=== PATIENT | male | born 1955 | race Caucasian/White ===

== ENCOUNTER 2020-10-08 11:48 | Outpatient (CLI) | payer MEDICARE, OTHER, SELFPAY ==
--- NOTE | 2020-10-08 11:54 | CT_ITS ---
WS: [id number] CT CHEST, ABDOMEN AND PELVIS WITH CONTRAST HISTORY: COLON CANCER TECHNIQUE: Contiguous 5 mm axial imaging performed through the chest, abdomen and pelvis with IV cont rast, oral contrast has not been provided. Coronal and sagittal reformats chest. Coronal and sagittal reformats through the abdomen and pelvis. All CT scans at [facility] use at least one of these dose optimization techniques: automated exposure control; mA and/or kV adjustment per patient size (includes targeted exams where dose is matched to clinical indication); or iterative reconstruct ion. CONTRAST: Omnipaque 300; 95 mL IV. DLP: 1309.25 mGy.cm COMPARISON: None available. Chest CT: No pulmonary mass or nodule. Very mild groundglass attenuation in the LEFT lower lobe and a t the RIGHT lung base. Mild atherosclerosis aorta. Normal size pulmonary artery. Heart size is normal . No adenopathy in the mediastinum or hilar regions. Small hiatal hernia. Chest wall is normal. Abdomen CT: Normal size liver. No bile duct dilatation or mass. Spleen and pancreas are negative. Con tracted gallbladder. No adrenal mass. Normal RIGHT kidney. LEFT kidney measures 3.5 cm. Mild atherosc lerosis aorta. No ascites. Soft tissue encasement of the distal transverse colon/splenic flexure extending over a length of 7.2 cm. Wall thickening measures up to 2.2 cm with moderate narrowing of the lumen. No adjacent satellite lesions or nodules. No retroperitoneal lymph nodes. There is marked gaseous distention of the colon. Appendix is normal. Pelvic CT: There is a small amount of free fluid in the pelvis. No adenopathy. CT/CT chest abd pel w con* IMPRESSION: 1. Circumferential distal transverse colon mass extends over length of 7.2 cm with wall thickening up to 2.2 cm. Moderate narrowing of the lumen. No obstruct ion. Consistent with colonic neoplasm. 2. No adenopathy. 3. Very small amount of ascites in the pelvis. 4. No metastatic disease to the liver, lungs or adrenal glands noted. 5. Chronic emphysema with pneumonitis at the LEFT lung base.
[2020-10-08 12:44] LABS: Basophils % 0.2 %; Eosinophils % 0.2 %; Hematocrit 42.2 % (42.0-52.0); Hemoglobin 13.2 g/dL (11.7-16.6); Lymphocytes # 0.9 10^3/uL (0.8-4.8); Mean Corpuscular HGB Conc 31.3 g/dL (30.0-36.0); Mean Corpuscular Volume 83.2 fL (80-94); Mean Platelet Volume 9.4 fL (7.4-10.4); Monocytes # 0.7 10^3/uL (0.2-0.9); Monocytes % 5.3 %; Neutrophils # 11.21 10^3/uL (1.8-7.7); Neutrophils % 86.8 %; Nucleated Red Blood Cells % 0 %; Platelet Count 364 10^3/cmm (130-400); Red Blood Count 5.07 10^6/uL (4.1-5.3); Red Cell Distribution Width 13.4 % (12.1-15.1); White Blood Count 12.9 10^3/uL (4.0-10.0)
[2020-10-08 13:05] LABS: Carcinoembryonic Antigen 88.7 ng/mL (0.0-4.7)
[2020-10-08 13:16] LABS: Alanine Aminotransferase 9 U/L (0-41); Alkaline Phosphatase 91 IU/L (40-130); Anion Gap 21.5 (5-19); Aspartate Amino Transferase 18 U/L (0-40); Blood Urea Nitrogen 7 mg/dL (8-23); Calcium 8.8 mg/dL (8.5-10.5); Carbon Dioxide 20 mmol/L (22-29); Chloride 95 mmol/L (98-107); Globulin 3.6 g/dL (1.3-4.6); Glomerular Filtration Rate 112.5 mL/min (90-130); Glucose 152 mg/dL (65-115); Osmolality Calculated 277 mOsm/kg (285-295); Potassium 3.5 mmol/L (3.5-5.1); Sodium 133 mmol/L (136-145); Total Bilirubin 0.5 mg/dL (0.15-1.2); Total Protein 7.6 g/dL (6.6-8.7)
[2020-10-08] MEDS: iohexol 300 mg/mL 100 mL Btl IV (14:28)
== END 2020-10-08 11:49 | disposition home or self-care (01) ==
LOC: RAD 11:50
PROVIDERS: Visit Provider Family Medicine
DX: J43.9 Emphysema, unspecified (principal); J18.9 Pneumonia, unspecified organism; R18.8 Other ascites; C18.4 Malignant neoplasm of transverse colon
CPT/HCPCS: 36415; 71260; 74177; 80053; 82378; 85025

== ENCOUNTER 2020-11-26 09:58 | Outpatient (CLI) | payer MEDICARE, OTHER, SELFPAY ==
--- NOTE | 2020-11-26 18:37 | ONC CON_ITS ---
Dr. Topete New Patient Note Patient: Ry Potter Unit #: [id number]: 1955 Dicatated By: Luis Topete M.D.Date of Visit: Nov 26, 2020 Onc MED New Patient/Consult Referring Physician: Dr. Leroy Bennett M.D. Chief Complaint: Colon cancer. 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 He had presented with abdominal pain and weight loss. His colonoscopy on 10/08/2020 showed a partially obstructing malignant appearing mass in the distal ascending colon, estimated at 7 x 5 cm. Also noted was a 3 mm polyp in the mid sigmoid colon and a 10 mm polyp in the rectum. Biopsies of the rectal mass showed moderately differentiated adenocarcinoma. The sigmoid colon polyp was hyperplastic. The rectal biopsy showed tubular adenoma with focal high-grade dysplasia. His staging CT scans of the chest, abdomen, and pelvis showed soft tissue encasement of the distal transverse colon/splenic flexure extending over a length of 7.2 cm. There was associated wall thickening measuring up to 2.2 cm with moderate narrowing of the lumen. There were no adjacent satellite lesions or nodules and there was no associated retroperitoneal or mesenteric adenopathy. There also was no evidence of other metastatic disease. His laboratory studies included CBC showing hemoglobin 13.2 g, white blood cell count 12,900, and platelet count 364,000. Comprehensive metabolic profile showed normal renal function with BUN 7 and creatinine 0.7 mg/dL. Bilirubin and liver enzymes were normal. His baseline CEA level was significantly elevated at 88.7 ng/mL. He was referred to Dr. Bennett. His repeat colonoscopy on 10/28/2020 showed near obstructing transverse colon carcinoma. There was no grossly apparent residual adenomatous tissue at the polypectomy site in the rectum. On 11/09/2020 he underwent extended right hemicolectomy with en bloc excision of abdominal wall, stomach, and omentum. Operative findings included a large tumor in the distal transverse colon which was invading the abdominal wall, body of stomach, and omentum. There was associated perforation of cancer into the omentum, abdominal wall and stomach and there were associated inflammatory changes of the adjacent organs and with marked thickening and erythema of the bowel. There was no evidence of abdominal carcinomatosis or metastatic involvement in the liver. Pathology showed well differentiated invasive adenocarcinoma which was involving the omentum, abdominal wall, and serosa of the stomach. The tumor measured 7.0 x 6.0 cm. The radial (abdominal wall) margin was involved with tumor present 0 to 1 mm from the margin. The proximal and distal margins were uninvolved. The gastric and mesenteric margins were uninvolved. There was involvement in 1 of 34 lymph nodes. Pathologic staging was pT4b, pN1a. His tumor was found to have intact expression of mismatch repair proteins. The procedure also included appendectomy with pathology showing evidence of acute appendicitis. He is seen now for further management of the colon cancer. He has had somewhat of a difficult postoperative recovery, as he has been having postprandial vomiting. His weight has dropped 17 pounds since surgery, and he has had a total weight loss in the range of 45 pounds. He is still feeling pretty weak generally. His ECOG score is 2. He has not had fever. He has had some sweating at night. He reports having sinus drainage all the time. He has some chest congestion cough. He has some shortness of breath, but his breathing actually is better now than it had been. He does not complain of chest pain. He is not really having nausea, but he does report having acid reflux all the time. He says his bowel function is picking up. Bladder function has been okay. He has some joint pain, mainly in the elbows. He does not complain of headache. He has a little bit of dizziness/dysequilibrium. Since the surgery has been having some numbness and weakness in his right arm and hand. Past Medical History: His medical history includes alcohol abuse, benign prostatic hyperplasia, degenerative arthritis, gastroesophageal reflux disease, hypercholesterolemia, and hypertension. Past Surgical History: He underwent colonoscopy on 10/08/2020 and on 10/28/2020. He underwent extended right hemicolectomy with en bloc excision of abdominal wall, stomach, and omentum on 11/09/2020. His only other surgery was a vasectomy. Medications: amLODIPine Besylate 1 (10 mg) Tablet Oral daily, Atorvastatin Calcium 1 (40 mg) Tablet Oral daily, Omeprazole 1 (20 mg) Tablet, enteric coated Oral daily, Tamsulosin HCl 1 (0.4 mg) Capsule Oral daily Allergies: No Known Allergies. Social History: Mr. Potter is . He has a history of smoking up to 2 packs of cigarettes daily. He quit smoking in 1997. He has a history of drinking 8-10 beers per day, but over the past several months he has cut down, currently to 4 beers daily. Family History: Father of lung cancer at age 58. Mother with C. difficile colitis at age 81. A brother also had lung cancer and of stroke at age 63. Another brother is in good health. Review Of Symptoms: Constitutional - He is still feeling weak following the surgery, and his activity is limited. Appetite has not been good and he has been having postprandial vomiting. Weight has dropped 17 pounds since the surgery and he has had a total weight loss of 45 pounds. He has not had fever. He has been having some sweating at night. ECOG score is 2, Eyes - No change in vision, ENMT - He has hearing loss. No tinnitus. He has sinus drainage all the time. No mouth sores. No sore throat or difficulty swallowing, Hematologic/Lymphatic - No abnormal bruising or bleeding, Respiratory - He has some shortness of breath, but overall his breathing is better. He has had some chest congestion and cough. No pleuritic pain or hemoptysis, Cardiovascular - No angina pain. No palpitations, Gastrointestinal - He has been having postprandial vomiting, but he does not really complain of nausea. He is having acid reflux all the time. Bowel function is improving. No blood in the stool or black stools, Genitourinary (M) - No dysuria or hematuria. No urinary frequency. No urgency or incontinence, Musculoskeletal - He has some joint pain, mainly in the elbows, Integumentary - No skin rash or other skin changes, Neurologic - No headache. He sometimes has dizziness. Since his surgery he has had numbness and weakness in his right arm and hand. No other focal neurologic symptoms, Psychiatric - No anxiety or depression. He does have difficulty sleeping. Vital Signs: Performed on Nov 26, 2020 11:11: 8, 0, 21.10, 1.91 sq.m, 72 in, 99 %, 76 /min, 18 /min, 144/78 mm(hg) (HIGH), 98.6 F, and 155.6 lbs (HIGH). Physical Examination: Constitutional - He appears somewhat weak generally, Eyes - Sclerae nonicteric. Conjunctivae clear, ENMT - No lesions noted in the oral cavity, Neck - No mass or thyromegaly, Hematologic/Lymphatic - No cervical, clavicular, or axillary adenopathy, Respiratory - Lungs are clear with good air movement bilaterally, Cardiovascular - Heart rhythm is regular. There is no murmur, gallop, or rub noted, Abdomen - Abdomen is a little firm. The incision appears well-healed. Liver and spleen are not enlarged. There is no abdominal mass or ascites noted and there is no inguinal adenopathy, Back/Spine - No spine or CVA tenderness noted, Extremities - No edema. Pedal pulses are palpable bilaterally, Integumentary - No rashes. No suspicious skin lesions noted, Neurologic - There is loss of the biceps and brachioradialis reflexes in the right arm. Problem List: 1. Well differentiated adenocarcinoma of the transverse colon, stage IIIC (pT4b, pN1a, M0). His tumor was found to have intact expression of mismatch repair proteins. 2. Hypertension. 3. Hyperlipidemia. 4. GERD. 5. Degenerative arthritis. 6. Alcohol abuse. Problems Addressed with this Encounter and Plan: 1. 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 His tumor was found to have intact expression of mismatch repair proteins. On 11/09/2020 he underwent extended right hemicolectomy with en bloc resection of involved portion of abdominal wall, stomach, and omentum. There was associated tumor perforation. There was involvement in 1/3 4 lymph nodes, and pathology also showed involvement at the radial (abdominal wall) margin, estimated at 0.5 mm. His postoperative course has been complicated by postprandial vomiting, but he does now appear to be getting that under control with smaller volume and more frequent feedings. The pathology results were reviewed with the patient and we discussed the clinic complications. He has high risk disease due to his primary tumor being locally advanced and to the involved lymph node and the involved surgical margin. He is recommended to undergo adjuvant chemotherapy with modified FOLFOX, which reduces the recurrence risk by about 30%. I reviewed anticipated side effects with the chemotherapy which may include nausea/vomiting, diarrhea, mouth sores, alopecia, fatigue, low blood counts, and neuropathy, among others. At this point he is undecided about the chemotherapy. He is aware that he will require placement of Port-A-Cath venous access device if he does opt to have treatment. He does need additional time for recovery from the surgery before I would consider starting treatment. As such, I will tentatively plan a follow-up visit in 2 weeks. He will have repeat lab studies with that visit, including a CEA level. 2. He is having significant GERD symptoms. As such, I will change his PPI to pantoprazole 40 mg daily. 3. 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 Signed By: Luis Topete M.D. <<Signature on File>>
== END 2020-11-26 09:59 | disposition home or self-care (01) ==
LOC: ONCMED 10:05
PROVIDERS: PCP Internal Medicine; Visit Provider Internal Medicine Medical Oncology
DX: C18.4 Malignant neoplasm of transverse colon (principal); I10 Essential (primary) hypertension; E78.5 Hyperlipidemia, unspecified; K21.9 Gastro-esophageal reflux disease without esophagitis; M19.90 Unspecified osteoarthritis, unspecified site; F10.10 Alcohol abuse, uncomplicated; Z79.899 Other long term (current) drug therapy
CPT/HCPCS: 99205

== ENCOUNTER 2020-11-30 06:28 | Emergency (ER) | payer MEDICARE, OTHER, SELFPAY ==
[2020-11-30 06:34] VITALS: BP 104/72; PULSE 106; RESP 17; TEMP 36.8; O2SAT 99; BMI 20.9
--- NOTE | 2020-11-30 07:03 | ECG_ITS ---
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 Measurements Intervals Rawlings Rate: 80 P: 73 LA: 166 QRS: 61 QRSD: 94 T: 74 QT: 397 QTc: 459 Interpretive Statements SINUS RHYTHM INCOMPLETE RIGHT BUNDLE BRANCH BLOCK [90+ ms QRS DURATION, TERMINAL R IN V1/V2, 40+ ms S IN I/aVL/V4/V5/V6] Compared to ECG 08/10/2017 13:11:23 Incomplete right bundle-branch block now present T-wave abnormality no longer present Electronically Signed On 11-30-2020 18:58:50 CDT by Owen Cates M.D. [id number]
--- NOTE | 2020-11-30 07:03 | CT_ITS ---
WS: [id number] CT ABDOMEN AND PELVIS WITH CONTRAST HISTORY: Abdominal pain, post colonic surgery. TECHNIQUE: Imaging performed of the abdomen and pelvis with IV contrast. Single phase imaging of the abdomen. Coronal and sagittal reformats are submitted. All CT scans at [facility] use at least one of these dose optimization techniques: automated exposure control; mA and/or kV adjustment per patient size (includes targeted exams where dose is matched to clinical indication); or iterativ e reconstruction. IV CONTRAST: Omnipaque 300; 95 mL IV. Oral contrast: No DLP: 995.67 mGy.cm COMPARISON: 10/08/2020 Lower thorax: Emphysema at the lung bases. No nodule. Normal size heart. Small amount of pleural thic kening or fluid anteriorly. Small hiatal hernia. Liver/biliary system: Normal size with no intrahepatic dilatation. Gallbladder: Normal. No gallstones or wall thickening. No pericholecystic fluid. Pancreas: Moderate diffuse atrophy of the pancreas. Spleen: Normal size spleen. No mass or infarct. Adrenal glands: Normal. Right kidney: Normal. Left kidney: Simple cyst 3.7 cm upper pole. No obstruction. Too small to characterize hypodensity in the inferior pole measures 4 mm. Aorta: Mild atherosclerosis with no aneurysm. Lymphadenopathy: None. Free fluid: None. GI tract: Marked distention of the stomach with fluid and air. There is a row of surgical sutures maverick t appears contiguous along the antrum of the stomach. There are numerous surgical sutures in the mese ntery of the upper abdomen. No free air is identified. RIGHT hemicolectomy. Previously described mass in the transverse colon is no longer identified. No obstruction. Recent postsurgical changes are not ed along the anterior abdominal wall. Abdominal wall: Recent postsurgical changes along the anterior abdominal wall. Pelvis: No free fluid or adenopathy within the pelvis. Bones: Unremarkable. CT/CT abdomen pelvis w con* [id number] IMPRESSION: 1. Since the prior examination patient's undergone a RIGHT hemicolectomy. Exte nsive surgical sutures and postsurgical changes are noted within the abdomen. P ostsurgical changes involve the colon and stomach. 2. Marked dilatation of the stomach with food and air and postsurgical sutures are noted along the anterior aspect of the stomach. 3. No abscess or free fluid. No adenopathy. Notified Marcio Matias DO at 11/30/2020 9:27 AM.
--- NOTE | 2020-11-30 07:08 | PC.NURSE ---
Assumed care from casino shift manager at this time.
[2020-11-30 07:12] VITALS: BP 116/84; PULSE 90; RESP 14; O2SAT 97
--- NOTE | 2020-11-30 07:16 | ED_ITS ---
Documented by User: TONNY Brian 11/30/20 07:41 HPI - Dizziness General: Chief Complaint: Dizziness Stated Complaint: PASSING OUT POST SURGERY Time Seen by Provider: 11/30/20 07:03 Source: patient and family Mode of arrival: wheelchair Limitations: no limitations History of Present Illness: HPI Narrative: Patient is a nice 65-year-old male who presents to ED today with a complaint of nausea and vomiting and inability to eat. Patient was recently diagnosed with colon cancer and underwent colon and gastric resection at [facility] in [place]. States he was discharged home on approximately 11/19. He has since followed up with Dr. Topete. He is complaining of progressive weakness and dizziness. Family member in the room states he is not able to eat anything and vomits frequently. Associated symptoms: Reports nausea and vomiting; Denies chest pain, chills, headache(s) or malaise Associated neuro symptoms: Deny confusion Review of Systems Const: Denies: fever(s), chills, body aches, fatigue or malaise Card: Denies: chest pain Resp: Denies: dyspnea GI: Reports: nausea, vomiting and heartburn; Denies: hematemesis or diarrhea Skin/Breast: Denies: rash Neuro: Reports: dizziness and other (generalized weakness); Denies: headache(s) or confusion Physical Exam Const: COMMON NORMALS: patient oriented x3, no limitations and alert GENERAL APPEARANCE: cooperative and ill appearing NUTRITIONAL APPEARANCE: thin ORIENTATION/CONSCIOUSNESS: Yes awake, Yes oriented to person, Yes oriented to place and Yes oriented to time HENMT: COMMON NORMALS: normocephalic and atraumatic HEAD & SCALP: normocephalic and atraumatic Resp: COMMON NORMALS: normal respiratory effort Cardio: COMMON NORMALS: regular rate and regular rhythm RATE: regular rate RHYTHM: regular rhythm GI: COMMON NORMALS: Soft to palpation INSPECTION: Yes other (surgical incision is well healing) AUSCULTATION: Yes normoactive bowel sounds PALPATION: Yes Soft to palpation Extremity: COMMON NORMALS: normal to inspection Neuro: COMMON NORMALS: patient oriented x3 SENSORIUM/ORIENTATION: Yes alert, Yes oriented to person, Yes oriented to place and Yes oriented to time Skin: COMMON NORMALS: no rashes or lesions noted GENERAL SKIN EXAM: no rashes or lesions noted Course ED course: Care briefly started for Dr. Matias. He will assume care. Vital Signs: Vital signs: Vital Signs Temperature 98.3 F 11/30/20 06:34 Pulse Rate 81 11/30/20 10:00 Respiratory Rate 14 11/30/20 10:00 Blood Pressure 107/81 11/30/20 10:00 Pulse Oximetry 98 11/30/20 10:00 MDM - Dizziness Lab Data: Labs: Lab Results 11/30/20 11/30/20 11/30/20 Range/Units 07:20 07:20 08:05 WBC 9.5 (4.0-10.0) 10^3/ uL RBC 5.10 (4.1-5.3) 10^6/u L Hgb 12.9 (11.7-16.6) g/dL Hct 39.4 L (42.0-52.0) % MCV 77.3 L (80-94) fL MCH 25.3 L (28.0-34.0) pg MCHC 32.7 (30.0-36.0) g/dL RDW 14.2 (12.1-15.1) % Plt Count 365 (130-400) 10^3/c mm MPV 10.0 (7.4-10.4) fL Neut % (Auto) 76.6 % Lymph % (Auto) 14.0 % Bryan % (Auto) 8.1 % Eos % (Auto) 0.6 % Baso % (Auto) 0.5 % Neut # (Auto) 7.28 (1.8-7.7) 10^3/u L Lymph # (Auto) 1.3 (0.8-4.8) 10^3/u L Bryan # (Auto) 0.8 (0.2-0.9) 10^3/u L Eos # (Auto) 0.1 (0.0-0.8) 10^3/u L Baso # (Auto) 0.1 (0.0-0.1) 10^3/u L Nucleated RBC % (a uto) 0 % Nucleated RBCs # 0.0 /100WBC Sodium 140 (136-145) mmol/L Potassium 2.6 L* (3.5-5.1) mmol/L Chloride 89 L (98-107) mmol/L Carbon Dioxide 34 H (22-29) mmol/L Anion Gap 19.6 H (5-19) BUN 8 (8-23) mg/dL Creatinine 0.9 (0.7-1.2) mg/dL GFR Calculation 84.2 L (90-130) mL/min Glucose 127 H (65-115) mg/dL Calculated Osmolal ity 290 (285-295) mOsm/k g Lactic Acid 1.6 (0.5-2.2) mmol/L Calcium 9.3 (8.5-10.5) mg/dL Total Bilirubin 0.8 (0.15-1.2) mg/dL AST 18 (0-40) U/L ALT 12 (0-41) U/L Alkaline Phosphata se 91 (40-130) IU/L Total Protein 7.4 (6.6-8.7) g/dL Albumin 4.0 (3.5-5.2) g/dL Globulin 3.4 (1.3-4.6) g/dL Urine Color (Yellow) Urine Appearance (CLEAR) Urine pH (5-7) Ur Specific Gravit y (1.005-1.030) Urine Protein (Negative) Urine Glucose (UA) (Normal) Urine Ketones (Negative) Urine Blood (Negative) Urine Nitrate (Negative) Urine Bilirubin (Negative) Prot Sulfosalicyli c Acd (Negative) Urine Urobilinogen (Negative) mg/dL Ur Leukocyte Nikole ase (Negative) 11/30/20 Range/Units 08:57 WBC (4.0-10.0) 10^3/ uL RBC (4.1-5.3) 10^6/u L Hgb (11.7-16.6) g/dL Hct (42.0-52.0) % MCV (80-94) fL MCH (28.0-34.0) pg MCHC (30.0-36.0) g/dL RDW (12.1-15.1) % Plt Count (130-400) 10^3/c mm MPV (7.4-10.4) fL Neut % (Auto) % Lymph % (Auto) % Bryan % (Auto) % Eos % (Auto) % Baso % (Auto) % Neut # (Auto) (1.8-7.7) 10^3/u L Lymph # (Auto) (0.8-4.8) 10^3/u L Bryan # (Auto) (0.2-0.9) 10^3/u L Eos # (Auto) (0.0-0.8) 10^3/u L Baso # (Auto) (0.0-0.1) 10^3/u L Nucleated RBC % (a uto) % Nucleated RBCs # /100WBC Sodium (136-145) mmol/L Potassium (3.5-5.1) mmol/L Chloride (98-107) mmol/L Carbon Dioxide (22-29) mmol/L Anion Gap (5-19) BUN (8-23) mg/dL Creatinine (0.7-1.2) mg/dL GFR Calculation (90-130) mL/min Glucose (65-115) mg/dL Calculated Osmolal ity (285-295) mOsm/k g Lactic Acid (0.5-2.2) mmol/L Calcium (8.5-10.5) mg/dL Total Bilirubin (0.15-1.2) mg/dL AST (0-40) U/L ALT (0-41) U/L Alkaline Phosphata se (40-130) IU/L Total Protein (6.6-8.7) g/dL Albumin (3.5-5.2) g/dL Globulin (1.3-4.6) g/dL Urine Color Yellow (Yellow) Urine Appearance Clear (CLEAR) Urine pH 8.5 H (5-7) Ur Specific Gravit y 1.010 (1.005-1.030) Urine Protein Neg (Negative) Urine Glucose (UA) Norm (Normal) Urine Ketones 1+ H (Negative) Urine Blood Neg (Negative) Urine Nitrate Negative (Negative) Urine Bilirubin Neg (Negative) Prot Sulfosalicyli c Acd Negative (Negative) Urine Urobilinogen Norm (Negative) mg/dL Ur Leukocyte Nikole ase Negative (Negative) Discharge Plan Discharge Patient Disposition: Home Clinical Impression: Colon cancer, Status post left hemicolectomy, Hypokalemia, Gastroparesis Condition: Stable Prescriptions: New Reglan 10 mg tablet 10 mg PO Q6H PRN (Reason: nausea and vomiting) Qty: 14 RF: 0 Discharge Orders: Discharge ED (Routine); Ordered 11/30/20 Ordered By: Marcio Matias Referrals: Luis Morales DO [Primary Care Provider] - Discharge Diet: Clear Liquid Discharge Activity: Increase activity as tolerated Patient Instructions: Opioid Safety Activity Restrictions/Additional Instructions: Follow-up with your doctor within the week. Take oral potassium supplementation your previously prescribed. Coding Level of Care Code ED Outpatient Phlebotomist for Chg Fwd Exam Detailed Documented by User: Marcio Matias DO 11/30/20 11:34 HPI - Dizziness General: Chief Complaint: Dizziness Stated Complaint: PASSING OUT POST SURGERY Time Seen by Provider: 11/30/20 07:03 History of Present Illness: HPI Narrative: 65-year-old male with a history of colon cancer. He presents today with complaints of nausea and vomiting. Is worse when he lays down. He was recently diagnosed with colon cancer relatives with metastasis to the stomach. He was at [place] underwent a colon resection with some kind of excision of what ever had metastasized to the stomach as well we do not have records on the surgery itself. He usually sees Dr. Topete. He denies any hematemesis or coffee-ground emesis. He has not really returned to a normal diet since his surgery he is not been able to eat much. His last bowel movement was yesterday and was relatively normal for what he is experienced since the surgery. He denies dysuria urgency or frequency. He has lost approximately 20 pounds since the surgery. He is not having a significant amount of abdominal pain just mild discomfort at this point. MD elicited complaint: dizziness, lightheadedness and other (Nausea vomiting) Onset (ago): day(s) Timing: gradual onset Severity: moderate Description: lightheadedness, difficulty walking and near-syncope Context: change in body position and other (Recent colon resection) Exacerbating factors: movement/ambulation and standing Relieving factors: nothing Physical Exam 2 Const: COMMON NORMALS: no acute distress GENERAL APPEARANCE: cooperative and comfortable ORIENTATION/CONSCIOUSNESS: Yes awake, Yes oriented to person, Yes oriented to place and Yes oriented to time HENMT: COMMON NORMALS: normocephalic, atraumatic and hearing grossly normal bilaterally HEAD & SCALP: normocephalic and atraumatic Neck/C-Spine: COMMON NORMALS: no JVD Resp: COMMON NORMALS: normal respiratory effort, No retractions, No use of accessory muscles and clear to auscultation bilaterally AUSCULTATION: clear to auscultation bilaterally Cardio: COMMON NORMALS: no JVD, regular rate, regular rhythm and No murmurs present (Cardio) RATE: regular rate RHYTHM: regular rhythm GI: COMMON NORMALS: Soft to palpation and No hepatosplenomegaly present AUSCULTATION: Yes normoactive bowel sounds PALPATION: Yes Soft to palpation, Yes Tenderness to palpation present (GI) (Mild diffuse tenderness), No Guarding due to palpation present (GI) and Yes No hepatosplenomegaly present OTHER: Midline abdominal incision well-healed no signs of dehiscence infection or abscess. Extremity: COMMON NORMALS: normal to inspection, capillary refill normal, no clubbing, cyanosis or edema, no calf tenderness and no pedal edema Neuro: SENSORIUM/ORIENTATION: Yes oriented to person, Yes oriented to place and Yes oriented to time Skin: COMMON NORMALS: no rashes or lesions noted GENERAL SKIN EXAM: no rashes or lesions noted Course Vital Signs: Vital signs: Vital Signs Temperature 98.3 F 11/30/20 06:34 Pulse Rate 81 11/30/20 10:00 Respiratory Rate 14 11/30/20 10:00 Blood Pressure 107/81 11/30/20 10:00 Pulse Oximetry 98 11/30/20 10:00 MDM - Dizziness MDM Narrative: Medical decision making narrative: Patient hypokalemic which was treated in the ER. He is feeling better after fluids organ to go ahead and discharge him home. His CT showed a lot of fluid in his stomach significant for gastroparesis likely secondary to his surgery to switch him to Reglan to use as needed continue potassium supplement clear liquid diet for 24 to 40 hours return if has further problems other labs reviewed as well. Lab Data: Attestation: I reviewed the patient's lab results. Labs: Lab Results 11/30/20 11/30/20 11/30/20 Range/Units 07:20 07:20 08:05 WBC 9.5 (4.0-10.0) 10^3/ uL RBC 5.10 (4.1-5.3) 10^6/u L Hgb 12.9 (11.7-16.6) g/dL Hct 39.4 L (42.0-52.0) % MCV 77.3 L (80-94) fL MCH 25.3 L (28.0-34.0) pg MCHC 32.7 (30.0-36.0) g/dL RDW 14.2 (12.1-15.1) % Plt Count 365 (130-400) 10^3/c mm MPV 10.0 (7.4-10.4) fL Neut % (Auto) 76.6 % Lymph % (Auto) 14.0 % Bryan % (Auto) 8.1 % Eos % (Auto) 0.6 % Baso % (Auto) 0.5 % Neut # (Auto) 7.28 (1.8-7.7) 10^3/u L Lymph # (Auto) 1.3 (0.8-4.8) 10^3/u L Bryan # (Auto) 0.8 (0.2-0.9) 10^3/u L Eos # (Auto) 0.1 (0.0-0.8) 10^3/u L Baso # (Auto) 0.1 (0.0-0.1) 10^3/u L Nucleated RBC % (a uto) 0 % Nucleated RBCs # 0.0 /100WBC Sodium 140 (136-145) mmol/L Potassium 2.6 L* (3.5-5.1) mmol/L Chloride 89 L (98-107) mmol/L Carbon Dioxide 34 H (22-29) mmol/L Anion Gap 19.6 H (5-19) BUN 8 (8-23) mg/dL Creatinine 0.9 (0.7-1.2) mg/dL GFR Calculation 84.2 L (90-130) mL/min Glucose 127 H (65-115) mg/dL Calculated Osmolal ity 290 (285-295) mOsm/k g Lactic Acid 1.6 (0.5-2.2) mmol/L Calcium 9.3 (8.5-10.5) mg/dL Total Bilirubin 0.8 (0.15-1.2) mg/dL AST 18 (0-40) U/L ALT 12 (0-41) U/L Alkaline Phosphata se 91 (40-130) IU/L Total Protein 7.4 (6.6-8.7) g/dL Albumin 4.0 (3.5-5.2) g/dL Globulin 3.4 (1.3-4.6) g/dL Urine Color (Yellow) Urine Appearance (CLEAR) Urine pH (5-7) Ur Specific Gravit y (1.005-1.030) Urine Protein (Negative) Urine Glucose (UA) (Normal) Urine Ketones (Negative) Urine Blood (Negative) Urine Nitrate (Negative) Urine Bilirubin (Negative) Prot Sulfosalicyli c Acd (Negative) Urine Urobilinogen (Negative) mg/dL Ur Leukocyte Nikole ase (Negative) 11/30/20 Range/Units 08:57 WBC (4.0-10.0) 10^3/ uL RBC (4.1-5.3) 10^6/u L Hgb (11.7-16.6) g/dL Hct (42.0-52.0) % MCV (80-94) fL MCH (28.0-34.0) pg MCHC (30.0-36.0) g/dL RDW (12.1-15.1) % Plt Count (130-400) 10^3/c mm MPV (7.4-10.4) fL Neut % (Auto) % Lymph % (Auto) % Bryan % (Auto) % Eos % (Auto) % Baso % (Auto) % Neut # (Auto) (1.8-7.7) 10^3/u L Lymph # (Auto) (0.8-4.8) 10^3/u L Bryan # (Auto) (0.2-0.9) 10^3/u L Eos # (Auto) (0.0-0.8) 10^3/u L Baso # (Auto) (0.0-0.1) 10^3/u L Nucleated RBC % (a uto) % Nucleated RBCs # /100WBC Sodium (136-145) mmol/L Potassium (3.5-5.1) mmol/L Chloride (98-107) mmol/L Carbon Dioxide (22-29) mmol/L Anion Gap (5-19) BUN (8-23) mg/dL Creatinine (0.7-1.2) mg/dL GFR Calculation (90-130) mL/min Glucose (65-115) mg/dL Calculated Osmolal ity (285-295) mOsm/k g Lactic Acid (0.5-2.2) mmol/L Calcium (8.5-10.5) mg/dL Total Bilirubin (0.15-1.2) mg/dL AST (0-40) U/L ALT (0-41) U/L Alkaline Phosphata se (40-130) IU/L Total Protein (6.6-8.7) g/dL Albumin (3.5-5.2) g/dL Globulin (1.3-4.6) g/dL Urine Color Yellow (Yellow) Urine Appearance Clear (CLEAR) Urine pH 8.5 H (5-7) Ur Specific Gravit y 1.010 (1.005-1.030) Urine Protein Neg (Negative) Urine Glucose (UA) Norm (Normal) Urine Ketones 1+ H (Negative) Urine Blood Neg (Negative) Urine Nitrate Negative (Negative) Urine Bilirubin Neg (Negative) Prot Sulfosalicyli c Acd Negative (Negative) Urine Urobilinogen Norm (Negative) mg/dL Ur Leukocyte Nikole ase Negative (Negative) Discharge Plan Discharge Patient Disposition: Home Clinical Impression: Colon cancer, Status post left hemicolectomy, Hypokalemia, Gastroparesis Condition: Stable Prescriptions: New Reglan 10 mg tablet 10 mg PO Q6H PRN (Reason: nausea and vomiting) Qty: 14 RF: 0 Discharge Orders: Discharge ED (Routine); Ordered 11/30/20 Ordered By: Marcio Matias Referrals: Luis Morales DO [Primary Care Provider] - Discharge Diet: Clear Liquid Discharge Activity: Increase activity as tolerated Patient Instructions: Opioid Safety Activity Restrictions/Additional Instructions: Follow-up with your doctor within the week. Take oral potassium supplementation your previously prescribed. Coding Level of Care Code ED Outpatient Phlebotomist for [place] Fwd Exam Detailed
[2020-11-30] MEDS: sodium chloride 0.9% 1,000 ML 999 ML IV ×2 (07:26→10:37)
[2020-11-30] MEDS: ondansetron 2 mg/ML SDV 2 mL 4 MG IVP (07:26)
[2020-11-30 07:48] LABS: Basophils # 0.1 10^3/uL (0.0-0.1); Basophils % 0.5 %; Eosinophils # 0.1 10^3/uL (0.0-0.8); Eosinophils % 0.6 %; Hematocrit 39.4 % (42.0-52.0); Hemoglobin 12.9 g/dL (11.7-16.6); Lymphocytes # 1.3 10^3/uL (0.8-4.8); Mean Corpuscular HGB Conc 32.7 g/dL (30.0-36.0); Mean Corpuscular Hemoglobin 25.3 pg (28.0-34.0); Mean Corpuscular Volume 77.3 fL (80-94); Monocytes # 0.8 10^3/uL (0.2-0.9); Monocytes % 8.1 %; Neutrophils # 7.28 10^3/uL (1.8-7.7); Neutrophils % 76.6 %; Nucleated Red Blood Cells % 0 %; Platelet Count 365 10^3/cmm (130-400); Red Cell Distribution Width 14.2 % (12.1-15.1); White Blood Count 9.5 10^3/uL (4.0-10.0)
[2020-11-30 08:00] VITALS: BP 126/87; RESP 14
[2020-11-30 08:14] LABS: Alanine Aminotransferase 12 U/L (0-41); Alkaline Phosphatase 91 IU/L (40-130); Anion Gap 19.6 (5-19); Aspartate Amino Transferase 18 U/L (0-40); Blood Urea Nitrogen 8 mg/dL (8-23); Calcium 9.3 mg/dL (8.5-10.5); Carbon Dioxide 34 mmol/L (22-29); Chloride 89 mmol/L (98-107); Globulin 3.4 g/dL (1.3-4.6); Glomerular Filtration Rate 84.2 mL/min (90-130); Glucose 127 mg/dL (65-115); Osmolality Calculated 290 mOsm/kg (285-295); Sodium 140 mmol/L (136-145); Total Bilirubin 0.8 mg/dL (0.15-1.2); Total Protein 7.4 g/dL (6.6-8.7)
[2020-11-30 08:17] LABS: Potassium 2.6 mmol/L (3.5-5.1)
--- NOTE | 2020-11-30 08:23 | PC.NURSE ---
critical potassium level of 2.6; Dr. Matias notified; new orders rcvd.
[2020-11-30 08:39] LABS: Lactic Sepsis W/Reflex 1.6 mmol/L (0.5-2.2)
[2020-11-30] MEDS: lidocaine 1% INJ 20 mL 5 ML IV (08:45)
[2020-11-30] MEDS: potassium chloride premix 100 ML 25 MEQ IV (08:45)
[2020-11-30 08:58] VITALS: PULSE 83; RESP 14; O2SAT 95
[2020-11-30 09:02] LABS: Add Urine Microscopic? NO; Charge for UA Resulting for Rev
[2020-11-30] MEDS: iohexol 300 mg/mL 100 mL Btl IV (09:14)
[2020-11-30 09:30] LABS: Bilirubin Urine Neg (Negative); Blood Urine Neg (Negative); Glucose Urine UA Norm (Normal); Ketones Urine 1+ (Negative); Leukocyte Esterase Urine Negative (Negative); Nitrate Urine Negative (Negative); Protein Urine Neg (Negative); Sulfosalicylic Acid Urine Negative (Negative); Urine Appearance Clear (CLEAR); Urine Color Yellow (Yellow); Urobilinogen Urine Norm (Negative); pH Urine 8.5 (5-7)
[2020-11-30] MEDS: metoclopramide 5 mg/mL SDV 2 mL 10 MG IVP (09:59)
[2020-11-30 10:00] VITALS: BP 107/81; PULSE 81; RESP 14; O2SAT 98
[2020-11-30] MEDS: potassium chloride oral liq 20 mEq/15 mL UDC 60 MEQ PO (10:19)
[2020-11-30 12:28] VITALS: BP 122/88; PULSE 88; RESP 17; TEMP 37.2; O2SAT 97
== END 2020-11-30 12:28 | disposition home or self-care (01) ==
PROVIDERS: Physician Assistant; Emergency Provider Family Medicine; PCP Internal Medicine
DX: K31.84 Gastroparesis (principal); E87.6 Hypokalemia; C18.9 Malignant neoplasm of colon, unspecified; Z90.49 Acquired absence of other specified parts of digestive tract
CPT/HCPCS: 74177; 80053; 81003; 83605; 85025; 93005; 96365; 96366; 96375; 99284; J2405; J2765; J3480; J7030; Q9967

== ENCOUNTER 2020-12-14 07:49 | Outpatient (CLI) | payer MEDICARE, OTHER, SELFPAY ==
[2020-12-14 08:48] LABS: Basophils % 0.6 %; Eosinophils # 0.2 10^3/uL (0.0-0.8); Eosinophils % 2.3 %; Hemoglobin 11.3 g/dL (11.7-16.6); Lymphocytes # 2.2 10^3/uL (0.8-4.8); Lymphocytes % 34.8 %; Mean Corpuscular HGB Conc 31.4 g/dL (30.0-36.0); Mean Corpuscular Hemoglobin 25.5 pg (28.0-34.0); Mean Corpuscular Volume 81.3 fL (80-94); Monocytes # 0.6 10^3/uL (0.2-0.9); Monocytes % 9.3 %; Neutrophils # 3.39 10^3/uL (1.8-7.7); Neutrophils % 52.8 %; Nucleated Red Blood Cells % 0 %; Platelet Count 274 10^3/cmm (130-400); Red Blood Count 4.43 10^6/uL (4.1-5.3); Red Cell Distribution Width 15.4 % (12.1-15.1); White Blood Count 6.4 10^3/uL (4.0-10.0)
[2020-12-14 09:26] LABS: Carcinoembryonic Antigen 3.8 ng/mL (0.0-4.7)
[2020-12-14 09:37] LABS: Alanine Aminotransferase 16 U/L (0-41); Albumin Level 3.6 g/dL (3.5-5.2); Alkaline Phosphatase 82 IU/L (40-130); Anion Gap 12.4 (5-19); Aspartate Amino Transferase 19 U/L (0-40); Blood Urea Nitrogen 5 mg/dL (8-23); Calcium 8.7 mg/dL (8.5-10.5); Carbon Dioxide 27 mmol/L (22-29); Chloride 101 mmol/L (98-107); Glomerular Filtration Rate 96.4 mL/min (90-130); Glucose 107 mg/dL (65-115); Osmolality Calculated 282 mOsm/kg (285-295); Potassium 3.4 mmol/L (3.5-5.1); Sodium 137 mmol/L (136-145); Total Bilirubin 0.2 mg/dL (0.15-1.2); Total Protein 6.6 g/dL (6.6-8.7)
[2020-12-14 10:08] LABS: Iron 30 ug/dL (59-158); Percent Saturation 13.2 % (20-50); Total Iron Binding Capacity 226 mcg/dl; Unsaturated Iron Binding 196 ug/dL (112-347)
--- NOTE | 2020-12-18 11:26 | ONC FU_ITS ---
Dr. Topete Patient Follow-Up Note Patient: Ry Potter Unit #: [id number]: [id number] Dicatated By: Luis Topete M.D.Date of Visit:Dec 14, 2020 Onc Med Follow-up/Prog Note Chief Complaint: Colon cancer. 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 He had presented with abdominal pain and weight loss. His colonoscopy on 10/08/2020 showed a partially obstructing malignant appearing mass in the distal ascending colon, estimated at 7 x 5 cm. Also noted was a 3 mm polyp in the mid sigmoid colon and a 10 mm polyp in the rectum. Biopsies of the rectal mass showed moderately differentiated adenocarcinoma. The sigmoid colon polyp was hyperplastic. The rectal biopsy showed tubular adenoma with focal high-grade dysplasia. His staging CT scans of the chest, abdomen, and pelvis showed soft tissue encasement of the distal transverse colon/splenic flexure extending over a length of 7.2 cm. There was associated wall thickening measuring up to 2.2 cm with moderate narrowing of the lumen. There were no adjacent satellite lesions or nodules and there was no associated retroperitoneal or mesenteric adenopathy. There also was no evidence of other metastatic disease. His laboratory studies included CBC showing hemoglobin 13.2 g, white blood cell count 12,900, and platelet count 364,000. Comprehensive metabolic profile showed normal renal function with BUN 7 and creatinine 0.7 mg/dL. Bilirubin and liver enzymes were normal. His baseline CEA level was significantly elevated at 88.7 ng/mL. He was referred to Dr. Bennett. His repeat colonoscopy on 10/28/2020 showed near obstructing transverse colon carcinoma. There was no grossly apparent residual adenomatous tissue at the polypectomy site in the rectum. On 11/09/2020 he underwent extended right hemicolectomy with en bloc excision of abdominal wall, stomach, and omentum. Operative findings included a large tumor in the distal transverse colon which was invading the abdominal wall, body of stomach, and omentum. There was associated perforation of cancer into the omentum, abdominal wall and stomach and there were associated inflammatory changes of the adjacent organs and with marked thickening and erythema of the bowel. There was no evidence of abdominal carcinomatosis or metastatic involvement in the liver. Pathology showed well differentiated invasive adenocarcinoma which was involving the omentum, abdominal wall, and serosa of the stomach. The tumor measured 7.0 x 6.0 cm. The radial (abdominal wall) margin was involved with tumor present 0 to 1 mm from the margin. The proximal and distal margins were uninvolved. The gastric and mesenteric margins were uninvolved. There was involvement in 1 of 34 lymph nodes. Pathologic staging was pT4b, pN1a. His tumor was found to have intact expression of mismatch repair proteins. The procedure also included appendectomy with pathology showing evidence of acute appendicitis. I had seen him initially on 11/26/2020. He was still having difficulty recovering from the surgery. In particular, he was having significant issues with postprandial vomiting. He was recommended undergo adjuvant chemotherapy, but at that point he needed additional time for recovery. On 12/01/2019 when he was seen in the emergency room with complaints of dizziness and passing out. He was found to be hypokalemic, potassium 2.6 mmol/L. His CT abdomen/pelvis showed marked dilatation of the stomach with fluid and air. There was no evidence of bowel obstruction. He is seen for a follow-up visit. He has been feeling somewhat better since his ER visit, though he still is having to eat frequent small meals and even with that he still occasionally has postprandial vomiting. His energy is a little better, but still not great. His ECOG score is 2. He does not have fever or night sweats. He has occasional shortness of breath. He does not complain of cough and is not been having chest pain. He otherwise does not have nausea. He does have some heartburn. His bowel function is pretty good. He has no complaints. He does have some joint pain, mainly in his knees. He still has a little bit of dizziness. He also reports having some numbness/tingling. Medications: amLODIPine Besylate 1 (10 mg) Tablet Oral daily, Atorvastatin Calcium 1 (40 mg) Tablet Oral daily, Metoclopramide HCl (10 mg) Tablet Oral at bedtime, Pantoprazole Sodium 1 (40 mg) Tablet, enteric coated Oral daily, Tamsulosin HCl 1 (0.4 mg) Capsule Oral daily Allergies: No Known Allergies. Vital Signs: Performed on Dec 14, 2020 09:57 Height - 72.00 in Weight - 157 lbs (HIGH) BSA - 1.92 sq.m BMI - 21.29 Temperature - 97.8 F (LOW) Pulse - 97 /min Respiration - 18 /min BP - 125/82 mm(hg) O2 Sat - 98 % Pain - 0 Fatigue - 5 Physical Examination: Constitutional - He looks a little better generally, Eyes - Sclerae nonicteric. Conjunctivae clear, ENMT - No lesions noted in the oral cavity, Hematologic/Lymphatic - No cervical, clavicular, or axillary adenopathy, Respiratory - Lungs are clear with good air movement bilaterally, Cardiovascular - Heart rhythm is regular. There is no murmur, gallop, or rub noted, Abdomen - Abdomen is soft. Liver and spleen are not enlarged. There is no abdominal mass or ascites noted and there is no inguinal adenopathy, Extremities - No edema, Neurologic - No focal neurologic deficits noted. Lab/Imaging: Test performed on Dec 14, 2020 08:08 Iron 30 mcg/dL Sodium 137 mmol/L Iron Binding Capacity (TIBC) 226 mcg/dl Potassium 3.4 mmol/L % Iron Saturation 13.2 % Chloride 101 mmol/L CO2 27 mmol/L UIBC 196 mcg/dL Anion Gap 12.4 BUN 5 mg/dL Creatinine 0.8 mg/dL Cr Clearance (Est) 90.26 mL/min eGFR 96.4 mL/min Glucose 107 mg/dL Osmolality - Calculated 282 mOsm/kg Calcium 8.7 mg/dL Protein, Total 6.6 g/dL Albumin 3.6 g/dL Globulin 3.0 g/dL Bilirubin, Total 0.2 mg/dL ALT (SGPT) 16 U/L AST (SGOT) 19 U/L Alkaline Phosphatase 82 IU/L WBC 6.4 10 3/uL RBC 4.43 10 6/uL HGB 11.3 g/dL HCT 36.0 % MCV 81.3 fL MCH 25.5 pg MCHC 31.4 g/dL RDW 15.4 % Platelet Count 274 10 3/cmm MPV 10.0 fL Neutrophils 3.39 10 3/uL Lymphocytes 2.2 10 3/uL Monocytes 0.6 10 3/uL Eosinophils 0.2 10 3/uL Basophils 0.0 10 3/uL Neutrophil % 52.8 % Lymphocyte % 34.8 % Monocyte % 9.3 % Eosinophil % 2.3 % Basophils % 0.6 % NRBC % 0 % CEA 3.8 ng/mL Problem List: 1. Well differentiated adenocarcinoma of the transverse colon, stage IIIC (pT4b, pN1a, M0). His tumor was found to have intact expression of mismatch repair proteins. 2. Hypertension. 3. Hyperlipidemia. 4. GERD. 5. Degenerative arthritis. 6. Alcohol abuse. Problems Addressed with this Encounter and Plan: 1. 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 His tumor was found to have intact expression of mismatch repair proteins. On 11/09/2020 he underwent extended right hemicolectomy with en bloc resection of involved portion of abdominal wall, stomach, and omentum. There was associated tumor perforation. There was involvement in 1/3 4 lymph nodes, and pathology also showed involvement at the radial (abdominal wall) margin, estimated at 0.5 mm. With those findings, he was advised that he was at increased risk for recurrence, and he was recommended to have adjuvant chemotherapy with modified FOLFOX. However, his postoperative course has been complicated by postprandial vomiting. At his ER visit on 11/30/[address] abdomen/pelvis showed gastric distention with air and fluid, and he was found to be significantly hypokalemic. He has since then been feeling a little better, though he is still having to eat small meals on a more frequent schedule. He is considering the adjuvant chemotherapy, but he still needs additional time to recover from surgery. As such, he will be scheduled for a follow-up visit in 2 weeks. In the meantime, he will be given a prescription for Reglan to take 10 mg up to 4 times daily AC. 2. He has GERD. He has had some improvement with his PPI changed to pantoprazole 40 mg daily. Signed By: Luis Topete M.D. <<Signature on File>>
== END 2020-12-14 07:50 | disposition home or self-care (01) ==
LOC: ONCMED 07:51
PROVIDERS: PCP Internal Medicine; Visit Provider Internal Medicine Medical Oncology
DX: C18.4 Malignant neoplasm of transverse colon (principal); I10 Essential (primary) hypertension; E78.5 Hyperlipidemia, unspecified; K21.9 Gastro-esophageal reflux disease without esophagitis; M19.90 Unspecified osteoarthritis, unspecified site; F10.10 Alcohol abuse, uncomplicated; Z79.899 Other long term (current) drug therapy
CPT/HCPCS: 36415; 80053; 82378; 83540; 83550; 85025; 99214

== ENCOUNTER 2020-12-23 09:10 | Outpatient (CLI) | payer MEDICARE, OTHER, SELFPAY ==
[2020-12-23] MEDS: ferric carboxy (IVPB) 750 MG in sodium chloride 0.9% (100 ml) 100 ML 460 MG IV (15:20)
== END 2020-12-23 09:11 | disposition home or self-care (01) ==
LOC: ONCMED 09:12
PROVIDERS: PCP Internal Medicine; Visit Provider Internal Medicine Medical Oncology
DX: D50.9 Iron deficiency anemia, unspecified (principal); Z79.899 Other long term (current) drug therapy
CPT/HCPCS: 96365; J1439

== ENCOUNTER 2020-12-30 06:24 | Outpatient (CLI) | payer MEDICARE, OTHER, SELFPAY ==
[2020-12-30] MEDS: ferric carboxy (IVPB) 750 MG in sodium chloride 0.9% (100 ml) 100 ML 460 MG IV (15:10)
== END 2020-12-30 06:25 | disposition home or self-care (01) ==
LOC: ONCMED 06:26
PROVIDERS: PCP Internal Medicine; Visit Provider Internal Medicine Medical Oncology
DX: D50.9 Iron deficiency anemia, unspecified (principal); Z79.899 Other long term (current) drug therapy
CPT/HCPCS: 96365; J1439

== ENCOUNTER 2021-02-16 11:50 | Outpatient (CLI) | payer MEDICARE, OTHER, SELFPAY ==
[2021-02-16 12:26] LABS: Basophils # 0.1 10^3/uL (0.0-0.1); Basophils % 1.1 %; Eosinophils # 0.1 10^3/uL (0.0-0.8); Eosinophils % 2.2 %; Hematocrit 51.8 % (42.0-52.0); Hemoglobin 16.5 g/dL (11.7-16.6); Lymphocytes # 2.3 10^3/uL (0.8-4.8); Mean Corpuscular HGB Conc 31.9 g/dL (30.0-36.0); Mean Corpuscular Hemoglobin 28.7 pg (28.0-34.0); Mean Corpuscular Volume 90.2 fl (80-94); Mean Platelet Volume 8.8 fL (7.4-10.4); Monocytes # 0.6 10^3/uL (0.2-0.9); Neutrophils # 3.14 10^3/uL (1.8-7.7); Neutrophils % 49.5 %; Nucleated Red Blood Cells % 0 %; Platelet Count 276 10^3/cmm (130-400); Red Blood Count 5.74 10^6/uL (4.1-5.3); Red Cell Distribution Width 17.8 % (12.1-15.1); White Blood Count 6.3 10^3/uL (4.0-10.0)
[2021-02-16 12:58] LABS: Ferritin 144 ng/mL (30-400); Iron 115 ug/dL (59-158); Percent Saturation 44.2 % (20-50); Total Iron Binding Capacity 260 mcg/dl; Unsaturated Iron Binding 145 ug/dL (112-347)
--- NOTE | 2021-02-17 05:59 | ONC FU_ITS ---
Dr. Topete Patient Follow-Up Note Patient: Ry Potter Unit #: [id number]: 1955 Dicatated By: Luis Topete M.D.Date of Visit:Feb 16, 2021 Onc Med Follow-up/Prog Note Chief Complaint: Colon cancer. 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 He had presented with abdominal pain and weight loss. His colonoscopy on 10/08/2020 showed a partially obstructing malignant appearing mass in the distal ascending colon, estimated at 7 x 5 cm. Also noted was a 3 mm polyp in the mid sigmoid colon and a 10 mm polyp in the rectum. Biopsies of the rectal mass showed moderately differentiated adenocarcinoma. The sigmoid colon polyp was hyperplastic. The rectal biopsy showed tubular adenoma with focal high-grade dysplasia. His staging CT scans of the chest, abdomen, and pelvis showed soft tissue encasement of the distal transverse colon/splenic flexure extending over a length of 7.2 cm. There was associated wall thickening measuring up to 2.2 cm with moderate narrowing of the lumen. There were no adjacent satellite lesions or nodules and there was no associated retroperitoneal or mesenteric adenopathy. There also was no evidence of other metastatic disease. His laboratory studies included CBC showing hemoglobin 13.2 g, white blood cell count 12,900, and platelet count 364,000. Comprehensive metabolic profile showed normal renal function with BUN 7 and creatinine 0.7 mg/dL. Bilirubin and liver enzymes were normal. His baseline CEA level was significantly elevated at 88.7 ng/mL. He was referred to Dr. Bennett. His repeat colonoscopy on 10/28/2020 showed near obstructing transverse colon carcinoma. There was no grossly apparent residual adenomatous tissue at the polypectomy site in the rectum. On 11/09/2020 he underwent extended right hemicolectomy with en bloc excision of abdominal wall, stomach, and omentum. Operative findings included a large tumor in the distal transverse colon which was invading the abdominal wall, body of stomach, and omentum. There was associated perforation of cancer into the omentum, abdominal wall and stomach and there were associated inflammatory changes of the adjacent organs and with marked thickening and erythema of the bowel. There was no evidence of abdominal carcinomatosis or metastatic involvement in the liver. Pathology showed well differentiated invasive adenocarcinoma which was involving the omentum, abdominal wall, and serosa of the stomach. The tumor measured 7.0 x 6.0 cm. The radial (abdominal wall) margin was involved with tumor present 0 to 1 mm from the margin. The proximal and distal margins were uninvolved. The gastric and mesenteric margins were uninvolved. There was involvement in 1 of 34 lymph nodes. Pathologic staging was pT4b, pN1a. His tumor was found to have intact expression of mismatch repair proteins. The procedure also included appendectomy with pathology showing evidence of acute appendicitis. I had seen him initially on 11/26/2020. He was still having difficulty recovering from the surgery. In particular, he was having significant issues with postprandial vomiting. He was recommended to undergo adjuvant chemotherapy, but at that point he needed additional time for recovery. On 11/30/2020 he was seen in the emergency room with complaints of dizziness and passing out. He was found to be hypokalemic, potassium 2.6 mmol/L. His CT abdomen/pelvis showed marked dilatation of the stomach with fluid and air. There was no evidence of bowel obstruction. At his follow-up visit on 12/14/2020 he was still had significant GI complaints, for which she was given symptomatic management. He was scheduled to return for follow-up in 2 weeks, but he did not keep that appointment. He is seen now for a follow-up visit. He is feeling much better now. His male get off all of his medications. He has had improvement in his energy and activity tolerance. His ECOG score is 0. He has good appetite now. He does not have fever or night sweats. He says he always has sinus drainage. He has not had sore mouth or throat. He does not complain of cough, and he has not been having shortness of breath or chest pain. He has no GI/ complaints other than he still sometimes has force his bowels to move. He has no significant joint or bone pain. He does not complain of headache and he has no longer having dizziness. He still has some numbness in the median nerve distribution of the right hand. Medications: He is currently not on any prescription medication. Allergies: No Known Allergies. Vital Signs: Weight is 167 pounds. Blood pressure 153/84, pulse 71, respirations 16, temp 98.4 degrees, and oxygen saturation 98%. Physical Examination: Constitutional - He looks much better generally, Eyes - Sclerae nonicteric. Conjunctivae clear, ENMT - No lesions noted in the oral cavity, Hematologic/Lymphatic - No cervical, clavicular, or axillary adenopathy, Respiratory - Lungs are clear with good air movement bilaterally, Cardiovascular - Heart rhythm is regular. There is no murmur, gallop, or rub noted, Abdomen - Soft. Liver and spleen are not enlarged. There is no abdominal mass or ascites noted and there is no inguinal adenopathy, Extremities - No edema, Neurologic - No focal neurologic deficits noted. Lab/Imaging: Test performed on Feb 16, 2021 12:08 Ferritin 144 ng/mL Iron 115 mcg/dL Iron Binding Capacity (TIBC) 260 mcg/dl % Iron Saturation 44.2 % UIBC 145 mcg/dL WBC 6.3 10 3/uL RBC 5.74 10 6/uL HGB 16.5 g/dL HCT 51.8 % MCV 90.2 fl MCH 28.7 pg MCHC 31.9 g/dL RDW 17.8 % Platelet Count 276 10 3/cmm MPV 8.8 fL Neutrophils 3.14 10 3/uL Lymphocytes 2.3 10 3/uL Monocytes 0.6 10 3/uL Eosinophils 0.1 10 3/uL Basophils 0.1 10 3/uL Neutrophil % 49.5 % Lymphocyte % 37.0 % Monocyte % 10.0 % Eosinophil % 2.2 % Basophils % 1.1 % NRBC % 0 % Problem List: 1. Well differentiated adenocarcinoma of the transverse colon, stage IIIC (pT4b, pN1a, M0). His tumor was found to have intact expression of mismatch repair proteins. 2. Hypertension. 3. Hyperlipidemia. 4. GERD. 5. Degenerative arthritis. 6. Alcohol abuse. Problems Addressed with this Encounter and Plan: 1. 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 His tumor was found to have intact expression of mismatch repair proteins. On 11/09/2020 he underwent extended right hemicolectomy with en bloc resection of involved portion of abdominal wall, stomach, and omentum. There was associated tumor perforation. There was involvement in 1/3 4 lymph nodes, and pathology also showed involvement at the radial (abdominal wall) margin, estimated at 0.5 mm. With those findings, he was advised that he was at increased risk for recurrence, and he was recommended to have adjuvant chemotherapy with modified FOLFOX. However, his postoperative course was complicated by postprandial vomiting. At his ER visit on 11/30/[address] abdomen/pelvis showed gastric distention with air and fluid, and he was found to be significantly hypokalemic. He continued symptomatic management, and he did show gradual recovery. However, those complications did result in a significant delay in his adjuvant therapy. At this point he indicates that he is interested in pursuing adjuvant chemotherapy. Given the interval from his surgery, is uncertain to what extent he will benefit with treatment. However, he obviously meets criteria for adjuvant therapy and he will be given the option now to proceed with 12 cycles of modified FOLFOX. I reviewed anticipated side effects which may include nausea/vomiting, alopecia, fatigue, low blood counts, and neuropathy, among others. He will need to undergo placement of Port-A-Cath venous access device, and that will be arranged now. He will return for his first cycle of treatment soon as the Port-A-Cath is in place. 2. He had iron deficiency anemia. It has corrected on oral iron supplementation. Signed By: Luis Topete M.D. <<Signature on File>>
== END 2021-02-16 11:51 | disposition home or self-care (01) ==
LOC: ONCMED 11:52
PROVIDERS: PCP Internal Medicine; Visit Provider Internal Medicine Medical Oncology
DX: C18.4 Malignant neoplasm of transverse colon (principal); Z90.49 Acquired absence of other specified parts of digestive tract; I10 Essential (primary) hypertension; E78.5 Hyperlipidemia, unspecified; K21.9 Gastro-esophageal reflux disease without esophagitis; M19.90 Unspecified osteoarthritis, unspecified site; F10.10 Alcohol abuse, uncomplicated; Z79.899 Other long term (current) drug therapy
CPT/HCPCS: 36415; 82728; 83540; 83550; 85025; 87635; 99214

== ENCOUNTER 2021-02-18 05:39 | Day surgery (SDC) | payer MEDICARE, OTHER, SELFPAY ==
--- NOTE | 2021-02-18 | SC_ITS ---
WS: [id number] C-arm [place] for CVA 99987 REASON FOR EXAM: PORTACATH FINDINGS: Chemotherapy infusion port overlies the left upper anterolateral chest. Trans left subclavian vein catheter from the port extends into the superior vena cava. Tip not visual ized on the provided images. No left pneumothorax. SC/C-arm FL for CVA 71421 IMPRESSION: Chemotherapy port and catheter placement as above.
--- NOTE | 2021-02-18 | SCC_ITS ---
Procedure Done: Placement of PowerPort in the left subclavian vein Fluoroscopic guidance and interpretation for placement of catheter 20.1 seconds of fluoroscopic guidance, for a cumulative dose of 2.36 mGy, was provided to Dr. Madden by the radiology department. C-arm images of the chest were saved for the patient's permanent record. [facility]
[2021-02-18 06:11] VITALS: BP 159/98; PULSE 83; RESP 18; TEMP 36.4; O2SAT 97
[2021-02-18 06:18] VITALS: BMI 22.6
[2021-02-18] MEDS: sodium chloride 0.9% 1,000 ML 30 ML IV (06:44)
--- NOTE | 2021-02-18 06:51 | W.PM.OPSUD ---
Surgery/Procedure H&P Update DATE OF PROCEDURE: February 18, 2021 DATE H&P PERFORMED: 02/16/21 H&P UPDATE INFORMATION: I have reviewed H&P completed within last 30 days, I have examined patient prior to procedure and No changes to prior documentation PREOP DIAGNOSIS: Colon cancer PLANNED PROCEDURE: Operation Date: 02/18/21 07:20 Proposed Procedures p Portacath Placement 82651 c18.4(Not Applicable) - Lionel Madden MD
[2021-02-18] MEDS: lidocaine 1% INJ 20 mL INJECTION (07:30)
[2021-02-18] MEDS: heparin, porcine 1,000 unit/mL INJ 10 mL 6000 UNIT INJECTION (07:32)
[2021-02-18 07:48] VITALS: BP 133/83; PULSE 84; RESP 16; TEMP 36.6; O2SAT 96
[2021-02-18 07:50] VITALS: BP 125/78; PULSE 75; RESP 17; O2SAT 96
--- NOTE | 2021-02-18 07:52 | ANES.PREANE2 ---
Pre-Anesthetic Assessment Pre-Anesthetic Assessment: Height/Weight: Height 1.83 m Weight 75.75 kg Temp Pulse Resp BP Pulse Ox 97.5 F L 83 18 159/98 97 02/18/21 06:11 02/18/21 06:11 02/18/21 06:11 02/18/21 06:11 02/18/21 06:11 Preop Diagnosis: Colon cancer Proposed Procedure: Operation Date: 02/18/21 07:20 Proposed Procedures p Portacath Placement 17023 c18.4(Not Applicable) - Lionel Madden MD Was Beta Vicky taken within 24 hours: N/A Was Clonidine taken within 24 hours: N/A Last intake: Intake Last Liquid Date 02/17/21 Last Liquid Time 20:30 Last Solid Date 02/17/21 Last Solid Time 18:00 Social: Social History: No alcohol and No tobacco Exam: Pre-Anes Outpt Exam: alert, oriented x 3, clear to auscultation bilaterally and regular rate & rhythm Airway: Submandibular: WNL Cervical ROM: WNL MP: 2 Dentition: False CV/HEM: CV/HEM: HTN GI: GI: GERD Comments: Colon Ca Anesthetic Plan: ASA status: 3 Anesthesia: MAC Risk of > 500 ml blood loss (7ml/kg in children): No Meds/Allergies Current Medications: Current Medications Generic Name Dose Route Start Last Admin Trade Name Freq PRN Reason Stop Dose Admin Sodium Chloride 1,000 mls @ 30 ml s/hr 02/18/21 06:15 02/18/21 06:44 Sodium Chloride 0.9% IV 02/19/21 06:14 30 mls/hr .Q24H HUEY Administration PFSH Anesthesia PFSH: Medical History (Updated 02/18/21 @ 07:01 by Lionel Madden MD) BPH (benign prostatic hyperplasia) Cancer of transverse colon pT4b, pN1a. Dyslipidemia GERD (gastroesophageal reflux disease) HTN (hypertension), benign Surgical History (Updated 02/18/21 @ 07:01 by Lionel Madden MD) H/O: vasectomy Port-A-Cath in place (02/18/21) S/P right hemicolectomy extended, with en bloc excision of abdominal wall, stomach, and omentum Status post colonoscopy Social History Smoking and tobacco status: never smoked Data Anesthesia Cardiac Studies: No Data to Display
[2021-02-18 07:55] VITALS: BP 121/86; PULSE 80; RESP 18; O2SAT 95
[2021-02-18 08:00] VITALS: BP 133/86; PULSE 71; RESP 15; TEMP 36.6; O2SAT 98
[2021-02-18 08:02] VITALS: BP 140/86; PULSE 71; RESP 18; O2SAT 97
--- NOTE | 2021-02-18 09:51 | PM.OP ---
Operative Report Date of procedure: February 18, 2021 Pre-op Diagnosis: Colon cancer Post-op diagnosis: same Procedure Done: Placement of PowerPort in the left subclavian vein Fluoroscopic guidance and interpretation for placement of catheter Pathology: none sent Surgeon: Lionel Madden Anesthesia: MAC Condition: stable Disposition: PACU Procedure: The patient was taken to the Operating Room and the chest and neck bilaterally were prepped and draped in a sterile manner after the antibiotic had been administered and shoulder rolls had been placed. A total of 10 mL of 1% lidocaine with 0.5% Marcaine was infiltrated under the clavicle on the left side at the site of the planned entry into the subclavian vein. An introducer needle was then used to access the subclavian vein under the clavicle and after withdrawing blood syringe was removed and a guidewire passed under fluoroscopy into the superior vena cava. The site of the planned port was then marked on the chest and a 15 blade was used to make a 3 cm skin incision this was extended into the subcutaneous tissue using electrocautery and a subcutaneous pocket over the pectoralis fascia was created 2-0 Vicryl suture was used to suture the port to the pectoral fascia in the pocket on 3 sides. The catheter, after having been flushed with hep saline, was attached to the tunneler and a tunnel created between the port site and the subclavian vein entry site. Under fluoroscopy the dilator sheath was passed over the guidewire into the proximal superior vena cava. The inner dilator was removed and the sheath left behind and~ the catheter was introduced through the peel-away sheath with the tip in the superior vena cava. The peel-away sheath was removed. The proximal end of the catheter was cut to the right size and was attached to the port. Using a Hernandez needle the port was accessed, it withdrew blood easily and flushed easily. A final 5cc of heparin was used to flush the PowerPort. The subcutaneous tissue was approximated using interrupted 3-0 Vicryl sutures and the skin at the introducer site and the port site was closed using subcuticular running 4-0 Monocryl sutures. Surgical glue was applied and the patient was stable throughout the procedure. Fluoroscopic guidance and interpretation was performed for introduction of the guidewire in the left subclavian vein, passage of dilator and placement of catheter tip in the distal superior vena cava.
--- NOTE | 2021-02-18 13:20 | ANE.PACU2 ---
Inpatient post-anesthesia follow up: Airway intact: Yes Vital signs: Temperature 98 F Pulse Rate 71 Respiratory Rate 18 Blood Pressure 140/86 Pulse Oximetry 97 Oxygen Delivery Me thod Room Air Oxygen Flow Rate Fraction of Inspir ed Oxygen Hydration adequate: Yes Nausea and vomiting: No Pain level: 1 Mental status: Baseline
== END 2021-02-18 08:30 | disposition home or self-care (01) ==
PROVIDERS: PCP Internal Medicine; Visit Provider Surgery
PROC: (CPT 36561; principal; 2021-02-18 07:00)
DX: C18.4 Malignant neoplasm of transverse colon (principal); I10 Essential (primary) hypertension; N40.0 Benign prostatic hyperplasia without lower urinary tract symptoms; E78.5 Hyperlipidemia, unspecified; K21.9 Gastro-esophageal reflux disease without esophagitis
CPT/HCPCS: 36561; 76000; 77001; C1788; J0690; J1644; J3010; J3490; J7030

== ENCOUNTER 2021-03-10 06:14 | Outpatient (RCR) | payer MEDICARE, OTHER, SELFPAY ==
[2021-02-22 09:15] LABS: Basophils % 0.6 %; Eosinophils # 0.1 10^3/uL (0.0-0.8); Eosinophils % 1.7 %; Hematocrit 49.8 % (42.0-52.0); Hemoglobin 16.5 g/dL (11.7-16.6); Lymphocytes # 1.9 10^3/uL (0.8-4.8); Lymphocytes % 29.7 %; Mean Corpuscular HGB Conc 33.1 g/dL (30.0-36.0); Mean Corpuscular Hemoglobin 29.6 pg (28.0-34.0); Mean Corpuscular Volume 89.4 fl (80-94); Mean Platelet Volume 8.8 fL (7.4-10.4); Monocytes # 0.7 10^3/uL (0.2-0.9); Monocytes % 10.8 %; Neutrophils # 3.63 10^3/uL (1.8-7.7); Neutrophils % 56.7 %; Nucleated Red Blood Cells % 0 %; Platelet Count 215 10^3/cmm (130-400); Red Blood Count 5.57 10^6/uL (4.1-5.3); White Blood Count 6.4 10^3/uL (4.0-10.0)
[2021-02-22 09:46] LABS: Alanine Aminotransferase 10 U/L (0-41); Albumin Level 3.9 g/dL (3.5-5.2); Alkaline Phosphatase 80 IU/L (40-130); Anion Gap 12.6 (5-19); Aspartate Amino Transferase 15 U/L (0-40); Blood Urea Nitrogen 5 mg/dL (8-23); Carbon Dioxide 26 mmol/L (22-29); Chloride 103 mmol/L (98-107); Globulin 3.1 g/dL (1.3-4.6); Glomerular Filtration Rate 112.5 mL/min (90-130); Glucose 115 mg/dL (65-115); Osmolality Calculated 284 mOsm/kg (285-295); Potassium 3.6 mmol/L (3.5-5.1); Sodium 138 mmol/L (136-145); Total Bilirubin 0.4 mg/dL (0.15-1.2)
[2021-02-22 10:16] LABS: Carcinoembryonic Antigen 5.2 ng/mL (0.0-4.7)
[2021-02-22] MEDS: palonosetron 0.25 mg/5 mL SDV IV (12:15)
[2021-02-22] MEDS: dextrose 5% 250 ML 75 ML IV (12:15)
[2021-02-22] MEDS: famotidine 20 mg/2 mL INJ IVP (12:16)
--- NOTE | 2021-02-28 15:36 | ONC FU_ITS ---
[facility] Patient Note Patient: Ry Potter Unit #: [id number]: [id number] Dictated By: Brendan De AndaDate of Visit: Feb 22, 2021 Onc MED Follow-Up/Prog Note Chief Complaint: Colon cancer. 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 He had presented with abdominal pain and weight loss. His colonoscopy on 10/08/2020 showed a partially obstructing malignant appearing mass in the distal ascending colon, estimated at 7 x 5 cm. Also noted was a 3 mm polyp in the mid sigmoid colon and a 10 mm polyp in the rectum. Biopsies of the rectal mass showed moderately differentiated adenocarcinoma. The sigmoid colon polyp was hyperplastic. The rectal biopsy showed tubular adenoma with focal high-grade dysplasia. His staging CT scans of the chest, abdomen, and pelvis showed soft tissue encasement of the distal transverse colon/splenic flexure extending over a length of 7.2 cm. There was associated wall thickening measuring up to 2.2 cm with moderate narrowing of the lumen. There were no adjacent satellite lesions or nodules and there was no associated retroperitoneal or mesenteric adenopathy. There also was no evidence of other metastatic disease. His laboratory studies included CBC showing hemoglobin 13.2 g, white blood cell count 12,900, and platelet count 364,000. Comprehensive metabolic profile showed normal renal function with BUN 7 and creatinine 0.7 mg/dL. Bilirubin and liver enzymes were normal. His baseline CEA level was significantly elevated at 88.7 ng/mL. He was referred to Dr. Bennett. His repeat colonoscopy on 10/28/2020 showed near obstructing transverse colon carcinoma. There was no grossly apparent residual adenomatous tissue at the polypectomy site in the rectum. On 11/09/2020 he underwent extended right hemicolectomy with en bloc excision of abdominal wall, stomach, and omentum. Operative findings included a large tumor in the distal transverse colon which was invading the abdominal wall, body of stomach, and omentum. There was associated perforation of cancer into the omentum, abdominal wall and stomach and there were associated inflammatory changes of the adjacent organs and with marked thickening and erythema of the bowel. There was no evidence of abdominal carcinomatosis or metastatic involvement in the liver. Pathology showed well differentiated invasive adenocarcinoma which was involving the omentum, abdominal wall, and serosa of the stomach. The tumor measured 7.0 x 6.0 cm. The radial (abdominal wall) margin was involved with tumor present 0 to 1 mm from the margin. The proximal and distal margins were uninvolved. The gastric and mesenteric margins were uninvolved. There was involvement in 1 of 34 lymph nodes. Pathologic staging was pT4b, pN1a. His tumor was found to have intact expression of mismatch repair proteins. The procedure also included appendectomy with pathology showing evidence of acute appendicitis. Dr Topete had seen him initially on 11/26/2020. He was still having difficulty recovering from the surgery. In particular, he was having significant issues with postprandial vomiting. He was recommended to undergo adjuvant chemotherapy, but at that point he needed additional time for recovery. On 11/30/2020 he was seen in the emergency room with complaints of dizziness and passing out. He was found to be hypokalemic, potassium 2.6 mmol/L. His CT abdomen/pelvis showed marked dilatation of the stomach with fluid and air. There was no evidence of bowel obstruction. At his follow-up visit on 12/14/2020 he was still had significant GI complaints, for which he was given symptomatic management. He was scheduled to return for follow-up in 2 weeks, but he did not keep that appointment. Mr Potter returned for followup with Dr Topete on February 16, 2021. He was interested in pursuing adjuvant chemotherapy. There had been a long interval between surgery and his return followup. However, he meets criteria for adjuvant chemotherapy and has elected to pursue 12 cycles of modified FOLFOX. He did have port placement in the Left subclavian vein on 02/18/[address] Madden. Mr. Potter is here today for follow-up and initiation of his first cycle of modified FOLFOX. He has no new concerns today. He denies any fever or chills or any signs of infection within the last 24 hours. He denies any changes in his performance status. He states that his appetite is still about the same he is actually gained a little weight since his last visit states overall he feels he is doing good. He denies any pain. Has had no shortness of breath orthopnea. Denies chest pain, palpitations or any signs of CHF. He states he remains active.. His ECOG is currently 0. Past Medical History: Alcohol abuse Benign prostatic hyperplasia Degenerative arthritis Gastroesophageal reflux disease Hypercholesterolemia Hypertension Past Surgical History: Colonoscopy on 10/08/2020 and on 10/28/2020 Vasectomy Extended right hemicolectomy with en bloc excision of abdominal wall, stomach, and omentum in 2020 Allergies: No Known Allergies. Medications: Family History: Father of lung cancer at age 58. Mother with C. difficile colitis at age 81. A brother also had lung cancer and of stroke at age 63. Another brother is in good health. Social History: Mr. Potter is . Mr. Potter quit smoking 23 years ago but had smoked for 25 years. He drinks daily. He consumes 4 drinks/day 7 days/week. He has a history of smoking up to 2 packs of cigarettes daily. He quit smoking in 1997. He has a history of drinking 8-10 beers per day, but over the past several months he has cut down, currently to 4 beers daily. Review Of Symptoms: <See Above> Vital Signs: Performed on Feb 22, 2021 11:36 Height - 72.00 in Weight - 165.8 lbs (HIGH) BSA - 1.97 sq.m BMI - 22.49 Temperature - 97.9 F (LOW) Pulse - 73 /min Respiration - 18 /min BP - 165/103 mm(hg) (HIGH) O2 Sat - 99 % Pain - 0 Fatigue - 0,0 - Fully active, able to carry on all predisease activities without restrictions. (ECOG) Physical Examination: Constitutional Alert, oriented, no acute distress. Skin pink, warm and dry. Head Normocephalic; atraumatic. Eyes Conjunctivae and sclerae are clear and without icterus. Pupils are reactive and equal. ENMT No oral exudates, ulcers, masses, thrush or mucositis. Oropharynx clear. Tongue normal. Neck Supple without masses or thyromegaly. No jugular venous distension. Hematologic/Lymphatic No petechiae or purpura. No tender or palpable lymph nodes in the cervical or supraclavicular areas. Respiratory Lungs are clear to auscultation without rhonchi or wheezing. Cardiovascular Regular rate and rhythm of heart without murmurs,clicks, gallops or rubs. Chest Chest is symmetric without chest wall deformities. Left chest wall venous access device insertion site has healed well. Abdomen Non-tender, non-distended, no masses or ascites. Good bowel sounds noted in all quads. No guarding or rebound tenderness. No pulsatile masses. Back/Spine Non-tender to palpation. Extremities No visible deformities, no cyanosis, clubbing or edema. Musculoskeletal No tenderness or swelling, normal range of motion without obvious weakness. Integumentary No rashes or lesions. Neurologic No sensory or motor deficits, normal cerebellar function, normal gait. Psychiatric Alert and oriented times three. Coherent speech. Verbalizes understanding of our discussions today. Laboratory:Test performed on Feb 22, 2021 08:45 Sodium 138 mmol/L Potassium 3.6 mmol/L Chloride 103 mmol/L CO2 26 mmol/L Anion Gap 12.6 BUN 5 mg/dL Creatinine 0.7 mg/dL Cr Clearance (Est) 108.93 mL/min eGFR 112.5 mL/min Glucose 115 mg/dL Osmolality - Calculated 284 mOsm/kg Calcium 9.0 mg/dL Protein, Total 7.0 g/dL Albumin 3.9 g/dL Globulin 3.1 g/dL Bilirubin, Total 0.4 mg/dL ALT (SGPT) 10 U/L AST (SGOT) 15 U/L Alkaline Phosphatase 80 IU/L WBC 6.4 10 3/uL RBC 5.57 10 6/uL HGB 16.5 g/dL HCT 49.8 % MCV 89.4 fl MCH 29.6 pg MCHC 33.1 g/dL RDW 17.0 % Platelet Count 215 10 3/cmm MPV 8.8 fL Neutrophils 3.63 10 3/uL Lymphocytes 1.9 10 3/uL Monocytes 0.7 10 3/uL Eosinophils 0.1 10 3/uL Basophils 0.0 10 3/uL Neutrophil % 56.7 % Lymphocyte % 29.7 % Monocyte % 10.8 % Eosinophil % 1.7 % Basophils % 0.6 % NRBC % 0 % CEA 5.2 ng/mL Test performed on Feb 16, 2021 12:08 Ferritin 144 ng/mL Iron 115 mcg/dL Iron Binding Capacity (TIBC) 260 mcg/dl % Iron Saturation 44.2 % UIBC 145 mcg/dL Impression: 1. Well differentiated adenocarcinoma of the transverse colon, stage IIIC (pT4b, pN1a, M0). His tumor was found to have intact expression of mismatch repair proteins. 2. Hypertension. 3. Hyperlipidemia. 4. GERD. 5. Degenerative arthritis. 6. Alcohol abuse. Plan/Problems Addressed at this Visit: 1. Well differentiated adenocarcinoma of the transverse colon, stage IIIC (pT4b, pN1a, M0). His tumor was found to have intact expression of mismatch repair proteins. On 11/09/2020 he underwent extended right hemicolectomy with en bloc resection of involved portion of abdominal wall, stomach, and omentum. There was associated tumor perforation. There was involvement in 1/3 4 lymph nodes, and pathology also showed involvement at the radial (abdominal wall) margin, estimated at 0.5 mm. With those findings, he was advised that he was at increased risk for recurrence, and he was recommended to have adjuvant chemotherapy with modified FOLFOX. However, his postoperative course was complicated by postprandial vomiting. At his ER visit on 11/30/[address] abdomen/pelvis showed gastric distention with air and fluid, and he was found to be significantly hypokalemic. He continued symptomatic management, and he did show gradual recovery. However, those complications did result in a significant delay in his adjuvant therapy. At his follow-up with Dr. Topete February 16, 2021, he indicated that he was interested in pursuing adjuvant chemotherapy. Given the interval from his surgery, is uncertain to what extent he will benefit with treatment. However, he obviously meets criteria for adjuvant therapy and he was given the option to proceed with 12 cycles of modified FOLFOX. He required placement of a Port-A-Cath which was accomplished on February 18, [address] Madden. A. Proceed with cycle 1 day 1 modified FOLFOX. B. Proceed with aggressive antiemetics due to high risk regimen, history of alcohol abuse and GERD. C. He will have Compazine and lorazepam as needed for antiemetics at home. D. Today's labs were reviewed in detail and discussed with Mr. Potter and a copy was given to him. WBC 6.4, hemoglobin 16.5, platelets 215,000 ANC is 3630. Potassium 3.6 random glucose 115 creatinine 0.7 and his LFTs are normal. His CEA today is 5.2. E. We will plan for him to return in 1 week for day 8 follow-up along with a CBC CMP for chemotherapy monitoring. F. The patient was informed of chemotherapy plan and specific drugs were discussed. We also discussed how chemotherapy works and identified common side effects including alopecia; myelosuppression-including neutropenia, anemia, thrombocytopenia; peripheral neuropathy; fatigue; nausea; diarrhea; constipation; bleeding or bruising; skin changes; mouth sores; drug hypersensitivity/allergic reactions or anaphylaxis and extravasation. They have also been informed how to contact the clinic with side effects or symptoms, including but not limited to fever greater than 100.4???, chills, sore throat, bleeding or bruising that is not explained or mouth sores, cough, nasal discharge, diarrhea, constipation, nausea and/or vomiting not relieved with medications on hand at home, as well as any other concern or question they may have. Our hours are 8:00 a.m. to 4:30 p.m. on Monday through and 8-12:00 on Monday. However, someone is corrections officer 24 hours per day and they have been advised to contact the [facility] at if it is after hours. We have also discussed potential long-term side effects of chemotherapy including secondary cancers, infertility, pulmonary complications, cardiac complications, and again peripheral neuropathy. We have discussed that they certainly need to let us know before taking any antioxidants or herbal or further dietary supplements, as we are unsure of how these agents react with chemotherapy and we request that they avoid these products for now. They were informed that it is okay to take multivitamins at normal doses. They verbally state that they understand to take all medications as directed by their healthcare provider unless otherwise indicated. They also verbalized understanding to leave the pressure dressing on the intravenous administration site for at least two hours after treatment. Instructions for oral care with baking soda and salt water rinses as well as a guide for use of [id number] medication were provided with the treatment plan. They have been given a written patient treatment plan, of which a copy is in the chart, as well as specific drug information. They have no questions and verbalized understanding and are willing to proceed with chemotherapy at this time. The majority of this visit was spent in face to face communication with this patient in regards to the plan of care, side effect identification and management (45 minutes). G. Mr. Potter was instructed to contact us in interim should questions or problems arise. 2. He had iron deficiency anemia. It has corrected on oral iron supplementation. Signed By: Brendan De Anda-, AOCNP Luis Topete MD <<Signature on File>>
[2021-03-01 15:46] LABS: Basophils % 0.7 %; Eosinophils # 0.2 10^3/uL (0.0-0.8); Eosinophils % 3.3 %; Hematocrit 46.9 % (42.0-52.0); Hemoglobin 15.4 g/dL (11.7-16.6); Lymphocytes # 1.9 10^3/uL (0.8-4.8); Lymphocytes % 31.1 %; Mean Corpuscular HGB Conc 32.8 g/dL (30.0-36.0); Mean Corpuscular Hemoglobin 28.7 pg (28.0-34.0); Mean Corpuscular Volume 87.5 fl (80-94); Mean Platelet Volume 8.8 fL (7.4-10.4); Monocytes # 0.6 10^3/uL (0.2-0.9); Monocytes % 9.2 %; Neutrophils # 3.32 10^3/uL (1.8-7.7); Neutrophils % 55.4 %; Nucleated Red Blood Cells % 0 %; Platelet Count 151 10^3/cmm (130-400); Red Blood Count 5.36 10^6/uL (4.1-5.3); Red Cell Distribution Width 14.9 % (12.1-15.1)
[2021-03-01 16:44] LABS: Alanine Aminotransferase 10 U/L (0-41); Albumin Level 3.8 g/dL (3.5-5.2); Alkaline Phosphatase 77 IU/L (40-130); Anion Gap 11.6 (5-19); Aspartate Amino Transferase 19 U/L (0-40); Blood Urea Nitrogen 5 mg/dL (8-23); Calcium 9.2 mg/dL (8.5-10.5); Carbon Dioxide 27 mmol/L (22-29); Chloride 100 mmol/L (98-107); Globulin 2.9 g/dL (1.3-4.6); Glomerular Filtration Rate 112.5 mL/min (90-130); Glucose 95 mg/dL (65-115); Osmolality Calculated 277 mOsm/kg (285-295); Potassium 3.6 mmol/L (3.5-5.1); Sodium 135 mmol/L (136-145); Total Bilirubin 0.2 mg/dL (0.15-1.2); Total Protein 6.7 g/dL (6.6-8.7)
--- NOTE | 2021-03-08 00:53 | ONC FU_ITS ---
[facility] Patient Note Patient: Ry Potter Unit #: [id number]: 1955 Dictated By: Brendan De AndaDate of Visit: Mar 03, 2021 Onc MED Follow-Up/Prog Note Chief Complaint: Colon cancer. 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 He had presented with abdominal pain and weight loss. His colonoscopy on 10/08/2020 showed a partially obstructing malignant appearing mass in the distal ascending colon, estimated at 7 x 5 cm. Also noted was a 3 mm polyp in the mid sigmoid colon and a 10 mm polyp in the rectum. Biopsies of the rectal mass showed moderately differentiated adenocarcinoma. The sigmoid colon polyp was hyperplastic. The rectal biopsy showed tubular adenoma with focal high-grade dysplasia. His staging CT scans of the chest, abdomen, and pelvis showed soft tissue encasement of the distal transverse colon/splenic flexure extending over a length of 7.2 cm. There was associated wall thickening measuring up to 2.2 cm with moderate narrowing of the lumen. There were no adjacent satellite lesions or nodules and there was no associated retroperitoneal or mesenteric adenopathy. There also was no evidence of other metastatic disease. His laboratory studies included CBC showing hemoglobin 13.2 g, white blood cell count 12,900, and platelet count 364,000. Comprehensive metabolic profile showed normal renal function with BUN 7 and creatinine 0.7 mg/dL. Bilirubin and liver enzymes were normal. His baseline CEA level was significantly elevated at 88.7 ng/mL. He was referred to Dr. Bennett. His repeat colonoscopy on 10/28/2020 showed near obstructing transverse colon carcinoma. There was no grossly apparent residual adenomatous tissue at the polypectomy site in the rectum. On 11/09/2020 he underwent extended right hemicolectomy with en bloc excision of abdominal wall, stomach, and omentum. Operative findings included a large tumor in the distal transverse colon which was invading the abdominal wall, body of stomach, and omentum. There was associated perforation of cancer into the omentum, abdominal wall and stomach and there were associated inflammatory changes of the adjacent organs and with marked thickening and erythema of the bowel. There was no evidence of abdominal carcinomatosis or metastatic involvement in the liver. Pathology showed well differentiated invasive adenocarcinoma which was involving the omentum, abdominal wall, and serosa of the stomach. The tumor measured 7.0 x 6.0 cm. The radial (abdominal wall) margin was involved with tumor present 0 to 1 mm from the margin. The proximal and distal margins were uninvolved. The gastric and mesenteric margins were uninvolved. There was involvement in 1 of 34 lymph nodes. Pathologic staging was pT4b, pN1a. His tumor was found to have intact expression of mismatch repair proteins. The procedure also included appendectomy with pathology showing evidence of acute appendicitis. Dr Topete had seen him initially on 11/26/2020. He was still having difficulty recovering from the surgery. In particular, he was having significant issues with postprandial vomiting. He was recommended to undergo adjuvant chemotherapy, but at that point he needed additional time for recovery. On 11/30/2020 he was seen in the emergency room with complaints of dizziness and passing out. He was found to be hypokalemic, potassium 2.6 mmol/L. His CT abdomen/pelvis showed marked dilatation of the stomach with fluid and air. There was no evidence of bowel obstruction. At his follow-up visit on 12/14/2020 he was still had significant GI complaints, for which he was given symptomatic management. He was scheduled to return for follow-up in 2 weeks, but he did not keep that appointment. Mr Potter returned for followup with Dr Topete on February 16, 2021. He was interested in pursuing adjuvant chemotherapy. There had been a long interval between surgery and his return followup. However, he meets criteria for adjuvant chemotherapy and has elected to pursue 12 cycles of modified FOLFOX. He did have port placement in the Left subclavian vein on 02/18/[address] Madden. Mr. Potter began his first cycle of modified FOLFOX on 02/22/2021. He is here today for cycle 1 day 8 followup. He has no new concerns today. He denies any fever or chills or any signs of infection within the last 24 hours. He denies any changes in his performance status. He states that his appetite is still about the same he is actually gained a little weight since his last visit states overall he feels he is doing good. He denies any pain. Has had no shortness of breath orthopnea. Denies chest pain, palpitations or any signs of CHF. He states he remains pretty active. He states he had slight cold-induced neuropathy but that has resolved. He states it was not anything severe. He denies any nausea or vomiting. He denies any diarrhea. He states overall he has done well. His ECOG is currently 0. Past Medical History: Alcohol abuse Benign prostatic hyperplasia Degenerative arthritis Gastroesophageal reflux disease Hypercholesterolemia Hypertension Past Surgical History: Colonoscopy on 10/08/2020 and on 10/28/2020 Vasectomy Flu vac in 2020 PowerPort left subclavian???Dr. Madden in 2020 Extended right hemicolectomy with en bloc excision of abdominal wall, stomach, and omentum in 2020 Allergies: No Known Allergies. Medications: Family History: Father of lung cancer at age 58. Mother with C. difficile colitis at age 81. A brother also had lung cancer and of stroke at age 63. Another brother is in good health. Social History: Mr. Potter is . Mr. Potter quit smoking 23 years ago but had smoked for 25 years. He drinks daily. He consumes 4 drinks/day 7 days/week. He has a history of smoking up to 2 packs of cigarettes daily. He quit smoking in 1997. He has a history of drinking 8-10 beers per day, but over the past several months he has cut down, currently to 4 beers daily. Review Of Symptoms: <See Above> Vital Signs: Performed on Mar 03, 2021 12:48 Height - 72.00 in Weight - 167.2 lbs (HIGH) BSA - 1.97 sq.m BMI - 22.68 Temperature - 98.7 F Pulse - 63 /min Respiration - 18 /min BP - 164/96 mm(hg) (HIGH) O2 Sat - 98 % Pain - 0 Fatigue - 0,0 - Fully active, able to carry on all predisease activities without restrictions. (ECOG) Physical Examination: Constitutional Alert, oriented, no acute distress. Skin pink, warm and dry. Head Normocephalic; atraumatic. Eyes Conjunctivae and sclerae are clear and without icterus. Pupils are reactive and equal. ENMT No oral exudates, ulcers, masses, thrush or mucositis. Oropharynx clear. Tongue normal. Neck Supple without masses or thyromegaly. No jugular venous distension. Hematologic/Lymphatic No petechiae or purpura. No tender or palpable lymph nodes in the cervical or supraclavicular areas. Respiratory Lungs are clear to auscultation without rhonchi or wheezing. Cardiovascular Regular rate and rhythm of heart without murmurs,clicks, gallops or rubs. Chest Chest is symmetric without chest wall deformities. Left chest wall venous access device insertion site has healed well. Abdomen Non-tender, non-distended, no masses or ascites. Good bowel sounds noted in all quads. No guarding or rebound tenderness. No pulsatile masses. Back/Spine Non-tender to palpation. Extremities No visible deformities, no cyanosis, clubbing or edema. Musculoskeletal No tenderness or swelling, normal range of motion without obvious weakness. Integumentary No rashes or lesions. Neurologic No sensory or motor deficits, normal cerebellar function, normal gait. Psychiatric Alert and oriented times three. Coherent speech. Verbalizes understanding of our discussions today. Laboratory:Test performed on Feb 22, 2021 08:45 Sodium 138 mmol/L Potassium 3.6 mmol/L Chloride 103 mmol/L CO2 26 mmol/L Anion Gap 12.6 BUN 5 mg/dL Creatinine 0.7 mg/dL Cr Clearance (Est) 108.93 mL/min eGFR 112.5 mL/min Glucose 115 mg/dL Osmolality - Calculated 284 mOsm/kg Calcium 9.0 mg/dL Protein, Total 7.0 g/dL Albumin 3.9 g/dL Globulin 3.1 g/dL Bilirubin, Total 0.4 mg/dL ALT (SGPT) 10 U/L AST (SGOT) 15 U/L Alkaline Phosphatase 80 IU/L WBC 6.4 10 3/uL RBC 5.57 10 6/uL HGB 16.5 g/dL HCT 49.8 % MCV 89.4 fl MCH 29.6 pg MCHC 33.1 g/dL RDW 17.0 % Platelet Count 215 10 3/cmm MPV 8.8 fL Neutrophils 3.63 10 3/uL Lymphocytes 1.9 10 3/uL Monocytes 0.7 10 3/uL Eosinophils 0.1 10 3/uL Basophils 0.0 10 3/uL Neutrophil % 56.7 % Lymphocyte % 29.7 % Monocyte % 10.8 % Eosinophil % 1.7 % Basophils % 0.6 % NRBC % 0 % CEA 5.2 ng/mL Test performed on Feb 16, 2021 12:08 Ferritin 144 ng/mL Iron 115 mcg/dL Iron Binding Capacity (TIBC) 260 mcg/dl % Iron Saturation 44.2 % UIBC 145 mcg/dL Impression: 1. Well differentiated adenocarcinoma of the transverse colon, stage IIIC (pT4b, pN1a, M0). His tumor was found to have intact expression of mismatch repair proteins. 2. Hypertension. 3. Hyperlipidemia. 4. GERD. 5. Degenerative arthritis. 6. Alcohol abuse. Plan/Problems Addressed at this Visit: 1. Well differentiated adenocarcinoma of the transverse colon, stage IIIC (pT4b, pN1a, M0). His tumor was found to have intact expression of mismatch repair proteins. On 11/09/2020 he underwent extended right hemicolectomy with en bloc resection of involved portion of abdominal wall, stomach, and omentum. There was associated tumor perforation. There was involvement in 1/3 4 lymph nodes, and pathology also showed involvement at the radial (abdominal wall) margin, estimated at 0.5 mm. With those findings, he was advised that he was at increased risk for recurrence, and he was recommended to have adjuvant chemotherapy with modified FOLFOX. However, his postoperative course was complicated by postprandial vomiting. At his ER visit on 11/30/[address] abdomen/pelvis showed gastric distention with air and fluid, and he was found to be significantly hypokalemic. He continued symptomatic management, and he did show gradual recovery. However, those complications did result in a significant delay in his adjuvant therapy. At his follow-up with Dr. Topete February 16, 2021, he indicated that he was interested in pursuing adjuvant chemotherapy. Given the interval from his surgery, is uncertain to what extent he will benefit with treatment. However, he obviously meets criteria for adjuvant therapy and he was given the option to proceed with 12 cycles of modified FOLFOX. He required placement of a Port-A-Cath which was accomplished on February 18, [address] Madden. Mr Potter began his first cycle of modified FOLFOX on 02/22/2021 A. Proceed with cycle 1 modified FOLFOX. This is day 8 B. Proceed with aggressive antiemetics due to high risk regimen, history of alcohol abuse and GERD. C. He will have Compazine and lorazepam as needed for antiemetics at home. D. March 01, 2021 labs were reviewed in detail and discussed with Mr. Potter and a copy was given to him. WBC 6.0, hemoglobin 15.4, platelets 151,000 (down from 215 last week) ANC is 3320 which is stable. Potassium 3.6 random glucose 95 creatinine 0.7 and LFTs remain normal. His CEA was 5.2 on 02/22/2021. E. We will plan for him to return in 1 week for day 1 follow-up and treatment along with a CBC CMP for chemotherapy monitoring. F. He was advised he could proceed with his Covid booster as his ANC is greater than 1000. G. He states he did receive his flu vac on 02/19/2021. 2. He had iron deficiency anemia. It has corrected on oral iron supplementation. Signed By: Brendan De Anda-, CNP Luis Topete MD <<Signature on File>>
[2021-03-08 08:29] LABS: Basophils % 0.8 %; Eosinophils # 0.1 10^3/uL (0.0-0.8); Eosinophils % 1.8 %; Hematocrit 47.7 % (42.0-52.0); Hemoglobin 15.8 g/dL (11.7-16.6); Lymphocytes # 1.9 10^3/uL (0.8-4.8); Mean Corpuscular HGB Conc 33.1 g/dL (30.0-36.0); Mean Corpuscular Hemoglobin 29.3 pg (28.0-34.0); Mean Corpuscular Volume 88.3 fl (80-94); Mean Platelet Volume 9.4 fL (7.4-10.4); Monocytes # 0.7 10^3/uL (0.2-0.9); Monocytes % 14.3 %; Neutrophils # 2.17 10^3/uL (1.8-7.7); Neutrophils % 43.9 %; Nucleated Red Blood Cells % 0 %; Platelet Count 160 10^3/cmm (130-400); Red Cell Distribution Width 15.4 % (12.1-15.1)
[2021-03-08 08:46] LABS: Alanine Aminotransferase 26 U/L (0-41); Albumin Level 3.7 g/dL (3.5-5.2); Alkaline Phosphatase 77 IU/L (40-130); Anion Gap 12.7 (5-19); Aspartate Amino Transferase 31 U/L (0-40); Blood Urea Nitrogen 3 mg/dL (8-23); Calcium 9.2 mg/dL (8.5-10.5); Carbon Dioxide 27 mmol/L (22-29); Chloride 104 mmol/L (98-107); Globulin 3.1 g/dL (1.3-4.6); Glomerular Filtration Rate 134.4 mL/min (90-130); Glucose 89 mg/dL (65-115); Osmolality Calculated 286 mOsm/kg (285-295); Potassium 3.7 mmol/L (3.5-5.1); Sodium 140 mmol/L (136-145); Total Bilirubin 0.2 mg/dL (0.15-1.2); Total Protein 6.8 g/dL (6.6-8.7)
[2021-03-08] MEDS: dextrose 5% 250 ML 75 ML IV ×2 (09:35)
[2021-03-08] MEDS: palonosetron 0.25 mg/5 mL SDV IV (09:35)
[2021-03-08] MEDS: famotidine 20 mg/2 mL INJ IVP (09:36)
--- NOTE | 2021-03-09 07:17 | ONC FU_ITS ---
Dr. Topete Patient Follow-Up Note Patient: Ry Potter Unit #: [id number]: [id number] Dicatated By: Luis Topete M.D.Date of Visit:Mar 08, 2021 Onc Med Follow-up/Prog Note Chief Complaint: Colon cancer. 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 He had presented with abdominal pain and weight loss. His colonoscopy on 10/08/2020 showed a partially obstructing malignant appearing mass in the distal ascending colon, estimated at 7 x 5 cm. Also noted was a 3 mm polyp in the mid sigmoid colon and a 10 mm polyp in the rectum. Biopsies of the rectal mass showed moderately differentiated adenocarcinoma. The sigmoid colon polyp was hyperplastic. The rectal biopsy showed tubular adenoma with focal high-grade dysplasia. His staging CT scans of the chest, abdomen, and pelvis showed soft tissue encasement of the distal transverse colon/splenic flexure extending over a length of 7.2 cm. There was associated wall thickening measuring up to 2.2 cm with moderate narrowing of the lumen. There were no adjacent satellite lesions or nodules and there was no associated retroperitoneal or mesenteric adenopathy. There also was no evidence of other metastatic disease. His laboratory studies included CBC showing hemoglobin 13.2 g, white blood cell count 12,900, and platelet count 364,000. Comprehensive metabolic profile showed normal renal function with BUN 7 and creatinine 0.7 mg/dL. Bilirubin and liver enzymes were normal. His baseline CEA level was significantly elevated at 88.7 ng/mL. He was referred to Dr. Bennett. His repeat colonoscopy on 10/28/2020 showed near obstructing transverse colon carcinoma. There was no grossly apparent residual adenomatous tissue at the polypectomy site in the rectum. On 11/09/2020 he underwent extended right hemicolectomy with en bloc excision of abdominal wall, stomach, and omentum. Operative findings included a large tumor in the distal transverse colon which was invading the abdominal wall, body of stomach, and omentum. There was associated perforation of cancer into the omentum, abdominal wall and stomach and there were associated inflammatory changes of the adjacent organs and with marked thickening and erythema of the bowel. There was no evidence of abdominal carcinomatosis or metastatic involvement in the liver. Pathology showed well differentiated invasive adenocarcinoma which was involving the omentum, abdominal wall, and serosa of the stomach. The tumor measured 7.0 x 6.0 cm. The radial (abdominal wall) margin was involved with tumor present 0 to 1 mm from the margin. The proximal and distal margins were uninvolved. The gastric and mesenteric margins were uninvolved. There was involvement in 1 of 34 lymph nodes. Pathologic staging was pT4b, pN1a. His tumor was found to have intact expression of mismatch repair proteins. The procedure also included appendectomy with pathology showing evidence of acute appendicitis. I had seen him initially on 11/26/2020. He was still having difficulty recovering from the surgery. In particular, he was having significant issues with postprandial vomiting. He was recommended to undergo adjuvant chemotherapy, but at that point he needed additional time for recovery. On 11/30/2020 he was seen in the emergency room with complaints of dizziness and passing out. He was found to be hypokalemic, potassium 2.6 mmol/L. His CT abdomen/pelvis showed marked dilatation of the stomach with fluid and air. There was no evidence of bowel obstruction. At his follow-up visit on 12/14/2020 he was still had significant GI complaints, for which he was given symptomatic management. He was scheduled to return for follow-up in 2 weeks, but he did not keep that appointment. He was seen again for a follow-up visit on 02/16/2021. At that point he was feeling much better, and he indicated that he did want to take adjuvant chemotherapy. His other medical illnesses include hypertension, hyperlipidemia, GERD, degenerative arthritis, and benign prostatic hypertrophy. He has a history of alcohol abuse, but he has reduced his alcohol use significantly. He also has a history of smoking 2 packs of cigarettes daily, but he quit smoking in 1997. INTERIM HISTORY: He began cycle 1 of adjuvant chemotherapy with modified FOLFOX. He tolerated it without any acute toxicity. He is seen now for a follow-up visit. He has been feeling good generally. He has good energy and activity tolerance. His ECOG score is 0. Appetite also is good. He has no fever or night sweats. He does have some sinus drainage, which is chronic. He has not had sore mouth or throat. He does not complain of cough, and he has not been having shortness of breath or chest pain. He complains that his bowels are still a little bit tight. He has no other GI or complaints. He has no significant joint or bone pain. He has had a little bit of headache, attributable to sinus. He had cold sensitivity in his hands, which lasted for 3 to 4 days after his treatment. He has had no other neuropathy symptoms. Medications: He has Compazine or lorazepam available to use as needed for nausea. He is otherwise not on any prescription medication. Allergies: No Known Allergies. Vital Signs: Performed on Mar 08, 2021 11:53 Height - 72.00 in Weight - 167.6 lbs (HIGH) BSA - 1.98 sq.m BMI - 22.73 Temperature - 98.0 F (LOW) Pulse - 70 /min Respiration - 18 /min BP - 158/96 mm(hg) (HIGH) O2 Sat - 99 % Pain - 0 Fatigue - 0 Physical Examination: Constitutional - He looks good generally, Eyes - Sclerae nonicteric. Conjunctivae clear, ENMT - No lesions noted in the oral cavity, Hematologic/Lymphatic - No cervical, clavicular, or axillary adenopathy, Respiratory - Lungs are clear with good air movement bilaterally, Cardiovascular - Heart rhythm is regular. There is no murmur, gallop, or rub noted, Abdomen - Soft. Liver and spleen are not enlarged. There is no abdominal mass or ascites noted and there is no inguinal adenopathy, Extremities - No edema, Neurologic - No focal neurologic deficits noted. Lab/Imaging: Test performed on Mar 08, 2021 08:10 Sodium 140 mmol/L Potassium 3.7 mmol/L Chloride 104 mmol/L CO2 27 mmol/L Anion Gap 12.7 BUN 3 mg/dL Creatinine 0.6 mg/dL Cr Clearance (Est) 127.0900 mL/min eGFR 134.4 mL/min Glucose 89 mg/dL Osmolality - Calculated 286 mOsm/kg Calcium 9.2 mg/dL Protein, Total 6.8 g/dL Albumin 3.7 g/dL Globulin 3.1 g/dL Bilirubin, Total 0.2 mg/dL ALT (SGPT) 26 U/L AST (SGOT) 31 U/L Alkaline Phosphatase 77 IU/L WBC 5.0 10 3/uL RBC 5.40 10 6/uL HGB 15.8 g/dL HCT 47.7 % MCV 88.3 fl MCH 29.3 pg MCHC 33.1 g/dL RDW 15.4 % Platelet Count 160 10 3/cmm MPV 9.4 fL Neutrophils 2.17 10 3/uL Lymphocytes 1.9 10 3/uL Monocytes 0.7 10 3/uL Eosinophils 0.1 10 3/uL Basophils 0.0 10 3/uL Neutrophil % 43.9 % Lymphocyte % 39.0 % Monocyte % 14.3 % Eosinophil % 1.8 % Basophils % 0.8 % NRBC % 0 % Problem List: 1. Well differentiated adenocarcinoma of the transverse colon, stage IIIC (pT4b, pN1a, M0). His tumor was found to have intact expression of mismatch repair proteins. 2. Hypertension. 3. Hyperlipidemia. 4. GERD. 5. Degenerative arthritis. 6. Alcohol abuse. 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 His tumor was found to have intact expression of mismatch repair proteins. On 11/09/2020 he underwent extended right hemicolectomy with en bloc resection of involved portion of abdominal wall, stomach, and omentum. There was associated tumor perforation. There was involvement in 1/3 4 lymph nodes, and pathology also showed involvement at the radial (abdominal wall) margin, estimated at 0.5 mm. With those findings, he was advised that he was at increased risk for recurrence, and he was recommended to have adjuvant chemotherapy with modified FOLFOX. However, his postoperative course was complicated by postprandial vomiting. At his ER visit on 11/30/[address] abdomen/pelvis showed gastric distention with air and fluid, and he was found to be significantly hypokalemic. He continued symptomatic management, and he did show gradual recovery, but those complications did result in a significant delay in his adjuvant therapy. As of his follow-up visit on 02/16/2021 he was feeling much better, at that point he indicated that he did want to proceed with adjuvant chemotherapy. On 02/22/2021 he began cycle 1 of modified FOLFOX. He tolerated it extremely well. Side effects have been limited to mild cold sensitivity, lasting only 3 to 4 days. He has had no other significant side effects. He will proceed now with cycle 2 of adjuvant FOLFOX chemotherapy. The dosages will remain the same. He returns in 2 weeks. Signed By: Luis Topete M.D. <<Signature on File>>
== END 2021-03-14 23:59 | disposition home or self-care (01) ==
LOC: ONCMED 06:14
PROVIDERS: Nurse Practitioner; PCP Internal Medicine; Visit Provider Internal Medicine Medical Oncology
DX: Z51.11 Encounter for antineoplastic chemotherapy (principal); C18.4 Malignant neoplasm of transverse colon; I10 Essential (primary) hypertension; E78.5 Hyperlipidemia, unspecified; K21.9 Gastro-esophageal reflux disease without esophagitis; M19.90 Unspecified osteoarthritis, unspecified site; F10.10 Alcohol abuse, uncomplicated; Z79.899 Other long term (current) drug therapy
CPT/HCPCS: 36415; 80053; 82378; 85025; 96367; 96368; 96375; 96413; 96415; 96416; 96523; 99214; 99215; J0640; J1100; J2469; J3490; J9190; J9263

== ENCOUNTER 2021-04-12 06:32 | Outpatient (RCR) | payer MEDICARE, OTHER, SELFPAY ==
[2021-03-22 14:56] LABS: Basophils % 0.6 %; Eosinophils # 0.1 10^3/uL (0.0-0.8); Eosinophils % 1.1 %; Hematocrit 48.1 % (42.0-52.0); Hemoglobin 16.3 g/dL (11.7-16.6); Lymphocytes # 1.7 10^3/uL (0.8-4.8); Lymphocytes % 36.5 %; Mean Corpuscular HGB Conc 33.9 g/dL (30.0-36.0); Mean Corpuscular Hemoglobin 29.4 pg (28.0-34.0); Mean Corpuscular Volume 86.7 fl (80-94); Mean Platelet Volume 9.6 fL (7.4-10.4); Monocytes # 0.8 10^3/uL (0.2-0.9); Monocytes % 17.5 %; Neutrophils # 2.06 10^3/uL (1.8-7.7); Neutrophils % 44.1 %; Nucleated Red Blood Cells % 0 %; Platelet Count 96 10^3/cmm (130-400); Red Blood Count 5.55 10^6/uL (4.1-5.3); Red Cell Distribution Width 15.5 % (12.1-15.1); White Blood Count 4.7 10^3/uL (4.0-10.0)
[2021-03-22 15:10] LABS: Alanine Aminotransferase 27 U/L (0-41); Albumin Level 3.9 g/dL (3.5-5.2); Alkaline Phosphatase 76 IU/L (40-130); Aspartate Amino Transferase 34 U/L (0-40); Blood Urea Nitrogen 4 mg/dL (8-23); Calcium 9.6 mg/dL (8.5-10.5); Carbon Dioxide 26 mmol/L (22-29); Chloride 101 mmol/L (98-107); Globulin 3.6 g/dL (1.3-4.6); Glomerular Filtration Rate 134.4 mL/min (90-130); Glucose 93 mg/dL (65-115); Osmolality Calculated 279 mOsm/kg (285-295); Sodium 136 mmol/L (136-145); Total Bilirubin 0.3 mg/dL (0.15-1.2); Total Protein 7.5 g/dL (6.6-8.7)
[2021-03-22 15:18] LABS: Anion Gap 12.7 (5-19); Potassium 3.7 mmol/L (3.5-5.1)
[2021-03-23] MEDS: palonosetron 0.25 mg/5 mL SDV IV (10:15)
[2021-03-23] MEDS: famotidine 20 mg/2 mL INJ IVP (10:16)
[2021-03-23] MEDS: dextrose 5% 250 ML 75 ML IV (11:15)
--- NOTE | 2021-03-27 10:52 | ONC FU_ITS ---
[facility] Patient Note Patient: Ry Potter Unit #: [id number]: 1955 Dictated By: Brendan De AndaDate of Visit: Mar 23, 2021 Onc MED Follow-Up/Prog Note Chief Complaint: Colon cancer. 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 He had presented with abdominal pain and weight loss. His colonoscopy on 10/08/2020 showed a partially obstructing malignant appearing mass in the distal ascending colon, estimated at 7 x 5 cm. Also noted was a 3 mm polyp in the mid sigmoid colon and a 10 mm polyp in the rectum. Biopsies of the rectal mass showed moderately differentiated adenocarcinoma. The sigmoid colon polyp was hyperplastic. The rectal biopsy showed tubular adenoma with focal high-grade dysplasia. His staging CT scans of the chest, abdomen, and pelvis showed soft tissue encasement of the distal transverse colon/splenic flexure extending over a length of 7.2 cm. There was associated wall thickening measuring up to 2.2 cm with moderate narrowing of the lumen. There were no adjacent satellite lesions or nodules and there was no associated retroperitoneal or mesenteric adenopathy. There also was no evidence of other metastatic disease. His laboratory studies included CBC showing hemoglobin 13.2 g, white blood cell count 12,900, and platelet count 364,000. Comprehensive metabolic profile showed normal renal function with BUN 7 and creatinine 0.7 mg/dL. Bilirubin and liver enzymes were normal. His baseline CEA level was significantly elevated at 88.7 ng/mL. He was referred to Dr. Bennett. His repeat colonoscopy on 10/28/2020 showed near obstructing transverse colon carcinoma. There was no grossly apparent residual adenomatous tissue at the polypectomy site in the rectum. On 11/09/2020 he underwent extended right hemicolectomy with en bloc excision of abdominal wall, stomach, and omentum. Operative findings included a large tumor in the distal transverse colon which was invading the abdominal wall, body of stomach, and omentum. There was associated perforation of cancer into the omentum, abdominal wall and stomach and there were associated inflammatory changes of the adjacent organs and with marked thickening and erythema of the bowel. There was no evidence of abdominal carcinomatosis or metastatic involvement in the liver. Pathology showed well differentiated invasive adenocarcinoma which was involving the omentum, abdominal wall, and serosa of the stomach. The tumor measured 7.0 x 6.0 cm. The radial (abdominal wall) margin was involved with tumor present 0 to 1 mm from the margin. The proximal and distal margins were uninvolved. The gastric and mesenteric margins were uninvolved. There was involvement in 1 of 34 lymph nodes. Pathologic staging was pT4b, pN1a. His tumor was found to have intact expression of mismatch repair proteins. The procedure also included appendectomy with pathology showing evidence of acute appendicitis. Dr Topete had seen him initially on 11/26/2020. He was still having difficulty recovering from the surgery. In particular, he was having significant issues with postprandial vomiting. He was recommended to undergo adjuvant chemotherapy, but at that point he needed additional time for recovery. On 11/30/2020 he was seen in the emergency room with complaints of dizziness and passing out. He was found to be hypokalemic, potassium 2.6 mmol/L. His CT abdomen/pelvis showed marked dilatation of the stomach with fluid and air. There was no evidence of bowel obstruction. At his follow-up visit on 12/14/2020 he was still had significant GI complaints, for which he was given symptomatic management. He was scheduled to return for follow-up in 2 weeks, but he did not keep that appointment. He was seen again for a follow-up visit on 02/16/2021. At that point he was feeling much better, and he indicated that he did want to take adjuvant chemotherapy. His other medical illnesses include hypertension, hyperlipidemia, GERD, degenerative arthritis, and benign prostatic hypertrophy. He has a history of alcohol abuse, but he has reduced his alcohol use significantly. He also has a history of smoking 2 packs of cigarettes daily, but he quit smoking in 1997. INTERIM HISTORY: He began cycle 1 of adjuvant chemotherapy with modified FOLFOX. He tolerated it without any acute toxicity. He completed cycle 2 on 2021-03-08 and again tolerated it well. He is here today for follow-up and consideration of cycle 3 modified FOLFOX. Mr. Potter states that he is doing well. His energy is good. He states that he played golf on Monday and again last week. He has been working with his friend at the [employer] his boat when arrived for the winter. He states his appetite is good. He has had slight taste changes but nothing that has modified his diet as of yet. He denies any nausea or vomiting. He has had no skin rashes or lesions. He denies any mouth sores, sore throat or difficulty swallowing. He denies any headaches or vision changes. He states his breathing is good. He denies any shortness of breath orthopnea. He denies any cough or hemoptysis. He states his bowels and bladder are good. He denies any diarrhea. He states his had slight constipation but he has been able to manage that on his own. 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 He states he has no numbness or tingling to speak of at all. He denies any lower extremity edema. He denies any chest pain or palpitations. His ECOG is 0. Past Medical History: Alcohol abuse Benign prostatic hyperplasia Degenerative arthritis Gastroesophageal reflux disease Hypercholesterolemia Hypertension Past Surgical History: Colonoscopy on 10/08/2020 and on 10/28/2020 Vasectomy Flu vac in 2020 Port-a-cath placement in 2020 - Dr. Chano Ontiveros left subclavian???Dr. Madden in 2020 Extended right hemicolectomy with en bloc excision of abdominal wall, stomach, and omentum in 2020 Allergies: No Known Allergies. Medications: Family History: Father of lung cancer at age 58. Mother with C. difficile colitis at age 81. A brother also had lung cancer and of stroke at age 63. Another brother is in good health. Social History: Mr. Potter is . Mr. Potter quit smoking 23 years ago but had smoked for 25 years. He drinks daily. He consumes 4 drinks/day 7 days/week. He has a history of smoking up to 2 packs of cigarettes daily. He quit smoking in 1997. He has a history of drinking 8-10 beers per day, but over the past several months he has cut down, currently to 4 beers daily. Review Of Symptoms: <See Above> Vital Signs: Performed on Mar 23, 2021 09:09 Height - 72.00 in Weight - 169.8 lbs (HIGH) BSA - 1.99 sq.m BMI - 23.03 Temperature - 97.6 F (LOW) Pulse - 69 /min Respiration - 18 /min BP - 136/82 mm(hg) O2 Sat - 96 % Pain - 0 Fatigue - 0,0 - Fully active, able to carry on all predisease activities without restrictions. (ECOG) Physical Examination: Constitutional Alert, oriented, no acute distress. Skin pink, warm and dry. Head Normocephalic; atraumatic. Eyes Conjunctivae and sclerae are clear and without icterus. Pupils are reactive and equal. ENMT No oral exudates, ulcers, masses, thrush or mucositis. Oropharynx clear. Tongue normal. Neck Supple without masses or thyromegaly. No jugular venous distension. Hematologic/Lymphatic No petechiae or purpura. No tender or palpable lymph nodes in the cervical or supraclavicular areas. Respiratory Lungs are clear to auscultation without rhonchi or wheezing. Cardiovascular Regular rate and rhythm of heart without murmurs,clicks, gallops or rubs. Chest Chest is symmetric without chest wall deformities. Left chest wall venous access device insertion site has healed well. Abdomen Non-tender, non-distended, no masses or ascites. Good bowel sounds noted in all quads. No guarding or rebound tenderness. No pulsatile masses. Back/Spine Non-tender to palpation. Extremities No visible deformities, no cyanosis, clubbing or edema. Musculoskeletal No tenderness or swelling, normal range of motion without obvious weakness. Integumentary No rashes or lesions. Neurologic No sensory or motor deficits, normal cerebellar function, normal gait. Psychiatric Alert and oriented times three. Coherent speech. Verbalizes understanding of our discussions today. Laboratory:Test performed on Mar 22, 2021 14:30 Sodium 136 mmol/L Potassium 3.7 mmol/L Chloride 101 mmol/L CO2 26 mmol/L Anion Gap 12.7 BUN 4 mg/dL Creatinine 0.6 mg/dL Cr Clearance (Est) 127.0900 mL/min eGFR 134.4 mL/min Glucose 93 mg/dL Osmolality - Calculated 279 mOsm/kg Calcium 9.6 mg/dL Protein, Total 7.5 g/dL Albumin 3.9 g/dL Globulin 3.6 g/dL Bilirubin, Total 0.3 mg/dL ALT (SGPT) 27 U/L AST (SGOT) 34 U/L Alkaline Phosphatase 76 IU/L WBC 4.7 10 3/uL RBC 5.55 10 6/uL HGB 16.3 g/dL HCT 48.1 % MCV 86.7 fl MCH 29.4 pg MCHC 33.9 g/dL RDW 15.5 % Platelet Count 96 10 3/cmm MPV 9.6 fL Neutrophils 2.06 10 3/uL Lymphocytes 1.7 10 3/uL Monocytes 0.8 10 3/uL Eosinophils 0.1 10 3/uL Basophils 0.0 10 3/uL Neutrophil % 44.1 % Lymphocyte % 36.5 % Monocyte % 17.5 % Eosinophil % 1.1 % Basophils % 0.6 % NRBC % 0 % Test performed on Feb 22, 2021 08:45 CEA 5.2 ng/mL Test performed on Feb 16, 2021 12:08 Ferritin 144 ng/mL Iron 115 mcg/dL Iron Binding Capacity (TIBC) 260 mcg/dl % Iron Saturation 44.2 % UIBC 145 mcg/dL Impression: 1. Well differentiated adenocarcinoma of the transverse colon, stage IIIC (pT4b, pN1a, M0). His tumor was found to have intact expression of mismatch repair proteins. 2. Hypertension. 3. Hyperlipidemia. 4. GERD. 5. Degenerative arthritis. 6. Alcohol abuse. Plan/Problems Addressed at this Visit: 1. Well differentiated adenocarcinoma of the transverse colon, stage IIIC (pT4b, pN1a, M0). His tumor was found to have intact expression of mismatch repair proteins. On 11/09/2020 he underwent extended right hemicolectomy with en bloc resection of involved portion of abdominal wall, stomach, and omentum. There was associated tumor perforation. There was involvement in 1/3 4 lymph nodes, and pathology also showed involvement at the radial (abdominal wall) margin, estimated at 0.5 mm. With those findings, he was advised that he was at increased risk for recurrence, and he was recommended to have adjuvant chemotherapy with modified FOLFOX. However, his postoperative course was complicated by postprandial vomiting. At his ER visit on 11/30/[address] abdomen/pelvis showed gastric distention with air and fluid, and he was found to be significantly hypokalemic. He continued symptomatic management, and he did show gradual recovery. However, those complications did result in a significant delay in his adjuvant therapy. At his follow-up with Dr. Topete February 16, 2021, he indicated that he was interested in pursuing adjuvant chemotherapy. Given the interval from his surgery, is uncertain to what extent he will benefit with treatment. However, he obviously meets criteria for adjuvant therapy and he was given the option to proceed with 12 cycles of modified FOLFOX. He required placement of a Port-A-Cath which was accomplished on February 18, [address] Madden. Mr Potter began his first cycle of modified FOLFOX on 02/22/2021 A. Proceed with cycle 3 modified FOLFOX. This is day 1. We will continue him at full dose for now and consider dose reduction at his next visit. He does have slight thrombocytopenia with a platelet count of 96,000 this will need to be monitored in the interim. B. Proceed with aggressive antiemetics due to high risk regimen, history of alcohol abuse and GERD. C. He will have Compazine and lorazepam as needed for antiemetics at home. D. March 22, 2021 labs were reviewed in detail and discussed with Mr. Potter and a copy was given to him. WBC 4.7, hemoglobin 16.3, platelets 96,000, ANC is 2060. Potassium 3.7 random glucose is 93 creatinine 0.5 and LFTs are normal. His CEA was 5.2 on 02/22/2021. E. We will plan for him to return in 1 week for CBC for chemotherapy monitoring/thrombocytopenia. F. We will plan for him to return for follow-up in 2 weeks with CBC CMP and CEA. G. He states he did receive his flu vac on 02/19/2021. H. Mr. Potter was instructed to contact us in interim should questions or problems arise. I. He reports his blood pressure this morning at home was 118/74. 2. He had iron deficiency anemia. It has corrected on oral iron supplementation. Signed By: Perico De AndaP.-ROSIE, AOCNP Luis Topete MD <<Signature on File>>
[2021-03-30 14:32] LABS: Basophils % 0.7 %; Eosinophils # 0.1 10^3/uL (0.0-0.8); Eosinophils % 1.1 %; Hematocrit 45.1 % (42.0-52.0); Hemoglobin 15.2 g/dL (11.7-16.6); Lymphocytes # 1.8 10^3/uL (0.8-4.8); Lymphocytes % 39.6 %; Mean Corpuscular HGB Conc 33.7 g/dL (30.0-36.0); Mean Corpuscular Volume 86.1 fl (80-94); Mean Platelet Volume 10.5 fL (7.4-10.4); Monocytes # 0.4 10^3/uL (0.2-0.9); Monocytes % 8.3 %; Neutrophils # 2.23 10^3/uL (1.8-7.7); Neutrophils % 50.1 %; Nucleated Red Blood Cells % 0 %; Platelet Count 85 10^3/cmm (130-400); Red Blood Count 5.24 10^6/uL (4.1-5.3); Red Cell Distribution Width 14.7 % (12.1-15.1); White Blood Count 4.5 10^3/uL (4.0-10.0)
[2021-04-05 08:49] LABS: Basophils % 0.5 %; Eosinophils % 1.1 %; Hematocrit 44.2 % (42.0-52.0); Hemoglobin 15.4 g/dL (11.7-16.6); Lymphocytes # 1.4 10^3/uL (0.8-4.8); Lymphocytes % 38.1 %; Mean Corpuscular HGB Conc 34.8 g/dL (30.0-36.0); Mean Corpuscular Hemoglobin 29.2 pg (28.0-34.0); Mean Corpuscular Volume 83.9 fl (80-94); Mean Platelet Volume 9.2 fL (7.4-10.4); Monocytes # 0.8 10^3/uL (0.2-0.9); Monocytes % 21.4 %; Neutrophils # 1.42 10^3/uL (1.8-7.7); Neutrophils % 38.9 %; Nucleated Red Blood Cells % 0 %; Platelet Count 47 10^3/cmm (130-400); Red Blood Count 5.27 10^6/uL (4.1-5.3); Red Cell Distribution Width 15.2 % (12.1-15.1); White Blood Count 3.7 10^3/uL (4.0-10.0)
[2021-04-05 09:14] LABS: Slide Review Slide Review Perform
[2021-04-05 09:15] LABS: Alanine Aminotransferase 34 U/L (0-41); Albumin Level 3.6 g/dL (3.5-5.2); Alkaline Phosphatase 95 IU/L (40-130); Aspartate Amino Transferase 41 U/L (0-40); Blood Urea Nitrogen 4 mg/dL (8-23); Calcium 8.5 mg/dL (8.5-10.5); Carbon Dioxide 24 mmol/L (22-29); Chloride 105 mmol/L (98-107); Globulin 3.3 g/dL (1.3-4.6); Glomerular Filtration Rate 134.4 mL/min (90-130); Glucose 95 mg/dL (65-115); Osmolality Calculated 283 mOsm/kg (285-295); Sodium 138 mmol/L (136-145); Total Bilirubin 0.4 mg/dL (0.15-1.2); Total Protein 6.9 g/dL (6.6-8.7)
[2021-04-05 09:19] LABS: Anion Gap 12.3 (5-19); Potassium 3.3 mmol/L (3.5-5.1)
--- NOTE | 2021-04-06 07:03 | ONC FU_ITS ---
Dr. Topete Patient Follow-Up Note Patient: Ry Potter Unit #: [id number]: [id number] Dicatated By: Luis Topete M.D.Date of Visit:Apr 05, 2021 Onc Med Follow-up/Prog Note Chief Complaint: Colon cancer. 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 He had presented with abdominal pain and weight loss. His colonoscopy on 10/08/2020 showed a partially obstructing malignant appearing mass in the distal ascending colon, estimated at 7 x 5 cm. Also noted was a 3 mm polyp in the mid sigmoid colon and a 10 mm polyp in the rectum. Biopsies of the rectal mass showed moderately differentiated adenocarcinoma. The sigmoid colon polyp was hyperplastic. The rectal biopsy showed tubular adenoma with focal high-grade dysplasia. His staging CT scans of the chest, abdomen, and pelvis showed soft tissue encasement of the distal transverse colon/splenic flexure extending over a length of 7.2 cm. There was associated wall thickening measuring up to 2.2 cm with moderate narrowing of the lumen. There were no adjacent satellite lesions or nodules and there was no associated retroperitoneal or mesenteric adenopathy. There also was no evidence of other metastatic disease. His laboratory studies included CBC showing hemoglobin 13.2 g, white blood cell count 12,900, and platelet count 364,000. Comprehensive metabolic profile showed normal renal function with BUN 7 and creatinine 0.7 mg/dL. Bilirubin and liver enzymes were normal. His baseline CEA level was significantly elevated at 88.7 ng/mL. He was referred to Dr. Bennett. His repeat colonoscopy on 10/28/2020 showed near obstructing transverse colon carcinoma. There was no grossly apparent residual adenomatous tissue at the polypectomy site in the rectum. On 11/09/2020 he underwent extended right hemicolectomy with en bloc excision of abdominal wall, stomach, and omentum. Operative findings included a large tumor in the distal transverse colon which was invading the abdominal wall, body of stomach, and omentum. There was associated perforation of cancer into the omentum, abdominal wall and stomach and there were associated inflammatory changes of the adjacent organs and with marked thickening and erythema of the bowel. There was no evidence of abdominal carcinomatosis or metastatic involvement in the liver. Pathology showed well differentiated invasive adenocarcinoma which was involving the omentum, abdominal wall, and serosa of the stomach. The tumor measured 7.0 x 6.0 cm. The radial (abdominal wall) margin was involved with tumor present 0 to 1 mm from the margin. The proximal and distal margins were uninvolved. The gastric and mesenteric margins were uninvolved. There was involvement in 1 of 34 lymph nodes. Pathologic staging was pT4b, pN1a. His tumor was found to have intact expression of mismatch repair proteins. The procedure also included appendectomy with pathology showing evidence of acute appendicitis. I had seen him initially on 11/26/2020. He was still having difficulty recovering from the surgery. In particular, he was having significant issues with postprandial vomiting. He was recommended to undergo adjuvant chemotherapy, but at that point he needed additional time for recovery. On 11/30/2020 he was seen in the emergency room with complaints of dizziness and passing out. He was found to be hypokalemic, potassium 2.6 mmol/L. His CT abdomen/pelvis showed marked dilatation of the stomach with fluid and air. There was no evidence of bowel obstruction. At his follow-up visit on 12/14/2020 he was still had significant GI complaints, for which he was given symptomatic management. He was scheduled to return for follow-up in 2 weeks, but he did not keep that appointment. He was seen again for a follow-up visit on 02/16/2021. At that point he was feeling much better, and he indicated that he did want to take adjuvant chemotherapy. His other medical illnesses include hypertension, hyperlipidemia, GERD, degenerative arthritis, and benign prostatic hypertrophy. He has a history of alcohol abuse, but he has reduced his alcohol use significantly. He also has a history of smoking 2 packs of cigarettes daily, but he quit smoking in 1997. INTERIM HISTORY: He began cycle 1 of adjuvant chemotherapy with modified FOLFOX on 02/22/2021. He tolerated it well. He continued with cycle 2 on 03/08/2021 and with cycle 3 on 03/23/2021. He is seen for a follow-up visit. He has been feeling okay. He reports having good energy and activity tolerance. ECOG score is 0. Appetite also is good. He has no fever or night sweats. He has had no mouth sores. He does not complain of cough, and he has not been having shortness of breath or chest pain. He has had a little bit of acid reflux, but no nausea/vomiting. Bowel function remains adequate with MiraLAX. He has no complaints. He currently is not having any significant joint or bone pain. He has noted improvement in the pain in his knee/leg since he stopped taking his regular medications, which included atorvastatin and amlodipine. He has had headache recently, attributable to sinus. He has mild cold sensitivity, but no other neuropathy symptoms. Medications: He is currently not taking any prescription medication. Allergies: No Known Allergies. Vital Signs: Performed on Apr 05, 2021 11:25 Height - 72.00 in Weight - 167 lbs (LOW) BSA - 1.97 sq.m BMI - 22.65 Temperature - 96.8 F (LOW) Pulse - 75 /min Respiration - 18 /min BP - 160/91 mm(hg) (HIGH) O2 Sat - 97 % Pain - 0 Fatigue - 0 Physical Examination: Constitutional - He looks good generally, Eyes - Sclerae nonicteric. Conjunctivae clear, ENMT - No lesions noted in the oral cavity, Hematologic/Lymphatic - No cervical, clavicular, or axillary adenopathy, Respiratory - Lungs are clear with good air movement bilaterally, Cardiovascular - Heart rhythm is regular. There is no murmur, gallop, or rub noted, Abdomen - Soft. Liver and spleen are not enlarged. There is no abdominal mass or ascites noted and there is no inguinal adenopathy, Extremities - No edema, Neurologic - No focal neurologic deficits noted. Lab/Imaging: Test performed on Apr 05, 2021 08:19 Sodium 138 mmol/L Potassium 3.3 mmol/L Chloride 105 mmol/L CO2 24 mmol/L Anion Gap 12.3 BUN 4 mg/dL Creatinine 0.6 mg/dL Cr Clearance (Est) 127.0900 mL/min eGFR 134.4 mL/min Glucose 95 mg/dL Osmolality - Calculated 283 mOsm/kg Calcium 8.5 mg/dL Protein, Total 6.9 g/dL Albumin 3.6 g/dL Globulin 3.3 g/dL Bilirubin, Total 0.4 mg/dL ALT (SGPT) 34 U/L AST (SGOT) 41 U/L Alkaline Phosphatase 95 IU/L WBC 3.7 10 3/uL RBC 5.27 10 6/uL HGB 15.4 g/dL HCT 44.2 % MCV 83.9 fl MCH 29.2 pg MCHC 34.8 g/dL RDW 15.2 % Platelet Count 47 10 3/cmm MPV 9.2 fL Neutrophils 1.42 10 3/uL Lymphocytes 1.4 10 3/uL Monocytes 0.8 10 3/uL Eosinophils 0.0 10 3/uL Basophils 0.0 10 3/uL Neutrophil % 38.9 % Lymphocyte % 38.1 % Monocyte % 21.4 % Eosinophil % 1.1 % Basophils % 0.5 % NRBC % 0 % CBC Slide Review Slide Review Perform REVIEW AGREES WITH AUTOMATED RESULTS Problem List: 1. Well differentiated adenocarcinoma of the transverse colon, stage IIIC (pT4b, pN1a, M0). His tumor was found to have intact expression of mismatch repair proteins. 2. Hypertension. 3. Hyperlipidemia. 4. GERD. 5. Degenerative arthritis. 6. Alcohol abuse. 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 His tumor was found to have intact expression of mismatch repair proteins. On 11/09/2020 he underwent extended right hemicolectomy with en bloc resection of involved portion of abdominal wall, stomach, and omentum. There was associated tumor perforation. There was involvement in 1/3 4 lymph nodes, and pathology also showed involvement at the radial (abdominal wall) margin, estimated at 0.5 mm. With those findings, he was advised that he was at increased risk for recurrence, and he was recommended to have adjuvant chemotherapy with modified FOLFOX. However, his postoperative course was complicated by postprandial vomiting. At his ER visit on 11/30/[address] abdomen/pelvis showed gastric distention with air and fluid, and he was found to be significantly hypokalemic. He continued symptomatic management, and he did show gradual recovery, but those complications did result in a significant delay in his adjuvant therapy. As of his follow-up visit on 02/16/2021 he was feeling much better, at that point he indicated that he did want to proceed with adjuvant chemotherapy. On 02/22/2021 he began cycle 1 of modified FOLFOX. He tolerated it extremely well. He then continued with cycle 2 on 03/08/2021 and with cycle 3 on 03/23/2021. Side effects thus far have been limited to mild cold sensitivity. However, he now has moderately severe neutropenia and thrombocytopenia. As such, his treatment will be delayed until he has adequate recovery, and with cycle 4 he will be given a one level dose reduction in the oxaliplatin and a 20% reduction in the 5-FU dosage. Signed By: Luis Topete M.D. <<Signature on File>>
[2021-04-12 09:14] LABS: Basophils % 0.6 %; Eosinophils # 0.1 10^3/uL (0.0-0.8); Eosinophils % 1.9 %; Hematocrit 46.5 % (42.0-52.0); Hemoglobin 15.9 g/dL (11.7-16.6); Lymphocytes # 1.3 10^3/uL (0.8-4.8); Lymphocytes % 41.6 %; Mean Corpuscular HGB Conc 34.2 g/dL (30.0-36.0); Mean Corpuscular Hemoglobin 29.4 pg (28.0-34.0); Mean Corpuscular Volume 86.1 fl (80-94); Monocytes # 0.9 10^3/uL (0.2-0.9); Monocytes % 27.2 %; Neutrophils % 28.7 %; Nucleated Red Blood Cells % 0 %; Platelet Count 130 10^3/cmm (130-400); Red Cell Distribution Width 15.8 % (12.1-15.1); White Blood Count 3.2 10^3/uL (4.0-10.0)
[2021-04-12 09:16] LABS: Neutrophils # 0.92 10^3/uL (1.8-7.7)
[2021-04-12 09:38] LABS: Carcinoembryonic Antigen 5.5 ng/mL (0.0-4.7)
== END 2021-04-13 23:59 | disposition home or self-care (01) ==
LOC: ONCMED 06:32
PROVIDERS: Nurse Practitioner; PCP Internal Medicine; Visit Provider Internal Medicine Medical Oncology
DX: Z51.11 Encounter for antineoplastic chemotherapy (principal); C18.4 Malignant neoplasm of transverse colon; I10 Essential (primary) hypertension; E78.5 Hyperlipidemia, unspecified; K21.9 Gastro-esophageal reflux disease without esophagitis; M19.90 Unspecified osteoarthritis, unspecified site; F10.10 Alcohol abuse, uncomplicated; Z79.899 Other long term (current) drug therapy
CPT/HCPCS: 36415; 36591; 80053; 82378; 85025; 96367; 96368; 96375; 96413; 96415; 96416; 96523; 99214; 99215; J0640; J1100; J2469; J3490; J9190; J9263

== ENCOUNTER 2021-05-05 06:34 | Outpatient (RCR) | payer MEDICARE, OTHER, SELFPAY ==
[2021-04-19 09:55] LABS: Basophils # 0.1 10^3/uL (0.0-0.1); Basophils % 1.1 %; Eosinophils # 0.1 10^3/uL (0.0-0.8); Eosinophils % 1.3 %; Hematocrit 47.8 % (42.0-52.0); Lymphocytes # 1.6 10^3/uL (0.8-4.8); Lymphocytes % 35.8 %; Mean Corpuscular HGB Conc 33.5 g/dL (30.0-36.0); Mean Corpuscular Hemoglobin 29.3 pg (28.0-34.0); Mean Corpuscular Volume 87.5 fl (80-94); Mean Platelet Volume 9.6 fL (7.4-10.4); Monocytes # 0.6 10^3/uL (0.2-0.9); Neutrophils # 2.18 10^3/uL (1.8-7.7); Neutrophils % 47.6 %; Nucleated Red Blood Cells % 0 %; Platelet Count 130 10^3/cmm (130-400); Red Blood Count 5.46 10^6/uL (4.1-5.3); White Blood Count 4.6 10^3/uL (4.0-10.0)
[2021-04-19] MEDS: famotidine 20 mg/2 mL INJ IVP (10:45)
[2021-04-19] MEDS: dextrose 5% 250 ML 75 ML IV ×2 (10:46)
[2021-04-19] MEDS: palonosetron 0.25 mg/5 mL SDV IV (10:46)
[2021-05-03 08:28] LABS: Basophils % 0.7 %; Eosinophils # 0.1 10^3/uL (0.0-0.8); Hematocrit 44.4 % (42.0-52.0); Hemoglobin 14.9 g/dL (11.7-16.6); Lymphocytes # 1.3 10^3/uL (0.8-4.8); Lymphocytes % 28.9 %; Mean Corpuscular HGB Conc 33.6 g/dL (30.0-36.0); Mean Corpuscular Hemoglobin 29.2 pg (28.0-34.0); Mean Corpuscular Volume 86.9 fl (80-94); Monocytes # 0.7 10^3/uL (0.2-0.9); Monocytes % 16.4 %; Neutrophils # 2.29 10^3/uL (1.8-7.7); Nucleated Red Blood Cells % 0 %; Platelet Count 111 10^3/cmm (130-400); Red Blood Count 5.11 10^6/uL (4.1-5.3); Red Cell Distribution Width 14.5 % (12.1-15.1); White Blood Count 4.4 10^3/uL (4.0-10.0)
[2021-05-03 08:50] LABS: Alanine Aminotransferase 24 U/L (0-41); Albumin Level 3.6 g/dL (3.5-5.2); Alkaline Phosphatase 106 IU/L (40-130); Aspartate Amino Transferase 35 U/L (0-40); Blood Urea Nitrogen 7 mg/dL (8-23); Calcium 8.8 mg/dL (8.5-10.5); Carbon Dioxide 21 mmol/L (22-29); Chloride 105 mmol/L (98-107); Globulin 3.2 g/dL (1.3-4.6); Glomerular Filtration Rate 134.4 mL/min (90-130); Glucose 140 mg/dL (65-115); Osmolality Calculated 286 mOsm/kg (285-295); Sodium 138 mmol/L (136-145); Total Bilirubin 0.5 mg/dL (0.15-1.2); Total Protein 6.8 g/dL (6.6-8.7)
[2021-05-03 08:55] LABS: Anion Gap 15.6 (5-19); Potassium 3.6 mmol/L (3.5-5.1)
[2021-05-03] MEDS: palonosetron 0.25 mg/5 mL SDV IV (10:30)
[2021-05-03] MEDS: dextrose 5% 250 ML 75 ML IV (10:32)
--- NOTE | 2021-05-03 19:31 | ONC FU_ITS ---
Dr. Topete Patient Follow-Up Note Patient: Ry Potter Unit #: [id number]: 1955 Dicatated By: Luis Topete M.D.Date of Visit:May 03, 2021 Onc Med Follow-up/Prog Note Chief Complaint: Colon cancer. 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 He had presented with abdominal pain and weight loss. His colonoscopy on 10/08/2020 showed a partially obstructing malignant appearing mass in the distal ascending colon, estimated at 7 x 5 cm. Also noted was a 3 mm polyp in the mid sigmoid colon and a 10 mm polyp in the rectum. Biopsies of the rectal mass showed moderately differentiated adenocarcinoma. The sigmoid colon polyp was hyperplastic. The rectal biopsy showed tubular adenoma with focal high-grade dysplasia. His staging CT scans of the chest, abdomen, and pelvis showed soft tissue encasement of the distal transverse colon/splenic flexure extending over a length of 7.2 cm. There was associated wall thickening measuring up to 2.2 cm with moderate narrowing of the lumen. There were no adjacent satellite lesions or nodules and there was no associated retroperitoneal or mesenteric adenopathy. There also was no evidence of other metastatic disease. His laboratory studies included CBC showing hemoglobin 13.2 g, white blood cell count 12,900, and platelet count 364,000. Comprehensive metabolic profile showed normal renal function with BUN 7 and creatinine 0.7 mg/dL. Bilirubin and liver enzymes were normal. His baseline CEA level was significantly elevated at 88.7 ng/mL. He was referred to Dr. Bennett. His repeat colonoscopy on 10/28/2020 showed near obstructing transverse colon carcinoma. There was no grossly apparent residual adenomatous tissue at the polypectomy site in the rectum. On 11/09/2020 he underwent extended right hemicolectomy with en bloc excision of abdominal wall, stomach, and omentum. Operative findings included a large tumor in the distal transverse colon which was invading the abdominal wall, body of stomach, and omentum. There was associated perforation of cancer into the omentum, abdominal wall and stomach and there were associated inflammatory changes of the adjacent organs and with marked thickening and erythema of the bowel. There was no evidence of abdominal carcinomatosis or metastatic involvement in the liver. Pathology showed well differentiated invasive adenocarcinoma which was involving the omentum, abdominal wall, and serosa of the stomach. The tumor measured 7.0 x 6.0 cm. The radial (abdominal wall) margin was involved with tumor present 0 to 1 mm from the margin. The proximal and distal margins were uninvolved. The gastric and mesenteric margins were uninvolved. There was involvement in 1 of 34 lymph nodes. Pathologic staging was pT4b, pN1a. His tumor was found to have intact expression of mismatch repair proteins. The procedure also included appendectomy with pathology showing evidence of acute appendicitis. I had seen him initially on 11/26/2020. He was still having difficulty recovering from the surgery. In particular, he was having significant issues with postprandial vomiting. He was recommended to undergo adjuvant chemotherapy, but at that point he needed additional time for recovery. On 11/30/2020 he was seen in the emergency room with complaints of dizziness and passing out. He was found to be hypokalemic, potassium 2.6 mmol/L. His CT abdomen/pelvis showed marked dilatation of the stomach with fluid and air. There was no evidence of bowel obstruction. At his follow-up visit on 12/14/2020 he was still had significant GI complaints, for which he was given symptomatic management. He was scheduled to return for follow-up in 2 weeks, but he did not keep that appointment. He was seen again for a follow-up visit on 02/16/2021. At that point he was feeling much better, and he indicated that he did want to take adjuvant chemotherapy. His other medical illnesses include hypertension, hyperlipidemia, GERD, degenerative arthritis, and benign prostatic hypertrophy. He has a history of alcohol abuse, but he has reduced his alcohol use significantly. He also has a history of smoking 2 packs of cigarettes daily, but he quit smoking in 1997. INTERIM HISTORY: He began cycle 1 of adjuvant chemotherapy with modified FOLFOX on 02/22/2021. He tolerated it well. He continued with cycle 2 on 03/08/2021 and with cycle 3 on 03/23/2021. His 4th cycle had to be delayed due to neutropenia and thrombocytopenia. It was administered with reductions in the dosages of both the 5-FU and oxaliplatin. He is seen for a follow-up visit. He has been feeling good generally. He has good energy and activity tolerance. ECOG score is 0. Appetite also is good. He has no fever or night sweats. He has not had sore mouth or throat. He does not complain of cough, and he has not been having shortness of breath or chest pain. He has not had any nausea. He has had a little bit of heartburn, managed adequately with Rolaids. Bowel function has been pretty good with MiraLAX. He has no complaints. He has no significant joint or bone pain. He does nuñez having some sinus headache. He continues to have just mild neuropathy, limited to cold sensitivity for just a few days. Medications: He is not on any other prescription medication. Allergies: No Known Allergies. Vital Signs: Performed on May 03, 2021 10:02 Height - 72.00 in Weight - 177.0 lbs (HIGH) BSA - 2.02 sq.m BMI - 24.01 Temperature - 98.0 F (LOW) Pulse - 77 /min Respiration - 18 /min BP - 158/82 mm(hg) (HIGH) O2 Sat - 99 % Pain - 0 Fatigue - 0 Physical Examination: Constitutional - He looks good generally, Eyes - Sclerae nonicteric. Conjunctivae clear, ENMT - No lesions noted in the oral cavity, Hematologic/Lymphatic - No cervical, clavicular, or axillary adenopathy, Respiratory - Lungs are clear with good air movement bilaterally, Cardiovascular - Heart rhythm is regular. There is no murmur, gallop, or rub noted, Abdomen - Soft. Liver and spleen are not enlarged. There is no abdominal mass or ascites noted and there is no inguinal adenopathy, Extremities - No edema, Neurologic - No focal neurologic deficits noted. Lab/Imaging: Test performed on May 03, 2021 08:13 Sodium 138 mmol/L Potassium 3.6 mmol/L Chloride 105 mmol/L CO2 21 mmol/L Anion Gap 15.6 BUN 7 mg/dL Creatinine 0.6 mg/dL Cr Clearance (Est) 135.67 mL/min eGFR 134.4 mL/min Glucose 140 mg/dL Osmolality - Calculated 286 mOsm/kg Calcium 8.8 mg/dL Protein, Total 6.8 g/dL Albumin 3.6 g/dL Globulin 3.2 g/dL Bilirubin, Total 0.5 mg/dL ALT (SGPT) 24 U/L AST (SGOT) 35 U/L Alkaline Phosphatase 106 IU/L WBC 4.4 10 3/uL RBC 5.11 10 6/uL HGB 14.9 g/dL HCT 44.4 % MCV 86.9 fl MCH 29.2 pg MCHC 33.6 g/dL RDW 14.5 % Platelet Count 111 10 3/cmm MPV 10.0 fL Neutrophils 2.29 10 3/uL Lymphocytes 1.3 10 3/uL Monocytes 0.7 10 3/uL Eosinophils 0.1 10 3/uL Basophils 0.0 10 3/uL Neutrophil % 52.0 % Lymphocyte % 28.9 % Monocyte % 16.4 % Eosinophil % 2.0 % Basophils % 0.7 % NRBC % 0 % Problem List: 1. Well differentiated adenocarcinoma of the transverse colon, stage IIIC (pT4b, pN1a, M0). His tumor was found to have intact expression of mismatch repair proteins. 2. Hypertension. 3. Hyperlipidemia. 4. GERD. 5. Degenerative arthritis. 6. Alcohol abuse. 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 His tumor was found to have intact expression of mismatch repair proteins. On 11/09/2020 he underwent extended right hemicolectomy with en bloc resection of involved portion of abdominal wall, stomach, and omentum. There was associated tumor perforation. There was involvement in 1/3 4 lymph nodes, and pathology also showed involvement at the radial (abdominal wall) margin, estimated at 0.5 mm. With those findings, he was advised that he was at increased risk for recurrence, and he was recommended to have adjuvant chemotherapy with modified FOLFOX. However, his postoperative course was complicated by postprandial vomiting. At his ER visit on 11/30/[address] abdomen/pelvis showed gastric distention with air and fluid, and he was found to be significantly hypokalemic. He continued symptomatic management, and he did show gradual recovery, but those complications did result in a significant delay in his adjuvant therapy. As of his follow-up visit on 02/16/2021 he was feeling much better, at that point he indicated that he did want to proceed with adjuvant chemotherapy. On 02/22/2021 he began cycle 1 of modified FOLFOX. He tolerated it extremely well. He then continued with cycle 2 on 03/08/2021 and with cycle 3 on 03/23/2021. His 4th cycle had to be delayed due to neutropenia and thrombocytopenia, and was administered with reductions in the dosages of the 5-FU and oxaliplatin. With dose reductions, his blood counts remain adequate. He currently is not having any other significant treatment related side effects. He will continue with cycle 5 of modified FOLFOX. The dosages remain the same. He returns in 2 weeks. Signed By: Luis Topete M.D. <<Signature on File>>
== END 2021-05-14 23:59 | disposition home or self-care (01) ==
LOC: ONCMED 06:34
PROVIDERS: PCP Internal Medicine; Visit Provider Internal Medicine Medical Oncology
DX: Z51.11 Encounter for antineoplastic chemotherapy (principal); C18.4 Malignant neoplasm of transverse colon; I10 Essential (primary) hypertension; E78.5 Hyperlipidemia, unspecified; K21.9 Gastro-esophageal reflux disease without esophagitis; M19.90 Unspecified osteoarthritis, unspecified site; F10.10 Alcohol abuse, uncomplicated; D70.1 Agranulocytosis secondary to cancer chemotherapy; T45.1X5A Adverse effect of antineoplastic and immunosuppressive drugs, initial encounter; D69.59 Other secondary thrombocytopenia; Z79.899 Other long term (current) drug therapy
CPT/HCPCS: 80053; 85025; 96367; 96368; 96375; 96413; 96415; 96416; 96523; 99215; J0640; J1100; J2469; J3490; J9190; J9263

== ENCOUNTER 2021-05-31 06:21 | Outpatient (RCR) | payer MEDICARE, OTHER, SELFPAY ==
[2021-05-17 08:32] LABS: Basophils % 0.7 %; Eosinophils # 0.1 10^3/uL (0.0-0.8); Eosinophils % 0.9 %; Hematocrit 45.3 % (42.0-52.0); Hemoglobin 15.5 g/dL (11.7-16.6); Lymphocytes # 1.7 10^3/uL (0.8-4.8); Lymphocytes % 29.8 %; Mean Corpuscular HGB Conc 34.2 g/dL (30.0-36.0); Mean Corpuscular Hemoglobin 29.8 pg (28.0-34.0); Mean Corpuscular Volume 87.1 fl (80-94); Mean Platelet Volume 9.7 fL (7.4-10.4); Monocytes # 0.9 10^3/uL (0.2-0.9); Monocytes % 16.4 %; Neutrophils # 2.88 10^3/uL (1.8-7.7); Nucleated Red Blood Cells % 0 %; Platelet Count 105 10^3/cmm (130-400); Red Cell Distribution Width 14.6 % (12.1-15.1); White Blood Count 5.5 10^3/uL (4.0-10.0)
[2021-05-17 09:03] LABS: Carcinoembryonic Antigen 6.3 ng/mL (0.0-4.7)
[2021-05-17 09:14] LABS: Alanine Aminotransferase 32 U/L (0-41); Albumin Level 3.8 g/dL (3.5-5.2); Alkaline Phosphatase 121 IU/L (40-130); Blood Urea Nitrogen 6 mg/dL (8-23); Calcium 8.8 mg/dL (8.5-10.5); Carbon Dioxide 23 mmol/L (22-29); Chloride 104 mmol/L (98-107); Globulin 3.4 g/dL (1.3-4.6); Glomerular Filtration Rate 134.4 mL/min (90-130); Glucose 136 mg/dL (65-115); Osmolality Calculated 286 mOsm/kg (285-295); Sodium 138 mmol/L (136-145); Total Bilirubin 0.7 mg/dL (0.15-1.2); Total Protein 7.2 g/dL (6.6-8.7)
[2021-05-17 09:19] LABS: Anion Gap 14.8 (5-19); Aspartate Amino Transferase 41 U/L (0-40); Potassium 3.8 mmol/L (3.5-5.1)
[2021-05-17] MEDS: palonosetron 0.25 mg/5 mL SDV IV (10:55)
[2021-05-17] MEDS: dextrose 5% 250 ML 75 ML IV (10:55)
[2021-05-31 09:13] LABS: Basophils % 0.6 %; Eosinophils # 0.1 10^3/uL (0.0-0.8); Eosinophils % 1.5 %; Hematocrit 43.9 % (42.0-52.0); Hemoglobin 14.7 g/dL (11.7-16.6); Lymphocytes # 1.5 10^3/uL (0.8-4.8); Lymphocytes % 31.4 %; Mean Corpuscular HGB Conc 33.5 g/dL (30.0-36.0); Mean Corpuscular Hemoglobin 29.6 pg (28.0-34.0); Mean Corpuscular Volume 88.5 fl (80-94); Mean Platelet Volume 10.2 fL (7.4-10.4); Monocytes # 0.8 10^3/uL (0.2-0.9); Monocytes % 17.4 %; Neutrophils # 2.31 10^3/uL (1.8-7.7); Neutrophils % 49.1 %; Nucleated Red Blood Cells % 0 %; Platelet Count 91 10^3/cmm (130-400); Red Blood Count 4.96 10^6/uL (4.1-5.3); Red Cell Distribution Width 14.6 % (12.1-15.1); White Blood Count 4.7 10^3/uL (4.0-10.0)
[2021-05-31 09:33] LABS: Alanine Aminotransferase 42 U/L (0-41); Albumin Level 3.8 g/dL (3.5-5.2); Alkaline Phosphatase 129 IU/L (40-130); Blood Urea Nitrogen 7 mg/dL (8-23); Calcium 8.8 mg/dL (8.5-10.5); Carbon Dioxide 23 mmol/L (22-29); Chloride 102 mmol/L (98-107); Globulin 3.1 g/dL (1.3-4.6); Glomerular Filtration Rate 134.4 mL/min (90-130); Glucose 119 mg/dL (65-115); Osmolality Calculated 283 mOsm/kg (285-295); Sodium 137 mmol/L (136-145); Total Bilirubin 0.8 mg/dL (0.15-1.2); Total Protein 6.9 g/dL (6.6-8.7)
[2021-05-31 09:40] LABS: Carcinoembryonic Antigen 6.6 ng/mL (0.0-4.7)
[2021-05-31 09:56] LABS: Anion Gap 15.7 (5-19); Aspartate Amino Transferase 47 U/L (0-40); Potassium 3.7 mmol/L (3.5-5.1)
== END 2021-06-03 23:59 | disposition home or self-care (01) ==
LOC: ONCMED 06:21
PROVIDERS: Internal Medicine Medical Oncology; PCP Internal Medicine; Visit Provider Nurse Practitioner Family
DX: Z51.11 Encounter for antineoplastic chemotherapy (principal); C18.4 Malignant neoplasm of transverse colon; I10 Essential (primary) hypertension; E78.5 Hyperlipidemia, unspecified; K21.9 Gastro-esophageal reflux disease without esophagitis; M19.90 Unspecified osteoarthritis, unspecified site; F10.10 Alcohol abuse, uncomplicated; Z79.899 Other long term (current) drug therapy
CPT/HCPCS: 36591; 80053; 82378; 85025; 96367; 96368; 96375; 96413; 96415; 96416; 96523; 99215; J0640; J1100; J2469; J9190; J9263

== ENCOUNTER 2021-06-04 08:51 | Outpatient (CLI) | payer MEDICARE, OTHER, SELFPAY ==
--- NOTE | 2021-06-04 | CT_ITS ---
WS: [id number] CT CHEST, ABDOMEN, AND PELVIS TECHNIQUE: Contrast-enhanced CT of the chest, abdomen, and pelvis with coronal and sagittal reformatt ed images. CLINICAL INFORMATION: COLON CANCER COMPARISON: CT 11/30/2020 and 10/08/2020 DLP: 2254.[address] scans at [facility] use at least one of these dose optimization techniques: automated e xposure control; mA and/or kV adjustment per patient size (includes targeted exams where dose is matc hed to clinical indication); or iterative reconstruction. CT CHEST: Both lungs are well aerated. No acute pulmonary infiltrates. No focal pneumonia or pleural fluid. No mediastinal or hilar lymphadenopathy. Mild aortic calcification. Normal caliber thoracic aorta. Proxi mal main pulmonary arteries are normal. No mediastinal or hilar lymphadenopathy. No subcarinal lympha denopathy. No axillary lymphadenopathy. Tiny 2 mm noncalcified nodule left upper lobe along the fiss ure. CT ABDOMEN AND PELVIS: Diffuse nodular wall thickening with luminal narrowing involving the sigmoid colon. Focal nodular mass measuring 1.7 x 1.2 x 2.3 cm. Findings are suspicious for primary neoplasm or metastatic disease.This is new from prior examinations. Nodular me tastatic implant or lymph node in the mesentery measuring 9 mm suspicious for metastatic disease. Thi s appears new since November 30, 2020. This is at the L4-5 level iliac bifurcation. Prior postoperative changes right hemicolectomy. Postoperative changes along the distal stomach. Smal l esophageal hiatal hernia. Air-fluid levels in the stomach . Normal liver. Normal portal vein and sp lenic vein. Cholelithiasis. Normal spleen. Normal pancreatic parenchymal enhancement. Adrenal glands are normal. No hydronephrosis in either kidney. Left upper pole renal cyst measuring 3.6 cm. Normal c aliber abdominal aorta. Aortic calcification. Prior postoperative changes right hemicolectomy. Small fat-containing umbilical hernia. No abdominal or pelvic lymphadenopathy. Prostate measures 4.5 CM. Mi ld disc space narrowing lower lumbar spine.Benign bone island right femoral neck. CT/CT chest abd pel w con* IMPRESSION: 1. Prior postoperative changes right hemicolectomy. No evidence of high-grade bowel obstruction. 2. Diffuse nodular wall thickening with luminal narrowing involving the sigmoi d colon. Focal nodular mass measuring 1.7 x 1.2 x 2.3 cm. Findings are suspici ous for primary neoplasm or metastatic disease. Recommend further evaluation wi th sigmoidoscopy. 3. Nodular metastatic implant or lymph node in the mesentery measuring 9 mm dominguez spicious for metastatic disease. This appears new since November 30, 2020. This is at the L4-5 level anterior to the iliac bifurcation. 4. Postoperative changes involving the anterior stomach. Small esophageal hiat al hernia. 5. Prominent prostate measuring 4.5 CM. Recommend correlation PSA. 6. Tiny 2 mm noncalcified nodule left upper lobe along the fissure appears new from November 30, 2020. Recommend [address] follow-up.
[2021-06-04] MEDS: iohexol 300 mg/mL 100 mL Btl IV (10:46)
[2021-06-04] MEDS: iohexol 300 mg/mL 50 mL Btl PO (10:47)
== END 2021-06-04 08:52 | disposition home or self-care (01) ==
PROVIDERS: PCP Internal Medicine; Visit Provider Nurse Practitioner Family
DX: C18.4 Malignant neoplasm of transverse colon (principal); D50.8 Other iron deficiency anemias; Z90.49 Acquired absence of other specified parts of digestive tract; N40.0 Benign prostatic hyperplasia without lower urinary tract symptoms; R91.1 Solitary pulmonary nodule
CPT/HCPCS: 71260; 74177; Q9967

== ENCOUNTER 2021-06-08 06:37 | Outpatient (RCR) | payer MEDICARE, OTHER, SELFPAY ==
[2021-06-08 08:26] LABS: Basophils % 1.1 %; Eosinophils # 0.1 10^3/uL (0.0-0.8); Hematocrit 43.2 % (42.0-52.0); Hemoglobin 14.6 g/dL (11.7-16.6); Lymphocytes # 1.3 10^3/uL (0.8-4.8); Lymphocytes % 35.2 %; Mean Corpuscular HGB Conc 33.8 g/dL (30.0-36.0); Mean Corpuscular Volume 88.9 fl (80-94); Monocytes # 0.7 10^3/uL (0.2-0.9); Monocytes % 19.3 %; Neutrophils # 1.51 10^3/uL (1.8-7.7); Neutrophils % 42.1 %; Nucleated Red Blood Cells % 0 %; Platelet Count 123 10^3/cmm (130-400); Red Blood Count 4.86 10^6/uL (4.1-5.3); Red Cell Distribution Width 14.4 % (12.1-15.1); White Blood Count 3.6 10^3/uL (4.0-10.0)
[2021-06-08 08:58] LABS: Alanine Aminotransferase 39 U/L (0-41); Albumin Level 3.7 g/dL (3.5-5.2); Alkaline Phosphatase 128 IU/L (40-130); Blood Urea Nitrogen 5 mg/dL (8-23); Calcium 9.8 mg/dL (8.5-10.5); Carbon Dioxide 21 mmol/L (22-29); Chloride 105 mmol/L (98-107); Globulin 3.6 g/dL (1.3-4.6); Glomerular Filtration Rate 165.9 mL/min (90-130); Glucose 88 mg/dL (65-115); Osmolality Calculated 285 mOsm/kg (285-295); Sodium 139 mmol/L (136-145); Total Bilirubin 0.8 mg/dL (0.15-1.2); Total Protein 7.3 g/dL (6.6-8.7)
[2021-06-08 09:03] LABS: Aspartate Amino Transferase 46 U/L (0-40)
--- NOTE | 2021-06-08 10:01 | ONC FU_ITS ---
Dr. Topete Patient Follow-Up Note Patient: Ry Potter Unit #: [id number]: [id number] Dicatated By: Lius Topete M.D.Date of Visit:Jun 08, 2021 Onc Med Follow-up/Prog Note Chief Complaint: Colon cancer. 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 He had presented with abdominal pain and weight loss. His colonoscopy on 10/08/2020 showed a partially obstructing malignant appearing mass in the distal ascending colon, estimated at 7 x 5 cm. Also noted was a 3 mm polyp in the mid sigmoid colon and a 10 mm polyp in the rectum. Biopsies of the rectal mass showed moderately differentiated adenocarcinoma. The sigmoid colon polyp was hyperplastic. The rectal biopsy showed tubular adenoma with focal high-grade dysplasia. His staging CT scans of the chest, abdomen, and pelvis showed soft tissue encasement of the distal transverse colon/splenic flexure extending over a length of 7.2 cm. There was associated wall thickening measuring up to 2.2 cm with moderate narrowing of the lumen. There were no adjacent satellite lesions or nodules and there was no associated retroperitoneal or mesenteric adenopathy. There also was no evidence of other metastatic disease. His laboratory studies included CBC showing hemoglobin 13.2 g, white blood cell count 12,900, and platelet count 364,000. Comprehensive metabolic profile showed normal renal function with BUN 7 and creatinine 0.7 mg/dL. Bilirubin and liver enzymes were normal. His baseline CEA level was significantly elevated at 88.7 ng/mL. He was referred to Dr. Bennett. His repeat colonoscopy on 10/28/2020 showed near obstructing transverse colon carcinoma. There was no grossly apparent residual adenomatous tissue at the polypectomy site in the rectum. On 11/09/2020 he underwent extended right hemicolectomy with en bloc excision of abdominal wall, stomach, and omentum. Operative findings included a large tumor in the distal transverse colon which was invading the abdominal wall, body of stomach, and omentum. There was associated perforation of cancer into the omentum, abdominal wall and stomach and there were associated inflammatory changes of the adjacent organs and with marked thickening and erythema of the bowel. There was no evidence of abdominal carcinomatosis or metastatic involvement in the liver. Pathology showed well differentiated invasive adenocarcinoma which was involving the omentum, abdominal wall, and serosa of the stomach. The tumor measured 7.0 x 6.0 cm. The radial (abdominal wall) margin was involved with tumor present 0 to 1 mm from the margin. The proximal and distal margins were uninvolved. The gastric and mesenteric margins were uninvolved. There was involvement in 1 of 34 lymph nodes. Pathologic staging was pT4b, pN1a. His tumor was found to have intact expression of mismatch repair proteins. The procedure also included appendectomy with pathology showing evidence of acute appendicitis. I had seen him initially on 11/26/2020. He was still having difficulty recovering from the surgery. In particular, he was having significant issues with postprandial vomiting. He was recommended to undergo adjuvant chemotherapy, but at that point he needed additional time for recovery. On 11/30/2020 he was seen in the emergency room with complaints of dizziness and passing out. He was found to be hypokalemic, potassium 2.6 mmol/L. His CT abdomen/pelvis showed marked dilatation of the stomach with fluid and air. There was no evidence of bowel obstruction. At his follow-up visit on 12/14/2020 he was still had significant GI complaints, for which he was given symptomatic management. He was scheduled to return for follow-up in 2 weeks, but he did not keep that appointment. He was seen again for a follow-up visit on 02/16/2021. At that point he was feeling much better, and he indicated that he did want to take adjuvant chemotherapy. His other medical illnesses include hypertension, hyperlipidemia, GERD, degenerative arthritis, and benign prostatic hypertrophy. He has a history of alcohol abuse, but he has reduced his alcohol use significantly. He also has a history of smoking 2 packs of cigarettes daily, but he quit smoking in 1997. INTERIM HISTORY: He began cycle 1 of adjuvant chemotherapy with modified FOLFOX on 02/22/2021. He tolerated it well. He continued with cycle 2 on 03/08/2021 and with cycle 3 on 03/23/2021. His 4th cycle had to be delayed due to neutropenia and thrombocytopenia. It was administered with reductions in the dosages of both the 5-FU and oxaliplatin. He tolerated it well and he continued with cycle 5 on 05/03/2021 and with cycle 6 on 05/17/2021. At that point there was a slight further increase in the CEA level to 6.3 ng/mL compared to 3.8 ng/mL in December 2020 and to a pretreatment level of 5.2 ng/mL on 02/22/2021. With that change, his treatment was put on hold. Restaging CT scans of the chest, abdomen, and pelvis on 06/04/2021 showed diffuse nodular wall thickening with luminal narrowing involving the sigmoid colon. There was associated focal nodular mass measuring 1.7 x 1.2 x 2.3 cm. Findings were new and they were felt to be suspicious for primary neoplasm or metastatic disease. A nodular metastatic implant or lymph node was noted in the mesentery measuring 9 mm located at the L4-5 level iliac bifurcation. It was also new from the November 2020 study and suspicious for metastatic disease. A 2 mm noncalcified pulmonary nodule was noted in the left upper lobe along the fissure, and that also was a new finding. He is seen for a follow-up visit. He has been feeling pretty good generally. He has pretty good energy and he has normal activity. ECOG score 0. Appetite has been good. He has no fever or night sweats. Recently he has felt staggery when he first gets up out of bed in the morning. He has had some headache in the frontal area and some slight epistaxis. He has not had sore mouth or throat. He does not complain of cough, and he has not been having shortness of breath or chest pain. He does not complain of nausea. He occasionally has a little bit of heartburn. Bowel function has been pretty good. He has not had diarrhea or blood in the stool, but he has had some mild discomfort in the lower abdominal area. He has no complaints. He has had some joint pain, mainly in the knees. He has just a little bit of numbness in his fingertips. Medications: He is not on any prescription medication. Allergies: No Known Allergies. Vital Signs: Weight is 179 pounds. Blood pressure 153/89, pulse 76, respirations 18, temp 98.8 degrees, oxygen saturation 97%. Physical Examination: Constitutional - He looks good generally, Eyes - Sclerae nonicteric. Conjunctivae clear, ENMT - No lesions noted in the oral cavity, Hematologic/Lymphatic - No cervical, clavicular, or axillary adenopathy, Respiratory - Lungs are clear with good air movement bilaterally, Cardiovascular - Heart rhythm is regular. There is no murmur, gallop, or rub noted, Abdomen - Soft. Liver and spleen are not enlarged. There is no abdominal mass or ascites noted and there is no inguinal adenopathy, Extremities - No edema, Neurologic - No focal neurologic deficits noted. Lab/Imaging: Test performed on Jun 08, 2021 08:12 Sodium 139 mmol/L Potassium 4.0 mmol/L Chloride 105 mmol/L CO2 21 mmol/L Anion Gap 17.0 BUN 5 mg/dL Creatinine 0.5 mg/dL Cr Clearance (Est) 162.8000 mL/min eGFR 165.9 mL/min Glucose 88 mg/dL Osmolality - Calculated 285 mOsm/kg Calcium 9.8 mg/dL Protein, Total 7.3 g/dL Albumin 3.7 g/dL Globulin 3.6 g/dL Bilirubin, Total 0.8 mg/dL ALT (SGPT) 39 U/L AST (SGOT) 46 U/L Alkaline Phosphatase 128 IU/L WBC 3.6 10 3/uL RBC 4.86 10 6/uL HGB 14.6 g/dL HCT 43.2 % MCV 88.9 fl MCH 30.0 pg MCHC 33.8 g/dL RDW 14.4 % Platelet Count 123 10 3/cmm MPV 10.0 fL Neutrophils 1.51 10 3/uL Lymphocytes 1.3 10 3/uL Monocytes 0.7 10 3/uL Eosinophils 0.1 10 3/uL Basophils 0.0 10 3/uL Neutrophil % 42.1 % Lymphocyte % 35.2 % Monocyte % 19.3 % Eosinophil % 2.0 % Basophils % 1.1 % NRBC % 0 % Test performed on May 31, 2021 10:34 CEA 6.6 ng/mL Problem List: 1. Well differentiated adenocarcinoma of the transverse colon, stage IIIC (pT4b, pN1a, M0). His tumor was found to have intact expression of mismatch repair proteins. 2. Hypertension. 3. Hyperlipidemia. 4. GERD. 5. Degenerative arthritis. 6. Alcohol abuse. 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 His tumor was found to have intact expression of mismatch repair proteins. On 11/09/2020 he underwent extended right hemicolectomy with en bloc resection of involved portion of abdominal wall, stomach, and omentum. There was associated tumor perforation. There was involvement in 1/3 4 lymph nodes, and pathology also showed involvement at the radial (abdominal wall) margin, estimated at 0.5 mm. With those findings, he was advised that he was at increased risk for recurrence, and he was recommended to have adjuvant chemotherapy with modified FOLFOX. However, his postoperative course was complicated by postprandial vomiting. At his ER visit on 11/30/[address] abdomen/pelvis showed gastric distention with air and fluid, and he was found to be significantly hypokalemic. He continued symptomatic management, and he did show gradual recovery, but those complications did result in a significant delay in his adjuvant therapy. As of his follow-up visit on 02/16/2021 he was feeling much better, at that point he indicated that he did want to proceed with adjuvant chemotherapy. On 02/22/2021 he began cycle 1 of modified FOLFOX. He tolerated it extremely well. He then continued with cycle 2 on 03/08/2021 and with cycle 3 on 03/23/2021. His 4th cycle had to be delayed due to neutropenia and thrombocytopenia, and was administered with reductions in the dosages of the 5-FU and oxaliplatin. With dose reductions, his blood counts remained adequate. He continued with cycle 5 on 05/03/2021 and with cycle 6 on 05/17/2021. At that point there was a slight further increase in the CEA level. With that finding, his treatment was put on hold. Restaging CT scans of the chest, abdomen, and pelvis on 06/04/2021 showed diffuse nodular wall thickening and luminal narrowing of the sigmoid colon, a nodular metastatic implant or lymph node within the mesentery measuring 9 mm, and a 2 mm left upper lobe pulmonary nodule, all new from the prior CT in November 2020. At this point it is uncertain whether those changes are inflammatory or due to metastatic disease. For now his treatment will remain on hold. He is being scheduled to see Dr. Madden for repeat colonoscopy. He will have further evaluation as indicated. Signed By: Luis Topete M.D. <<Signature on File>>
== END 2021-06-14 23:59 | disposition home or self-care (01) ==
LOC: ONCMED 06:37
PROVIDERS: PCP Internal Medicine; Visit Provider Internal Medicine Medical Oncology
DX: C18.4 Malignant neoplasm of transverse colon (principal); I10 Essential (primary) hypertension; E78.5 Hyperlipidemia, unspecified; K21.9 Gastro-esophageal reflux disease without esophagitis; M19.90 Unspecified osteoarthritis, unspecified site; F10.10 Alcohol abuse, uncomplicated; Z79.899 Other long term (current) drug therapy
CPT/HCPCS: 36591; 80053; 85025; 99215

== ENCOUNTER → 2021-06-25 10:38 | Outpatient (BNVA) | payer MEDICARE, OTHER, SELFPAY | PROVIDERS: PCP Internal Medicine; Visit Provider Surgery | DX: Z11.52 Encounter for screening for COVID-19 (principal) | CPT/HCPCS: 87635 ==

== ENCOUNTER 2021-06-30 06:24 | Day surgery (SDC) | payer MEDICARE, OTHER, SELFPAY ==
[2021-06-24 08:27] VITALS: BMI 24.4
[2021-06-30 06:37] VITALS: BP 164/96; PULSE 91; RESP 16; TEMP 37; O2SAT 97
[2021-06-30] MEDS: sodium chloride 0.9% 1,000 ML 30 ML IV (06:51)
--- NOTE | 2021-06-30 06:51 | P.ANESASSM_ITS ---
Pre-Anesthetic Assessment Height/Weight: Height 1.83 m Weight 81.647 kg Temp Pulse Resp BP Pulse Ox 98.6 F 91 16 164/96 97 06/30/21 06:37 06/30/21 06:37 06/30/21 06:37 06/30/21 06:37 06/30/21 06:37 Preop Diagnosis: diagnostic Operation Date: 06/30/21 07:30 Proposed Procedures p Colonoscopy 47260/z85.083(Not Applicable) - Lionel Madden MD Last intake: Intake Last Liquid Date 06/29/21 Last Liquid Time 22:00 Last Solid Date 06/28/21 Last Solid Time 17:00 Social Alcohol (5-6 per day of beer.) and No tobacco Exam alert, No oriented x 3, No clear to auscultation bilaterally and No regular rate & rhythm Airway Submandibular: within normal limits Mallampati: Class II Dentition: false Pulmonary None reported CV/HEM Hypertension (patient stopped taking all medications under his own direction (HTN, statin, prostate medication)) None reported Hepatic None reported GI Gastroesophageal Reflux Disease current colon cancer last chemo session about 6 weeks prior. Metabolic Hyperlipidemia [facility] [place]/[facility] None reported Neuropsych None reported Anesthetic Plan ASA status: 3 Anesthesia: MAC Medications/Allergies Home Medications Medication Instructions Recorded Confirmed Last Taken Type No Known Home Medications 06/15/21 06/30/21 Unknown History Allergies Allergy/AdvReac Type Severity Reaction Status Date / Time No Known Allergies Allergy Verified 06/30/21 06:36 [facility] Anesthesia Medical History (Updated 06/16/21 @ 08:29 by Lionel Madden MD) BPH (benign prostatic hyperplasia) Cancer of transverse colon pT4b, pN1a. Dyslipidemia GERD (gastroesophageal reflux disease) HTN (hypertension), benign Surgical History H/O: vasectomy Port-A-Cath in place (02/18/21) S/P right hemicolectomy extended, with en bloc excision of abdominal wall, stomach, and omentum Status post colonoscopy Social History Smoking and tobacco status: former smoker Data Anesthesia Cardiac Studies: No Data to Display
--- NOTE | 2021-06-30 07:01 | W.PM.OPSFHP ---
Same Day Surgery H&P Indication for Procedure/HPI DATE OF PROCEDURE: June 30, 2021 CHIEF COMPLAINT/INDICATIONFOR SURGICAL PROCEDURE: screening PREOP DIAGNOSIS: diagnostic PLANNED PROCEDURE: Operation Date: 06/30/21 07:30 Proposed Procedures p Colonoscopy 63606/[id number](Not Applicable) - Lionel Madden MD Medications/Allergies* Home Medications Medication Instructions Recorded Confirmed Type No Known Home Medications 06/15/21 06/30/21 History Allergies/Adverse Reactions Allergy/AdvReac Type Severity Reaction Status Date / Time No Known Allergies Allergy Verified 06/30/21 06:36 Current Medications: Generic Name Dose Route Start Last Admin Trade Name Freq PRN Reason Stop Dose Admin Sodium Chloride 1,000 mls @ 30 mls/hr 06/30/21 06:30 06/30/21 06:51 Sodium Chloride 0.9% IV 07/01/21 06:29 30 mls/hr .Q24H HUEY Administration Pertinent History/Comorbid Conditions* Medical History (Updated 06/16/21 @ 08:29 by Lionel Madden MD) BPH (benign prostatic hyperplasia) Cancer of transverse colon pT4b, pN1a. Dyslipidemia GERD (gastroesophageal reflux disease) HTN (hypertension), benign Surgical History (Updated 02/18/21 @ 07:01 by Lionel Madden MD) H/O: vasectomy Port-A-Cath in place (02/18/21) S/P right hemicolectomy extended, with en bloc excision of abdominal wall, stomach, and omentum Status post colonoscopy Social History Smoking and tobacco status: former smoker Pertinent Exam Findings alert, oriented x 3 and regular rate & rhythm Recommendations Surgery/Procedure today Coding Level of Care Code Acute [employer] for Richg Iona
[2021-06-30 07:53] VITALS: BP 99/55; PULSE 87; RESP 16; TEMP 36.2; O2SAT 96
[2021-06-30 08:01] VITALS: BP 147/85; PULSE 87; RESP 18; O2SAT 96
--- NOTE | 2021-06-30 15:11 | ANE.PACU2 ---
Inpatient post-anesthesia follow up: Airway intact: Yes Vital signs: Temperature 97.1 F Pulse Rate 87 Respiratory Rate 18 Blood Pressure 147/85 Pulse Oximetry 96 Oxygen Delivery Me thod Room Air Oxygen Flow Rate Fraction of Inspir ed Oxygen Hydration adequate: Yes Nausea and vomiting: No Pain level: 1 Mental status: Baseline
== END 2021-06-30 08:25 | disposition home or self-care (01) ==
PROVIDERS: PCP Internal Medicine; Visit Provider Surgery
PROC: 0DJD8ZZ Inspection of Lower Intestinal Tract, Via Natural or Artificial Opening Endoscopic (ICD-10-PCS; CPT 45378; principal; 2021-06-30 07:30)
DX: Z85.038 Personal history of other malignant neoplasm of large intestine (principal); N40.0 Benign prostatic hyperplasia without lower urinary tract symptoms; E78.5 Hyperlipidemia, unspecified; K21.9 Gastro-esophageal reflux disease without esophagitis; I10 Essential (primary) hypertension; Z87.891 Personal history of nicotine dependence; Z90.49 Acquired absence of other specified parts of digestive tract; Z92.21 Personal history of antineoplastic chemotherapy
CPT/HCPCS: 45378; J2704; J7030

== ENCOUNTER 2021-08-10 06:44 | Outpatient (RCR) | payer MEDICARE, OTHER, SELFPAY ==
[2021-07-13 10:05] LABS: Basophils % 0.8 %; Eosinophils # 0.1 10^3/uL (0.0-0.8); Hematocrit 44.5 % (42.0-52.0); Hemoglobin 14.7 g/dL (11.7-16.6); Lymphocytes # 1.3 10^3/uL (0.8-4.8); Lymphocytes % 25.3 %; Mean Corpuscular Hemoglobin 29.9 pg (28.0-34.0); Mean Corpuscular Volume 90.4 fl (80-94); Mean Platelet Volume 9.3 fL (7.4-10.4); Monocytes # 0.6 10^3/uL (0.2-0.9); Monocytes % 12.8 %; Neutrophils # 2.95 10^3/uL (1.8-7.7); Neutrophils % 58.9 %; Nucleated Red Blood Cells % 0 %; Platelet Count 148 10^3/cmm (130-400); Red Blood Count 4.92 10^6/uL (4.1-5.3); Red Cell Distribution Width 13.4 % (12.1-15.1)
[2021-07-13 10:28] LABS: Alanine Aminotransferase 29 U/L (0-41); Albumin Level 4.4 g/dL (3.5-5.2); Alkaline Phosphatase 110 IU/L (40-130); Aspartate Amino Transferase 37 U/L (0-40); Blood Urea Nitrogen 9 mg/dL (8-23); Calcium 9.8 mg/dL (8.5-10.5); Carbon Dioxide 24 mmol/L (22-29); Chloride 103 mmol/L (98-107); Globulin 3.5 g/dL (1.3-4.6); Glomerular Filtration Rate 112.5 mL/min (90-130); Glucose 98 mg/dL (65-115); Osmolality Calculated 281 mOsm/kg (285-295); Sodium 136 mmol/L (136-145); Total Bilirubin 0.5 mg/dL (0.15-1.2); Total Protein 7.9 g/dL (6.6-8.7)
--- NOTE | 2021-07-13 12:07 | ONC FU_ITS ---
Dr. Topete Patient Follow-Up Note Patient: Ry Potter Unit #: [id number]: 1955 Dicatated By: Luis Topete M.D.Date of Visit:Jul 13, 2021 Onc Med Follow-up/Prog Note Chief Complaint: Colon cancer. 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 He had presented with abdominal pain and weight loss. His colonoscopy on 10/08/2020 showed a partially obstructing malignant appearing mass in the distal ascending colon, estimated at 7 x 5 cm. Also noted was a 3 mm polyp in the mid sigmoid colon and a 10 mm polyp in the rectum. Biopsies of the rectal mass showed moderately differentiated adenocarcinoma. The sigmoid colon polyp was hyperplastic. The rectal biopsy showed tubular adenoma with focal high-grade dysplasia. His staging CT scans of the chest, abdomen, and pelvis showed soft tissue encasement of the distal transverse colon/splenic flexure extending over a length of 7.2 cm. There was associated wall thickening measuring up to 2.2 cm with moderate narrowing of the lumen. There were no adjacent satellite lesions or nodules and there was no associated retroperitoneal or mesenteric adenopathy. There also was no evidence of other metastatic disease. His laboratory studies included CBC showing hemoglobin 13.2 g, white blood cell count 12,900, and platelet count 364,000. Comprehensive metabolic profile showed normal renal function with BUN 7 and creatinine 0.7 mg/dL. Bilirubin and liver enzymes were normal. His baseline CEA level was significantly elevated at 88.7 ng/mL. He was referred to Dr. Bennett. His repeat colonoscopy on 10/28/2020 showed near obstructing transverse colon carcinoma. There was no grossly apparent residual adenomatous tissue at the polypectomy site in the rectum. On 11/09/2020 he underwent extended right hemicolectomy with en bloc excision of abdominal wall, stomach, and omentum. Operative findings included a large tumor in the distal transverse colon which was invading the abdominal wall, body of stomach, and omentum. There was associated perforation of cancer into the omentum, abdominal wall and stomach and there were associated inflammatory changes of the adjacent organs and with marked thickening and erythema of the bowel. There was no evidence of abdominal carcinomatosis or metastatic involvement in the liver. Pathology showed well differentiated invasive adenocarcinoma which was involving the omentum, abdominal wall, and serosa of the stomach. The tumor measured 7.0 x 6.0 cm. The radial (abdominal wall) margin was involved with tumor present 0 to 1 mm from the margin. The proximal and distal margins were uninvolved. The gastric and mesenteric margins were uninvolved. There was involvement in 1 of 34 lymph nodes. Pathologic staging was pT4b, pN1a. His tumor was found to have intact expression of mismatch repair proteins. The procedure also included appendectomy with pathology showing evidence of acute appendicitis. I had seen him initially on 11/26/2020. He was still having difficulty recovering from the surgery. In particular, he was having significant issues with postprandial vomiting. He was recommended to undergo adjuvant chemotherapy, but at that point he needed additional time for recovery. On 11/30/2020 he was seen in the emergency room with complaints of dizziness and passing out. He was found to be hypokalemic, potassium 2.6 mmol/L. His CT abdomen/pelvis showed marked dilatation of the stomach with fluid and air. There was no evidence of bowel obstruction. At his follow-up visit on 12/14/2020 he was still had significant GI complaints, for which he was given symptomatic management. He was scheduled to return for follow-up in 2 weeks, but he did not keep that appointment. He was seen again for a follow-up visit on 02/16/2021. At that point he was feeling much better, and he indicated that he did want to take adjuvant chemotherapy. His other medical illnesses include hypertension, hyperlipidemia, GERD, degenerative arthritis, and benign prostatic hypertrophy. He has a history of alcohol abuse, but he has reduced his alcohol use significantly. He also has a history of smoking 2 packs of cigarettes daily, but he quit smoking in 1997. INTERIM HISTORY: He began cycle 1 of adjuvant chemotherapy with modified FOLFOX on 02/22/2021. He tolerated it well. He continued with cycle 2 on 03/08/2021 and with cycle 3 on 03/23/2021. His 4th cycle had to be delayed due to neutropenia and thrombocytopenia. It was administered with reductions in the dosages of both the 5-FU and oxaliplatin. He tolerated it well and he continued with cycle 5 on 05/03/2021 and with cycle 6 on 05/17/2021. At that point there was a slight further increase in the CEA level to 6.3 ng/mL compared to 3.8 ng/mL in December 2020 and to a pretreatment level of 5.2 ng/mL on 02/22/2021. With that change, his treatment was put on hold. Restaging CT scans of the chest, abdomen, and pelvis on 06/04/2021 showed diffuse nodular wall thickening with luminal narrowing involving the sigmoid colon. There was associated focal nodular mass measuring 1.7 x 1.2 x 2.3 cm. Findings were new and they were felt to be suspicious for primary neoplasm or metastatic disease. A nodular metastatic implant or lymph node was noted in the mesentery measuring 9 mm located at the L4-5 level iliac bifurcation. A 2 mm noncalcified pulmonary nodule was noted in the left upper lobe along the fissure. Both were new from the November 2020 study and suspicious for metastatic disease. With those findings, he had further evaluation with colonoscopy on 06/30/2021. There were no abnormal findings other than internal hemorrhoids. In the meantime, a next generation sequencing was requested on the primary tumor. He did show presence of a KRAS exon 2 mutation. Also noted was an exon 10 [id number] mutation. The tumor was negative for overexpression of HER-2/anselmo and it was MSI stable. The tumor mutational burden was low at 6 mut/MB. He is seen for a follow-up visit. He has still been feeling good generally. He was having some lower abdominal pain last week, but that seems to have resolved. His energy has been okay. ECOG score is 0. He has good appetite. He has no fever or night sweats. He has not had sore mouth or throat. He does not complain of cough, and he has not been having shortness of breath or chest pain. He currently has no GI or complaints. He does have some joint pain, mainly in the knees. He also has had some headaches. He has a little bit of dizziness. He has some residual numbness/tingling in his right hand. Medications: He is currently not taking any prescription medication. Allergies: No Known Allergies. Vital Signs: Performed on Jul 13, 2021 09:45 Height - 72.00 in Weight - 184.2 lbs (HIGH) BSA - 2.06 sq.m BMI - 24.98 Temperature - 98.7 F Pulse - 73 /min Respiration - 18 /min BP - 165/82 mm(hg) (HIGH) O2 Sat - 99 % Pain - 0 Fatigue - 0 Physical Examination: Constitutional - He looks good generally, Eyes - Sclerae nonicteric. Conjunctivae clear, ENMT - No lesions noted in the oral cavity, Hematologic/Lymphatic - No cervical, clavicular, or axillary adenopathy, Respiratory - Lungs are clear with good air movement bilaterally, Cardiovascular - Heart rhythm is regular. There is no murmur, gallop, or rub noted, Abdomen - Soft. Liver and spleen are not enlarged. There is no abdominal mass or ascites noted and there is no inguinal adenopathy, Extremities - Slight edema at the ankles, Neurologic - No focal neurologic deficits noted. Lab/Imaging: Test performed on Jul 13, 2021 09:45 Sodium 136 mmol/L Potassium 4.0 mmol/L Chloride 103 mmol/L CO2 24 mmol/L Anion Gap 13.0 BUN 9 mg/dL Creatinine 0.7 mg/dL Cr Clearance (Est) 116.2900 mL/min eGFR 112.5 mL/min Glucose 98 mg/dL Osmolality - Calculated 281 mOsm/kg Calcium 9.8 mg/dL Protein, Total 7.9 g/dL Albumin 4.4 g/dL Globulin 3.5 g/dL Bilirubin, Total 0.5 mg/dL ALT (SGPT) 29 U/L AST (SGOT) 37 U/L Alkaline Phosphatase 110 IU/L WBC 5.0 10 3/uL RBC 4.92 10 6/uL HGB 14.7 g/dL HCT 44.5 % MCV 90.4 fl MCH 29.9 pg MCHC 33.0 g/dL RDW 13.4 % Platelet Count 148 10 3/cmm MPV 9.3 fL Neutrophils 2.95 10 3/uL Lymphocytes 1.3 10 3/uL Monocytes 0.6 10 3/uL Eosinophils 0.1 10 3/uL Basophils 0.0 10 3/uL Neutrophil % 58.9 % Lymphocyte % 25.3 % Monocyte % 12.8 % Eosinophil % 2.0 % Basophils % 0.8 % NRBC % 0 % CEA 15.0 ng/mL Problem List: 1. Well differentiated adenocarcinoma of the transverse colon, stage IIIC (pT4b, pN1a, M0). His tumor was found to have intact expression of mismatch repair proteins. 2. Hypertension. 3. Hyperlipidemia. 4. GERD. 5. Degenerative arthritis. 6. Alcohol abuse. 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 His tumor was found to have intact expression of mismatch repair proteins. On 11/09/2020 he underwent extended right hemicolectomy with en bloc resection of involved portion of abdominal wall, stomach, and omentum. There was associated tumor perforation. There was involvement in 1/3 4 lymph nodes, and pathology also showed involvement at the radial (abdominal wall) margin, estimated at 0.5 mm. With those findings, he was advised that he was at increased risk for recurrence, and he was recommended to have adjuvant chemotherapy with modified FOLFOX. However, his postoperative course was complicated by postprandial vomiting. At his ER visit on 11/30/[address] abdomen/pelvis showed gastric distention with air and fluid, and he was found to be significantly hypokalemic. He continued symptomatic management, and he did show gradual recovery, but those complications did result in a significant delay in his adjuvant therapy. As of his follow-up visit on 02/16/2021 he was feeling much better, at that point he indicated that he did want to proceed with adjuvant chemotherapy. On 02/22/2021 he began cycle 1 of modified FOLFOX. He tolerated it extremely well. He then continued with cycle 2 on 03/08/2021 and with cycle 3 on 03/23/2021. His 4th cycle had to be delayed due to neutropenia and thrombocytopenia, and was administered with reductions in the dosages of the 5-FU and oxaliplatin. With dose reductions, his blood counts remained adequate. He continued with cycle 5 on 05/03/2021 and with cycle 6 on 05/17/2021. As of his cycle 6 treatment there was a slight further increase in the CEA level. With that finding, his treatment was put on hold. Restaging CT scans of the chest, abdomen, and pelvis on 06/04/2021 showed diffuse nodular wall thickening and luminal narrowing of the sigmoid colon, a nodular metastatic implant or lymph node within the mesentery measuring 9 mm, and a 2 mm left upper lobe pulmonary nodule. The findings were new from the prior CT in November 2020 and they were felt to be suspicious for metastatic disease. A repeat colonoscopy on 06/30/2021 showed no abnormalities other than internal hemorrhoids. As the CT findings are still nonspecific, he will be scheduled for further evaluation with PET/CT, subject to verification of insurance coverage. If there is more definitive evidence of metastatic disease, his treatment will be changed to a FOLFIRI chemotherapy regimen in combination with Avastin. Signed By: Luis Topete M.D. <<Signature on File>>
--- NOTE | 2021-07-24 12:28 | ONC FU_ITS ---
Dr. Topete Patient Follow-Up Note Patient: Ry Potter Unit #: [id number]: [id number] Dicatated By: Luis Topete M.D.Date of Visit:Jul 21, 2021 Onc Med Follow-up/Prog Note Chief Complaint: Colon cancer. 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 He had presented with abdominal pain and weight loss. His colonoscopy on 10/08/2020 showed a partially obstructing malignant appearing mass in the distal ascending colon, estimated at 7 x 5 cm. Also noted was a 3 mm polyp in the mid sigmoid colon and a 10 mm polyp in the rectum. Biopsies of the rectal mass showed moderately differentiated adenocarcinoma. The sigmoid colon polyp was hyperplastic. The rectal biopsy showed tubular adenoma with focal high-grade dysplasia. His staging CT scans of the chest, abdomen, and pelvis showed soft tissue encasement of the distal transverse colon/splenic flexure extending over a length of 7.2 cm. There was associated wall thickening measuring up to 2.2 cm with moderate narrowing of the lumen. There were no adjacent satellite lesions or nodules and there was no associated retroperitoneal or mesenteric adenopathy. There also was no evidence of other metastatic disease. His laboratory studies included CBC showing hemoglobin 13.2 g, white blood cell count 12,900, and platelet count 364,000. Comprehensive metabolic profile showed normal renal function with BUN 7 and creatinine 0.7 mg/dL. Bilirubin and liver enzymes were normal. His baseline CEA level was significantly elevated at 88.7 ng/mL. He was referred to Dr. Bennett. His repeat colonoscopy on 10/28/2020 showed near obstructing transverse colon carcinoma. There was no grossly apparent residual adenomatous tissue at the polypectomy site in the rectum. On 11/09/2020 he underwent extended right hemicolectomy with en bloc excision of abdominal wall, stomach, and omentum. Operative findings included a large tumor in the distal transverse colon which was invading the abdominal wall, body of stomach, and omentum. There was associated perforation of cancer into the omentum, abdominal wall and stomach and there were associated inflammatory changes of the adjacent organs and with marked thickening and erythema of the bowel. There was no evidence of abdominal carcinomatosis or metastatic involvement in the liver. Pathology showed well differentiated invasive adenocarcinoma which was involving the omentum, abdominal wall, and serosa of the stomach. The tumor measured 7.0 x 6.0 cm. The radial (abdominal wall) margin was involved with tumor present 0 to 1 mm from the margin. The proximal and distal margins were uninvolved. The gastric and mesenteric margins were uninvolved. There was involvement in 1 of 34 lymph nodes. Pathologic staging was pT4b, pN1a. His tumor was found to have intact expression of mismatch repair proteins. The procedure also included appendectomy with pathology showing evidence of acute appendicitis. I had seen him initially on 11/26/2020. He was still having difficulty recovering from the surgery. In particular, he was having significant issues with postprandial vomiting. He was recommended to undergo adjuvant chemotherapy, but at that point he needed additional time for recovery. On 11/30/2020 he was seen in the emergency room with complaints of dizziness and passing out. He was found to be hypokalemic, potassium 2.6 mmol/L. His CT abdomen/pelvis showed marked dilatation of the stomach with fluid and air. There was no evidence of bowel obstruction. At his follow-up visit on 12/14/2020 he was still had significant GI complaints, for which he was given symptomatic management. He was scheduled to return for follow-up in 2 weeks, but he did not keep that appointment. He was seen again for a follow-up visit on 02/16/2021. At that point he was feeling much better, and he indicated that he did want to take adjuvant chemotherapy. His other medical illnesses include hypertension, hyperlipidemia, GERD, degenerative arthritis, and benign prostatic hypertrophy. He has a history of alcohol abuse, but he has reduced his alcohol use significantly. He also has a history of smoking 2 packs of cigarettes daily, but he quit smoking in 1997. INTERIM HISTORY: He began cycle 1 of adjuvant chemotherapy with modified FOLFOX on 02/22/2021. He tolerated it well. He continued with cycle 2 on 03/08/2021 and with cycle 3 on 03/23/2021. His 4th cycle had to be delayed due to neutropenia and thrombocytopenia. It was administered with reductions in the dosages of both the 5-FU and oxaliplatin. He tolerated it well and he continued with cycle 5 on 05/03/2021 and with cycle 6 on 05/17/2021. At that point there was a slight further increase in the CEA level to 6.3 ng/mL compared to 3.8 ng/mL in December 2020 and to a pretreatment level of 5.2 ng/mL on 02/22/2021. With that change, his treatment was put on hold. Restaging CT scans of the chest, abdomen, and pelvis on 06/04/2021 showed diffuse nodular wall thickening with luminal narrowing involving the sigmoid colon. There was associated focal nodular mass measuring 1.7 x 1.2 x 2.3 cm. Findings were new and they were felt to be suspicious for primary neoplasm or metastatic disease. A nodular metastatic implant or lymph node was noted in the mesentery measuring 9 mm located at the L4-5 level iliac bifurcation. A 2 mm noncalcified pulmonary nodule was noted in the left upper lobe along the fissure. Both were new from the November 2020 study and suspicious for metastatic disease. With those findings, he had further evaluation with colonoscopy on 06/30/2021. There were no abnormal findings other than internal hemorrhoids. In the meantime, a next generation sequencing was requested on the primary tumor. It did show presence of a KRAS exon 2 mutation. Also noted was an exon 10 PIK3CA mutation. The tumor was negative for overexpression of HER-2/anselmo and it was MSI stable. The tumor mutational burden was low at 6 mut/MB. Restaging PET/CT on 07/17/2021 showed a sigmoid mass measuring 2.7 x 3.3 cm with SUV 17.4, indicating high probability of malignancy. A solid lesion at the mesenteric root at the aortic bifurcation measuring 1.2 cm had an SUV of 10.3, also consistent with malignancy. Other scattered mesenteric nodes were too small to characterize. A 6 mm nodule in the left lung at the major fissure was felt to be strongly suspicious for metastatic disease, though the SUV was low at 1.4. He is seen today to review the PET/CT and to discuss further management. He is still feeling good generally. He has no significant complaints. Medications: His currently not in any prescription medication. Allergies: No Known Allergies. Vital Signs: Performed on Jul 21, 2021 14:46 Height - 72.00 in Weight - 186.2 lbs (HIGH) BSA - 2.07 sq.m BMI - 25.25 Temperature - 99.2 F (HIGH) Pulse - 74 /min Respiration - 16 /min BP - 157/91 mm(hg) (HIGH) O2 Sat - 98 % Pain - 0 Fatigue - 0 Lab/Imaging: Test performed on Jul 13, 2021 09:45 Sodium 136 mmol/L Potassium 4.0 mmol/L Chloride 103 mmol/L CO2 24 mmol/L Anion Gap 13.0 BUN 9 mg/dL Creatinine 0.7 mg/dL Cr Clearance (Est) 116.2900 mL/min eGFR 112.5 mL/min Glucose 98 mg/dL Osmolality - Calculated 281 mOsm/kg Calcium 9.8 mg/dL Protein, Total 7.9 g/dL Albumin 4.4 g/dL Globulin 3.5 g/dL Bilirubin, Total 0.5 mg/dL ALT (SGPT) 29 U/L AST (SGOT) 37 U/L Alkaline Phosphatase 110 IU/L WBC 5.0 10 3/uL RBC 4.92 10 6/uL HGB 14.7 g/dL HCT 44.5 % MCV 90.4 fl MCH 29.9 pg MCHC 33.0 g/dL RDW 13.4 % Platelet Count 148 10 3/cmm MPV 9.3 fL Neutrophils 2.95 10 3/uL Lymphocytes 1.3 10 3/uL Monocytes 0.6 10 3/uL Eosinophils 0.1 10 3/uL Basophils 0.0 10 3/uL Neutrophil % 58.9 % Lymphocyte % 25.3 % Monocyte % 12.8 % Eosinophil % 2.0 % Basophils % 0.8 % NRBC % 0 % CEA 15.0 ng/mL Problem List: 1. Well differentiated adenocarcinoma of the transverse colon, stage IIIC (pT4b, pN1a, M0). His tumor was found to have intact expression of mismatch repair proteins. 2. Hypertension. 3. Hyperlipidemia. 4. GERD. 5. Degenerative arthritis. 6. Alcohol abuse. 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 His tumor was found to have intact expression of mismatch repair proteins. On 11/09/2020 he underwent extended right hemicolectomy with en bloc resection of involved portion of abdominal wall, stomach, and omentum. There was associated tumor perforation. There was involvement in 1/3 4 lymph nodes, and pathology also showed involvement at the radial (abdominal wall) margin, estimated at 0.5 mm. With those findings, he was advised that he was at increased risk for recurrence, and he was recommended to have adjuvant chemotherapy with modified FOLFOX. However, his postoperative course was complicated by postprandial vomiting. At his ER visit on 11/30/[address] abdomen/pelvis showed gastric distention with air and fluid, and he was found to be significantly hypokalemic. He continued symptomatic management, and he did show gradual recovery, but those complications did result in a significant delay in his adjuvant therapy. As of his follow-up visit on 02/16/2021 he was feeling much better, at that point he indicated that he did want to proceed with adjuvant chemotherapy. On 02/22/2021 he began cycle 1 of modified FOLFOX. He tolerated it extremely well. He then continued with cycle 2 on 03/08/2021 and with cycle 3 on 03/23/2021. His 4th cycle had to be delayed due to neutropenia and thrombocytopenia, and was administered with reductions in the dosages of the 5-FU and oxaliplatin. With dose reductions, his blood counts remained adequate. He continued with cycle 5 on 05/03/2021 and with cycle 6 on 05/17/2021. As of his cycle 6 treatment there was a slight further increase in the CEA level. With that finding, his treatment was put on hold. Restaging CT scans of the chest, abdomen, and pelvis on 06/04/2021 showed diffuse nodular wall thickening and luminal narrowing of the sigmoid colon, a nodular metastatic implant or lymph node within the mesentery measuring 9 mm, and a 2 mm left upper lobe pulmonary nodule. The findings were new from the prior CT in November 2020 and they were felt to be suspicious for metastatic disease. A repeat colonoscopy on 06/30/2021 showed no abnormalities other than internal hemorrhoids. Restaging PET/CT on 07/17/2021 showed a sigmoid mass measuring 2.7 x 3.3 cm with SUV 17.4, indicating high probability of malignancy. A solid lesion at the mesenteric root at the aortic bifurcation measuring 1.2 cm had an SUV of 10.3, also consistent with malignancy. A 6 mm nodule in the left lung at the major fissure was felt to be strongly suspicious for metastatic disease, though the SUV was low at 1.4. In the meantime, a next generation sequencing was requested on the primary tumor. It did show presence of a KRAS exon 2 mutation. Also noted was an exon 10 PIK3CA mutation. The tumor was negative for overexpression of HER-2/anselmo and it was MSI stable. The tumor mutational burden was low at 6 mut/MB. The PET/CT findings were reviewed with the patient and we discussed the clinical implications. Overall, the findings are consistent with recurrence/progression of the colon cancer, particularly in view of the further increase in the CEA level. I do want to review the PET/CT images with Dr. Werner and with Dr. Madden to explore any possibility that his disease may be amenable to resection or regional therapy. However, I think that is going to be very unlikely, and in all probability the recommendation now will be to proceed with 2nd line treatment with a FOLFIRI chemotherapy regimen in combination with Avastin. Signed By: Luis Topete M.D. <<Signature on File>>
[2021-08-02 14:41] LABS: Basophils % 0.6 %; Eosinophils # 0.1 10^3/uL (0.0-0.8); Eosinophils % 1.5 %; Hematocrit 44.7 % (42.0-52.0); Hemoglobin 15.3 g/dL (11.7-16.6); Lymphocytes # 1.8 10^3/uL (0.8-4.8); Lymphocytes % 27.9 %; Mean Corpuscular HGB Conc 34.2 g/dL (30.0-36.0); Mean Corpuscular Hemoglobin 30.7 pg (28.0-34.0); Mean Corpuscular Volume 89.8 fl (80-94); Monocytes # 0.7 10^3/uL (0.2-0.9); Monocytes % 10.2 %; Neutrophils % 59.5 %; Nucleated Red Blood Cells % 0 %; Platelet Count 175 10^3/cmm (130-400); Red Blood Count 4.98 10^6/uL (4.1-5.3); White Blood Count 6.6 10^3/uL (4.0-10.0)
[2021-08-02 15:08] LABS: Alanine Aminotransferase 26 U/L (0-41); Albumin Level 4.5 g/dL (3.5-5.2); Alkaline Phosphatase 94 IU/L (40-130); Anion Gap 16.6 (5-19); Aspartate Amino Transferase 36 U/L (0-40); Blood Urea Nitrogen 5 mg/dL (8-23); Calcium 9.3 mg/dL (8.5-10.5); Carbon Dioxide 23 mmol/L (22-29); Chloride 101 mmol/L (98-107); Globulin 3.3 g/dL (1.3-4.6); Glomerular Filtration Rate 134.4 mL/min (90-130); Glucose 87 mg/dL (65-115); Osmolality Calculated 281 mOsm/kg (285-295); Potassium 3.6 mmol/L (3.5-5.1); Sodium 137 mmol/L (136-145); Total Bilirubin 0.7 mg/dL (0.15-1.2); Total Protein 7.8 g/dL (6.6-8.7)
--- NOTE | 2021-08-03 09:04 | ONC FU_ITS ---
Ashia Alvarez Progress Note Patient: Ry Potter Unit #: [id number]: [id number] Dicatated By: Ashia Alvarez N.P.Date of Visit:Aug 03, 2021 Onc MED Follow-up/Prog Note Chief Complaint: Colon cancer. 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 He had presented with abdominal pain and weight loss. His colonoscopy on 10/08/2020 showed a partially obstructing malignant appearing mass in the distal ascending colon, estimated at 7 x 5 cm. Also noted was a 3 mm polyp in the mid sigmoid colon and a 10 mm polyp in the rectum. Biopsies of the rectal mass showed moderately differentiated adenocarcinoma. The sigmoid colon polyp was hyperplastic. The rectal biopsy showed tubular adenoma with focal high-grade dysplasia. His staging CT scans of the chest, abdomen, and pelvis showed soft tissue encasement of the distal transverse colon/splenic flexure extending over a length of 7.2 cm. There was associated wall thickening measuring up to 2.2 cm with moderate narrowing of the lumen. There were no adjacent satellite lesions or nodules and there was no associated retroperitoneal or mesenteric adenopathy. There also was no evidence of other metastatic disease. His laboratory studies included CBC showing hemoglobin 13.2 g, white blood cell count 12,900, and platelet count 364,000. Comprehensive metabolic profile showed normal renal function with BUN 7 and creatinine 0.7 mg/dL. Bilirubin and liver enzymes were normal. His baseline CEA level was significantly elevated at 88.7 ng/mL. He was referred to Dr. Bennett. His repeat colonoscopy on 10/28/2020 showed near obstructing transverse colon carcinoma. There was no grossly apparent residual adenomatous tissue at the polypectomy site in the rectum. On 11/09/2020 he underwent extended right hemicolectomy with en bloc excision of abdominal wall, stomach, and omentum. Operative findings included a large tumor in the distal transverse colon which was invading the abdominal wall, body of stomach, and omentum. There was associated perforation of cancer into the omentum, abdominal wall and stomach and there were associated inflammatory changes of the adjacent organs and with marked thickening and erythema of the bowel. There was no evidence of abdominal carcinomatosis or metastatic involvement in the liver. Pathology showed well differentiated invasive adenocarcinoma which was involving the omentum, abdominal wall, and serosa of the stomach. The tumor measured 7.0 x 6.0 cm. The radial (abdominal wall) margin was involved with tumor present 0 to 1 mm from the margin. The proximal and distal margins were uninvolved. The gastric and mesenteric margins were uninvolved. There was involvement in 1 of 34 lymph nodes. Pathologic staging was pT4b, pN1a. His tumor was found to have intact expression of mismatch repair proteins. The procedure also included appendectomy with pathology showing evidence of acute appendicitis. Dr. Topete had seen him initially on 11/26/2020. He was still having difficulty recovering from the surgery. In particular, he was having significant issues with postprandial vomiting. He was recommended to undergo adjuvant chemotherapy, but at that point he needed additional time for recovery. On 11/30/2020 he was seen in the emergency room with complaints of dizziness and passing out. He was found to be hypokalemic, potassium 2.6 mmol/L. His CT abdomen/pelvis showed marked dilatation of the stomach with fluid and air. There was no evidence of bowel obstruction. At his follow-up visit on 12/14/2020 he was still had significant GI complaints, for which he was given symptomatic management. He was scheduled to return for follow-up in 2 weeks, but he did not keep that appointment. He was seen again for a follow-up visit on 02/16/2021. At that point he was feeling much better, and he indicated that he did want to take adjuvant chemotherapy. His other medical illnesses include hypertension, hyperlipidemia, GERD, degenerative arthritis, and benign prostatic hypertrophy. He has a history of alcohol abuse, but he has reduced his alcohol use significantly. He also has a history of smoking 2 packs of cigarettes daily, but he quit smoking in 1997. INTERIM HISTORY: He began cycle 1 of adjuvant chemotherapy with modified FOLFOX on 02/22/2021. He tolerated it well. He continued with cycle 2 on 03/08/2021 and with cycle 3 on 03/23/2021. His 4th cycle had to be delayed due to neutropenia and thrombocytopenia. It was administered with reductions in the dosages of both the 5-FU and oxaliplatin. He tolerated it well and he continued with cycle 5 on 05/03/2021 and with cycle 6 on 05/17/2021. At that point there was a slight further increase in the CEA level to 6.3 ng/mL compared to 3.8 ng/mL in December 2020 and to a pretreatment level of 5.2 ng/mL on 02/22/2021. With that change, his treatment was put on hold. Restaging CT scans of the chest, abdomen, and pelvis on 06/04/2021 showed diffuse nodular wall thickening with luminal narrowing involving the sigmoid colon. There was associated focal nodular mass measuring 1.7 x 1.2 x 2.3 cm. Findings were new and they were felt to be suspicious for primary neoplasm or metastatic disease. A nodular metastatic implant or lymph node was noted in the mesentery measuring 9 mm located at the L4-5 level iliac bifurcation. A 2 mm noncalcified pulmonary nodule was noted in the left upper lobe along the fissure. Both were new from the November 2020 study and suspicious for metastatic disease. With those findings, he had further evaluation with colonoscopy on 06/30/2021. There were no abnormal findings other than internal hemorrhoids. In the meantime, a next generation sequencing was requested on the primary tumor. It did show presence of a KRAS exon 2 mutation. Also noted was an exon 10 PIK3CA mutation. The tumor was negative for overexpression of HER-2/anselmo and it was MSI stable. The tumor mutational burden was low at 6 mut/MB. Restaging PET/CT on 07/17/2021 showed a sigmoid mass measuring 2.7 x 3.3 cm with SUV 17.4, indicating high probability of malignancy. A solid lesion at the mesenteric root at the aortic bifurcation measuring 1.2 cm had an SUV of 10.3, also consistent with malignancy. Other scattered mesenteric nodes were too small to characterize. A 6 mm nodule in the left lung at the major fissure was felt to be strongly suspicious for metastatic disease, though the SUV was low at 1.4. Patient presents today for FOLFIRI education with Avastin. He states he is feeling well. He denies weakness or fatigue. No appetite changes. No fever, chills, night sweats. No sinus drainage or mouth sores. No shortness of breath, cough, chest pain no nausea vomiting he is experiencing some heartburn and refill on his Protonix. He denies diarrhea or constipation. He has occasional urinary retention. No joint pain or bone pain. No headaches or dizziness. Review Of Symptoms: see above. Past Medical History: Alcohol abuse Benign prostatic hyperplasia Degenerative arthritis Gastroesophageal reflux disease Hypercholesterolemia Hypertension Past Surgical History: Colonoscopy on 10/08/2020 and on 10/28/2020 Vasectomy Flu vac in 2020 Port-a-cath placement in 2020 - Dr. Chano nOtiveros left subclavian???Dr. Madden in 2020 Extended right hemicolectomy with en bloc excision of abdominal wall, stomach, and omentum in 2020 Allergies: No Known Allergies. Medications: There is no information available for Current Medications - Patient. Family History: Father of lung cancer at age 58. Mother with C. difficile colitis at age 81. A brother also had lung cancer and of stroke at age 63. Another brother is in good health. Social History: Mr. Potter is . Mr. Potter quit smoking 24 years ago but had smoked for 25 years. He drinks daily. He consumes 5 drinks/day 7 days/week. He has a history of smoking up to 2 packs of cigarettes daily. He quit smoking in 1997. He has a history of drinking 8-10 beers per day, but over the past several months he has cut down, currently to 5 to 6 beers daily. Physical Examination: Performed on Aug 03, 2021 08:05: Height - 72.00 in, Weight - 188.2 lbs (HIGH), BSA - 2.08 sq.m, BMI - 25.52, Temperature - 99.0 F (HIGH), Pulse - 79 /min, Respiration - 18 /min, BP - 168/84 mm(hg) (HIGH), O2 Sat - 97 %, Pain - 0, and Fatigue - 0. Performance Status: 0 - Fully active, able to carry on all predisease activities without restrictions. (ECOG) Constitutional Alert, cooperative, oriented. Mood and affect appropriate. Appears close to chronological age. Well nourished. Well developed. Head Normocephalic; no scars. Eyes Conjunctivae and sclerae are clear and without icterus. Pupils are reactive and equal. Respiratory Lungs are clear to auscultation without rhonchi or wheezing. Cardiovascular Regular rate and rhythm of heart without murmurs, gallops or rubs. Abdomen Non-tender, non-distended, no masses, ascites or hepatosplenomegaly. Good bowel sounds. No guarding or rebound tenderness. Extremities No edema Musculoskeletal No tenderness or swelling, normal range of motion without obvious weakness. Psychiatric Alert and oriented times three. Coherent speech. Verbalizes understanding of our discussions today. Laboratory: Test performed on Jul 13, 2021 09:45 Sodium 136 mmol/L Potassium 4.0 mmol/L Chloride 103 mmol/L CO2 24 mmol/L Anion Gap 13.0 BUN 9 mg/dL Creatinine 0.7 mg/dL Cr Clearance (Est) 116.2900 mL/min eGFR 112.5 mL/min Glucose 98 mg/dL Osmolality - Calculated 281 mOsm/kg Calcium 9.8 mg/dL Protein, Total 7.9 g/dL Albumin 4.4 g/dL Globulin 3.5 g/dL Bilirubin, Total 0.5 mg/dL ALT (SGPT) 29 U/L AST (SGOT) 37 U/L Alkaline Phosphatase 110 IU/L WBC 5.0 10 3/uL RBC 4.92 10 6/uL HGB 14.7 g/dL HCT 44.5 % MCV 90.4 fl MCH 29.9 pg MCHC 33.0 g/dL RDW 13.4 % Platelet Count 148 10 3/cmm MPV 9.3 fL Neutrophils 2.95 10 3/uL Lymphocytes 1.3 10 3/uL Monocytes 0.6 10 3/uL Eosinophils 0.1 10 3/uL Basophils 0.0 10 3/uL Neutrophil % 58.9 % Lymphocyte % 25.3 % Monocyte % 12.8 % Eosinophil % 2.0 % Basophils % 0.8 % NRBC % 0 % CEA 15.0 ng/mL Test performed on Apr 05, 2021 08:19 CBC Slide Review Slide Review Perform REVIEW AGREES WITH AUTOMATED RESULTS Test performed on Feb 16, 2021 12:08 Ferritin 144 ng/mL Iron 115 mcg/dL Iron Binding Capacity (TIBC) 260 mcg/dl % Iron Saturation 44.2 % UIBC 145 mcg/dL Impression: 1. Well differentiated adenocarcinoma of the transverse colon, stage IIIC (pT4b, pN1a, M0). His tumor was found to have intact expression of mismatch repair proteins. 2. Hypertension. 3. Hyperlipidemia. 4. GERD. 5. Degenerative arthritis. 6. Alcohol abuse. 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 His tumor was found to have intact expression of mismatch repair proteins. On 11/09/2020 he underwent extended right hemicolectomy with en bloc resection of involved portion of abdominal wall, stomach, and omentum. There was associated tumor perforation. There was involvement in 1/3 4 lymph nodes, and pathology also showed involvement at the radial (abdominal wall) margin, estimated at 0.5 mm. With those findings, he was advised that he was at increased risk for recurrence, and he was recommended to have adjuvant chemotherapy with modified FOLFOX. However, his postoperative course was complicated by postprandial vomiting. At his ER visit on 11/30/[address] abdomen/pelvis showed gastric distention with air and fluid, and he was found to be significantly hypokalemic. He continued symptomatic management, and he did show gradual recovery, but those complications did result in a significant delay in his adjuvant therapy. As of his follow-up visit on 02/16/2021 he was feeling much better, at that point he indicated that he did want to proceed with adjuvant chemotherapy. On 02/22/2021 he began cycle 1 of modified FOLFOX. He tolerated it extremely well. He then continued with cycle 2 on 03/08/2021 and with cycle 3 on 03/23/2021. His 4th cycle had to be delayed due to neutropenia and thrombocytopenia, and was administered with reductions in the dosages of the 5-FU and oxaliplatin. With dose reductions, his blood counts remained adequate. He continued with cycle 5 on 05/03/2021 and with cycle 6 on 05/17/2021. As of his cycle 6 treatment there was a slight further increase in the CEA level. With that finding, his treatment was put on hold. Restaging CT scans of the chest, abdomen, and pelvis on 06/04/2021 showed diffuse nodular wall thickening and luminal narrowing of the sigmoid colon, a nodular metastatic implant or lymph node within the mesentery measuring 9 mm, and a 2 mm left upper lobe pulmonary nodule. The findings were new from the prior CT in November 2020 and they were felt to be suspicious for metastatic disease. A repeat colonoscopy on 06/30/2021 showed no abnormalities other than internal hemorrhoids. Restaging PET/CT on 07/17/2021 showed a sigmoid mass measuring 2.7 x 3.3 cm with SUV 17.4, indicating high probability of malignancy. A solid lesion at the mesenteric root at the aortic bifurcation measuring 1.2 cm had an SUV of 10.3, also consistent with malignancy. A 6 mm nodule in the left lung at the major fissure was felt to be strongly suspicious for metastatic disease, though the SUV was low at 1.4. In the meantime, a next generation sequencing was requested on the primary tumor. It did show presence of a KRAS exon 2 mutation. Also noted was an exon 10 PIK3CA mutation. The tumor was negative for overexpression of HER-2/anselmo and it was MSI stable. The tumor mutational burden was low at 6 mut/MB. The PET/CT findings were reviewed with the patient and we discussed the clinical implications. Overall, the findings are consistent with recurrence/progression of the colon cancer, particularly in view of the further increase in the CEA level. Dr. Topete wants to review the PET/CT images with Dr. Werner and with Dr. Madden to explore any possibility that his disease may be amenable to resection or regional therapy. However, that is going to be very unlikely, and in all probability the recommendation now will be to proceed with 2nd line treatment with a FOLFIRI chemotherapy regimen in combination with Avastin. He presents today for education on FOLFIRI plus Avastin treatment regimen. Education sheets were printed and provided to the patient. We discussed indications for use, side effects especially diarrhea with the irinotecan. He verbalized understanding. We will start with cycle 1 day 1 today. He will return to the clinic in 1 week C and CMP. His blood pressure is elevated today. He has been on pain 2 mg in the past but has not been taking it recently. We will restart the amlodipine at 5 mg daily and monitor blood pressures. We will adjust as indicated. Patient has been having heartburn and not taking his Protonix. He is needing a refill refill of Protonix 40 mg sent to the pharmacy. Signed By: Ashia Alvarez N.P. <<Signature on File>>
[2021-08-03] MEDS: palonosetron 0.25 mg/5 mL SDV IV (09:08)
[2021-08-03] MEDS: dextrose 5% 250 ML 75 ML IV (09:08)
[2021-08-03] MEDS: sodium chloride 0.9% (100 ml) 100 ML 75 ML (12:50)
[2021-08-10 09:17] LABS: Basophils % 0.9 %; Eosinophils # 0.1 10^3/uL (0.0-0.8); Eosinophils % 2.6 %; Hemoglobin 13.8 g/dL (11.7-16.6); Lymphocytes # 1.5 10^3/uL (0.8-4.8); Lymphocytes % 44.9 %; Mean Corpuscular HGB Conc 33.7 g/dL (30.0-36.0); Mean Corpuscular Hemoglobin 29.8 pg (28.0-34.0); Mean Corpuscular Volume 88.6 fl (80-94); Mean Platelet Volume 9.6 fL (7.4-10.4); Monocytes # 0.2 10^3/uL (0.2-0.9); Monocytes % 6.5 %; Neutrophils # 1.53 10^3/uL (1.8-7.7); Neutrophils % 44.8 %; Nucleated Red Blood Cells % 0 %; Platelet Count 133 10^3/cmm (130-400); Red Blood Count 4.63 10^6/uL (4.1-5.3); Red Cell Distribution Width 11.9 % (12.1-15.1); White Blood Count 3.4 10^3/uL (4.0-10.0)
[2021-08-10 09:33] LABS: Alanine Aminotransferase 22 U/L (0-41); Albumin Level 4.1 g/dL (3.5-5.2); Alkaline Phosphatase 83 IU/L (40-130); Anion Gap 11.3 (5-19); Aspartate Amino Transferase 25 U/L (0-40); Blood Urea Nitrogen 9 mg/dL (8-23); Calcium 9.2 mg/dL (8.5-10.5); Carbon Dioxide 25 mmol/L (22-29); Chloride 102 mmol/L (98-107); Globulin 2.7 g/dL (1.3-4.6); Glomerular Filtration Rate 112.5 mL/min (90-130); Glucose 125 mg/dL (65-115); Osmolality Calculated 280 mOsm/kg (285-295); Potassium 3.3 mmol/L (3.5-5.1); Sodium 135 mmol/L (136-145); Total Bilirubin 0.6 mg/dL (0.15-1.2); Total Protein 6.8 g/dL (6.6-8.7)
--- NOTE | 2021-08-10 19:21 | ONC FU_ITS ---
Dr. Topete Patient Follow-Up Note Patient: Ry Potter Unit #: [id number]: [id number] Dicatated By: Luis Topete M.D.Date of Visit:Aug 10, 2021 Onc Med Follow-up/Prog Note Chief Complaint: Colon cancer. 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 He had presented with abdominal pain and weight loss. His colonoscopy on 10/08/2020 showed a partially obstructing malignant appearing mass in the distal ascending colon, estimated at 7 x 5 cm. Also noted was a 3 mm polyp in the mid sigmoid colon and a 10 mm polyp in the rectum. Biopsies of the rectal mass showed moderately differentiated adenocarcinoma. The sigmoid colon polyp was hyperplastic. The rectal biopsy showed tubular adenoma with focal high-grade dysplasia. His staging CT scans of the chest, abdomen, and pelvis showed soft tissue encasement of the distal transverse colon/splenic flexure extending over a length of 7.2 cm. There was associated wall thickening measuring up to 2.2 cm with moderate narrowing of the lumen. There were no adjacent satellite lesions or nodules and there was no associated retroperitoneal or mesenteric adenopathy. There also was no evidence of other metastatic disease. His laboratory studies included CBC showing hemoglobin 13.2 g, white blood cell count 12,900, and platelet count 364,000. Comprehensive metabolic profile showed normal renal function with BUN 7 and creatinine 0.7 mg/dL. Bilirubin and liver enzymes were normal. His baseline CEA level was significantly elevated at 88.7 ng/mL. He was referred to Dr. Bennett. His repeat colonoscopy on 10/28/2020 showed near obstructing transverse colon carcinoma. There was no grossly apparent residual adenomatous tissue at the polypectomy site in the rectum. On 11/09/2020 he underwent extended right hemicolectomy with en bloc excision of abdominal wall, stomach, and omentum. Operative findings included a large tumor in the distal transverse colon which was invading the abdominal wall, body of stomach, and omentum. There was associated perforation of cancer into the omentum, abdominal wall and stomach and there were associated inflammatory changes of the adjacent organs and with marked thickening and erythema of the bowel. There was no evidence of abdominal carcinomatosis or metastatic involvement in the liver. Pathology showed well differentiated invasive adenocarcinoma which was involving the omentum, abdominal wall, and serosa of the stomach. The tumor measured 7.0 x 6.0 cm. The radial (abdominal wall) margin was involved with tumor present 0 to 1 mm from the margin. The proximal and distal margins were uninvolved. The gastric and mesenteric margins were uninvolved. There was involvement in 1 of 34 lymph nodes. Pathologic staging was pT4b, pN1a. His tumor was found to have intact expression of mismatch repair proteins. The procedure also included appendectomy with pathology showing evidence of acute appendicitis. I had seen him initially on 11/26/2020. He was still having difficulty recovering from the surgery. In particular, he was having significant issues with postprandial vomiting. He was recommended to undergo adjuvant chemotherapy, but at that point he needed additional time for recovery. On 11/30/2020 he was seen in the emergency room with complaints of dizziness and passing out. He was found to be hypokalemic, potassium 2.6 mmol/L. His CT abdomen/pelvis showed marked dilatation of the stomach with fluid and air. There was no evidence of bowel obstruction. At his follow-up visit on 12/14/2020 he was still had significant GI complaints, for which he was given symptomatic management. He was scheduled to return for follow-up in 2 weeks, but he did not keep that appointment. He was seen again for a follow-up visit on 02/16/2021. At that point he was feeling much better, and he indicated that he did want to take adjuvant chemotherapy. He began cycle 1 of adjuvant chemotherapy with modified FOLFOX on 02/22/2021. He tolerated it well. He continued with cycle 2 on 03/08/2021 and with cycle 3 on 03/23/2021. His 4th cycle had to be delayed due to neutropenia and thrombocytopenia. It was administered with reductions in the dosages of both the 5-FU and oxaliplatin. He tolerated it well and he continued with cycle 5 on 05/03/2021 and with cycle 6 on 05/17/2021. At that point there was a slight further increase in the CEA level to 6.3 ng/mL compared to 3.8 ng/mL in December 2020 and to a pretreatment level of 5.2 ng/mL on 02/22/2021. With that change, his treatment was put on hold. Restaging CT scans of the chest, abdomen, and pelvis on 06/04/2021 showed diffuse nodular wall thickening with luminal narrowing involving the sigmoid colon. There was associated focal nodular mass measuring 1.7 x 1.2 x 2.3 cm. Findings were new and they were felt to be suspicious for primary neoplasm or metastatic disease. A nodular metastatic implant or lymph node was noted in the mesentery measuring 9 mm located at the L4-5 level iliac bifurcation. A 2 mm noncalcified pulmonary nodule was noted in the left upper lobe along the fissure. Both were new from the November 2020 study and suspicious for metastatic disease. With those findings, he had further evaluation with colonoscopy on 06/30/2021. There were no abnormal findings other than internal hemorrhoids. In the meantime, a next generation sequencing was requested on the primary tumor. It did show presence of a KRAS exon 2 mutation. Also noted was an exon 10 PIK3CA mutation. The tumor was negative for overexpression of HER-2/anselmo and it was MSI stable. The tumor mutational burden was low at 6 mut/MB. Restaging PET/CT on 07/17/2021 showed a sigmoid mass measuring 2.7 x 3.3 cm with SUV 17.4, indicating high probability of malignancy. A solid lesion at the mesenteric root at the aortic bifurcation measuring 1.2 cm had an SUV of 10.3, also consistent with malignancy. Other scattered mesenteric nodes were too small to characterize. A 6 mm nodule in the left lung at the major fissure was felt to be strongly suspicious for metastatic disease, though the SUV was low at 1.4. Overall, the findings were consistent with recurrent/metastatic disease. As the pattern of involvement did not appear to be amenable to either radiation or surgical resection, he was recommended to begin treatment with a FOLFIRI regimen in combination with bevacizumab. His other medical illnesses include hypertension, hyperlipidemia, GERD, degenerative arthritis, and benign prostatic hypertrophy. He has a history of alcohol abuse, but he has reduced his alcohol use significantly. He also has a history of smoking 2 packs of cigarettes daily, but he quit smoking in 1997. INTERIM HISTORY: He began cycle 1 of FOLFIRI/bevacizumab on 08/03/2021. He is seen for 1 week toxicity check. He had no acute toxicity following his treatment last week, and he comes in today with no significant complaints. He has good energy and activity tolerance. ECOG score is 0. Appetite also is good. He has no fever or night sweats. He has not had sore mouth or throat. He does not complain of cough, and he has not been having shortness of breath or chest pain. He has had no nausea/vomiting. Bowel and bladder function have been okay. In particular, he has not experienced any diarrhea. He does have some aching in his knees, which is chronic. He has occasional headache. He has mild residual numbness in his fingers, but that does appear to be resolving. Medications: He is not any other prescription medication. Allergies: No Known Allergies. Vital Signs: Performed on Aug 10, 2021 11:49 Height - 72.00 in Weight - 183.8 lbs (LOW) BSA - 2.06 sq.m BMI - 24.93 Temperature - 98.0 F (LOW) Pulse - 83 /min Respiration - 17 /min BP - 161/90 mm(hg) (HIGH) O2 Sat - 97 % Pain - 0 Fatigue - 0 Physical Examination: Constitutional - He looks good generally, Eyes - Sclerae nonicteric. Conjunctivae clear, ENMT - No lesions noted in the oral cavity, Hematologic/Lymphatic - No cervical, clavicular, or axillary adenopathy, Respiratory - Lungs are clear with good air movement bilaterally, Cardiovascular - Heart rhythm is regular. There is no murmur, gallop, or rub noted, Abdomen - Soft. Liver and spleen are not enlarged. There is no abdominal mass or ascites noted and there is no inguinal adenopathy, Extremities - Slight edema at the ankles, Neurologic - No focal neurologic deficits noted. Lab/Imaging: Test performed on Aug 10, 2021 09:05 Sodium 135 mmol/L Potassium 3.3 mmol/L Chloride 102 mmol/L CO2 25 mmol/L Anion Gap 11.3 BUN 9 mg/dL Creatinine 0.7 mg/dL Cr Clearance (Est) 123.6500 mL/min eGFR 112.5 mL/min Glucose 125 mg/dL Osmolality - Calculated 280 mOsm/kg Calcium 9.2 mg/dL Protein, Total 6.8 g/dL Albumin 4.1 g/dL Globulin 2.7 g/dL Bilirubin, Total 0.6 mg/dL ALT (SGPT) 22 U/L AST (SGOT) 25 U/L Alkaline Phosphatase 83 IU/L WBC 3.4 10 3/uL RBC 4.63 10 6/uL HGB 13.8 g/dL HCT 41.0 % MCV 88.6 fl MCH 29.8 pg MCHC 33.7 g/dL RDW 11.9 % Platelet Count 133 10 3/cmm MPV 9.6 fL Neutrophils 1.53 10 3/uL Lymphocytes 1.5 10 3/uL Monocytes 0.2 10 3/uL Eosinophils 0.1 10 3/uL Basophils 0.0 10 3/uL Neutrophil % 44.8 % Lymphocyte % 44.9 % Monocyte % 6.5 % Eosinophil % 2.6 % Basophils % 0.9 % NRBC % 0 % Problem List: 1. Well differentiated adenocarcinoma of the transverse colon, stage IIIC (pT4b, pN1a, M0). His tumor was found to harbor a KRAS mutation at exon 2. It was found to have intact expression of mismatch repair proteins. 2. Hypertension. 3. Hyperlipidemia. 4. GERD. 5. Degenerative arthritis. 6. Alcohol abuse. 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 His tumor was found to have intact expression of mismatch repair proteins. On 11/09/2020 he underwent extended right hemicolectomy with en bloc resection of involved portion of abdominal wall, stomach, and omentum. There was associated tumor perforation. There was involvement in 1/3 4 lymph nodes, and pathology also showed involvement at the radial (abdominal wall) margin, estimated at 0.5 mm. With those findings, he was advised that he was at increased risk for recurrence, and he was recommended to have adjuvant chemotherapy with modified FOLFOX. However, his postoperative course was complicated by postprandial vomiting. At his ER visit on 11/30/[address] abdomen/pelvis showed gastric distention with air and fluid, and he was found to be significantly hypokalemic. He continued symptomatic management, and he did show gradual recovery, but those complications did result in a significant delay in his adjuvant therapy. As of his follow-up visit on 02/16/2021 he was feeling much better, at that point he indicated that he did want to proceed with adjuvant chemotherapy. On 02/22/2021 he began cycle 1 of modified FOLFOX. He tolerated it extremely well. He then continued with cycle 2 on 03/08/2021 and with cycle 3 on 03/23/2021. His 4th cycle had to be delayed due to neutropenia and thrombocytopenia, and was administered with reductions in the dosages of the 5-FU and oxaliplatin. With dose reductions, his blood counts remained adequate. He continued with cycle 5 on 05/03/2021 and with cycle 6 on 05/17/2021. As of his cycle 6 treatment there was a slight further increase in the CEA level. With that finding, his treatment was put on hold. Restaging CT scans of the chest, abdomen, and pelvis on 06/04/2021 showed diffuse nodular wall thickening and luminal narrowing of the sigmoid colon, a nodular metastatic implant or lymph node within the mesentery measuring 9 mm, and a 2 mm left upper lobe pulmonary nodule. The findings were new from the prior CT in November 2020 and they were felt to be suspicious for metastatic disease. A repeat colonoscopy on 06/30/2021 showed no abnormalities other than internal hemorrhoids. Restaging PET/CT on 07/17/2021 showed a sigmoid mass measuring 2.7 x 3.3 cm with SUV 17.4, indicating high probability of malignancy. A solid lesion at the mesenteric root at the aortic bifurcation measuring 1.2 cm had an SUV of 10.3, also consistent with malignancy. A 6 mm nodule in the left lung at the major fissure was felt to be strongly suspicious for metastatic disease, though the SUV was low at 1.4. In the meantime, a next generation sequencing was requested on the primary tumor. It did show presence of a KRAS exon 2 mutation. Also noted was an exon 10 PIK3CA mutation. The tumor was negative for overexpression of HER-2/anselmo and it was MSI stable. The tumor mutational burden was low at 6 mut/MB. Overall, the findings were consistent with recurrent/metastatic disease. As the pattern of involvement did not appear to be amenable to either radiation or surgical resection, he was recommended to begin further treatment with a FOLFIRI chemotherapy regimen in combination with bevacizumab. He began cycle 1 on 08/03/2021. Thus far he has tolerated it without acute toxicity. He returns in 1 week for his 2nd cycle of treatment. The dosages will remain the same. He will be scheduled for a 2-week interval follow-up visit. Signed By: Luis Topete M.D. <<Signature on File>>
== END 2021-08-12 23:59 | disposition home or self-care (01) ==
LOC: ONCMED 06:44
PROVIDERS: Nurse Practitioner Family; PCP Internal Medicine; Visit Provider Internal Medicine Medical Oncology
DX: Z51.11 Encounter for antineoplastic chemotherapy (principal); C18.4 Malignant neoplasm of transverse colon; C78.5 Secondary malignant neoplasm of large intestine and rectum; C77.8 Secondary and unspecified malignant neoplasm of lymph nodes of multiple regions; I10 Essential (primary) hypertension; E78.5 Hyperlipidemia, unspecified; K21.9 Gastro-esophageal reflux disease without esophagitis; M19.90 Unspecified osteoarthritis, unspecified site; F10.10 Alcohol abuse, uncomplicated; Z79.899 Other long term (current) drug therapy
CPT/HCPCS: 36591; 80053; 82378; 85025; 96367; 96368; 96375; 96413; 96415; 96416; 96417; 96523; 99214; 99215; J0461; J1100; J2469; J7050; J9190; J9206; Q5107

== ENCOUNTER 2021-09-09 06:41 | Outpatient (RCR) | payer MEDICARE, OTHER, SELFPAY ==
[2021-08-17 08:24] LABS: Basophils % 0.9 %; Eosinophils # 0.1 10^3/uL (0.0-0.8); Eosinophils % 2.5 %; Hemoglobin 14.1 g/dL (11.7-16.6); Lymphocytes # 1.4 10^3/uL (0.8-4.8); Lymphocytes % 42.3 %; Mean Corpuscular HGB Conc 33.6 g/dL (30.0-36.0); Mean Corpuscular Hemoglobin 29.8 pg (28.0-34.0); Mean Corpuscular Volume 88.8 fl (80-94); Mean Platelet Volume 8.9 fL (7.4-10.4); Monocytes # 0.4 10^3/uL (0.2-0.9); Monocytes % 12.7 %; Neutrophils # 1.35 10^3/uL (1.8-7.7); Neutrophils % 41.6 %; Nucleated Red Blood Cells % 0 %; Platelet Count 166 10^3/cmm (130-400); Red Blood Count 4.73 10^6/uL (4.1-5.3); Red Cell Distribution Width 12.3 % (12.1-15.1); White Blood Count 3.2 10^3/uL (4.0-10.0)
[2021-08-24 08:31] LABS: Basophils # 0.1 10^3/uL (0.0-0.1); Basophils % 1.3 %; Eosinophils # 0.1 10^3/uL (0.0-0.8); Eosinophils % 2.3 %; Hematocrit 42.8 % (42.0-52.0); Hemoglobin 14.6 g/dL (11.7-16.6); Lymphocytes # 1.4 10^3/uL (0.8-4.8); Lymphocytes % 36.3 %; Mean Corpuscular HGB Conc 34.1 g/dL (30.0-36.0); Mean Corpuscular Hemoglobin 30.7 pg (28.0-34.0); Mean Corpuscular Volume 89.9 fl (80-94); Mean Platelet Volume 9.4 fL (7.4-10.4); Monocytes # 0.5 10^3/uL (0.2-0.9); Monocytes % 13.7 %; Neutrophils # 1.81 10^3/uL (1.8-7.7); Neutrophils % 45.9 %; Nucleated Red Blood Cells % 0 %; Platelet Count 167 10^3/cmm (130-400); Red Blood Count 4.76 10^6/uL (4.1-5.3); Red Cell Distribution Width 12.3 % (12.1-15.1); White Blood Count 3.9 10^3/uL (4.0-10.0)
[2021-08-24 08:47] LABS: Alanine Aminotransferase 26 U/L (0-41); Albumin Level 4.2 g/dL (3.5-5.2); Alkaline Phosphatase 128 IU/L (40-130); Blood Urea Nitrogen 8 mg/dL (8-23); Calcium 9.5 mg/dL (8.5-10.5); Carbon Dioxide 25 mmol/L (22-29); Chloride 101 mmol/L (98-107); Globulin 3.1 g/dL (1.3-4.6); Glomerular Filtration Rate 96.4 mL/min (90-130); Glucose 123 mg/dL (65-115); Osmolality Calculated 278 mOsm/kg (285-295); Sodium 134 mmol/L (136-145); Total Bilirubin 0.3 mg/dL (0.15-1.2); Total Protein 7.3 g/dL (6.6-8.7)
[2021-08-24 08:55] LABS: Anion Gap 12.2 (5-19); Aspartate Amino Transferase 32 U/L (0-40); Potassium 4.2 mmol/L (3.5-5.1)
--- NOTE | 2021-08-24 09:35 | ONC FU_ITS ---
Ashia Alvarez Progress Note Patient: Ry Potter Unit #: [id number]: [id number] Dicatated By: Ashia Alvarez N.P.Date of Visit:Aug 24, 2021 Onc MED Follow-up/Prog Note Chief Complaint: Colon cancer. 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 He had presented with abdominal pain and weight loss. His colonoscopy on 10/08/2020 showed a partially obstructing malignant appearing mass in the distal ascending colon, estimated at 7 x 5 cm. Also noted was a 3 mm polyp in the mid sigmoid colon and a 10 mm polyp in the rectum. Biopsies of the rectal mass showed moderately differentiated adenocarcinoma. The sigmoid colon polyp was hyperplastic. The rectal biopsy showed tubular adenoma with focal high-grade dysplasia. His staging CT scans of the chest, abdomen, and pelvis showed soft tissue encasement of the distal transverse colon/splenic flexure extending over a length of 7.2 cm. There was associated wall thickening measuring up to 2.2 cm with moderate narrowing of the lumen. There were no adjacent satellite lesions or nodules and there was no associated retroperitoneal or mesenteric adenopathy. There also was no evidence of other metastatic disease. His laboratory studies included CBC showing hemoglobin 13.2 g, white blood cell count 12,900, and platelet count 364,000. Comprehensive metabolic profile showed normal renal function with BUN 7 and creatinine 0.7 mg/dL. Bilirubin and liver enzymes were normal. His baseline CEA level was significantly elevated at 88.7 ng/mL. He was referred to Dr. Bennett. His repeat colonoscopy on 10/28/2020 showed near obstructing transverse colon carcinoma. There was no grossly apparent residual adenomatous tissue at the polypectomy site in the rectum. On 11/09/2020 he underwent extended right hemicolectomy with en bloc excision of abdominal wall, stomach, and omentum. Operative findings included a large tumor in the distal transverse colon which was invading the abdominal wall, body of stomach, and omentum. There was associated perforation of cancer into the omentum, abdominal wall and stomach and there were associated inflammatory changes of the adjacent organs and with marked thickening and erythema of the bowel. There was no evidence of abdominal carcinomatosis or metastatic involvement in the liver. Pathology showed well differentiated invasive adenocarcinoma which was involving the omentum, abdominal wall, and serosa of the stomach. The tumor measured 7.0 x 6.0 cm. The radial (abdominal wall) margin was involved with tumor present 0 to 1 mm from the margin. The proximal and distal margins were uninvolved. The gastric and mesenteric margins were uninvolved. There was involvement in 1 of 34 lymph nodes. Pathologic staging was pT4b, pN1a. His tumor was found to have intact expression of mismatch repair proteins. The procedure also included appendectomy with pathology showing evidence of acute appendicitis. I had seen him initially on 11/26/2020. He was still having difficulty recovering from the surgery. In particular, he was having significant issues with postprandial vomiting. He was recommended to undergo adjuvant chemotherapy, but at that point he needed additional time for recovery. On 11/30/2020 he was seen in the emergency room with complaints of dizziness and passing out. He was found to be hypokalemic, potassium 2.6 mmol/L. His CT abdomen/pelvis showed marked dilatation of the stomach with fluid and air. There was no evidence of bowel obstruction. At his follow-up visit on 12/14/2020 he was still had significant GI complaints, for which he was given symptomatic management. He was scheduled to return for follow-up in 2 weeks, but he did not keep that appointment. He was seen again for a follow-up visit on 02/16/2021. At that point he was feeling much better, and he indicated that he did want to take adjuvant chemotherapy. He began cycle 1 of adjuvant chemotherapy with modified FOLFOX on 02/22/2021. He tolerated it well. He continued with cycle 2 on 03/08/2021 and with cycle 3 on 03/23/2021. His 4th cycle had to be delayed due to neutropenia and thrombocytopenia. It was administered with reductions in the dosages of both the 5-FU and oxaliplatin. He tolerated it well and he continued with cycle 5 on 05/03/2021 and with cycle 6 on 05/17/2021. At that point there was a slight further increase in the CEA level to 6.3 ng/mL compared to 3.8 ng/mL in December 2020 and to a pretreatment level of 5.2 ng/mL on 02/22/2021. With that change, his treatment was put on hold. Restaging CT scans of the chest, abdomen, and pelvis on 06/04/2021 showed diffuse nodular wall thickening with luminal narrowing involving the sigmoid colon. There was associated focal nodular mass measuring 1.7 x 1.2 x 2.3 cm. Findings were new and they were felt to be suspicious for primary neoplasm or metastatic disease. A nodular metastatic implant or lymph node was noted in the mesentery measuring 9 mm located at the L4-5 level iliac bifurcation. A 2 mm noncalcified pulmonary nodule was noted in the left upper lobe along the fissure. Both were new from the November 2020 study and suspicious for metastatic disease. With those findings, he had further evaluation with colonoscopy on 06/30/2021. There were no abnormal findings other than internal hemorrhoids. In the meantime, a next generation sequencing was requested on the primary tumor. It did show presence of a KRAS exon 2 mutation. Also noted was an exon 10 PIK3CA mutation. The tumor was negative for overexpression of HER-2/anselmo and it was MSI stable. The tumor mutational burden was low at 6 mut/MB. Restaging PET/CT on 07/17/2021 showed a sigmoid mass measuring 2.7 x 3.3 cm with SUV 17.4, indicating high probability of malignancy. A solid lesion at the mesenteric root at the aortic bifurcation measuring 1.2 cm had an SUV of 10.3, also consistent with malignancy. Other scattered mesenteric nodes were too small to characterize. A 6 mm nodule in the left lung at the major fissure was felt to be strongly suspicious for metastatic disease, though the SUV was low at 1.4. Overall, the findings were consistent with recurrent/metastatic disease. As the pattern of involvement did not appear to be amenable to either radiation or surgical resection, he was recommended to begin treatment with a FOLFIRI regimen in combination with bevacizumab. His other medical illnesses include hypertension, hyperlipidemia, GERD, degenerative arthritis, and benign prostatic hypertrophy. He has a history of alcohol abuse, but he has reduced his alcohol use significantly. He also has a history of smoking 2 packs of cigarettes daily, but he quit smoking in 1997. INTERIM HISTORY: He began cycle 1 of FOLFIRI/bevacizumab on 08/03/2021. Cycle 2 was held due to ANC 1.3. Patient presents today for follow-up. He states he is feeling well. He has been very active playing golf and performing yard work. His appetite has been good. He denies fever, chills, night sweats. No sinus drainage or sore throat. No shortness of breath, cough, chest pain. No nausea or vomiting. No diarrhea or constipation. No urinary symptoms. Other than chronic knee pain he has no joint or muscle pain. No headaches or dizziness. Review Of Symptoms: See above. Past Medical History: Alcohol abuse Benign prostatic hyperplasia Degenerative arthritis Gastroesophageal reflux disease Hypercholesterolemia Hypertension Past Surgical History: Colonoscopy on 10/08/2020 and on 10/28/2020 Vasectomy Covid booster - iPrint in 2021 Flu vac in 2020 Port-a-cath placement in 2020 - Dr. Chano Ontiveros left subclavian???Dr. Madden in 2020 Extended right hemicolectomy with en bloc excision of abdominal wall, stomach, and omentum in 2020 Allergies: No Known Allergies. Medications: amLODIPine Besylate 1 (5 mg) Tablet Oral daily LORazepam (1 mg) Tablet Oral Take as Directed Metoclopramide HCl (10 mg) Tablet Oral at bedtime Pantoprazole Sodium 1 (40 mg) Tablet, enteric coated Oral daily Family History: Father of lung cancer at age 58. Mother with C. difficile colitis at age 81. A brother also had lung cancer and of stroke at age 63. Another brother is in good health. Social History: Mr. Potter is . Mr. Potter quit smoking 24 years ago but had smoked for 25 years. He drinks daily. He consumes 5 drinks/day 7 days/week. He has a history of smoking up to 2 packs of cigarettes daily. He quit smoking in 1997. He has a history of drinking 8-10 beers per day, but over the past several months he has cut down, currently to 5 to 6 beers daily. Physical Examination: Performed on Aug 24, 2021 09:24: Height - 72.00 in, Weight - 187.6 lbs (HIGH), BSA - 2.07 sq.m, BMI - 25.44, Temperature - 97.8 F (LOW), Pulse - 77 /min, Respiration - 16 /min, BP - 138/83 mm(hg), O2 Sat - 99 %, Pain - 0, and Fatigue - 0. Performance Status: 0 - Fully active, able to carry on all predisease activities without restrictions. (ECOG) Constitutional Alert, cooperative, oriented. Mood and affect appropriate. Appears close to chronological age. Well nourished. Well developed. Head Normocephalic; no scars. Respiratory Lungs are clear to auscultation without rhonchi or wheezing. Cardiovascular Regular rate and rhythm of heart without murmurs, gallops or rubs. Abdomen Non-tender, non-distended, no masses, ascites or hepatosplenomegaly. Good bowel sounds. No guarding or rebound tenderness. Extremities No edema Musculoskeletal No tenderness or swelling, normal range of motion without obvious weakness. Psychiatric Alert and oriented times three. Coherent speech. Verbalizes understanding of our discussions today. Laboratory: Test performed on Aug 24, 2021 08:05 Sodium 134 mmol/L Potassium 4.2 mmol/L Chloride 101 mmol/L CO2 25 mmol/L Anion Gap 12.2 BUN 8 mg/dL Creatinine 0.8 mg/dL Cr Clearance (Est) 108.1900 mL/min eGFR 96.4 mL/min Glucose 123 mg/dL Osmolality - Calculated 278 mOsm/kg Calcium 9.5 mg/dL Protein, Total 7.3 g/dL Albumin 4.2 g/dL Globulin 3.1 g/dL Bilirubin, Total 0.3 mg/dL ALT (SGPT) 26 U/L AST (SGOT) 32 U/L Alkaline Phosphatase 128 IU/L WBC 3.9 10 3/uL RBC 4.76 10 6/uL HGB 14.6 g/dL HCT 42.8 % MCV 89.9 fl MCH 30.7 pg MCHC 34.1 g/dL RDW 12.3 % Platelet Count 167 10 3/cmm MPV 9.4 fL Neutrophils 1.81 10 3/uL Lymphocytes 1.4 10 3/uL Monocytes 0.5 10 3/uL Eosinophils 0.1 10 3/uL Basophils 0.1 10 3/uL Neutrophil % 45.9 % Lymphocyte % 36.3 % Monocyte % 13.7 % Eosinophil % 2.3 % Basophils % 1.3 % NRBC % 0 % Test performed on Jul 13, 2021 09:45 CEA 15.0 ng/mL Test performed on Apr 05, 2021 08:19 CBC Slide Review Slide Review Perform REVIEW AGREES WITH AUTOMATED RESULTS Impression: 1. Well differentiated adenocarcinoma of the transverse colon, stage IIIC (pT4b, pN1a, M0). His tumor was found to harbor a KRAS mutation at exon 2. It was found to have intact expression of mismatch repair proteins. 2. Hypertension. 3. Hyperlipidemia. 4. GERD. 5. Degenerative arthritis. 6. Alcohol abuse. 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 His tumor was found to have intact expression of mismatch repair proteins. On 11/09/2020 he underwent extended right hemicolectomy with en bloc resection of involved portion of abdominal wall, stomach, and omentum. There was associated tumor perforation. There was involvement in 1/3 4 lymph nodes, and pathology also showed involvement at the radial (abdominal wall) margin, estimated at 0.5 mm. With those findings, he was advised that he was at increased risk for recurrence, and he was recommended to have adjuvant chemotherapy with modified FOLFOX. However, his postoperative course was complicated by postprandial vomiting. At his ER visit on 11/30/[address] abdomen/pelvis showed gastric distention with air and fluid, and he was found to be significantly hypokalemic. He continued symptomatic management, and he did show gradual recovery, but those complications did result in a significant delay in his adjuvant therapy. As of his follow-up visit on 02/16/2021 he was feeling much better, at that point he indicated that he did want to proceed with adjuvant chemotherapy. On 02/22/2021 he began cycle 1 of modified FOLFOX. He tolerated it extremely well. He then continued with cycle 2 on 03/08/2021 and with cycle 3 on 03/23/2021. His 4th cycle had to be delayed due to neutropenia and thrombocytopenia, and was administered with reductions in the dosages of the 5-FU and oxaliplatin. With dose reductions, his blood counts remained adequate. He continued with cycle 5 on 05/03/2021 and with cycle 6 on 05/17/2021. As of his cycle 6 treatment there was a slight further increase in the CEA level. With that finding, his treatment was put on hold. Restaging CT scans of the chest, abdomen, and pelvis on 06/04/2021 showed diffuse nodular wall thickening and luminal narrowing of the sigmoid colon, a nodular metastatic implant or lymph node within the mesentery measuring 9 mm, and a 2 mm left upper lobe pulmonary nodule. The findings were new from the prior CT in November 2020 and they were felt to be suspicious for metastatic disease. A repeat colonoscopy on 06/30/2021 showed no abnormalities other than internal hemorrhoids. Restaging PET/CT on 07/17/2021 showed a sigmoid mass measuring 2.7 x 3.3 cm with SUV 17.4, indicating high probability of malignancy. A solid lesion at the mesenteric root at the aortic bifurcation measuring 1.2 cm had an SUV of 10.3, also consistent with malignancy. A 6 mm nodule in the left lung at the major fissure was felt to be strongly suspicious for metastatic disease, though the SUV was low at 1.4. In the meantime, a next generation sequencing was requested on the primary tumor. It did show presence of a KRAS exon 2 mutation. Also noted was an exon 10 PIK3CA mutation. The tumor was negative for overexpression of HER-2/anselmo and it was MSI stable. The tumor mutational burden was low at 6 mut/MB. Overall, the findings were consistent with recurrent/metastatic disease. As the pattern of involvement did not appear to be amenable to either radiation or surgical resection, he was recommended to begin further treatment with a FOLFIRI chemotherapy regimen in combination with bevacizumab. He began cycle 1 on 08/03/2021. Thus far he has tolerated it without acute toxicity. Cycle 2 that was scheduled on 08/17/2021 was held due to a low ANC of 1.3. He returns today for treatment with FOLFIRI and bevacizumab. He will also receive Neulasta support. Return to clinic in 1 week with CBC and CMP for toxicity check. As long as tolerated he will receive treatment every 2 weeks. Signed By: Ashia Alvarez N.P. <<Signature on File>>
[2021-08-24] MEDS: palonosetron 0.25 mg/5 mL SDV IV (09:50)
[2021-08-24] MEDS: sodium chloride 0.9% 250 ML 75 ML IV (09:50)
[2021-08-26] MEDS: pegfilgrastim-bmez 6 mg/0.6 mL SYR SUBCUT (10:35)
[2021-09-02 13:34] LABS: Basophils # 0.1 10^3/uL (0.0-0.1); Basophils % 1.1 %; Eosinophils # 0.1 10^3/uL (0.0-0.8); Eosinophils % 0.8 %; Hematocrit 39.8 % (42.0-52.0); Hemoglobin 13.8 g/dL (11.7-16.6); Lymphocytes # 2.1 10^3/uL (0.8-4.8); Lymphocytes % 28.2 %; Mean Corpuscular HGB Conc 34.7 g/dL (30.0-36.0); Mean Corpuscular Hemoglobin 30.5 pg (28.0-34.0); Mean Corpuscular Volume 88.1 fl (80-94); Mean Platelet Volume 9.5 fL (7.4-10.4); Monocytes # 0.7 10^3/uL (0.2-0.9); Monocytes % 9.8 %; Neutrophils # 4.26 10^3/uL (1.8-7.7); Neutrophils % 58.7 %; Nucleated Red Blood Cells % 0 %; Platelet Count 144 10^3/cmm (130-400); Red Blood Count 4.52 10^6/uL (4.1-5.3); Red Cell Distribution Width 12.4 % (12.1-15.1); White Blood Count 7.3 10^3/uL (4.0-10.0)
[2021-09-02 13:51] LABS: Alanine Aminotransferase 25 U/L (0-41); Albumin Level 4.1 g/dL (3.5-5.2); Alkaline Phosphatase 140 IU/L (40-130); Aspartate Amino Transferase 24 U/L (0-40); Blood Urea Nitrogen 9 mg/dL (8-23); Calcium 8.6 mg/dL (8.5-10.5); Carbon Dioxide 26 mmol/L (22-29); Chloride 100 mmol/L (98-107); Globulin 3.4 g/dL (1.3-4.6); Glomerular Filtration Rate 112.5 mL/min (90-130); Glucose 107 mg/dL (65-115); Osmolality Calculated 283 mOsm/kg (285-295); Sodium 137 mmol/L (136-145); Total Bilirubin 0.3 mg/dL (0.15-1.2); Total Protein 7.5 g/dL (6.6-8.7)
[2021-09-02 13:52] LABS: Slide Review Slide Review Perform
[2021-09-02 13:58] LABS: Anion Gap 14.7 (5-19); Potassium 3.7 mmol/L (3.5-5.1)
--- NOTE | 2021-09-05 16:16 | ONC FU_ITS ---
Ashia Alvarez Progress Note Patient: Ry Potter Unit #: [id number]: 1955 Dicatated By: Ashia Alvarez N.P.Date of Visit:Sep 02, 2021 Onc MED Follow-up/Prog Note Chief Complaint: Colon cancer. 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 He had presented with abdominal pain and weight loss. His colonoscopy on 10/08/2020 showed a partially obstructing malignant appearing mass in the distal ascending colon, estimated at 7 x 5 cm. Also noted was a 3 mm polyp in the mid sigmoid colon and a 10 mm polyp in the rectum. Biopsies of the rectal mass showed moderately differentiated adenocarcinoma. The sigmoid colon polyp was hyperplastic. The rectal biopsy showed tubular adenoma with focal high-grade dysplasia. His staging CT scans of the chest, abdomen, and pelvis showed soft tissue encasement of the distal transverse colon/splenic flexure extending over a length of 7.2 cm. There was associated wall thickening measuring up to 2.2 cm with moderate narrowing of the lumen. There were no adjacent satellite lesions or nodules and there was no associated retroperitoneal or mesenteric adenopathy. There also was no evidence of other metastatic disease. His laboratory studies included CBC showing hemoglobin 13.2 g, white blood cell count 12,900, and platelet count 364,000. Comprehensive metabolic profile showed normal renal function with BUN 7 and creatinine 0.7 mg/dL. Bilirubin and liver enzymes were normal. His baseline CEA level was significantly elevated at 88.7 ng/mL. He was referred to Dr. Bennett. His repeat colonoscopy on 10/28/2020 showed near obstructing transverse colon carcinoma. There was no grossly apparent residual adenomatous tissue at the polypectomy site in the rectum. On 11/09/2020 he underwent extended right hemicolectomy with en bloc excision of abdominal wall, stomach, and omentum. Operative findings included a large tumor in the distal transverse colon which was invading the abdominal wall, body of stomach, and omentum. There was associated perforation of cancer into the omentum, abdominal wall and stomach and there were associated inflammatory changes of the adjacent organs and with marked thickening and erythema of the bowel. There was no evidence of abdominal carcinomatosis or metastatic involvement in the liver. Pathology showed well differentiated invasive adenocarcinoma which was involving the omentum, abdominal wall, and serosa of the stomach. The tumor measured 7.0 x 6.0 cm. The radial (abdominal wall) margin was involved with tumor present 0 to 1 mm from the margin. The proximal and distal margins were uninvolved. The gastric and mesenteric margins were uninvolved. There was involvement in 1 of 34 lymph nodes. Pathologic staging was pT4b, pN1a. His tumor was found to have intact expression of mismatch repair proteins. The procedure also included appendectomy with pathology showing evidence of acute appendicitis. Dr. Topete had seen him initially on 11/26/2020. He was still having difficulty recovering from the surgery. In particular, he was having significant issues with postprandial vomiting. He was recommended to undergo adjuvant chemotherapy, but at that point he needed additional time for recovery. On 11/30/2020 he was seen in the emergency room with complaints of dizziness and passing out. He was found to be hypokalemic, potassium 2.6 mmol/L. His CT abdomen/pelvis showed marked dilatation of the stomach with fluid and air. There was no evidence of bowel obstruction. At his follow-up visit on 12/14/2020 he was still had significant GI complaints, for which he was given symptomatic management. He was scheduled to return for follow-up in 2 weeks, but he did not keep that appointment. He was seen again for a follow-up visit on 02/16/2021. At that point he was feeling much better, and he indicated that he did want to take adjuvant chemotherapy. He began cycle 1 of adjuvant chemotherapy with modified FOLFOX on 02/22/2021. He tolerated it well. He continued with cycle 2 on 03/08/2021 and with cycle 3 on 03/23/2021. His 4th cycle had to be delayed due to neutropenia and thrombocytopenia. It was administered with reductions in the dosages of both the 5-FU and oxaliplatin. He tolerated it well and he continued with cycle 5 on 05/03/2021 and with cycle 6 on 05/17/2021. At that point there was a slight further increase in the CEA level to 6.3 ng/mL compared to 3.8 ng/mL in December 2020 and to a pretreatment level of 5.2 ng/mL on 02/22/2021. With that change, his treatment was put on hold. Restaging CT scans of the chest, abdomen, and pelvis on 06/04/2021 showed diffuse nodular wall thickening with luminal narrowing involving the sigmoid colon. There was associated focal nodular mass measuring 1.7 x 1.2 x 2.3 cm. Findings were new and they were felt to be suspicious for primary neoplasm or metastatic disease. A nodular metastatic implant or lymph node was noted in the mesentery measuring 9 mm located at the L4-5 level iliac bifurcation. A 2 mm noncalcified pulmonary nodule was noted in the left upper lobe along the fissure. Both were new from the November 2020 study and suspicious for metastatic disease. With those findings, he had further evaluation with colonoscopy on 06/30/2021. There were no abnormal findings other than internal hemorrhoids. In the meantime, a next generation sequencing was requested on the primary tumor. It did show presence of a KRAS exon 2 mutation. Also noted was an exon 10 PIK3CA mutation. The tumor was negative for overexpression of HER-2/anselmo and it was MSI stable. The tumor mutational burden was low at 6 mut/MB. Restaging PET/CT on 07/17/2021 showed a sigmoid mass measuring 2.7 x 3.3 cm with SUV 17.4, indicating high probability of malignancy. A solid lesion at the mesenteric root at the aortic bifurcation measuring 1.2 cm had an SUV of 10.3, also consistent with malignancy. Other scattered mesenteric nodes were too small to characterize. A 6 mm nodule in the left lung at the major fissure was felt to be strongly suspicious for metastatic disease, though the SUV was low at 1.4. Overall, the findings were consistent with recurrent/metastatic disease. As the pattern of involvement did not appear to be amenable to either radiation or surgical resection, he was recommended to begin treatment with a FOLFIRI regimen in combination with bevacizumab. His other medical illnesses include hypertension, hyperlipidemia, GERD, degenerative arthritis, and benign prostatic hypertrophy. He has a history of alcohol abuse, but he has reduced his alcohol use significantly. He also has a history of smoking 2 packs of cigarettes daily, but he quit smoking in 1997. INTERIM HISTORY: He began cycle 1 of FOLFIRI/bevacizumab on 08/03/2021. Cycle 2 was held due to ANC 1.3. Patient presents today for follow-up. He states he is feeling pretty good other than having back pain on the right side and of the lumbar region. He states it feels like more of a muscle strain and it is improving. He had pretty severe fatigue for approximately 4 days after treatment but that has now resolved. He denies shortness of breath, cough, chest pain. No nausea or vomiting. No diarrhea or constipation. No urinary symptoms. No headaches or dizziness. No numbness or tingling. Review Of Symptoms: See above. Past Medical History: Alcohol abuse Benign prostatic hyperplasia Degenerative arthritis Gastroesophageal reflux disease Hypercholesterolemia Hypertension Past Surgical History: Colonoscopy on 10/08/2020 and on 10/28/2020 Vasectomy Covid booster - [facility] in 2021 Flu vac in 2020 Port-a-cath placement in 2020 - Dr. Chano Ontiveros left subclavian???Dr. Madden in 2020 Extended right hemicolectomy with en bloc excision of abdominal wall, stomach, and omentum in 2020 Allergies: No Known Allergies. Medications: amLODIPine Besylate 1 (5 mg) Tablet Oral daily LORazepam (1 mg) Tablet Oral Take as Directed Metoclopramide HCl (10 mg) Tablet Oral at bedtime Pantoprazole Sodium 1 (40 mg) Tablet, enteric coated Oral daily Family History: Father of lung cancer at age 58. Mother with C. difficile colitis at age 81. A brother also had lung cancer and of stroke at age 63. Another brother is in good health. Social History: Mr. Potter is . Mr. Potter quit smoking 24 years ago but had smoked for 25 years. He drinks daily. He consumes 5 drinks/day 7 days/week. He has a history of smoking up to 2 packs of cigarettes daily. He quit smoking in 1997. He has a history of drinking 8-10 beers per day, but over the past several months he has cut down, currently to 5 to 6 beers daily. Physical Examination: Performed on Sep 02, 2021 14:11: Height - 72.00 in, Weight - 188.6 lbs (HIGH), BSA - 2.08 sq.m, BMI - 25.58, Temperature - 98.5 F, Pulse - 79 /min, Respiration - 18 /min, BP - 145/79 mm(hg) (HIGH), O2 Sat - 97 %, Pain - 5, and Fatigue - 0. Performance Status: 0 - Fully active, able to carry on all predisease activities without restrictions. (ECOG) Constitutional Alert, cooperative, oriented. Mood and affect appropriate. Appears close to chronological age. Well nourished. Well developed. Head Normocephalic; no scars. Eyes Conjunctivae and sclerae are clear and without icterus. Pupils are reactive and equal. Respiratory Lungs are clear to auscultation without rhonchi or wheezing. Cardiovascular Regular rate and rhythm of heart without murmurs, gallops or rubs. Abdomen Non-tender, non-distended, no masses, ascites or hepatosplenomegaly. Good bowel sounds. No guarding or rebound tenderness. Back/Spine muscular tenderness lumbar Musculoskeletal No tenderness or swelling, normal range of motion without obvious weakness. Psychiatric Alert and oriented times three. Coherent speech. Verbalizes understanding of our discussions today. Laboratory: Test performed on Sep 02, 2021 13:15 Sodium 137 mmol/L Potassium 3.7 mmol/L Chloride 100 mmol/L CO2 26 mmol/L Anion Gap 14.7 BUN 9 mg/dL Creatinine 0.7 mg/dL Cr Clearance (Est) 123.6500 mL/min eGFR 112.5 mL/min Glucose 107 mg/dL Osmolality - Calculated 283 mOsm/kg Calcium 8.6 mg/dL Protein, Total 7.5 g/dL Albumin 4.1 g/dL Globulin 3.4 g/dL Bilirubin, Total 0.3 mg/dL ALT (SGPT) 25 U/L AST (SGOT) 24 U/L Alkaline Phosphatase 140 IU/L WBC 7.3 10 3/uL RBC 4.52 10 6/uL HGB 13.8 g/dL HCT 39.8 % MCV 88.1 fl MCH 30.5 pg MCHC 34.7 g/dL RDW 12.4 % Platelet Count 144 10 3/cmm MPV 9.5 fL Neutrophils 4.26 10 3/uL Lymphocytes 2.1 10 3/uL Monocytes 0.7 10 3/uL Eosinophils 0.1 10 3/uL Basophils 0.1 10 3/uL Neutrophil % 58.7 % Lymphocyte % 28.2 % Monocyte % 9.8 % Eosinophil % 0.8 % Basophils % 1.1 % NRBC % 0 % CBC Slide Review Slide Review Perform SLIDE REVIEW CONSISTENT WITH AUTOMATION. Test performed on Jul 13, 2021 09:45 CEA 15.0 ng/mL Impression: 1. Well differentiated adenocarcinoma of the transverse colon, stage IIIC (pT4b, pN1a, M0). His tumor was found to harbor a KRAS mutation at exon 2. It was found to have intact expression of mismatch repair proteins. 2. Hypertension. 3. Hyperlipidemia. 4. GERD. 5. Degenerative arthritis. 6. Alcohol abuse. 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 His tumor was found to have intact expression of mismatch repair proteins. On 11/09/2020 he underwent extended right hemicolectomy with en bloc resection of involved portion of abdominal wall, stomach, and omentum. There was associated tumor perforation. There was involvement in 1/3 4 lymph nodes, and pathology also showed involvement at the radial (abdominal wall) margin, estimated at 0.5 mm. With those findings, he was advised that he was at increased risk for recurrence, and he was recommended to have adjuvant chemotherapy with modified FOLFOX. However, his postoperative course was complicated by postprandial vomiting. At his ER visit on 11/30/[address] abdomen/pelvis showed gastric distention with air and fluid, and he was found to be significantly hypokalemic. He continued symptomatic management, and he did show gradual recovery, but those complications did result in a significant delay in his adjuvant therapy. As of his follow-up visit on 02/16/2021 he was feeling much better, at that point he indicated that he did want to proceed with adjuvant chemotherapy. On 02/22/2021 he began cycle 1 of modified FOLFOX. He tolerated it extremely well. He then continued with cycle 2 on 03/08/2021 and with cycle 3 on 03/23/2021. His 4th cycle had to be delayed due to neutropenia and thrombocytopenia, and was administered with reductions in the dosages of the 5-FU and oxaliplatin. With dose reductions, his blood counts remained adequate. He continued with cycle 5 on 05/03/2021 and with cycle 6 on 05/17/2021. As of his cycle 6 treatment there was a slight further increase in the CEA level. With that finding, his treatment was put on hold. Restaging CT scans of the chest, abdomen, and pelvis on 06/04/2021 showed diffuse nodular wall thickening and luminal narrowing of the sigmoid colon, a nodular metastatic implant or lymph node within the mesentery measuring 9 mm, and a 2 mm left upper lobe pulmonary nodule. The findings were new from the prior CT in November 2020 and they were felt to be suspicious for metastatic disease. A repeat colonoscopy on 06/30/2021 showed no abnormalities other than internal hemorrhoids. Restaging PET/CT on 07/17/2021 showed a sigmoid mass measuring 2.7 x 3.3 cm with SUV 17.4, indicating high probability of malignancy. A solid lesion at the mesenteric root at the aortic bifurcation measuring 1.2 cm had an SUV of 10.3, also consistent with malignancy. A 6 mm nodule in the left lung at the major fissure was felt to be strongly suspicious for metastatic disease, though the SUV was low at 1.4. In the meantime, a next generation sequencing was requested on the primary tumor. It did show presence of a KRAS exon 2 mutation. Also noted was an exon 10 PIK3CA mutation. The tumor was negative for overexpression of HER-2/anselmo and it was MSI stable. The tumor mutational burden was low at 6 mut/MB. Overall, the findings were consistent with recurrent/metastatic disease. As the pattern of involvement did not appear to be amenable to either radiation or surgical resection, he was recommended to begin further treatment with a FOLFIRI chemotherapy regimen in combination with bevacizumab. He began cycle 1 on 08/03/2021. Thus far he has tolerated it without acute toxicity. Cycle 2 that was scheduled on 08/17/2021 was held due to a low ANC of 1.3. He returns today for treatment with FOLFIRI and bevacizumab. He will also receive Neulasta support. Return to clinic in 1 week with CBC and CMP for toxicity check. As long as tolerated he will receive treatment every 2 weeks. Patient presents today for toxicity check. Other than some fatigue after treatment, he tolerated his treatment well. He was provided Neulasta support and his labs are stable. He will return in 1 week for cycle 3 with FOLFIRI and bevacizumab. Signed By: Ashia Alvarez N.P. <<Signature on File>>
[2021-09-07 09:44] LABS: Basophils # 0.1 10^3/uL (0.0-0.1); Basophils % 0.6 %; Eosinophils # 0.1 10^3/uL (0.0-0.8); Eosinophils % 1.4 %; Hematocrit 41.1 % (42.0-52.0); Lymphocytes # 1.7 10^3/uL (0.8-4.8); Lymphocytes % 20.1 %; Mean Corpuscular HGB Conc 34.1 g/dL (30.0-36.0); Mean Corpuscular Hemoglobin 30.4 pg (28.0-34.0); Mean Corpuscular Volume 89.2 fl (80-94); Mean Platelet Volume 9.5 fL (7.4-10.4); Monocytes # 0.7 10^3/uL (0.2-0.9); Monocytes % 7.5 %; Neutrophils # 5.97 10^3/uL (1.8-7.7); Nucleated Red Blood Cells % 0 %; Platelet Count 157 10^3/cmm (130-400); Red Blood Count 4.61 10^6/uL (4.1-5.3); Red Cell Distribution Width 12.6 % (12.1-15.1); White Blood Count 8.7 10^3/uL (4.0-10.0)
[2021-09-07 10:24] LABS: Alanine Aminotransferase 23 U/L (0-41); Albumin Level 3.9 g/dL (3.5-5.2); Alkaline Phosphatase 134 IU/L (40-130); Aspartate Amino Transferase 31 U/L (0-40); Blood Urea Nitrogen 6 mg/dL (8-23); Calcium 8.5 mg/dL (8.5-10.5); Carbon Dioxide 25 mmol/L (22-29); Chloride 102 mmol/L (98-107); Globulin 3.6 g/dL (1.3-4.6); Glomerular Filtration Rate 96.4 mL/min (90-130); Glucose 123 mg/dL (65-115); Osmolality Calculated 287 mOsm/kg (285-295); Sodium 139 mmol/L (136-145); Total Bilirubin 0.3 mg/dL (0.15-1.2); Total Protein 7.5 g/dL (6.6-8.7)
[2021-09-07 10:29] LABS: Anion Gap 15.6 (5-19); Potassium 3.6 mmol/L (3.5-5.1)
[2021-09-07] MEDS: palonosetron 0.25 mg/5 mL SDV IV (10:40)
[2021-09-07] MEDS: sodium chloride 0.9% 250 ML 75 ML IV (10:40)
[2021-09-07 11:26] LABS: Carcinoembryonic Antigen 5.6 ng/mL (0.0-4.7)
--- NOTE | 2021-09-08 06:33 | ONC FU_ITS ---
Dr. Topete Patient Follow-Up Note Patient: Ry Potter Unit #: [id number]: [id number] Dicatated By: Luis Topete M.D.Date of Visit:Sep 07, 2021 Onc Med Follow-up/Prog Note Chief Complaint: Colon cancer. 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 He had presented with abdominal pain and weight loss. His colonoscopy on 10/08/2020 showed a partially obstructing malignant appearing mass in the distal ascending colon, estimated at 7 x 5 cm. Also noted was a 3 mm polyp in the mid sigmoid colon and a 10 mm polyp in the rectum. Biopsies of the rectal mass showed moderately differentiated adenocarcinoma. The sigmoid colon polyp was hyperplastic. The rectal biopsy showed tubular adenoma with focal high-grade dysplasia. His staging CT scans of the chest, abdomen, and pelvis showed soft tissue encasement of the distal transverse colon/splenic flexure extending over a length of 7.2 cm. There was associated wall thickening measuring up to 2.2 cm with moderate narrowing of the lumen. There were no adjacent satellite lesions or nodules and there was no associated retroperitoneal or mesenteric adenopathy. There also was no evidence of other metastatic disease. His laboratory studies included CBC showing hemoglobin 13.2 g, white blood cell count 12,900, and platelet count 364,000. Comprehensive metabolic profile showed normal renal function with BUN 7 and creatinine 0.7 mg/dL. Bilirubin and liver enzymes were normal. His baseline CEA level was significantly elevated at 88.7 ng/mL. He was referred to Dr. Bennett. His repeat colonoscopy on 10/28/2020 showed near obstructing transverse colon carcinoma. There was no grossly apparent residual adenomatous tissue at the polypectomy site in the rectum. On 11/09/2020 he underwent extended right hemicolectomy with en bloc excision of abdominal wall, stomach, and omentum. Operative findings included a large tumor in the distal transverse colon which was invading the abdominal wall, body of stomach, and omentum. There was associated perforation of cancer into the omentum, abdominal wall and stomach and there were associated inflammatory changes of the adjacent organs and with marked thickening and erythema of the bowel. There was no evidence of abdominal carcinomatosis or metastatic involvement in the liver. Pathology showed well differentiated invasive adenocarcinoma which was involving the omentum, abdominal wall, and serosa of the stomach. The tumor measured 7.0 x 6.0 cm. The radial (abdominal wall) margin was involved with tumor present 0 to 1 mm from the margin. The proximal and distal margins were uninvolved. The gastric and mesenteric margins were uninvolved. There was involvement in 1 of 34 lymph nodes. Pathologic staging was pT4b, pN1a. His tumor was found to have intact expression of mismatch repair proteins. The procedure also included appendectomy with pathology showing evidence of acute appendicitis. I had seen him initially on 11/26/2020. He was still having difficulty recovering from the surgery. In particular, he was having significant issues with postprandial vomiting. He was recommended to undergo adjuvant chemotherapy, but at that point he needed additional time for recovery. On 11/30/2020 he was seen in the emergency room with complaints of dizziness and passing out. He was found to be hypokalemic, potassium 2.6 mmol/L. His CT abdomen/pelvis showed marked dilatation of the stomach with fluid and air. There was no evidence of bowel obstruction. At his follow-up visit on 12/14/2020 he was still had significant GI complaints, for which he was given symptomatic management. He was scheduled to return for follow-up in 2 weeks, but he did not keep that appointment. He was seen again for a follow-up visit on 02/16/2021. At that point he was feeling much better, and he indicated that he did want to take adjuvant chemotherapy. He began cycle 1 of adjuvant chemotherapy with modified FOLFOX on 02/22/2021. He tolerated it well. He continued with cycle 2 on 03/08/2021 and with cycle 3 on 03/23/2021. His 4th cycle had to be delayed due to neutropenia and thrombocytopenia. It was administered with reductions in the dosages of both the 5-FU and oxaliplatin. He tolerated it well and he continued with cycle 5 on 05/03/2021 and with cycle 6 on 05/17/2021. At that point there was a slight further increase in the CEA level to 6.3 ng/mL compared to 3.8 ng/mL in December 2020 and to a pretreatment level of 5.2 ng/mL on 02/22/2021. With that change, his treatment was put on hold. Restaging CT scans of the chest, abdomen, and pelvis on 06/04/2021 showed diffuse nodular wall thickening with luminal narrowing involving the sigmoid colon. There was associated focal nodular mass measuring 1.7 x 1.2 x 2.3 cm. Findings were new and they were felt to be suspicious for primary neoplasm or metastatic disease. A nodular metastatic implant or lymph node was noted in the mesentery measuring 9 mm located at the L4-5 level iliac bifurcation. A 2 mm noncalcified pulmonary nodule was noted in the left upper lobe along the fissure. Both were new from the November 2020 study and suspicious for metastatic disease. With those findings, he had further evaluation with colonoscopy on 06/30/2021. There were no abnormal findings other than internal hemorrhoids. In the meantime, a next generation sequencing was requested on the primary tumor. It did show presence of a KRAS exon 2 mutation. Also noted was an exon 10 PIK3CA mutation. The tumor was negative for overexpression of HER-2/anselmo and it was MSI stable. The tumor mutational burden was low at 6 mut/MB. Restaging PET/CT on 07/17/2021 showed a sigmoid mass measuring 2.7 x 3.3 cm with SUV 17.4, indicating high probability of malignancy. A solid lesion at the mesenteric root at the aortic bifurcation measuring 1.2 cm had an SUV of 10.3, also consistent with malignancy. Other scattered mesenteric nodes were too small to characterize. A 6 mm nodule in the left lung at the major fissure was felt to be strongly suspicious for metastatic disease, though the SUV was low at 1.4. Overall, the findings were consistent with recurrent/metastatic disease. As the pattern of involvement did not appear to be amenable to either radiation or surgical resection, he was recommended to begin treatment with a FOLFIRI regimen in combination with bevacizumab. His other medical illnesses include hypertension, hyperlipidemia, GERD, degenerative arthritis, and benign prostatic hypertrophy. He has a history of alcohol abuse, but he has reduced his alcohol use significantly. He also has a history of smoking 2 packs of cigarettes daily, but he quit smoking in 1997. INTERIM HISTORY: He began cycle 1 of FOLFIRI/bevacizumab on 08/03/2021. He tolerated it without acute toxicity. His cycle 2 was delayed due to neutropenia, and it was administered with Neulasta prophylactically. He is seen for a scheduled visit. He says he felt really tired for 3 or 4 days after his last treatment. His energy level has since then been okay. His ECOG score is 1. He has good appetite. He has no fever or night sweats. He always has sinus drainage, and he does have some cough with it. He has not had sore mouth or throat. He does not complain of shortness of breath or chest pain. His stools have been a little thin, but not diarrhea. He has no other GI or complaints. He has some joint pain, mainly in the knees. He does not complain of headache. He does have some symptoms of positional vertigo, and he has occasional orthostatic lightheadedness. He still has some residual numbness in his fingers. Medications: amLODIPine Besylate 1 (5 mg) Tablet Oral daily, LORazepam (1 mg) Tablet Oral Take as Directed, Metoclopramide HCl (10 mg) Tablet Oral at bedtime, Pantoprazole Sodium 1 (40 mg) Tablet, enteric coated Oral daily Allergies: No Known Allergies. Vital Signs: Performed on Sep 07, 2021 10:09 Height - 72.00 in Weight - 189.4 lbs (HIGH) BSA - 2.08 sq.m BMI - 25.69 Temperature - 98.6 F Pulse - 80 /min Respiration - 18 /min BP - 138/86 mm(hg) O2 Sat - 97 % Pain - 0 Fatigue - 0 Physical Examination: Constitutional - He looks good generally, Eyes - Sclerae nonicteric. Conjunctivae clear, ENMT - No lesions noted in the oral cavity, Hematologic/Lymphatic - No cervical, clavicular, or axillary adenopathy, Respiratory - Lungs are clear with good air movement bilaterally, Cardiovascular - Heart rhythm is regular. There is no murmur, gallop, or rub noted, Abdomen - Mildly distended but soft. Liver and spleen are not enlarged. There is no abdominal mass or ascites noted and there is no inguinal adenopathy, Extremities - No edema, Neurologic - No focal neurologic deficits noted. Lab/Imaging: Test performed on Sep 07, 2021 09:30 Sodium 139 mmol/L Potassium 3.6 mmol/L Chloride 102 mmol/L CO2 25 mmol/L Anion Gap 15.6 BUN 6 mg/dL Creatinine 0.8 mg/dL Cr Clearance (Est) 108.1900 mL/min eGFR 96.4 mL/min Glucose 123 mg/dL Osmolality - Calculated 287 mOsm/kg Calcium 8.5 mg/dL Protein, Total 7.5 g/dL Albumin 3.9 g/dL Globulin 3.6 g/dL Bilirubin, Total 0.3 mg/dL ALT (SGPT) 23 U/L AST (SGOT) 31 U/L Alkaline Phosphatase 134 IU/L WBC 8.7 10 3/uL RBC 4.61 10 6/uL HGB 14.0 g/dL HCT 41.1 % MCV 89.2 fl MCH 30.4 pg MCHC 34.1 g/dL RDW 12.6 % Platelet Count 157 10 3/cmm MPV 9.5 fL Neutrophils 5.97 10 3/uL Lymphocytes 1.7 10 3/uL Monocytes 0.7 10 3/uL Eosinophils 0.1 10 3/uL Basophils 0.1 10 3/uL Neutrophil % 69.0 % Lymphocyte % 20.1 % Monocyte % 7.5 % Eosinophil % 1.4 % Basophils % 0.6 % NRBC % 0 % CEA 5.6 ng/mL Problem List: 1. Well differentiated adenocarcinoma of the transverse colon, stage IIIC (pT4b, pN1a, M0). His tumor was found to harbor a KRAS mutation at exon 2. It was found to have intact expression of mismatch repair proteins. 2. Hypertension. 3. Hyperlipidemia. 4. GERD. 5. Degenerative arthritis. 6. Alcohol abuse. 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 His tumor was found to have intact expression of mismatch repair proteins. On 11/09/2020 he underwent extended right hemicolectomy with en bloc resection of involved portion of abdominal wall, stomach, and omentum. There was associated tumor perforation. There was involvement in 1/3 4 lymph nodes, and pathology also showed involvement at the radial (abdominal wall) margin, estimated at 0.5 mm. With those findings, he was advised that he was at increased risk for recurrence, and he was recommended to have adjuvant chemotherapy with modified FOLFOX. However, his postoperative course was complicated by postprandial vomiting. At his ER visit on 11/30/[address] abdomen/pelvis showed gastric distention with air and fluid, and he was found to be significantly hypokalemic. He continued symptomatic management, and he did show gradual recovery, but those complications did result in a significant delay in his adjuvant therapy. As of his follow-up visit on 02/16/2021 he was feeling much better, at that point he indicated that he did want to proceed with adjuvant chemotherapy. On 02/22/2021 he began cycle 1 of modified FOLFOX. He tolerated it extremely well. He then continued with cycle 2 on 03/08/2021 and with cycle 3 on 03/23/2021. His 4th cycle had to be delayed due to neutropenia and thrombocytopenia, and was administered with reductions in the dosages of the 5-FU and oxaliplatin. With dose reductions, his blood counts remained adequate. He continued with cycle 5 on 05/03/2021 and with cycle 6 on 05/17/2021. As of his cycle 6 treatment there was a slight further increase in the CEA level. With that finding, his treatment was put on hold. Restaging CT scans of the chest, abdomen, and pelvis on 06/04/2021 showed diffuse nodular wall thickening and luminal narrowing of the sigmoid colon, a nodular metastatic implant or lymph node within the mesentery measuring 9 mm, and a 2 mm left upper lobe pulmonary nodule. The findings were new from the prior CT in November 2020 and they were felt to be suspicious for metastatic disease. A repeat colonoscopy on 06/30/2021 showed no abnormalities other than internal hemorrhoids. Restaging PET/CT on 07/17/2021 showed a sigmoid mass measuring 2.7 x 3.3 cm with SUV 17.4, indicating high probability of malignancy. A solid lesion at the mesenteric root at the aortic bifurcation measuring 1.2 cm had an SUV of 10.3, also consistent with malignancy. A 6 mm nodule in the left lung at the major fissure was felt to be strongly suspicious for metastatic disease, though the SUV was low at 1.4. In the meantime, a next generation sequencing was requested on the primary tumor. It did show presence of a KRAS exon 2 mutation. Also noted was an exon 10 PIK3CA mutation. The tumor was negative for overexpression of HER-2/anselmo and it was MSI stable. The tumor mutational burden was low at 6 mut/MB. Overall, the findings were consistent with recurrent/metastatic disease. He then began cycle 1 of second line treatment with FOLFIRI chemotherapy in combination with bevacizumabon 08/03/2021. His cycle 2 was delayed due to neutropenia, and it was administered with Neulasta prophylactically. He has having some fatigue with the chemotherapy, but he is otherwise tolerating it well. He does appear to be showing response by CEA level. He will proceed now with cycle 3 of FOLFIRI/bevacizumab. The dosages remain the same, and it will be administered with Neulasta prophylactically. He returns in 2 weeks. Signed By: Luis Topete M.D. <<Signature on File>>
[2021-09-09] MEDS: pegfilgrastim-bmez 6 mg/0.6 mL SYR SUBCUT (13:18)
== END 2021-09-11 23:59 | disposition home or self-care (01) ==
LOC: ONCMED 06:41
PROVIDERS: Nurse Practitioner Family; PCP Internal Medicine; Visit Provider Internal Medicine Medical Oncology
DX: Z51.11 Encounter for antineoplastic chemotherapy (principal); C18.4 Malignant neoplasm of transverse colon; C77.8 Secondary and unspecified malignant neoplasm of lymph nodes of multiple regions; C79.2 Secondary malignant neoplasm of skin; C78.5 Secondary malignant neoplasm of large intestine and rectum; C78.02 Secondary malignant neoplasm of left lung; R11.15 Cyclical vomiting syndrome unrelated to migraine; E87.6 Hypokalemia; D70.1 Agranulocytosis secondary to cancer chemotherapy; T45.1X5A Adverse effect of antineoplastic and immunosuppressive drugs, initial encounter; D69.59 Other secondary thrombocytopenia; K64.8 Other hemorrhoids; R53.83 Other fatigue; Z79.899 Other long term (current) drug therapy
CPT/HCPCS: 36591; 80053; 82378; 85025; 96367; 96368; 96372; 96374; 96375; 96413; 96415; 96416; 96417; 96523; 99214; 99215; J0461; J0640; J1100; J2469; J7050; J9190; J9206; Q5107; Q5120

== ENCOUNTER 2021-10-12 08:30 | Oncology outpatient (recurring) (ONCR) | payer MEDICARE, OTHER, SELFPAY ==
[2021-09-20 09:30] VITALS: BP 148/88; PULSE 74; RESP 16; TEMP 36.4; O2SAT 98
[2021-09-20 10:05] LABS: Basophils # 0.1 10^3/uL (0.0-0.1); Basophils % 0.7 %; Eosinophils # 0.1 10^3/uL (0.0-0.8); Eosinophils % 0.9 %; Hematocrit 39.5 % (42.0-52.0); Hemoglobin 13.6 g/dL (11.7-16.6); Lymphocytes # 1.7 10^3/uL (0.8-4.8); Lymphocytes % 18.7 %; Mean Corpuscular HGB Conc 34.4 g/dL (30.0-36.0); Mean Corpuscular Hemoglobin 30.4 pg (28.0-34.0); Mean Corpuscular Volume 88.2 fl (80-94); Mean Platelet Volume 9.2 fL (7.4-10.4); Monocytes # 0.8 10^3/uL (0.2-0.9); Monocytes % 8.6 %; Neutrophils # 6.33 10^3/uL (1.8-7.7); Neutrophils % 70.1 %; Nucleated Red Blood Cells % 0 %; Platelet Count 181 10^3/cmm (130-400); Red Blood Count 4.48 10^6/uL (4.1-5.3); Red Cell Distribution Width 13.2 % (12.1-15.1)
[2021-09-20 10:28] LABS: Alanine Aminotransferase 20 U/L (0-41); Albumin Level 4.1 g/dL (3.5-5.2); Alkaline Phosphatase 125 IU/L (40-130); Anion Gap 14.6 (5-19); Aspartate Amino Transferase 24 U/L (0-40); Blood Urea Nitrogen 5 mg/dL (8-23); Calcium 9.6 mg/dL (8.5-10.5); Carbon Dioxide 26 mmol/L (22-29); Chloride 101 mmol/L (98-107); Globulin 2.9 g/dL (1.3-4.6); Glomerular Filtration Rate 112.5 mL/min (90-130); Glucose 98 mg/dL (65-115); Osmolality Calculated 283 mOsm/kg (285-295); Potassium 3.6 mmol/L (3.5-5.1); Sodium 138 mmol/L (136-145); Total Bilirubin 0.3 mg/dL (0.15-1.2)
[2021-09-21] MEDS: dextrose 5% 250 ML 75 ML IV (09:35)
[2021-09-21] MEDS: palonosetron 0.25 mg/5 mL SDV IVP (09:39)
[2021-09-21] MEDS: atropine 1 mg/mL SDV 1 mL 0.4 MG IV (09:40)
[2021-09-21] MEDS: leucovorin 820 MG in dextrose 5% 250 ML 221.33 MG IV (10:15)
[2021-09-21] MEDS: SODIUM CHLORIDE IV (12:34)
[2021-09-21] MEDS: ELASTOMERIC PUMP PUMP IV (12:34)
[2021-09-21] MEDS: FLUOROURACIL IV (12:34)
[2021-09-21 12:35] VITALS: BP 128/76; PULSE 71; RESP 16; TEMP 36.6; O2SAT 97
[2021-09-23 10:24] VITALS: BP 142/81; PULSE 71; RESP 16; TEMP 36.7; O2SAT 98
[2021-09-23] MEDS: pegfilgrastim-bmez 6 mg/0.6 mL SYR SUBCUT (10:26)
[2021-10-04 08:12] LABS: Add Urine Microscopic? NO; Charge for UA Resulting for Rev
[2021-10-04 08:53] LABS: Basophils # 0.1 10^3/uL (0.0-0.1); Basophils % 0.5 %; Eosinophils # 0.1 10^3/uL (0.0-0.8); Eosinophils % 0.6 %; Hematocrit 38.8 % (42.0-52.0); Hemoglobin 12.9 g/dL (11.7-16.6); Lymphocytes # 1.9 10^3/uL (0.8-4.8); Lymphocytes % 18.1 %; Mean Corpuscular HGB Conc 33.2 g/dL (30.0-36.0); Mean Corpuscular Hemoglobin 29.7 pg (28.0-34.0); Mean Corpuscular Volume 89.4 fl (80-94); Mean Platelet Volume 9.3 fL (7.4-10.4); Monocytes # 0.9 10^3/uL (0.2-0.9); Monocytes % 8.4 %; Neutrophils # 7.67 10^3/uL (1.8-7.7); Neutrophils % 71.7 %; Nucleated Red Blood Cells % 0 %; Platelet Count 195 10^3/cmm (130-400); Red Blood Count 4.34 10^6/uL (4.1-5.3); Red Cell Distribution Width 14.1 % (12.1-15.1); White Blood Count 10.7 10^3/uL (4.0-10.0)
[2021-10-04 08:58] LABS: Bilirubin Urine Neg (Negative); Blood Urine Neg (Negative); Glucose Urine UA Norm (Normal); Ketones Urine Negative (Negative); Leukocyte Esterase Urine Negative (Negative); Nitrate Urine Negative (Negative); Protein Urine Neg (Negative); Specific Gravity, Urine 1.015 (1.005-1.030); Urine Appearance Clear (CLEAR); Urine Color Yellow (Yellow); Urobilinogen Urine Norm (Negative); pH Urine 6.5 (5-7)
[2021-10-04 09:17] LABS: Alanine Aminotransferase 18 U/L (0-41); Alkaline Phosphatase 130 IU/L (40-130); Anion Gap 14.2 (5-19); Aspartate Amino Transferase 22 U/L (0-40); Blood Urea Nitrogen 5 mg/dL (8-23); Calcium 8.2 mg/dL (8.5-10.5); Carbon Dioxide 26 mmol/L (22-29); Chloride 101 mmol/L (98-107); Globulin 2.7 g/dL (1.3-4.6); Glomerular Filtration Rate 112.1 mL/min (90-130); Glucose 95 mg/dL (65-115); Osmolality Calculated 283 mOsm/kg (285-295); Potassium 3.2 mmol/L (3.5-5.1); Sodium 138 mmol/L (136-145); Total Bilirubin 0.5 mg/dL (0.15-1.2); Total Protein 6.7 g/dL (6.6-8.7)
--- NOTE | 2021-10-12 08:57 | PC.NURSE ---
Pt denies having diarrhea this week. Chemo tx delayed last week due to pt reporting diarrhea to Dr. Topete and low potassium. Lakhwinder Alvarez [employer] informed for tx this week./lakeisha
[2021-10-12 09:11] LABS: Basophils # 0.1 10^3/uL (0.0-0.1); Basophils % 0.8 %; Eosinophils # 0.1 10^3/uL (0.0-0.8); Eosinophils % 1.5 %; Hematocrit 40.1 % (42.0-52.0); Hemoglobin 13.6 g/dL (11.7-16.6); Lymphocytes # 1.7 10^3/uL (0.8-4.8); Lymphocytes % 22.9 %; Mean Corpuscular HGB Conc 33.9 g/dL (30.0-36.0); Mean Corpuscular Hemoglobin 30.7 pg (28.0-34.0); Mean Corpuscular Volume 90.5 fl (80-94); Mean Platelet Volume 9.4 fL (7.4-10.4); Monocytes # 0.8 10^3/uL (0.2-0.9); Monocytes % 10.9 %; Neutrophils # 4.69 10^3/uL (1.8-7.7); Neutrophils % 63.6 %; Nucleated Red Blood Cells % 0 %; Platelet Count 202 10^3/cmm (130-400); Red Blood Count 4.43 10^6/uL (4.1-5.3); Red Cell Distribution Width 14.7 % (12.1-15.1); White Blood Count 7.4 10^3/uL (4.0-10.0)
[2021-10-12 09:38] LABS: Carcinoembryonic Antigen 3.6 ng/mL (0.0-4.7)
[2021-10-12 09:49] LABS: Alanine Aminotransferase 21 U/L (0-41); Albumin Level 4.1 g/dL (3.5-5.2); Alkaline Phosphatase 109 IU/L (40-130); Anion Gap 14.1 (5-19); Aspartate Amino Transferase 27 U/L (0-40); Blood Urea Nitrogen 7 mg/dL (8-23); Calcium 9.4 mg/dL (8.5-10.5); Carbon Dioxide 26 mmol/L (22-29); Chloride 100 mmol/L (98-107); Globulin 3.4 g/dL (1.3-4.6); Glomerular Filtration Rate 96.1 mL/min (90-130); Glucose 105 mg/dL (65-115); Osmolality Calculated 280 mOsm/kg (285-295); Potassium 4.1 mmol/L (3.5-5.1); Sodium 136 mmol/L (136-145); Total Bilirubin 0.5 mg/dL (0.15-1.2); Total Protein 7.5 g/dL (6.6-8.7)
[2021-10-12] MEDS: dextrose 5% 250 ML 75 ML IV (10:56)
[2021-10-12] MEDS: palonosetron 0.25 mg/5 mL SDV IVP (10:58)
[2021-10-12] MEDS: atropine 1 mg/mL SDV 1 mL 0.4 MG IV (10:59)
[2021-10-12] MEDS: bevacizumab-awwb 400 MG, bevacizumab-awwb 10 MG in sodium chloride 0.9% (100 ml) 100 ML 200 MG IV (11:27)
[2021-10-12] MEDS: leucovorin 820 MG in dextrose 5% 250 ML 221.33 MG IV (12:09)
[2021-10-12] MEDS: ELASTOMERIC PUMP PUMP IV (13:55)
[2021-10-12] MEDS: FLUOROURACIL IV (13:55)
[2021-10-12] MEDS: SODIUM CHLORIDE IV (13:55)
[2021-10-12 14:01] VITALS: BP 133/83; PULSE 65; RESP 16; TEMP 36; O2SAT 99
== END 2021-10-12 23:59 | disposition home or self-care (01) ==
PROVIDERS: Nurse Practitioner Family; PCP Internal Medicine; Visit Provider Internal Medicine Medical Oncology
DX: C18.4 Malignant neoplasm of transverse colon (principal)
CPT/HCPCS: 36591; 80053; 81003; 82378; 85025; 96367; 96368; 96372; 96375; 96413; 96415; 96416; 96417; 96523; 99214; 99999; J0461; J0640; J1100; J2469; J9190; J9206; Q5107; Q5120

== ENCOUNTER 2021-10-26 07:48 | Oncology outpatient (recurring) (ONCR) | payer MEDICARE, OTHER, SELFPAY ==
[2021-10-26 08:03] LABS: Add Urine Microscopic? NO; Charge for UA Resulting for Rev
[2021-10-26 08:38] LABS: Basophils # 0.1 10^3/uL (0.0-0.1); Basophils % 0.6 %; Eosinophils # 0.1 10^3/uL (0.0-0.8); Hemoglobin 13.1 g/dL (11.7-16.6); Lymphocytes # 1.6 10^3/uL (0.8-4.8); Lymphocytes % 18.4 %; Mean Corpuscular HGB Conc 33.6 g/dL (30.0-36.0); Mean Corpuscular Hemoglobin 30.3 pg (28.0-34.0); Mean Corpuscular Volume 90.1 fl (80-94); Mean Platelet Volume 9.6 fL (7.4-10.4); Monocytes # 0.6 10^3/uL (0.2-0.9); Monocytes % 6.4 %; Neutrophils # 6.33 10^3/uL (1.8-7.7); Neutrophils % 72.8 %; Nucleated Red Blood Cells % 0 %; Platelet Count 146 10^3/cmm (130-400); Red Blood Count 4.33 10^6/uL (4.1-5.3); Red Cell Distribution Width 15.2 % (12.1-15.1); White Blood Count 8.7 10^3/uL (4.0-10.0)
[2021-10-26 08:41] LABS: Bilirubin Urine Neg (Negative); Blood Urine Neg (Negative); Glucose Urine UA Norm (Normal); Ketones Urine Negative (Negative); Leukocyte Esterase Urine Negative (Negative); Nitrate Urine Negative (Negative); Protein Urine Neg (Negative); Specific Gravity, Urine 1.005 (1.005-1.030); Urine Appearance Clear (CLEAR); Urine Color Straw (Yellow); Urobilinogen Urine Norm (Negative); pH Urine 7 (5-7)
[2021-10-26 08:57] LABS: Alanine Aminotransferase 16 U/L (0-41); Albumin Level 4.1 g/dL (3.5-5.2); Alkaline Phosphatase 129 IU/L (40-130); Anion Gap 12.7 (5-19); Aspartate Amino Transferase 22 U/L (0-40); Blood Urea Nitrogen 6 mg/dL (8-23); Calcium 9.3 mg/dL (8.5-10.5); Carbon Dioxide 26 mmol/L (22-29); Chloride 102 mmol/L (98-107); Globulin 3.1 g/dL (1.3-4.6); Glomerular Filtration Rate 96.1 mL/min (90-130); Glucose 126 mg/dL (65-115); Osmolality Calculated 283 mOsm/kg (285-295); Potassium 3.7 mmol/L (3.5-5.1); Sodium 137 mmol/L (136-145); Total Bilirubin 0.5 mg/dL (0.15-1.2); Total Protein 7.2 g/dL (6.6-8.7)
== END 2021-11-11 23:59 | disposition home or self-care (01) ==
PROVIDERS: PCP Internal Medicine; Visit Provider Nurse Practitioner Family
DX: C18.4 Malignant neoplasm of transverse colon (principal)
CPT/HCPCS: 80053; 81003; 85025; 99214

== ENCOUNTER 2021-11-11 13:00 | Oncology outpatient (recurring) (ONCR) | payer MEDICARE, OTHER, SELFPAY ==
[2021-10-14] MEDS: pegfilgrastim-bmez 6 mg/0.6 mL SYR SUBCUT (11:19)
[2021-10-26] MEDS: palonosetron 0.25 mg/5 mL SDV IVP (10:41)
[2021-10-26] MEDS: dextrose 5% 250 ML 75 ML IV (10:41)
[2021-10-26] MEDS: atropine 1 mg/mL SDV 1 mL 0.4 MG IV (10:42)
[2021-10-26] MEDS: bevacizumab-awwb 400 MG, bevacizumab-awwb 10 MG in sodium chloride 0.9% (100 ml) 100 ML 300 MG IV (11:17)
[2021-10-26] MEDS: leucovorin 660 MG in dextrose 5% 250 ML 210.67 MG IV (11:44)
[2021-10-26] MEDS: IRINOTECAN IV (11:44)
[2021-10-26] MEDS: DEXTROSE 5% IV (11:44)
[2021-10-26] MEDS: FLUOROURACIL IV (13:18)
[2021-10-26] MEDS: SODIUM CHLORIDE IV (13:18)
[2021-10-26] MEDS: ELASTOMERIC PUMP PUMP IV (13:18)
[2021-10-28] MEDS: pegfilgrastim-bmez 6 mg/0.6 mL SYR SUBCUT (11:00)
[2021-11-09 08:03] LABS: Add Urine Microscopic? NO; Charge for UA Resulting for Rev
[2021-11-09 08:35] LABS: Basophils # 0.1 10^3/uL (0.0-0.1); Basophils % 0.7 %; Eosinophils # 0.1 10^3/uL (0.0-0.8); Eosinophils % 0.6 %; Hematocrit 36.7 % (42.0-52.0); Hemoglobin 12.4 g/dL (11.7-16.6); Lymphocytes # 1.5 10^3/uL (0.8-4.8); Lymphocytes % 17.2 %; Mean Corpuscular HGB Conc 33.8 g/dL (30.0-36.0); Mean Corpuscular Hemoglobin 30.1 pg (28.0-34.0); Mean Corpuscular Volume 89.1 fl (80-94); Mean Platelet Volume 9.2 fL (7.4-10.4); Monocytes # 0.7 10^3/uL (0.2-0.9); Monocytes % 8.4 %; Neutrophils # 6.28 10^3/uL (1.8-7.7); Neutrophils % 72.4 %; Nucleated Red Blood Cells % 0 %; Platelet Count 146 10^3/cmm (130-400); Red Blood Count 4.12 10^6/uL (4.1-5.3); Red Cell Distribution Width 15.1 % (12.1-15.1); White Blood Count 8.7 10^3/uL (4.0-10.0)
[2021-11-09 08:37] LABS: Bilirubin Urine Neg (Negative); Blood Urine Neg (Negative); Glucose Urine UA Norm (Normal); Ketones Urine Negative (Negative); Leukocyte Esterase Urine Negative (Negative); Nitrate Urine Negative (Negative); Protein Urine Neg (Negative); Urine Appearance Clear (CLEAR); Urine Color Yellow (Yellow); Urobilinogen Urine Norm (Negative); pH Urine 7 (5-7)
[2021-11-09 09:00] LABS: Alanine Aminotransferase 22 U/L (0-41); Albumin Level 4.1 g/dL (3.5-5.2); Alkaline Phosphatase 127 IU/L (40-130); Anion Gap 12.6 (5-19); Aspartate Amino Transferase 25 U/L (0-40); Blood Urea Nitrogen 7 mg/dL (8-23); Calcium 9.4 mg/dL (8.5-10.5); Carbon Dioxide 27 mmol/L (22-29); Chloride 102 mmol/L (98-107); Globulin 2.9 g/dL (1.3-4.6); Glomerular Filtration Rate 96.1 mL/min (90-130); Glucose 113 mg/dL (65-115); Osmolality Calculated 285 mOsm/kg (285-295); Potassium 3.6 mmol/L (3.5-5.1); Sodium 138 mmol/L (136-145); Total Bilirubin 0.5 mg/dL (0.15-1.2)
[2021-11-09 09:30] VITALS: BMI 25.7
[2021-11-09] MEDS: atropine 1 mg/mL SDV 1 mL 0.4 MG IV (09:56)
[2021-11-09] MEDS: dextrose 5% 250 ML 75 ML IV (09:59)
[2021-11-09] MEDS: palonosetron 0.25 mg/5 mL SDV IVP (10:00)
[2021-11-09] MEDS: DEXTROSE 5% IV (10:37)
[2021-11-09] MEDS: IRINOTECAN IV (10:37)
[2021-11-09] MEDS: leucovorin 660 MG in dextrose 5% 250 ML 210.67 MG IV (10:39)
[2021-11-09 11:00] LABS: Carcinoembryonic Antigen 3.7 ng/mL (0.0-4.7)
[2021-11-09] MEDS: bevacizumab-awwb 400 MG, bevacizumab-awwb 10 MG in sodium chloride 0.9% (100 ml) 100 ML 240 MG IV (12:09)
[2021-11-09] MEDS: sodium chloride 0.9% (100 ml) 100 ML 75 ML (12:10)
[2021-11-09] MEDS: SODIUM CHLORIDE IV (12:54)
[2021-11-09] MEDS: FLUOROURACIL IV (12:54)
[2021-11-09] MEDS: ELASTOMERIC PUMP PUMP IV (12:54)
[2021-11-09 13:00] VITALS: BP 145/89; PULSE 84; RESP 18; TEMP 36.6; O2SAT 98
[2021-11-11 09:34] VITALS: BP 130/77; PULSE 74; RESP 18; TEMP 36.6; O2SAT 97
[2021-11-11] MEDS: pegfilgrastim-bmez 6 mg/0.6 mL SYR SUBCUT (09:35)
== END 2021-11-11 23:59 | disposition home or self-care (01) ==
PROVIDERS: Nurse Practitioner Family; PCP Internal Medicine; Visit Provider Internal Medicine Medical Oncology
DX: Z51.11 Encounter for antineoplastic chemotherapy (principal); C18.4 Malignant neoplasm of transverse colon; Z53.9 Procedure and treatment not carried out, unspecified reason
CPT/HCPCS: 80053; 81003; 82378; 85025; 96367; 96368; 96372; 96375; 96413; 96415; 96416; 96417; 96523; 99214; J0461; J0640; J1100; J2469; J9190; J9206; Q5107; Q5120

== ENCOUNTER → 2021-11-23 07:54 | Outpatient (BNVA) | payer MEDICARE, OTHER, SELFPAY | PROVIDERS: PCP Internal Medicine; Visit Provider Nurse Practitioner Family | DX: Z51.11 Encounter for antineoplastic chemotherapy (principal); C18.4 Malignant neoplasm of transverse colon; C78.6 Secondary malignant neoplasm of retroperitoneum and peritoneum; M17.0 Bilateral primary osteoarthritis of knee; Z79.899 Other long term (current) drug therapy | CPT/HCPCS: 99214; 99215 ==

== ENCOUNTER 2021-12-09 11:00 | Oncology outpatient (recurring) (ONCR) | payer MEDICARE, OTHER, SELFPAY ==
[2021-11-23 08:42] LABS: Basophils # 0.1 10^3/uL (0.0-0.1); Basophils % 0.7 %; Eosinophils # 0.1 10^3/uL (0.0-0.8); Eosinophils % 1.3 %; Hematocrit 36.2 % (42.0-52.0); Hemoglobin 12.1 g/dL (11.7-16.6); Lymphocytes # 1.5 10^3/uL (0.8-4.8); Mean Corpuscular HGB Conc 33.4 g/dL (30.0-36.0); Mean Corpuscular Hemoglobin 30.6 pg (28.0-34.0); Mean Corpuscular Volume 91.4 fl (80-94); Mean Platelet Volume 9.7 fL (7.4-10.4); Monocytes # 0.7 10^3/uL (0.2-0.9); Monocytes % 8.5 %; Neutrophils # 5.22 10^3/uL (1.8-7.7); Neutrophils % 68.6 %; Nucleated Red Blood Cells % 0 %; Platelet Count 145 10^3/cmm (130-400); Red Blood Count 3.96 10^6/uL (4.1-5.3); Red Cell Distribution Width 14.9 % (12.1-15.1); White Blood Count 7.6 10^3/uL (4.0-10.0)
[2021-11-23 08:58] LABS: Alanine Aminotransferase 22 U/L (0-41); Alkaline Phosphatase 134 IU/L (40-130); Blood Urea Nitrogen 9 mg/dL (8-23); Calcium 9.2 mg/dL (8.5-10.5); Carbon Dioxide 25 mmol/L (22-29); Chloride 101 mmol/L (98-107); Glomerular Filtration Rate 83.9 mL/min (90-130); Glucose 109 mg/dL (65-115); Osmolality Calculated 281 mOsm/kg (285-295); Sodium 136 mmol/L (136-145); Total Bilirubin 0.3 mg/dL (0.15-1.2)
[2021-11-23 09:03] LABS: Aspartate Amino Transferase 28 U/L (0-40)
[2021-11-23] MEDS: dextrose 5% 250 ML 75 ML IV (10:22)
[2021-11-23] MEDS: palonosetron 0.25 mg/5 mL SDV IVP (10:22)
[2021-11-23] MEDS: atropine 1 mg/mL SDV 1 mL 0.4 MG IV (10:23)
[2021-11-23] MEDS: bevacizumab-awwb 400 MG, bevacizumab-awwb 10 MG in sodium chloride 0.9% (100 ml) 100 ML 90 MG IV (10:44)
[2021-11-23] MEDS: IRINOTECAN IV (11:18)
[2021-11-23] MEDS: leucovorin 660 MG in dextrose 5% 250 ML 210.67 MG IV (11:18)
[2021-11-23] MEDS: DEXTROSE 5% IV (11:18)
[2021-11-23] MEDS: ELASTOMERIC PUMP PUMP IV (12:56)
[2021-11-23] MEDS: FLUOROURACIL IV (12:56)
[2021-11-23] MEDS: SODIUM CHLORIDE IV (12:56)
[2021-11-23 13:05] VITALS: BP 152/88; PULSE 67; RESP 16; TEMP 36.1; O2SAT 98
[2021-11-25] MEDS: pegfilgrastim-bmez 6 mg/0.6 mL SYR SUBCUT (11:45)
[2021-11-25 11:55] VITALS: BP 137/74; PULSE 18; RESP 76; TEMP 36.4; O2SAT 97
[2021-12-07 08:19] LABS: Add Urine Microscopic? NO; Charge for UA Resulting for Rev
[2021-12-07 08:24] LABS: Basophils % 0.6 %; Eosinophils # 0.1 10^3/uL (0.0-0.8); Eosinophils % 0.9 %; Hematocrit 36.5 % (42.0-52.0); Hemoglobin 11.7 g/dL (11.7-16.6); Lymphocytes # 1.4 10^3/uL (0.8-4.8); Lymphocytes % 19.2 %; Mean Corpuscular HGB Conc 32.1 g/dL (30.0-36.0); Mean Corpuscular Hemoglobin 30.5 pg (28.0-34.0); Mean Corpuscular Volume 95.1 fl (80-94); Mean Platelet Volume 9.5 fL (7.4-10.4); Monocytes # 0.5 10^3/uL (0.2-0.9); Monocytes % 7.1 %; Neutrophils # 5.01 10^3/uL (1.8-7.7); Neutrophils % 71.2 %; Nucleated Red Blood Cells % 0 %; Platelet Count 129 10^3/cmm (130-400); Red Blood Count 3.84 10^6/uL (4.1-5.3); Red Cell Distribution Width 14.6 % (12.1-15.1)
[2021-12-07 08:25] LABS: Urine Appearance Clear (CLEAR); Urine Color Yellow (Yellow)
[2021-12-07 08:26] LABS: Bilirubin Urine Neg (Negative); Blood Urine Neg (Negative); Glucose Urine UA Norm (Normal); Ketones Urine Negative (Negative); Leukocyte Esterase Urine Negative (Negative); Nitrate Urine Negative (Negative); Protein Urine Neg (Negative); Urobilinogen Urine Norm (Negative); pH Urine 5 (5-7)
[2021-12-07 09:05] LABS: Carcinoembryonic Antigen 3.7 ng/mL (0.0-4.7)
[2021-12-07 09:18] LABS: Alanine Aminotransferase 22 U/L (0-41); Albumin Level 3.9 g/dL (3.5-5.2); Alkaline Phosphatase 134 IU/L (40-130); Anion Gap 12.9 (5-19); Aspartate Amino Transferase 23 U/L (0-40); Blood Urea Nitrogen 8 mg/dL (8-23); Calcium 9.1 mg/dL (8.5-10.5); Carbon Dioxide 25 mmol/L (22-29); Chloride 103 mmol/L (98-107); Globulin 2.6 g/dL (1.3-4.6); Glomerular Filtration Rate 83.9 mL/min (90-130); Glucose 135 mg/dL (65-115); Osmolality Calculated 284 mOsm/kg (285-295); Potassium 3.9 mmol/L (3.5-5.1); Sodium 137 mmol/L (136-145); Total Bilirubin 0.2 mg/dL (0.15-1.2); Total Protein 6.5 g/dL (6.6-8.7)
[2021-12-07] MEDS: dextrose 5% 250 ML 75 ML IV (09:59)
[2021-12-07] MEDS: palonosetron 0.25 mg/5 mL SDV IVP (10:00)
[2021-12-07] MEDS: atropine 1 mg/mL SDV 1 mL 0.4 MG IV (10:01)
[2021-12-07] MEDS: bevacizumab-awwb 400 MG, bevacizumab-awwb 10 MG in sodium chloride 0.9% (100 ml) 100 ML 150 MG IV (10:32)
[2021-12-07] MEDS: IRINOTECAN IV (11:07)
[2021-12-07] MEDS: leucovorin 660 MG in dextrose 5% 250 ML 210.67 MG IV (11:07)
[2021-12-07] MEDS: DEXTROSE 5% IV (11:07)
[2021-12-07 12:50] VITALS: BP 154/79; PULSE 63; RESP 16; TEMP 35.8; O2SAT 98
[2021-12-07] MEDS: SODIUM CHLORIDE IV (12:55)
[2021-12-07] MEDS: ELASTOMERIC PUMP PUMP IV (12:55)
[2021-12-07] MEDS: FLUOROURACIL IV (12:55)
[2021-12-09] MEDS: pegfilgrastim-bmez 6 mg/0.6 mL SYR SUBCUT (10:41)
== END 2021-12-12 23:59 | disposition home or self-care (01) ==
PROVIDERS: PCP Internal Medicine; Visit Provider Internal Medicine Medical Oncology
DX: Z45.2 Encounter for adjustment and management of vascular access device (principal); Z53.9 Procedure and treatment not carried out, unspecified reason
CPT/HCPCS: 80053; 81003; 82378; 85025; 96367; 96368; 96372; 96375; 96413; 96415; 96416; 96417; 96523; 99215; J0461; J0640; J1100; J2469; J9190; J9206; Q5107; Q5120

== ENCOUNTER 2022-01-06 11:00 | Oncology outpatient (recurring) (ONCR) | payer MEDICARE, OTHER, SELFPAY ==
[2021-12-21 08:40] LABS: Basophils % 0.6 %; Eosinophils # 0.1 10^3/uL (0.0-0.8); Eosinophils % 1.2 %; Hematocrit 38.2 % (42.0-52.0); Hemoglobin 12.2 g/dL (11.7-16.6); Lymphocytes # 1.2 10^3/uL (0.8-4.8); Mean Corpuscular HGB Conc 31.9 g/dL (30.0-36.0); Mean Corpuscular Hemoglobin 30.4 pg (28.0-34.0); Mean Corpuscular Volume 95.3 fl (80-94); Mean Platelet Volume 9.9 fL (7.4-10.4); Monocytes # 0.7 10^3/uL (0.2-0.9); Monocytes % 10.8 %; Neutrophils # 4.57 10^3/uL (1.8-7.7); Neutrophils % 68.8 %; Nucleated Red Blood Cells % 0 %; Platelet Count 149 10^3/cmm (130-400); Red Blood Count 4.01 10^6/uL (4.1-5.3); Red Cell Distribution Width 14.6 % (12.1-15.1); White Blood Count 6.7 10^3/uL (4.0-10.0)
[2021-12-21 08:57] LABS: Alanine Aminotransferase 23 U/L (0-41); Albumin Level 3.9 g/dL (3.5-5.2); Alkaline Phosphatase 117 IU/L (40-130); Anion Gap 12.9 (5-19); Aspartate Amino Transferase 28 U/L (0-40); Blood Urea Nitrogen 7 mg/dL (8-23); Calcium 8.9 mg/dL (8.5-10.5); Carbon Dioxide 24 mmol/L (22-29); Chloride 104 mmol/L (98-107); Globulin 2.8 g/dL (1.3-4.6); Glomerular Filtration Rate 112.1 mL/min (90-130); Glucose 113 mg/dL (65-115); Osmolality Calculated 283 mOsm/kg (285-295); Potassium 3.9 mmol/L (3.5-5.1); Sodium 137 mmol/L (136-145); Total Bilirubin 0.3 mg/dL (0.15-1.2); Total Protein 6.7 g/dL (6.6-8.7)
[2021-12-21 10:30] LABS: Add Urine Microscopic? NO
[2021-12-21 10:31] LABS: Charge for UA Resulting for Rev
[2021-12-21 10:39] LABS: Bilirubin Urine Neg (Negative); Blood Urine Neg (Negative); Glucose Urine UA Norm (Normal); Ketones Urine Negative (Negative); Leukocyte Esterase Urine Negative (Negative); Nitrate Urine Negative (Negative); Protein Urine Neg (Negative); Specific Gravity, Urine 1.005 (1.005-1.030); Urine Appearance Clear (CLEAR); Urine Color Yellow (Yellow); Urobilinogen Urine Norm (Negative); pH Urine 6 (5-7)
[2021-12-21] MEDS: dextrose 5% 250 ML 75 ML IV (10:45)
[2021-12-21] MEDS: palonosetron 0.25 mg/5 mL SDV IVP (10:47)
[2021-12-21] MEDS: atropine 1 mg/mL SDV 1 mL 0.4 MG IV (10:48)
[2021-12-21] MEDS: bevacizumab-awwb 400 MG, bevacizumab-awwb 10 MG in sodium chloride 0.9% (100 ml) 100 ML 300 MG IV (11:21)
[2021-12-21] MEDS: leucovorin 660 MG in dextrose 5% 250 ML 210.67 MG IV (11:50)
[2021-12-21] MEDS: DEXTROSE 5% IV (11:51)
[2021-12-21] MEDS: IRINOTECAN IV (11:51)
[2021-12-21 13:21] VITALS: BP 124/81; PULSE 63; RESP 16; TEMP 36; O2SAT 97
[2021-12-21] MEDS: FLUOROURACIL IV (13:21)
[2021-12-21] MEDS: ELASTOMERIC PUMP PUMP IV (13:21)
[2021-12-21] MEDS: SODIUM CHLORIDE IV (13:21)
[2021-12-23 11:12] VITALS: BP 121/74; PULSE 75; RESP 18; TEMP 36.1; O2SAT 98
[2021-12-23] MEDS: pegfilgrastim-bmez 6 mg/0.6 mL SYR SUBCUT (11:13)
[2022-01-04 08:31] LABS: Basophils % 0.4 %; Eosinophils # 0.1 10^3/uL (0.0-0.8); Eosinophils % 2.3 %; Hematocrit 35.8 % (42.0-52.0); Hemoglobin 11.6 g/dL (11.7-16.6); Lymphocytes # 1.1 10^3/uL (0.8-4.8); Lymphocytes % 23.2 %; Mean Corpuscular HGB Conc 32.4 g/dL (30.0-36.0); Mean Corpuscular Hemoglobin 30.2 pg (28.0-34.0); Mean Corpuscular Volume 93.2 fl (80-94); Mean Platelet Volume 9.4 fL (7.4-10.4); Monocytes # 0.5 10^3/uL (0.2-0.9); Monocytes % 11.1 %; Neutrophils # 3.05 10^3/uL (1.8-7.7); Neutrophils % 62.4 %; Nucleated Red Blood Cells % 0 %; Platelet Count 119 10^3/cmm (130-400); Red Blood Count 3.84 10^6/uL (4.1-5.3); Red Cell Distribution Width 14.1 % (12.1-15.1); White Blood Count 4.9 10^3/uL (4.0-10.0)
[2022-01-04 08:58] LABS: Carcinoembryonic Antigen 3.8 ng/mL (0.0-4.7)
[2022-01-04 09:10] LABS: Alanine Aminotransferase 17 U/L (0-41); Albumin Level 3.6 g/dL (3.5-5.2); Alkaline Phosphatase 111 U/L (40-130); Anion Gap 13.7 (5-19); Aspartate Amino Transferase 20 U/L (0-40); Blood Urea Nitrogen 7 mg/dL (8-23); Calcium 8.6 mg/dL (8.5-10.5); Carbon Dioxide 26 mmol/L (22-29); Chloride 104 mmol/L (98-107); Globulin 2.6 g/dL (1.3-4.6); Glomerular Filtration Rate 96.1 mL/min (90-130); Glucose 124 mg/dL (65-115); Osmolality Calculated 289 mOsm/kg (285-295); Potassium 3.7 mmol/L (3.5-5.1); Sodium 140 mmol/L (136-145); Total Bilirubin 0.2 mg/dL (0.15-1.2); Total Protein 6.2 g/dL (6.6-8.7)
[2022-01-04] MEDS: dextrose 5% 250 ML 100 ML IV (10:17)
[2022-01-04] MEDS: palonosetron 0.25 mg/5 mL SDV IVP (10:18)
[2022-01-04] MEDS: bevacizumab-awwb 400 MG, bevacizumab-awwb 10 MG in sodium chloride 0.9% (100 ml) 100 ML 230 MG IV (10:47)
[2022-01-04] MEDS: atropine 1 mg/mL SDV 1 mL 0.4 MG IV (11:24)
[2022-01-04] MEDS: IRINOTECAN IV (11:37)
[2022-01-04] MEDS: DEXTROSE 5% IV (11:37)
[2022-01-04] MEDS: leucovorin 660 MG in dextrose 5% 250 ML 210.67 MG IV (11:37)
[2022-01-04] MEDS: FLUOROURACIL IV (13:10)
[2022-01-04] MEDS: SODIUM CHLORIDE IV (13:10)
[2022-01-04] MEDS: ELASTOMERIC PUMP PUMP IV (13:10)
[2022-01-06] MEDS: pegfilgrastim-bmez 6 mg/0.6 mL SYR SUBCUT (10:49)
== END 2022-01-07 11:19 | disposition home or self-care (01) ==
PROVIDERS: Nurse Practitioner; Nurse Practitioner Family; PCP Internal Medicine; Visit Provider Internal Medicine Medical Oncology
DX: Z45.2 Encounter for adjustment and management of vascular access device (principal); Z79.899 Other long term (current) drug therapy; C18.4 Malignant neoplasm of transverse colon
CPT/HCPCS: 80053; 81003; 82378; 85025; 96367; 96368; 96372; 96375; 96413; 96416; 96417; 96523; 99214; 99215; J0461; J0640; J1100; J2469; J9190; J9206; Q5107; Q5120

== ENCOUNTER → 2022-01-18 07:50 | Outpatient (BNVA) | payer MEDICARE, OTHER, SELFPAY | PROVIDERS: PCP Internal Medicine; Visit Provider Internal Medicine Medical Oncology | DX: Z53.9 Procedure and treatment not carried out, unspecified reason (principal) | CPT/HCPCS: 99214 ==

== ENCOUNTER → 2022-02-02 08:49 | Outpatient (BNVA) | payer MEDICARE, OTHER, SELFPAY | PROVIDERS: PCP Internal Medicine; Visit Provider Internal Medicine Medical Oncology | DX: C18.4 Malignant neoplasm of transverse colon (principal); C78.6 Secondary malignant neoplasm of retroperitoneum and peritoneum; C78.01 Secondary malignant neoplasm of right lung; C78.02 Secondary malignant neoplasm of left lung; K64.8 Other hemorrhoids; Z79.899 Other long term (current) drug therapy; Z87.891 Personal history of nicotine dependence | CPT/HCPCS: 99214 ==

== ENCOUNTER 2022-02-04 11:00 | Oncology outpatient (recurring) (ONCR) | payer MEDICARE, OTHER, SELFPAY ==
[2022-01-18 08:30] LABS: Basophils # 0.1 10^3/uL (0.0-0.1); Basophils % 0.5 %; Eosinophils # 0.2 10^3/uL (0.0-0.8); Eosinophils % 1.8 %; Hematocrit 40.2 % (42.0-52.0); Hemoglobin 12.9 g/dL (11.7-16.6); Lymphocytes # 1.5 10^3/uL (0.8-4.8); Lymphocytes % 16.6 %; Mean Corpuscular HGB Conc 32.1 g/dL (30.0-36.0); Mean Corpuscular Hemoglobin 29.9 pg (28.0-34.0); Mean Corpuscular Volume 93.1 fl (80-94); Mean Platelet Volume 9.7 fL (7.4-10.4); Monocytes # 0.9 10^3/uL (0.2-0.9); Monocytes % 9.9 %; Neutrophils # 6.47 10^3/uL (1.8-7.7); Neutrophils % 70.3 %; Nucleated Red Blood Cells % 0 %; Platelet Count 139 10^3/cmm (130-400); Red Blood Count 4.32 10^6/uL (4.1-5.3); Red Cell Distribution Width 14.1 % (12.1-15.1); White Blood Count 9.2 10^3/uL (4.0-10.0)
[2022-01-18 08:42] LABS: Alanine Aminotransferase 27 U/L (0-41); Albumin Level 4.1 g/dL (3.5-5.2); Alkaline Phosphatase 140 U/L (40-130); Anion Gap 11.8 (5-19); Aspartate Amino Transferase 33 U/L (0-40); Blood Urea Nitrogen 5 mg/dL (8-23); Calcium 9.1 mg/dL (8.5-10.5); Carbon Dioxide 27 mmol/L (22-29); Chloride 101 mmol/L (98-107); Globulin 3.1 g/dL (1.3-4.6); Glomerular Filtration Rate 112.1 mL/min (90-130); Glucose 105 mg/dL (65-115); Osmolality Calculated 280 mOsm/kg (285-295); Potassium 3.8 mmol/L (3.5-5.1); Sodium 136 mmol/L (136-145); Total Bilirubin 0.3 mg/dL (0.15-1.2); Total Protein 7.2 g/dL (6.6-8.7)
[2022-01-18] MEDS: dextrose 5% 250 ML 100 ML IV (09:23)
[2022-01-18] MEDS: palonosetron 0.25 mg/5 mL SDV IVP (09:24)
[2022-01-18] MEDS: bevacizumab-awwb 400 MG, bevacizumab-awwb 10 MG in sodium chloride 0.9% (100 ml) 100 ML 300 MG IV (09:58)
[2022-01-18 10:06] LABS: Carcinoembryonic Antigen 4.3 ng/mL (0.0-4.7)
[2022-01-18] MEDS: atropine 1 mg/mL SDV 1 mL 0.4 MG IV (10:34)
[2022-01-18] MEDS: leucovorin 660 MG in dextrose 5% 250 ML 210.67 MG IV (10:39)
[2022-01-18] MEDS: IRINOTECAN IV (10:39)
[2022-01-18] MEDS: DEXTROSE 5% IV (10:39)
[2022-01-18] MEDS: SODIUM CHLORIDE IV (12:14)
[2022-01-18] MEDS: FLUOROURACIL IV (12:14)
[2022-01-18] MEDS: ELASTOMERIC PUMP PUMP IV (12:14)
[2022-01-20 09:32] VITALS: BP 135/77; PULSE 77; RESP 18; TEMP 36.6; O2SAT 98
[2022-01-20] MEDS: pegfilgrastim-bmez 6 mg/0.6 mL SYR SUBCUT (09:37)
[2022-02-01 10:13] LABS: Basophils % 0.5 %; Eosinophils # 0.2 10^3/uL (0.0-0.8); Eosinophils % 2.1 %; Hematocrit 40.4 % (42.0-52.0); Hemoglobin 12.9 g/dL (11.7-16.6); Lymphocytes # 1.4 10^3/uL (0.8-4.8); Lymphocytes % 17.7 %; Mean Corpuscular HGB Conc 31.9 g/dL (30.0-36.0); Mean Corpuscular Hemoglobin 29.3 pg (28.0-34.0); Mean Corpuscular Volume 91.8 fl (80-94); Mean Platelet Volume 9.3 fL (7.4-10.4); Monocytes # 0.8 10^3/uL (0.2-0.9); Monocytes % 10.1 %; Neutrophils # 5.36 10^3/uL (1.8-7.7); Nucleated Red Blood Cells % 0 %; Platelet Count 147 10^3/cmm (130-400); Red Cell Distribution Width 14.2 % (12.1-15.1); White Blood Count 7.8 10^3/uL (4.0-10.0)
[2022-02-01 10:39] LABS: Carcinoembryonic Antigen 4.7 ng/mL (0.0-4.7)
[2022-02-01 10:50] LABS: Alanine Aminotransferase 21 U/L (0-41); Albumin Level 3.9 g/dL (3.5-5.2); Alkaline Phosphatase 124 U/L (40-130); Anion Gap 14.7 (5-19); Aspartate Amino Transferase 27 U/L (0-40); Blood Urea Nitrogen 5 mg/dL (8-23); Calcium 8.9 mg/dL (8.5-10.5); Carbon Dioxide 26 mmol/L (22-29); Chloride 100 mmol/L (98-107); Globulin 3.1 g/dL (1.3-4.6); Glomerular Filtration Rate 83.9 mL/min (90-130); Glucose 96 mg/dL (65-115); Osmolality Calculated 281 mOsm/kg (285-295); Potassium 3.7 mmol/L (3.5-5.1); Sodium 137 mmol/L (136-145); Total Bilirubin 0.4 mg/dL (0.15-1.2)
--- NOTE | 2022-02-01 14:24 | CT_ITS ---
WS: [id number] CT CHEST, ABDOMEN AND PELVIS WITH CONTRAST HISTORY: Restaging colon cancer. TECHNIQUE: Contiguous 5 mm axial imaging performed through the chest, abdomen and pelvis with IV cont rast, oral contrast has been provided. Coronal and sagittal reformats chest. Coronal and sagittal ref ormats through the abdomen and pelvis. All CT scans at [facility] use at least one of these d ose optimization techniques: automated exposure control; mA and/or kV adjustment per patient size (in cludes targeted exams where dose is matched to clinical indication); or iterative reconstruction. CONTRAST: Omnipaque 350; 95 mL IV. DLP: 1778.77 mGy.cm COMPARISON: 06/04/2021 and 11/30/2020, PET/CT 07/17/[address]: Mild pulmonary hyperexpansion. Previously described suspicious but indeterminate nodule yaniv ng the LEFT fissure is no longer evident. No new pulmonary mass, nodule and no pneumonia. No pericard ial or pleural effusion. Very minimal groundglass attenuation the periphery of the LEFT lower lobe co rresponds to a horizontal atelectasis. Heart size is normal. Very mild esophageal wall thickening. Mi ld atherosclerosis aorta with no aneurysm. Visualized pulmonary artery centrally is normally enhancin g. No destructive bone lesions. No mediastinal or hilar adenopathy. LEFT subclavian Mediport. Abdomen CT: Normal size liver. No metastatic lesions. Normal enhancement of the portal vein. Gallblad polly is contracted with no adjacent inflammation. Spleen is mildly enlarged at 14.1 cm. Negative pancr eas and adrenal glands. Mild atherosclerosis aorta with no aneurysm. No renal mass or obstruction. Th ere is a cyst within the upper pole LEFT kidney measuring 4.3 x 4.1 cm. No renal obstruction. Extrare nal pelvis on the LEFT. Stomach is well distended with contrast. Surgical sutures and clips are noted in involving the stomac h and antrum. There is some very mild wall thickening which could be due to underdistention. No small bowel obstruction. Prior RIGHT hemicolectomy. Previously described nodular mass involving the anteri or sigmoid has decreased in size. There is now a surgical suture with mild asymmetric wall thickening measuring 10 mm. The nodular mass has decreased in size. Asymmetric wall thickening of the sigmoid e xtends to the LEFT. No ascites. Mesenteric root lymph node that was PET/CT positive is no longer present. There is a prec aval lymph node which is stable at 6.5 mm. No new nodules or mesenteric implants. Pelvic CT: Urinary bladder is well distended. No free fluid or adenopathy. Scattered sclerotic foci are stable in the bones of the pelvis. Mixed sclerotic and lytic lesion is u nchanged in the RIGHT pubic rami. CT/CT chest abd pel w con* IMPRESSION: 1. Previously described nodule along the LEFT major fissure suspicious on PET/ CT is no longer evident. 2. No new pulmonary nodules and no adenopathy in the thorax. 3. Nodular neoplasm along the anterior sigmoid has significantly decreased in size and there is now an adjacent surgical clip. Anterior wall thickening measu res 10 mm with mild sigmoid wall thickening to the LEFT. Recommend continued CT surveillance. 4. Previously described mesenteric lymph node is no longer identified. No new lymph nodes or implants within the abdomen and pelvis. 5. Prior RIGHT hemicolectomy. 6. No metastatic disease to the liver or adrenal glands. 7. Mild esophagitis.
[2022-02-01] MEDS: iohexol 350 mg/mL 100 mL Btl IV (15:55)
[2022-02-01] MEDS: barium sulfate 450 mL Oral Susp PO (15:55)
[2022-02-02] MEDS: sodium chloride 0.9% (100 ml) 100 ML 75 ML (10:00)
[2022-02-02] MEDS: palonosetron 0.25 mg/5 mL SDV IVP (10:00)
[2022-02-02] MEDS: atropine 1 mg/mL SDV 1 mL 0.4 MG IV (10:02)
[2022-02-02] MEDS: bevacizumab-awwb 400 MG in sodium chloride 0.9% (100 ml) 100 ML 300 MG IV (10:21)
[2022-02-02] MEDS: irinotecan 300 MG in dextrose 5% 250 ML 176.67 MG IV (10:55)
[2022-02-02] MEDS: leucovorin 680 MG in dextrose 5% 250 ML 212 MG IV (10:55)
[2022-02-02] MEDS: dextrose 5% 250 ML 75 ML IV (10:57)
[2022-02-02] MEDS: fluorouraciL 5,050 MG, elastomeric pump 1 PUMP in sodium chloride 0.9% (100 ml) 129 ML IV (12:42)
[2022-02-02 12:44] VITALS: BP 132/81; PULSE 65; RESP 16; TEMP 36.2; O2SAT 98
[2022-02-04] MEDS: pegfilgrastim-bmez 6 mg/0.6 mL SYR SUBCUT (11:10)
== END 2022-02-11 23:59 | disposition home or self-care (01) ==
PROVIDERS: Nurse Practitioner; PCP Internal Medicine; Visit Provider Internal Medicine Medical Oncology
DX: Z45.2 Encounter for adjustment and management of vascular access device (principal)
CPT/HCPCS: 36415; 36591; 71260; 74177; 80053; 82378; 85025; 96367; 96368; 96372; 96375; 96401; 96413; 96415; 96416; 96417; 96523; 99214; J0461; J0640; J1100; J2469; J9190; J9206; Q5107; Q5120

== ENCOUNTER 2022-03-10 10:30 | Oncology outpatient (recurring) (ONCR) | payer MEDICARE, OTHER, SELFPAY ==
[2022-02-16 08:41] LABS: Basophils # 0.1 10^3/uL (0.0-0.1); Basophils % 0.6 %; Eosinophils # 0.2 10^3/uL (0.0-0.8); Eosinophils % 2.2 %; Hematocrit 38.4 % (42.0-52.0); Hemoglobin 12.4 g/dL (11.7-16.6); Lymphocytes # 1.2 10^3/uL (0.8-4.8); Lymphocytes % 14.1 %; Mean Corpuscular HGB Conc 32.3 g/dL (30.0-36.0); Mean Corpuscular Hemoglobin 29.5 pg (28.0-34.0); Mean Corpuscular Volume 91.4 fl (80-94); Mean Platelet Volume 9.3 fL (7.4-10.4); Monocytes # 0.8 10^3/uL (0.2-0.9); Monocytes % 9.4 %; Neutrophils # 6.23 10^3/uL (1.8-7.7); Neutrophils % 72.9 %; Nucleated Red Blood Cells % 0 %; Platelet Count 154 10^3/cmm (130-400); Red Cell Distribution Width 14.6 % (12.1-15.1); White Blood Count 8.5 10^3/uL (4.0-10.0)
[2022-02-16 08:58] LABS: Alanine Aminotransferase 15 U/L (0-41); Albumin Level 3.7 g/dL (3.5-5.2); Alkaline Phosphatase 133 U/L (40-130); Anion Gap 15.8 (5-19); Aspartate Amino Transferase 26 U/L (0-40); Blood Urea Nitrogen 4 mg/dL (8-23); Calcium 9.1 mg/dL (8.5-10.5); Carbon Dioxide 26 mmol/L (22-29); Chloride 101 mmol/L (98-107); Globulin 2.8 g/dL (1.3-4.6); Glomerular Filtration Rate 96.1 mL/min (90-130); Glucose 103 mg/dL (65-115); Osmolality Calculated 285 mOsm/kg (285-295); Potassium 3.8 mmol/L (3.5-5.1); Sodium 139 mmol/L (136-145); Total Bilirubin 0.4 mg/dL (0.15-1.2); Total Protein 6.5 g/dL (6.6-8.7)
[2022-02-16] MEDS: dextrose 5% 250 ML 100 ML IV (09:41)
[2022-02-16] MEDS: palonosetron 0.25 mg/5 mL SDV IVP (09:42)
[2022-02-16] MEDS: bevacizumab-awwb 400 MG, bevacizumab-awwb 40 MG in sodium chloride 0.9% (100 ml) 100 ML 300 MG IV (10:18)
[2022-02-16] MEDS: atropine 1 mg/mL SDV 1 mL 0.4 MG IV (10:51)
[2022-02-16] MEDS: irinotecan 300 MG, irinotecan 10 MG in dextrose 5% 250 ML 177 MG IV (10:55)
[2022-02-16] MEDS: leucovorin 680 MG in dextrose 5% 250 ML 212 MG IV (10:55)
[2022-02-16] MEDS: fluorouraciL 5,100 MG, elastomeric pump 1 PUMP in sodium chloride 0.9% (100 ml) 128 ML IV (12:28)
[2022-02-18] MEDS: pegfilgrastim-bmez 6 mg/0.6 mL SYR SUBCUT (11:16)
[2022-03-01 10:20] VITALS: BP 149/84; PULSE 99; RESP 18; TEMP 37.5; O2SAT 97
[2022-03-01 10:35] LABS: Add Urine Microscopic? NO; Charge for UA Resulting for Rev
[2022-03-01 10:36] LABS: Basophils # 0.1 10^3/uL (0.0-0.1); Basophils % 0.7 %; Eosinophils # 0.2 10^3/uL (0.0-0.8); Hematocrit 37.6 % (42.0-52.0); Lymphocytes # 1.2 10^3/uL (0.8-4.8); Lymphocytes % 15.9 %; Mean Corpuscular HGB Conc 31.9 g/dL (30.0-36.0); Mean Corpuscular Volume 90.8 fl (80-94); Mean Platelet Volume 9.6 fL (7.4-10.4); Monocytes # 0.9 10^3/uL (0.2-0.9); Monocytes % 11.4 %; Neutrophils % 69.1 %; Nucleated Red Blood Cells % 0 %; Platelet Count 143 10^3/cmm (130-400); Red Blood Count 4.14 10^6/uL (4.1-5.3); Red Cell Distribution Width 14.6 % (12.1-15.1); White Blood Count 7.7 10^3/uL (4.0-10.0)
[2022-03-01 10:43] LABS: Bilirubin Urine Neg (Negative); Blood Urine Neg (Negative); Glucose Urine UA Norm (Normal); Ketones Urine Negative (Negative); Leukocyte Esterase Urine Negative (Negative); Nitrate Urine Negative (Negative); Protein Urine Neg (Negative); Urine Appearance Clear (CLEAR); Urine Color Yellow (Yellow); Urobilinogen Urine Norm (Negative); pH Urine 5 (5-7)
[2022-03-01 10:57] LABS: Alanine Aminotransferase 24 U/L (0-41); Albumin Level 3.5 g/dL (3.5-5.2); Alkaline Phosphatase 135 U/L (40-130); Anion Gap 12.3 (5-19); Aspartate Amino Transferase 28 U/L (0-40); Blood Urea Nitrogen 6 mg/dL (8-23); Calcium 9.1 mg/dL (8.5-10.5); Carbon Dioxide 26 mmol/L (22-29); Chloride 101 mmol/L (98-107); Globulin 3.4 g/dL (1.3-4.6); Glomerular Filtration Rate 112.1 mL/min (90-130); Glucose 115 mg/dL (65-115); Osmolality Calculated 281 mOsm/kg (285-295); Potassium 3.3 mmol/L (3.5-5.1); Sodium 136 mmol/L (136-145); Total Bilirubin 0.4 mg/dL (0.15-1.2); Total Protein 6.9 g/dL (6.6-8.7)
[2022-03-01 11:27] LABS: Carcinoembryonic Antigen 5.2 ng/mL (0.0-4.7)
[2022-03-08 08:10] VITALS: BP 135/80; PULSE 87; RESP 16; TEMP 36.4; O2SAT 97
[2022-03-08] MEDS: alteplase 1 mg/mL SDV 2 mL 2 MG INTRACATH (08:24)
[2022-03-08 08:57] LABS: Basophils # 0.1 10^3/uL (0.0-0.1); Basophils % 1.1 %; Eosinophils # 0.2 10^3/uL (0.0-0.8); Eosinophils % 3.5 %; Hemoglobin 12.4 g/dL (11.7-16.6); Lymphocytes # 1.2 10^3/uL (0.8-4.8); Lymphocytes % 17.9 %; Mean Corpuscular HGB Conc 31.8 g/dL (30.0-36.0); Mean Corpuscular Hemoglobin 28.8 pg (28.0-34.0); Mean Corpuscular Volume 90.7 fl (80-94); Mean Platelet Volume 9.4 fL (7.4-10.4); Monocytes # 0.8 10^3/uL (0.2-0.9); Monocytes % 12.2 %; Neutrophils # 4.27 10^3/uL (1.8-7.7); Neutrophils % 64.8 %; Nucleated Red Blood Cells % 0 %; Platelet Count 161 10^3/cmm (130-400); Red Cell Distribution Width 15.4 % (12.1-15.1); White Blood Count 6.6 10^3/uL (4.0-10.0)
[2022-03-08] MEDS: dextrose 5% 250 ML 75 ML IV (09:23)
[2022-03-08] MEDS: palonosetron 0.25 mg/5 mL SDV IVP (09:24)
[2022-03-08] MEDS: atropine 1 mg/mL SDV 1 mL 0.4 MG IV (09:25)
[2022-03-08] MEDS: bevacizumab-awwb 400 MG, bevacizumab-awwb 40 MG in sodium chloride 0.9% (100 ml) 100 ML 300 MG IV (09:58)
[2022-03-08] MEDS: irinotecan 300 MG, irinotecan 10 MG in dextrose 5% 250 ML 177 MG IV (10:30)
[2022-03-08] MEDS: leucovorin 680 MG in dextrose 5% 250 ML 166.67 MG IV (10:30)
[2022-03-08 12:07] VITALS: BP 143/88; PULSE 72; RESP 16; TEMP 36.3; O2SAT 96
[2022-03-08] MEDS: fluorouraciL 5,100 MG, elastomeric pump 1 PUMP in sodium chloride 0.9% (100 ml) 128 ML IV (12:09)
[2022-03-10] MEDS: pegfilgrastim-bmez 6 mg/0.6 mL SYR SUBCUT (10:06)
[2022-03-10 10:10] VITALS: BP 160/78; PULSE 80; RESP 16; TEMP 36.4; O2SAT 97
== END 2022-03-11 11:34 | disposition home or self-care (01) ==
PROVIDERS: PCP Internal Medicine; Visit Provider Internal Medicine Medical Oncology
DX: Z45.2 Encounter for adjustment and management of vascular access device; Z79.899 Other long term (current) drug therapy
CPT/HCPCS: 36415; 36591; 36593; 80053; 81003; 82378; 85025; 90471; 90686; 96367; 96368; 96372; 96375; 96413; 96415; 96416; 96417; 96523; 99214; J0461; J0640; J1100; J2469; J2997; J7060; J9190; J9206; Q5107; Q5120

== ENCOUNTER → 2022-04-11 07:53 | Outpatient (BNVA) | payer MEDICARE, OTHER, SELFPAY | PROVIDERS: PCP Internal Medicine; Visit Provider Internal Medicine Medical Oncology | DX: C18.4 Malignant neoplasm of transverse colon (principal); C78.6 Secondary malignant neoplasm of retroperitoneum and peritoneum | CPT/HCPCS: 99214 ==

== ENCOUNTER 2022-04-13 14:00 | Oncology outpatient (recurring) (ONCR) | payer MEDICARE, OTHER, SELFPAY ==
[2022-03-22 08:23] LABS: Basophils % 0.5 %; Eosinophils # 0.1 10^3/uL (0.0-0.8); Eosinophils % 2.1 %; Hematocrit 38.1 % (42.0-52.0); Hemoglobin 11.8 g/dL (11.7-16.6); Lymphocytes # 1.3 10^3/uL (0.8-4.8); Lymphocytes % 20.6 %; Mean Corpuscular Hemoglobin 28.2 pg (28.0-34.0); Mean Corpuscular Volume 91.1 fl (80-94); Mean Platelet Volume 9.6 fL (7.4-10.4); Monocytes # 0.6 10^3/uL (0.2-0.9); Monocytes % 9.2 %; Neutrophils # 4.23 10^3/uL (1.8-7.7); Neutrophils % 67.1 %; Nucleated Red Blood Cells % 0 %; Platelet Count 120 10^3/cmm (130-400); Red Blood Count 4.18 10^6/uL (4.1-5.3); Red Cell Distribution Width 15.3 % (12.1-15.1); White Blood Count 6.3 10^3/uL (4.0-10.0)
[2022-03-22 08:44] LABS: Alanine Aminotransferase 18 U/L (0-41); Albumin Level 3.5 g/dL (3.5-5.2); Alkaline Phosphatase 118 U/L (40-130); Aspartate Amino Transferase 26 U/L (0-40); Blood Urea Nitrogen 6 mg/dL (8-23); Carbon Dioxide 26 mmol/L (22-29); Chloride 101 mmol/L (98-107); Globulin 3.4 g/dL (1.3-4.6); Glomerular Filtration Rate 112.1 mL/min (90-130); Glucose 91 mg/dL (65-115); Osmolality Calculated 279 mOsm/kg (285-295); Sodium 136 mmol/L (136-145); Total Bilirubin 0.4 mg/dL (0.15-1.2); Total Protein 6.9 g/dL (6.6-8.7)
[2022-03-22 08:54] LABS: Anion Gap 12.7 (5-19); Potassium 3.7 mmol/L (3.5-5.1)
[2022-03-22] MEDS: bevacizumab-awwb 400 MG, bevacizumab-awwb 40 MG in sodium chloride 0.9% (100 ml) 100 ML 240 MG IV (10:29)
[2022-03-22] MEDS: palonosetron 0.25 mg/5 mL SDV IVP (10:35)
[2022-03-22] MEDS: atropine 1 mg/mL SDV 1 mL 0.4 MG IV (10:45)
[2022-03-22] MEDS: leucovorin 680 MG in dextrose 5% 250 ML 166.67 MG IV (11:00)
[2022-03-22] MEDS: irinotecan 300 MG, irinotecan 10 MG in dextrose 5% 250 ML 177 MG IV (11:00)
[2022-03-22] MEDS: fluorouraciL 5,100 MG, elastomeric pump 1 PUMP in sodium chloride 0.9% (100 ml) 128 ML IV (12:38)
[2022-03-22 13:12] VITALS: BP 155/87; PULSE 73; RESP 16; TEMP 36.3; O2SAT 97
[2022-03-24] MEDS: pegfilgrastim-bmez 6 mg/0.6 mL SYR SUBCUT (14:47)
[2022-04-11 08:26] LABS: Basophils % 0.6 %; Eosinophils # 0.1 10^3/uL (0.0-0.8); Eosinophils % 1.1 %; Hematocrit 38.6 % (42.0-52.0); Hemoglobin 12.5 g/dL (11.7-16.6); Lymphocytes # 1.3 10^3/uL (0.8-4.8); Lymphocytes % 19.3 %; Mean Corpuscular HGB Conc 32.4 g/dL (30.0-36.0); Mean Corpuscular Hemoglobin 29.1 pg (28.0-34.0); Mean Platelet Volume 9.4 fL (7.4-10.4); Monocytes # 0.9 10^3/uL (0.2-0.9); Neutrophils % 65.7 %; Nucleated Red Blood Cells % 0 %; Platelet Count 161 10^3/cmm (130-400); Red Blood Count 4.29 10^6/uL (4.1-5.3); Red Cell Distribution Width 16.1 % (12.1-15.1); White Blood Count 6.5 10^3/uL (4.0-10.0)
[2022-04-11 08:53] LABS: Carcinoembryonic Antigen 7.7 ng/mL (0.0-4.7)
[2022-04-11 09:04] LABS: Alanine Aminotransferase 21 U/L (0-41); Albumin Level 3.7 g/dL (3.5-5.2); Alkaline Phosphatase 117 U/L (40-130); Anion Gap 13.8 (5-19); Aspartate Amino Transferase 30 U/L (0-40); Blood Urea Nitrogen 8 mg/dL (8-23); Calcium 9.6 mg/dL (8.5-10.5); Carbon Dioxide 26 mmol/L (22-29); Chloride 101 mmol/L (98-107); Globulin 3.1 g/dL (1.3-4.6); Glomerular Filtration Rate 96.1 mL/min (90-130); Glucose 101 mg/dL (65-115); Osmolality Calculated 282 mOsm/kg (285-295); Potassium 3.8 mmol/L (3.5-5.1); Sodium 137 mmol/L (136-145); Total Bilirubin 0.6 mg/dL (0.15-1.2); Total Protein 6.8 g/dL (6.6-8.7)
[2022-04-11] MEDS: dextrose 5% 250 ML 75 ML IV (10:44)
[2022-04-11] MEDS: palonosetron 0.25 mg/5 mL SDV IVP (10:44)
[2022-04-11] MEDS: atropine 1 mg/mL SDV 1 mL 0.4 MG IV (10:47)
[2022-04-11] MEDS: bevacizumab-awwb 400 MG, bevacizumab-awwb 40 MG in sodium chloride 0.9% (100 ml) 100 ML 300 MG IV (11:08)
[2022-04-11] MEDS: leucovorin 680 MG in dextrose 5% 250 ML 166.67 MG IV (11:44)
[2022-04-11] MEDS: irinotecan 300 MG, irinotecan 10 MG in dextrose 5% 250 ML 177 MG IV (11:45)
[2022-04-11] MEDS: fluorouraciL 5,100 MG, elastomeric pump 1 PUMP in sodium chloride 0.9% (100 ml) 128 ML IV (13:23)
[2022-04-11 13:26] VITALS: BP 148/88; PULSE 69; RESP 16; TEMP 35.9; O2SAT 98
[2022-04-13] MEDS: pegfilgrastim-bmez 6 mg/0.6 mL SYR SUBCUT (11:40)
== END 2022-04-13 23:59 | disposition home or self-care (01) ==
PROVIDERS: PCP Internal Medicine; Visit Provider Internal Medicine Medical Oncology
DX: C18.4 Malignant neoplasm of transverse colon (principal)
CPT/HCPCS: 80053; 82378; 85025; 96367; 96368; 96372; 96375; 96413; 96415; 96416; 96417; 96523; 99214; J0461; J0640; J1100; J2469; J7060; J9190; J9206; Q5107; Q5120

== ENCOUNTER 2022-05-04 14:30 | Oncology outpatient (recurring) (ONCR) | payer MEDICARE, OTHER, SELFPAY ==
[2022-04-25 08:19] LABS: Basophils % 0.5 %; Eosinophils # 0.1 10^3/uL (0.0-0.8); Eosinophils % 1.4 %; Hematocrit 39.1 % (42.0-52.0); Hemoglobin 12.6 g/dL (11.7-16.6); Lymphocytes # 1.4 10^3/uL (0.8-4.8); Lymphocytes % 21.5 %; Mean Corpuscular HGB Conc 32.2 g/dL (30.0-36.0); Mean Corpuscular Volume 89.9 fl (80-94); Monocytes # 0.6 10^3/uL (0.2-0.9); Monocytes % 8.8 %; Neutrophils # 4.43 10^3/uL (1.8-7.7); Neutrophils % 67.2 %; Nucleated Red Blood Cells % 0 %; Platelet Count 138 10^3/cmm (130-400); Red Blood Count 4.35 10^6/uL (4.1-5.3); Red Cell Distribution Width 15.9 % (12.1-15.1); White Blood Count 6.6 10^3/uL (4.0-10.0)
[2022-04-25 08:36] LABS: Alanine Aminotransferase 18 U/L (0-41); Albumin Level 3.8 g/dL (3.5-5.2); Alkaline Phosphatase 117 U/L (40-130); Aspartate Amino Transferase 25 U/L (0-40); Blood Urea Nitrogen 6 mg/dL (8-23); Calcium 9.2 mg/dL (8.5-10.5); Carbon Dioxide 26 mmol/L (22-29); Chloride 88 mmol/L (98-107); Globulin 3.2 g/dL (1.3-4.6); Glomerular Filtration Rate 112.1 mL/min (90-130); Glucose 98 mg/dL (65-115); Osmolality Calculated 254 mOsm/kg (285-295); Sodium 123 mmol/L (136-145); Total Bilirubin 0.4 mg/dL (0.15-1.2)
[2022-04-25 08:38] LABS: Anion Gap 12.5 (5-19); Potassium 3.5 mmol/L (3.5-5.1)
[2022-05-02 08:27] LABS: Basophils # 0.1 10^3/uL (0.0-0.1); Basophils % 0.9 %; Eosinophils # 0.1 10^3/uL (0.0-0.8); Eosinophils % 1.7 %; Hematocrit 39.7 % (42.0-52.0); Hemoglobin 12.6 g/dL (11.7-16.6); Lymphocytes # 1.4 10^3/uL (0.8-4.8); Lymphocytes % 24.5 %; Mean Corpuscular HGB Conc 31.7 g/dL (30.0-36.0); Mean Corpuscular Hemoglobin 28.8 pg (28.0-34.0); Mean Corpuscular Volume 90.8 fl (80-94); Mean Platelet Volume 9.9 fL (7.4-10.4); Monocytes # 0.7 10^3/uL (0.2-0.9); Monocytes % 12.7 %; Nucleated Red Blood Cells % 0 %; Platelet Count 144 10^3/cmm (130-400); Red Blood Count 4.37 10^6/uL (4.1-5.3); White Blood Count 5.8 10^3/uL (4.0-10.0)
[2022-05-02 08:30] LABS: Add Urine Microscopic? NO; Charge for UA Resulting for Rev
[2022-05-02 08:44] LABS: Alanine Aminotransferase 16 U/L (0-41); Albumin Level 3.8 g/dL (3.5-5.2); Alkaline Phosphatase 108 U/L (40-130); Aspartate Amino Transferase 28 U/L (0-40); Blood Urea Nitrogen 7 mg/dL (8-23); Calcium 9.4 mg/dL (8.5-10.5); Carbon Dioxide 27 mmol/L (22-29); Chloride 104 mmol/L (98-107); Globulin 3.1 g/dL (1.3-4.6); Glomerular Filtration Rate 112.1 mL/min (90-130); Glucose 104 mg/dL (65-115); Osmolality Calculated 288 mOsm/kg (285-295); Sodium 140 mmol/L (136-145); Total Bilirubin 0.4 mg/dL (0.15-1.2); Total Protein 6.9 g/dL (6.6-8.7)
[2022-05-02 08:51] LABS: Anion Gap 13.1 (5-19); Potassium 4.1 mmol/L (3.5-5.1)
[2022-05-02 09:11] LABS: Protein Urine Neg (Negative); Urine Appearance Clear (CLEAR); Urine Color Yellow (Yellow); pH Urine 5 (5-7)
[2022-05-02 09:12] LABS: Bilirubin Urine Neg (Negative); Blood Urine Neg (Negative); Glucose Urine UA Norm (Normal); Ketones Urine Negative (Negative); Leukocyte Esterase Urine Negative (Negative); Nitrate Urine Negative (Negative); Urobilinogen Urine Norm (Negative)
[2022-05-02] MEDS: dextrose 5% 250 ML 75 ML IV (09:18)
[2022-05-02] MEDS: palonosetron 0.25 mg/5 mL SDV IVP (09:20)
[2022-05-02] MEDS: bevacizumab-awwb 400 MG, bevacizumab-awwb 40 MG in sodium chloride 0.9% (100 ml) 100 ML 300 MG IV (10:03)
[2022-05-02] MEDS: leucovorin 680 MG in dextrose 5% 250 ML 166.67 MG IV (10:53)
[2022-05-02] MEDS: irinotecan 300 MG, irinotecan 10 MG in dextrose 5% 250 ML 177 MG IV (10:53)
[2022-05-02] MEDS: fluorouraciL 5,100 MG, elastomeric pump 1 PUMP in sodium chloride 0.9% (100 ml) 128 ML IV (12:28)
[2022-05-02 12:32] VITALS: BP 156/87; PULSE 103; RESP 16; TEMP 36.4; O2SAT 98
[2022-05-04 10:25] VITALS: BP 136/86; PULSE 86; RESP 16; TEMP 35.8; O2SAT 96
[2022-05-04] MEDS: pegfilgrastim-bmez 6 mg/0.6 mL SYR SUBCUT (10:27)
== END 2022-05-14 23:59 | disposition home or self-care (01) ==
PROVIDERS: PCP Internal Medicine; Visit Provider Internal Medicine Medical Oncology
DX: C18.4 Malignant neoplasm of transverse colon (principal); Z79.899 Other long term (current) drug therapy
CPT/HCPCS: 36591; 80053; 81003; 85025; 96368; 96372; 96375; 96413; 96415; 96416; 96417; 96523; 99214; J0461; J0640; J1100; J2469; J7060; J9190; J9206; Q5107; Q5120

== ENCOUNTER 2022-06-04 08:46 | Outpatient (CLI) | payer MEDICARE, OTHER, SELFPAY ==
--- NOTE | 2022-06-04 | PETR_ITS ---
PROCEDURE INFORMATION: Exam: PET/CT Skull Base to Mid-thigh Exam date and time: 06/04/2022 9:40 AM Age: 66 years old Clinical indication: Condition or disease; Primary cancer: Patient with well differentiated adenocarcinoma of the transverse colon, stage iiic (pt4b, pn1a, m0) at initial diagnosis in October 2020. Follow-up oncological assessment; Condition/disease: His initial treatment included extended right hemicolectomy with en bloc resection of involved portion of abdominal wall, stomach, and omentum on 11/09/2020. there was associated tumor perforation. there was involvement in 134 lymph nodes, and pathology also showed involvement at the radial (abdominal wall) margin, estimated at 0.5 mm. his adjuvant chemotherapy was significantly delayed due to difficult postoperative recovery. He began treatment with modified folfox on 02/22/2021. Restaging pet/ct on 07/17/2021 showed a sigmoid mass measuring 2.7 x 3.3 cm with suv 17.4, indicating high probability of malignancy. a solid lesion at the mesenteric root at the aortic bifurcation measuring 1.2 cm had an suv of 10.3, also consistent with malignancy. a 6 mm nodule in the left lung at the major fissure was felt to be strongly suspicious for metastatic disease, though the suv was low at 1.4. in the meantime, a next generation sequencing was requested on the primary tumor. . On 08/03/2021 he began cycle 1 of 2nd line treatment with folfiri chemotherapy in combination with bevacizumab. . His cea now has been gradually increasing. Thus far his clinical status remained stable. Prior surgery; Surgery type: Hemicolectomy RT; Additional info: Malignant neoplasm of transverse colon, restage LABS AND CLINICAL REPORTS: Glucose: 108 mg/dl Treatment strategy for malignancy (PET staging): Restaging (PS) TECHNIQUE: Imaging protocol: Following at least four-hour fasting and following the injection of F-18-FDG, low dose CT images were obtained. Then, PET images were obtained. Attenuation corrected images were constructed using the CT scan. Fused images of PET and CT were reviewed. The standardized uptake values (SUV) reported below are maximum values within a region of interest, expressed in gm/ml. Exam includes orbital meatal line to mid-thigh. Radiopharmaceutical: 13.13 mCi F-18 FDG (Fluorodeoxyglucose), IV. Time of imaging post radiopharmaceutical administration: 1 hour Injection site: Right AC COMPARISON: PT PET Scan 07/17/2021 10:[address] chest abdomen pelvis from 02/01/2022 FINDINGS: Tubes, catheters and devices: Left-sided Port-A-Cath terminates in the distal SVC. Brain: Visualized brain has normal physiologic uptake. Pharynx: No abnormal uptake. Larynx: No abnormal uptake. Lungs, pleura and trachea: No abnormal uptake. Heart: Normal physiologic uptake. Mediastinal space: No abnormal uptake. Liver: No abnormal uptake. Gallbladder and bile ducts: No abnormal uptake. Pancreas: No abnormal uptake. Spleen: No abnormal uptake. Adrenal glands: No abnormal uptake. Kidneys and ureters: Left renal cyst. Stomach and bowel: Redemonstrated thickening of the anterior rectal wall with associated FDG uptake with SUV max 12. Partial resection of the stomach. Right hemicolectomy. Intraperitoneal and retroperitoneal spaces: Postsurgical changes in the upper omental region. Vasculature: Decreased size of a soft tissue nodule just ventral and inferior to the aortic bifurcation with increased FDG uptake (SUV max 3.2). This measures up to 8 mm, previously 1.1 cm on the prior PET (image 122). Lymph nodes: No abnormal uptake. No lymphadenopathy in the head, neck, chest, abdomen, pelvis, and extremities. Bones/joints: Mildly increased FDG uptake throughout the bone marrow of the axial skeleton diffusely likely is a treatment effect. Soft tissues: Focal FDG uptake in the ventral abdominal wall just subjacent to the umbilicus is seen associated with some mild ill-defined soft tissue thickening on image 117 (SUV max 6). [facility] SUBSEQ [id number] IMPRESSION: 1. Focal FDG uptake in the ventral abdominal wall just subjacent to the umbilicus is seen and is associated with some mild ill-defined soft tissue thickening. This may be inflammatory, though locally recurrent disease is not entirely excluded. Attention on follow-up is recommended. 2. Redemonstrated thickening of the anterior rectal wall with associated malignant range FDG uptake, similar to prior and again concerning for neoplastic involvement. 3. Decreased size of a soft tissue nodule just ventral and inferior to the aortic bifurcation with increased FDG uptake.
== END 2022-06-04 08:47 | disposition home or self-care (01) ==
LOC: RAD 06-06 06:09
PROVIDERS: PCP Internal Medicine; Visit Provider Internal Medicine Medical Oncology
DX: C78.6 Secondary malignant neoplasm of retroperitoneum and peritoneum (principal); C18.4 Malignant neoplasm of transverse colon
CPT/HCPCS: 78815; A9552

== ENCOUNTER 2022-06-09 11:41 | Oncology outpatient (recurring) (ONCR) | payer MEDICARE, OTHER, SELFPAY ==
[2022-05-23 08:22] VITALS: BMI 27.1
[2022-05-23 08:42] LABS: Basophils % 0.6 %; Eosinophils # 0.1 10^3/uL (0.0-0.8); Hematocrit 39.9 % (42.0-52.0); Hemoglobin 12.5 g/dL (11.7-16.6); Lymphocytes # 1.1 10^3/uL (0.8-4.8); Lymphocytes % 22.6 %; Mean Corpuscular HGB Conc 31.3 g/dL (30.0-36.0); Mean Corpuscular Hemoglobin 28.2 pg (28.0-34.0); Mean Corpuscular Volume 89.9 fl (80-94); Mean Platelet Volume 9.9 fL (7.4-10.4); Monocytes # 0.5 10^3/uL (0.2-0.9); Monocytes % 11.2 %; Neutrophils # 3.11 10^3/uL (1.8-7.7); Neutrophils % 64.4 %; Nucleated Red Blood Cells % 0 %; Platelet Count 142 10^3/cmm (130-400); Red Blood Count 4.44 10^6/uL (4.1-5.3); Red Cell Distribution Width 15.8 % (12.1-15.1); White Blood Count 4.8 10^3/uL (4.0-10.0)
[2022-05-23 09:17] LABS: Alanine Aminotransferase 24 U/L (0-41); Albumin Level 3.9 g/dL (3.5-5.2); Alkaline Phosphatase 112 U/L (40-130); Aspartate Amino Transferase 29 U/L (0-40); Blood Urea Nitrogen 5 mg/dL (8-23); Calcium 8.8 mg/dL (8.5-10.5); Carbon Dioxide 26 mmol/L (22-29); Chloride 103 mmol/L (98-107); Glomerular Filtration Rate 112.1 mL/min (90-130); Glucose 99 mg/dL (65-115); Osmolality Calculated 285 mOsm/kg (285-295); Sodium 139 mmol/L (136-145); Total Bilirubin 0.4 mg/dL (0.15-1.2); Total Protein 6.9 g/dL (6.6-8.7)
[2022-05-23 09:20] LABS: Anion Gap 13.7 (5-19); Potassium 3.7 mmol/L (3.5-5.1)
[2022-05-23] MEDS: sodium chloride 0.9% 250 ML IV (10:24)
[2022-05-23] MEDS: palonosetron 0.25 mg/5 mL SDV IVP (10:27)
[2022-05-23] MEDS: atropine 1 mg/mL SDV 1 mL 0.4 MG IV (11:41)
[2022-05-23] MEDS: irinotecan 300 MG, irinotecan 10 MG in dextrose 5% 250 ML 177 MG IV (11:58)
[2022-05-23] MEDS: leucovorin 680 MG in dextrose 5% 250 ML 166.67 MG IV (11:59)
[2022-05-23] MEDS: fluorouraciL 5,100 MG, elastomeric pump 1 PUMP in sodium chloride 0.9% (100 ml) 128 ML IV (14:33)
[2022-05-25 11:23] VITALS: BP 169/78; PULSE 78; RESP 16; TEMP 35.8; O2SAT 96
[2022-05-25] MEDS: pegfilgrastim-bmez 6 mg/0.6 mL SYR SUBCUT (11:26)
[2022-06-06 08:31] LABS: Basophils % 0.5 %; Eosinophils # 0.1 10^3/uL (0.0-0.8); Eosinophils % 1.2 %; Hematocrit 40.2 % (42.0-52.0); Hemoglobin 12.6 g/dL (11.7-16.6); Lymphocytes # 1.3 10^3/uL (0.8-4.8); Lymphocytes % 19.5 %; Mean Corpuscular HGB Conc 31.3 g/dL (30.0-36.0); Mean Corpuscular Hemoglobin 28.3 pg (28.0-34.0); Mean Corpuscular Volume 90.1 fl (80-94); Mean Platelet Volume 10.1 fL (7.4-10.4); Monocytes # 0.5 10^3/uL (0.2-0.9); Monocytes % 8.2 %; Neutrophils # 4.52 10^3/uL (1.8-7.7); Neutrophils % 70.1 %; Nucleated Red Blood Cells % 0 %; Platelet Count 111 10^3/cmm (130-400); Red Blood Count 4.46 10^6/uL (4.1-5.3); Red Cell Distribution Width 15.7 % (12.1-15.1); White Blood Count 6.5 10^3/uL (4.0-10.0)
[2022-06-06 08:52] LABS: Alanine Aminotransferase 30 U/L (0-41); Albumin Level 3.9 g/dL (3.5-5.2); Alkaline Phosphatase 127 U/L (40-130); Blood Urea Nitrogen 4 mg/dL (8-23); Calcium 8.7 mg/dL (8.5-10.5); Carbon Dioxide 26 mmol/L (22-29); Chloride 100 mmol/L (98-107); Globulin 3.1 g/dL (1.3-4.6); Glomerular Filtration Rate 112.1 mL/min (90-130); Glucose 96 mg/dL (65-115); Osmolality Calculated 279 mOsm/kg (285-295); Sodium 136 mmol/L (136-145); Total Bilirubin 0.5 mg/dL (0.15-1.2)
[2022-06-06 08:59] LABS: Anion Gap 13.7 (5-19); Aspartate Amino Transferase 34 U/L (0-40); Potassium 3.7 mmol/L (3.5-5.1)
[2022-06-06] MEDS: dextrose 5% 250 ML 75 ML IV (09:13)
[2022-06-06] MEDS: palonosetron 0.25 mg/5 mL SDV IVP (09:15)
[2022-06-06] MEDS: atropine 1 mg/mL SDV 1 mL 0.4 MG IV (09:16)
[2022-06-06] MEDS: leucovorin 700 MG in dextrose 5% 250 ML 166.67 MG IV (10:08)
[2022-06-06] MEDS: irinotecan 300 MG, irinotecan 10 MG in dextrose 5% 250 ML 177 MG IV (10:08)
[2022-06-06] MEDS: fluorouraciL 5,200 MG, elastomeric pump 1 PUMP in sodium chloride 0.9% (100 ml) 126 ML IV (11:52)
[2022-06-09] MEDS: pegfilgrastim-bmez 6 mg/0.6 mL SYR SUBCUT (12:03)
[2022-06-09 12:06] VITALS: BP 139/86; PULSE 88; RESP 18; TEMP 37.5; O2SAT 97
== END 2022-06-14 23:59 | disposition home or self-care (01) ==
PROVIDERS: PCP Internal Medicine; Visit Provider Internal Medicine Medical Oncology
DX: C18.4 Malignant neoplasm of transverse colon (principal); Z79.899 Other long term (current) drug therapy
CPT/HCPCS: 78815; 80053; 82378; 85025; 96367; 96368; 96372; 96375; 96413; 96415; 96416; 96417; 96523; 99214; A9552; J0461; J0640; J1100; J2469; J7050; J7060; J9190; J9206; Q5107; Q5120

== ENCOUNTER → 2022-06-20 07:56 | Outpatient (BNVA) | payer MEDICARE, OTHER, SELFPAY | PROVIDERS: PCP Internal Medicine; Visit Provider Nurse Practitioner | DX: C18.4 Malignant neoplasm of transverse colon (principal); C78.6 Secondary malignant neoplasm of retroperitoneum and peritoneum | CPT/HCPCS: 99214 ==

== ENCOUNTER 2022-06-27 10:03 | Emergency (ER) | payer MEDICARE, OTHER, SELFPAY ==
[2022-06-27] VITALS (11 sets, daily range): BP systolic 111–154; BP diastolic 59–72; PULSE 81–93; RESP 16–18; TEMP 36.8; O2SAT 90–97
--- NOTE | 2022-06-27 10:33 | ED_ITS ---
HPI - Weakness General: Chief complaint: Weakness Stated complaint: cancer pt, back and abd pain Time Seen by Provider: 06/27/22 10:24 History of Present Illness: Patient comes in with generalized weakness, dehydration, and diarrhea. States that he recently had chemotherapy for colon cancer. States the diarrhea is pretty common for him since he was diagnosed. However states that he has not been able to drink enough fluid to keep up with the loss and feels like he is dehydrated. States he has been getting increasingly more weak over the last few days. Denies any fever, cough, vomiting, or other cold symptoms. Denies any abdominal pain. Associated symptoms: Denies chest pain, dysuria, fever(s), headache(s), nausea or vomiting Review of Systems Const: Denies: fever(s) or body aches Eyes: Denies: change in vision or blurry vision ENMT: Denies: throat pain or odynophagia Card: Denies: chest pain or palpitations Resp: Denies: dyspnea or productive cough GI: Reports: diarrhea; Denies: abdominal pain, nausea or vomiting : Denies: flank pain or dysuria Musc: Denies: neck pain or back pain Skin/Breast: Denies: rash or pruritus Neuro: Denies: headache(s) or numbness in extremities Psych: Denies: anxiety or change in appetite Endo: Denies: polyuria or excessive sweating PFSH ED PFSH: Medical History BPH (benign prostatic hyperplasia) Colon cancer Degenerative arthritis Dyslipidemia GERD (gastroesophageal reflux disease) HTN (hypertension), benign Surgical History H/O: vasectomy Port-A-Cath in place (02/18/21) S/P right hemicolectomy extended, with en bloc excision of abdominal wall, stomach, and omentum Status post colonoscopy (06/30/21) Family History Father Cancer Lung Grandfather Cancer Lung Brother Cancer Lung Grandmother Hypertension Denies family history of Diabetes CAD (coronary artery disease) Clotting disorder Dementia Hyperlipidemia Psychiatric illness Chronic kidney disease (CKD) Suicide Anesthesia complication Bleeding disorder Lung disease Stroke Social History (Reviewed 06/20/22 @ 08:01 by NELLA Schmidt Smoking and tobacco status: former smoker (quit in 1997) Alcohol intake: current Alcohol intake frequency: 0-2 Drinks per Day Alcohol type: beer Desire information about alcohol rehabilitation?: No Desire information about substance/drug rehabilitation?: No Adopted: No Caregiver/support person: No Lives independently: Yes Housing: House Marital status: Unknown Number of children: 1 Current occupational status: previously employed Current gender identity: Male Agree to transfusion: Yes Physical Exam Const: COMMON NORMALS: no acute distress, patient oriented x3 and alert HENMT: COMMON NORMALS: normocephalic and atraumatic HEAD & SCALP: normocephalic and atraumatic OTHER: Dry mucous membranes Eye: COMMON NORMALS: Equal, round and reactive pupils present and EOMs intact bilaterally PUPIL: Yes Equal, round and reactive pupils present Neck/C-Spine: COMMON NORMALS: full ROM and supple Resp: COMMON NORMALS: normal respiratory effort, No retractions and No use of accessory muscles Cardio: COMMON NORMALS: regular rate and regular rhythm RATE: regular rate RHYTHM: regular rhythm GI: COMMON NORMALS: Normal to inspection, nondistended, normoactive bowel sounds present, Soft to palpation and non-tender PALPATION: Yes Soft to palpation Back/Pelvis: COMMON NORMALS: thoracic and lumbar spine normal to inspection a nd no thoracic nor lumbar tenderness Extremity: COMMON NORMALS: normal to inspection and full ROM Neuro: COMMON NORMALS: patient oriented x3 SENSORIUM/ORIENTATION: Yes alert Psych: COMMON NORMALS: mental status grossly normal and cooperative Skin: COMMON NORMALS: no rashes or lesions noted and no wounds GENERAL SKIN EXAM: no rashes or lesions noted Course Vital Signs: Vital signs: Vital Signs Temperature 98.2 F 06/27/22 10:11 Pulse Rate 88 06/27/22 12:33 Respiratory Rate 16 06/27/22 10:52 Blood Pressure 132/61 06/27/22 12:33 Pulse Oximetry 96 06/27/22 12:33 Oxygen Delivery Me thod 06/27/22 12:33 MDM - Weakness Medical Decision Making Patient comes in with generalized weakness, dehydration, and diarrhea. States that he recently had chemotherapy for colon cancer. States the diarrhea is pretty common for him since he was diagnosed. However states that he has not been able to drink enough fluid to keep up with the loss and feels like he is dehydrated. States he has been getting increasingly more weak over the last few days. Denies any fever, cough, vomiting, or other cold symptoms. Denies any abdominal pain. On physical exam he has dry mucous membranes. Will check labs, give IV fluids, and reassess. On reassessment I talked to the patient about the test results. He states that he is feeling much better. Will discharge home at this time with precautions to return for worsening or changing symptoms. Lab Data 06/27/22 11:00 06/27/22 11:00 Laboratory Results WBC 1.7 10^3/uL (4.0-10.0) L 06/27/22 11:00 RBC 3.91 10^6/uL (4.1-5.3) L 06/27/22 11:00 Hgb 11.1 g/dL (11.7-16.6) L 06/27/22 11:00 Hct 34.6 % (42.0-52.0) L 06/27/22 11:00 MCV 88.5 fl (80-94) 06/27/22 11:00 MCH 28.4 pg (28.0-34.0) 06/27/22 11:00 MCHC 32.1 g/dL (30.0-36.0) 06/27/22 11:00 RDW 14.8 % (12.1-15.1) 06/27/22 11:00 Plt Count 78 10^3/cmm (130-400) L 06/27/22 11:00 MPV 10.7 fL (7.4-10.4) H 06/27/22 11:00 Lymph % (Auto) Not Reportable 06/27/22 11:00 Harding % (Auto) Not Reportable 06/27/22 11:00 Lymph # (Auto) Not Reportable 06/27/22 11:00 Harding # (Auto) Not Reportable 06/27/22 11:00 Total Counted 100 (0-100) 06/27/22 11:00 Atypical Lymphs % 0.0 % (0-5) 06/27/22 11:00 Absolute Neutrophils 1.1 10^3/cmm (1.4-6.5) L 06/27/22 11:00 Segmented Neutrophils 64 % 06/27/22 11:00 Abs Segm Neuts (Man) 1.1 10/cmm (1.6-7.1) L 06/27/22 11:00 Band Neutrophils 1.0 % 06/27/22 11:00 Abs Band Neuts (Man) 0.0 10^3/cmm (0.0-1.2) 06/27/22 11:00 Absolute Lymphocytes 0.4 10^3/cmm (1.2-3.4) L 06/27/22 11:00 Lymphocytes (Manual) 22 % 06/27/22 11:00 Monocytes (Manual) 9.0 % 06/27/22 11:00 Absolute Monocytes 0.2 10^3/cmm (0.1-0.6) 06/27/22 11:00 Eosinophils (Manual) 0 % 06/27/22 11:00 Absolute Eosinophils 0.0 10^3/cmm (0.0-0.7) 06/27/22 11:00 Basophils (Manual) 0.0 % 06/27/22 11:00 Absolute Basophils 0.0 10^3/cmm (0.0-0.2) 06/27/22 11:00 Metamyelocytes 3.0 % 06/27/22 11:00 Myelocytes 1.0 % 06/27/22 11:00 Platelet Estimate Decreased (Normal) 06/27/22 11:00 Sodium 134 mmol/L (136-145) L 06/27/22 11:00 Potassium 3.6 mmol/L (3.5-5.1) 06/27/22 11:00 Chloride 96 mmol/L (98-107) L 06/27/22 11:00 Carbon Dioxide 26 mmol/L (22-29) 06/27/22 11:00 Anion Gap 15.6 (5-19) 06/27/22 11:00 BUN 14 mg/dL (8-23) 06/27/22 11:00 Creatinine 0.9 mg/dL (0.7-1.2) 06/27/22 11:00 GFR Calculation 83.9 mL/min (90-130) L 06/27/22 11:00 Glucose 126 mg/dL (65-115) H 06/27/22 11:00 Calculated Osmolality 280 mOsm/kg (285-295) L 06/27/22 11:00 Calcium 8.7 mg/dL (8.5-10.5) 06/27/22 11:00 Magnesium 2.1 mg/dL (1.7-2.3) 06/27/22 11:00 Total Bilirubin 2.0 mg/dL (0.15-1.2) H 06/27/22 11:00 AST 18 U/L (0-40) 06/27/22 11:00 ALT 16 U/L (0-41) 06/27/22 11:00 Alkaline Phosphatase 116 U/L (40-130) 06/27/22 11:00 Total Protein 6.2 g/dL (6.6-8.7) L 06/27/22 11:00 Albumin 3.4 g/dL (3.5-5.2) L 06/27/22 11:00 Globulin 2.8 g/dL (1.3-4.6) 06/27/22 11:00 Discharge Plan Discharge Patient Disposition: Home Clinical Impression: Dehydration Condition: Stable Prescriptions: No Action amoxicillin-pot clavulanate 875-125 mg tablet 1 tab PO BID 7 Days Qty: 14 1RF meloxicam 15 mg tablet 15 mg PO DAILY Qty: 90 0RF amlodipine 5 mg Tablet 5 mg PO DAILY Qty: 30 3RF pantoprazole [Protonix] 40 mg Tablet,Delayed Release (Dr/Ec) 40 mg PO DAILY Qty: 30 3RF Imodium 2 mg Capsule 2 mg PO Q6H PRN (Reason: Diarrhea) ibuprofen 200 mg Capsule 400 mg PO Q6H PRN (Reason: Pain) Discharge Orders: Discharge ED (Routine); Ordered 06/27/22 Ordered By: David Merchant Referrals: Luis Topete MD [Primary Care Provider] - Coding Level of Care Code ED [employer] for Shirley Monson
[2022-06-27 11:07] LABS: Hematocrit 34.6 % (42.0-52.0); Hemoglobin 11.1 g/dL (11.7-16.6); Mean Corpuscular HGB Conc 32.1 g/dL (30.0-36.0); Mean Corpuscular Hemoglobin 28.4 pg (28.0-34.0); Mean Corpuscular Volume 88.5 fl (80-94); Mean Platelet Volume 10.7 fL (7.4-10.4); Platelet Count 78 10^3/cmm (130-400); Red Blood Count 3.91 10^6/uL (4.1-5.3); Red Cell Distribution Width 14.8 % (12.1-15.1); White Blood Count 1.7 10^3/uL (4.0-10.0)
[2022-06-27 11:25] LABS: Alanine Aminotransferase 16 U/L (0-41); Albumin Level 3.4 g/dL (3.5-5.2); Alkaline Phosphatase 116 U/L (40-130); Anion Gap 15.6 (5-19); Aspartate Amino Transferase 18 U/L (0-40); Blood Urea Nitrogen 14 mg/dL (8-23); Calcium 8.7 mg/dL (8.5-10.5); Carbon Dioxide 26 mmol/L (22-29); Chloride 96 mmol/L (98-107); Globulin 2.8 g/dL (1.3-4.6); Glomerular Filtration Rate 83.9 mL/min (90-130); Glucose 126 mg/dL (65-115); Magnesium 2.1 mg/dL (1.7-2.3); Osmolality Calculated 280 mOsm/kg (285-295); Potassium 3.6 mmol/L (3.5-5.1); Sodium 134 mmol/L (136-145); Total Protein 6.2 g/dL (6.6-8.7)
[2022-06-27] MEDS: sodium chloride 0.9% 1,000 ML 999 ML IV ×2 (11:33→12:29)
[2022-06-27 11:39] LABS: Absolute Neutrophil 1.1 10^3/cmm (1.4-6.5); Absolute Segmented Neutrophil 1.1 10/cmm (1.6-7.1); Eosinophils 0 %; Lymphocytes 22 %; Lymphocytes Absolute 0.4 10^3/cmm (1.2-3.4); Monocytes Absolute 0.2 10^3/cmm (0.1-0.6); Platelet Estimate Decreased (Normal); Segmented Neutrophils 64 %; Total Cells Counted 100 (0-100)
--- NOTE | 2022-06-27 14:43 | PC.NURSE ---
19 GAUGE PORT NEEDLE AND CENTRAL LINE DRESSING KIT WERE USED TO ACCESS PT PORT
== END 2022-06-27 14:44 | disposition home or self-care (01) ==
PROVIDERS: Emergency Provider Emergency Medicine; PCP Internal Medicine Medical Oncology
DX: E86.0 Dehydration (principal); Z87.891 Personal history of nicotine dependence; Z85.038 Personal history of other malignant neoplasm of large intestine; E78.5 Hyperlipidemia, unspecified; I10 Essential (primary) hypertension
CPT/HCPCS: 36415; 80053; 83735; 85007; 85025; 96360; 96361; 99284; J7030

== ENCOUNTER 2022-07-01 10:20 | Inpatient (IN) | payer MEDICARE, OTHER, SELFPAY ==
--- NOTE | 2022-07-01 10:45 | XR_ITS ---
WS: [id number] Portable AP upright chest, 07/01/2022 Clinical Data: shortness of breath Comparison: PA chest, 09/24/2020 Findings: No nodules, masses or effusions are seen. The heart is normal. The pulmonary vascularity is not increased. No pneumonia or pneumothorax is seen. The left portal infusion catheter ends in the m idportion of the superior vena cava. The aortic arch and descending thoracic aorta show tortuosity. XR/XR chest 1V portable [id number] Impression: Atherosclerosis.
--- NOTE | 2022-07-01 10:50 | P.HP_ITS ---
Providers/Chief Complaint Admitting Physician: Sharath Mancera MD Primary Care Provider: Luis Topete MD Chief Complaint: dehydration History of Present Illness Ry Potter is a 66 year old male with past history of colon cancer, hypertension, GERD, and BPH who presents with 2 weeks of diarrhea. Patient is sent from Dr. Topete's office for observation where he was found this morning to be hypokalemic with symptoms of dehydration, as well as a fever. The patient states that the symptoms have been accompanied by dizziness, fatigue, weakness, headache, suprapubic abdominal cramping, nausea, vomiting, cough, and shortness of breath. He states he recently finished 26 rounds of chemotherapy which he tolerated well. At baseline, he is outside doing activities such as playing golf, but he has felt too ill over the past 2 weeks. The patient denies blood in his vomit or diarrhea. He says he has had diarrhea in the past from his chemo, but never this bad. He says he feels dehydrated because he cannot keep anything down and his episodes of diarrhea have been too numerous to count. He also states he recently finished a course of antibiotics for a sore throat/sinus infection that he was prescribed . This was over 2 weeks ago. His last PET scan interpreted on 06/04/2022 showed no significant progression of his cancer. He was seen in the ER on 06/27/2022 for symptoms of dehydration as well and was discharged home. Patient's potassium today was 2.7, down from 3.7 yesterday. He was started on potassium chloride at Dr. Topete's office. Patient denies any chest pain, syncope, peripheral edema, or any other symptoms at this time. He is a former smoker and says he quit many years ago. All other questions and concerns are addressed at this time. He also recently had testing for C. difficile which was negative several days ago. Review of Systems Narrative: Constitutional: Reports fever, fatigue Skin: Denies rash, color changes Eyes: Denies visual changes HENT: Reports headache. Denies ear pain, nasal drainage, sinus pain, sore throat Cardiovascular: Denies chest pains, palpitations, peripheral edema, syncope Respiratory: Reports shortness of breath, cough GI: Reports abdominal cramping, nausea, vomiting, diarrhea : Denies changes in urination MSK: Reports weakness. Denies any acute myalgias or arthralgias Neuro: Reports dizziness. Denies seizures Medications/Allergies Home Medications Medication Instructions Recorded Confirmed Last Taken Type amlodipine 5 mg tablet 5 mg PO DAILY #30 tabs 05/04/22 06/29/22 06/26/22 Rx pantoprazole 40 mg tablet,delayed 40 mg PO DAILY #30 tabs 05/04/22 06/29/22 06/26/22 Rx release (Protonix) meloxicam 15 mg tablet 15 mg PO DAILY #90 tabs 06/16/22 06/29/22 06/26/22 Rx ibuprofen 200 mg capsule 400 mg PO Q6H PRN Pain 06/27/22 06/29/22 06/26/22 History loperamide 2 mg capsule 2 mg PO Q6H PRN Diarrhea 06/27/22 06/29/22 Unknown History amoxicillin 875 mg-potassium 1 tab PO BID PRN 06/29/22 Unknown History clavulanate 125 mg tablet Allergies Allergy/AdvReac Type Severity Reaction Status Date / Time No Known Allergies Allergy Verified 06/29/22 12:41 PFSH Acute PFSH: Medical History (Updated 07/01/22 @ 11:24 by Sharath Mancera MD) BPH (benign prostatic hyperplasia) Colon cancer Degenerative arthritis Dyslipidemia GERD (gastroesophageal reflux disease) HTN (hypertension), benign Surgical History H/O: vasectomy Port-A-Cath in place (02/18/21) S/P right hemicolectomy extended, with en bloc excision of abdominal wall, stomach, and omentum Status post colonoscopy (06/30/21) Family History Father Cancer Lung Grandfather Cancer Lung Brother Cancer Lung Grandmother Hypertension Denies family history of Diabetes CAD (coronary artery disease) Clotting disorder Dementia Hyperlipidemia Psychiatric illness Chronic kidney disease (CKD) Suicide Anesthesia complication Bleeding disorder Lung disease Stroke Social History Smoking and tobacco status: former smoker (quit in 1997) Alcohol intake: current Alcohol intake frequency: 0-2 Drinks per Day Alcohol type: beer Desire information about alcohol rehabilitation?: No Desire information about substance/drug rehabilitation?: No Adopted: No Caregiver/support person: No Lives independently: Yes Housing: House Marital status: Unknown Number of children: 1 Current occupational status: previously employed Current gender identity: Male Agree to transfusion: Yes Physical Exam Narrative: Constitutional: Mildly ill-appearing white male lying in hospital bed appears in no significant acute distress. Potassium chloride being administrated at this time, patient breathing on room air. Skin: No significant pallor or cyanosis. No jaundice, rash, or suspicious lesions. Eyes: No scleral icterus or injection. HENT: Head is atraumatic and normocephalic. No nasal drainage. Somewhat dry oral mucosa. No significant pharyngeal erythema. Cardiovascular: Regular rate and rhythm. No rubs murmurs or gallops. No JVD. No peripheral edema. Respiratory: Lungs clear to auscultation bilaterally. Appears in no acute r espiratory distress without use of accessory muscles. GI: Mild tenderness to palpation just inferior to the umbilicus. Normal bowel sounds. No distention. No obvious organomegaly. : Deferred MSK: Extremities nontender to palpation. Neuro: Alert and oriented x3. No focal neurological deficit. Data Other Labs: Laboratory from today is reviewed. White blood cell count 4.1, hemoglobin 9.9, platelet count 121,000. Sodium 134, potassium 2.7, chloride 99, bicarb 25, BUN 7, creatinine 0.7, glucose 128, LFTs normal, albumin 3.1, calcium 8.2 I ordered a magnesium and it is 2.0 Chest x-ray by my interpretation demonstrates a port left chest, minor atherosclerosis, no infiltrate C. difficile on June 29 was negative A&P Assessment and plan (1) Dehydration: Patient presents with dehydration, vomiting and diarrhea recently from home and past history of colon cancer with last treatment on June 20. Hydration, 1 L, was initiated by oncology clinic. Continue hydration here, with normal saline with 20 mill equivalents of potassium per liter (2) Hypokalemia: Supplement potassium I checked magnesium level which was normal Recheck tomorrow (3) Fever: Patient with fever on presentation to oncology clinic Repeat blood cultures Chest x-ray has been done, showing no infiltrate. He is on room air, he is not tachycardic, he does not complain of chest discomfort, and he is not reporting shortness of breath now. Secondary to his fever, abdominal symptoms, diarrhea, will obtain CT abdomen and pelvis with contrast Secondary to his fever after blood cultures are obtained, will start vancomycin and Zosyn. He has a port, which could be a source for bacteremia. Note that blood cultures were done previously on June 29 and are negative to date. CBC, CMP tomorrow I discussed his malignancy, further testing, concerns with his oncologist (4) Abdominal pain: CT as above (5) Diarrhea: Repeat C. difficile, stool culture (6) Colon cancer: Patient receiving chemotherapy, with last treatment June 20 (7) HTN (hypertension), benign: Continue home medication (8) GERD (gastroesophageal reflux disease): Secondary to history of vomiting initiate Protonix 40 mg IV every 12 hours Plan Anemia, thrombocytopenia. This appears to be recovering. This is likely secondary in part to chemotherapy. Repeat laboratory tomorrow. Multiple other medical problems as outlined in past medical history Full code currently Lovenox for DVT prophylaxis Attestations Medical Necessity Statement*: May need less than 2 midnight stay for evaluation and treatment of fever, dehydration, hypokalemia Diagnoses Dehydration E86.0 Hypokalemia E87.6 Fever R50.9 Abdominal pain R10.9 Diarrhea R19.7 Colon cancer C18.9 HTN (hypertension), benign I10 GERD (gastroesophageal reflux disease) K21.9
--- NOTE | 2022-07-01 11:21 | CT_ITS ---
WS: [id number] CT ABDOMEN AND PELVIS WITH CONTRAST HISTORY: fever, diarrhea, abd pain, history of colon cancer. TECHNIQUE: Imaging performed of the abdomen and pelvis with IV contrast. Single phase imaging of the abdomen. Coronal and sagittal reformats are submitted. All CT scans at [facility] use at [address] one of these dose optimization techniques: automated exposure control; mA and/or kV adjustment per patient size (includes targeted exams where dose is matched to clinical indication); or iterative re construction. IV CONTRAST: Omnipaque 350; 100 mL IV. Oral contrast: No DLP: 1329.29 mGy.cm COMPARISON: 06/04/2021 and 02/01/2022. PET/CT 06/04/2022 Lower thorax: Lung bases are clear. Heart is normal size. Small hiatal hernia. Liver/biliary system: Normal size with no intrahepatic dilatation. Gallbladder: Normal. No gallstones or wall thickening. No pericholecystic fluid. Pancreas: Normal size pancreas and pancreatic duct. No adjacent inflammation. Spleen: Mildly enlarged spleen measures 15.3 cm in length. Similar to the prior study. Adrenal glands: Normal. Right kidney: Normal. Left kidney: Upper pole cyst 4.1 cm. Cortical hypodensity in the mid kidney is too small to character ize. No obstruction. Aorta: Moderate atherosclerotic plaque. No aneurysm. Focal nonobstructed thrombus in the SMV. Less than 50% occlusion. Lymphadenopathy: Single central mesenteric lymph node measures 7 mm. Not positive on the recent PET/C T. Additional ill-defined spiculated nodule in the central mesentery which was positive on PET/CT but appears smaller measuring 8 mm. Decreased in size since 06/04/2001 CT. Free fluid: None. GI tract: Stomach is nondistended. Proximal small bowel is not distended. The remaining small bowel l oops are markedly fluid-filled measuring up to 3.8 cm in diameter. There is a changing caliber of the se loops in the RIGHT abdomen. There is hyperemia of the wall and an abrupt turn of the small bowel s uggesting there may be an adhesion. Distal colon demonstrates mild hyperemia. No obstruction distally . There is asymmetric wall thickening involving the RIGHT lateral rectum and the anterior rectum. Thi s area was recently described as positive on a recent PET/CT. Wall thickening measures up to 1.7 cm. Abdominal wall: There is mild soft tissue thickening at the region of the umbilicus which corresponds to the positive PET/CT findings. No discrete mass. Pelvis: There is a very tiny amount of free fluid in the pelvis. No free air. Bones: Several sclerotic foci within the bones of the pelvis. Benign bone islands likely. CT/CT abdomen pelvis w con* [id number] IMPRESSION: 1. High-grade small bowel obstruction. There is a change of caliber in the sma ll bowel in the mid RIGHT abdomen. Suspect adhesions. 2. Asymmetric wall thickening of the rectum measuring up to 1.7 cm. This area was positive on the recent PET/CT.1 3. Minimal soft tissue thickening but no discrete mass at the region of the um bilicus. Previously described PET/CT positive finding. 4. Very small central mesenteric lymph nodes without increase in size. 5. Small amount of ascites in the pelvis. 6. No metastatic disease to the liver or adrenal glands. 7. Mild splenomegaly.
[2022-07-01 11:57] LABS: Lactic Sepsis W/Reflex 1.1 mmol/L (0.5-2.2)
[2022-07-01 12:00] VITALS: BP 118/71; PULSE 83; RESP 18; TEMP 37.1; O2SAT 95
[2022-07-01] MEDS: pantoprazole 40 mg SDV IVP ×2 (12:56→23:28)
[2022-07-01] MEDS: enoxaparin 40 mg/0.4 mL Syringe SUBCUT (12:56)
[2022-07-01] MEDS: sodium chlor 0.9% + KCl 20 mEq 20 MEQ/1,000 ML BAG 100 MEQ IV ×2 (12:57→21:34)
[2022-07-01] MEDS: vancomycin 1,250 MG/250 ML PIGGYBACK 200 MG IV ×2 (12:57→21:35)
[2022-07-01] MEDS: iohexol 350 mg/mL 500 mL Btl (per mL) IV (13:38)
[2022-07-01 13:51] LABS: Influenza A by IFA negative (Negative); Influenza B by IFA negative (Negative)
[2022-07-01] MEDS: lidocaine 1% 5 ML in potassium chloride premix 100 ML 26.25 ML IV (13:52)
[2022-07-01] MEDS: piperacillin-tazobactam 3.375 GM in sodium chloride 0.9% (plus) 50 ML IV ×2 (15:05→23:28)
[2022-07-01 15:18] LABS: Adenovirus Not Detected (NOT DETECT); Chlamydia Pneumoniae Not Detected (NOT DETECT); Coronavirus 229E,HKU1,NL63,OC4 Not Detected (NOT DETECT); Human Metapneumovirus Not Detected (NOT DETECT); Human Rhinovirus/Enterovirus Not Detected (NOT DETECT); Influenza A Not Detected (NOT DETECT); Influenza A H1 Not Detected (NOT DETECT); Influenza A H1-2009 Not Detected (NOT DETECT); Influenza A H3 Not Detected (NOT DETECT); Influenza B Not Detected (NOT DETECT); Mycoplasma Pneumoniae Not Detected (NOT DETECT); Parainfluenza Virus Type 1 Not Detected (NOT DETECT); Parainfluenza Virus Type 2 Not Detected (NOT DETECT); Parainfluenza Virus Type 3 Not Detected (NOT DETECT); Parainfluenza Virus Type 4 Not Detected (NOT DETECT); Respiratory Syncytial Virus A Not Detected (NOT DETECT); Respiratory Syncytial Virus B Not Detected (NOT DETECT); SARS-COV-2 Not Detected (NOT DETECT)
[2022-07-01 16:00] VITALS: BP 117/71; PULSE 79; RESP 16; TEMP 36.9; O2SAT 93
--- NOTE | 2022-07-01 17:25 | P.CONIM_ITS ---
Providers/Reason For Consult Consulting Physician/Specialty*: Dr. Kev Chaparro, DO/General surgery Reason for Consult*: Small bowel obstruction Attending Physician: Sharath Mancera MD Primary Care Provider: Luis Topete MD History of Present Illness History of Present Illness Ry Potter is a 66 year old male with a history of colon cancer status post right hemicolectomy with en bloc resection of omentum, anterior abdominal wall and stomach. He has gone through multiple treatments with chemotherapy. Last PET scan showed no advancement of carcinoma. He presented to the hospital with lower abdominal pain nausea and emesis. The pain is dull and constant. Nothing seems to make the pain better or worse. He denies any hematemesis. He is having watery diarrhea but is not passing much flatus. CT shows high-grade small bowel obstruction. Review of Systems General: Reports: 10 or more systems reviewed and unremarkable except in HPI and below Medications/Allergies Home Medications Medication Instructions Recorded Confirmed Last Taken Type amlodipine 5 mg tablet 5 mg PO DAILY #30 tabs 05/04/22 06/29/22 06/26/22 Rx pantoprazole 40 mg tablet,delayed 40 mg PO DAILY #30 tabs 05/04/22 06/29/22 06/26/22 Rx release (Protonix) meloxicam 15 mg tablet 15 mg PO DAILY #90 tabs 06/16/22 06/29/22 06/26/22 Rx ibuprofen 200 mg capsule 400 mg PO Q6H PRN Pain 06/27/22 06/29/22 06/26/22 History loperamide 2 mg capsule 2 mg PO Q6H PRN Diarrhea 06/27/22 06/29/22 Unknown History amoxicillin 875 mg-potassium 1 tab PO BID PRN 06/29/22 Unknown History clavulanate 125 mg tablet Allergies Allergy/AdvReac Type Severity Reaction Status Date / Time No Known Allergies Allergy Verified 06/29/22 12:41 Current Medications Generic Name Dose Route Start Last Admin Trade Name Freq PRN Reason Stop Dose Admin Enoxaparin Sodium 90 mg 07/02/22 06:00 07/02/22 05:58 Enoxaparin 100 Mg/Ml Syringe SUBCUT Not Given Q12H HUEY Potassium Chloride/Sodium Chloride 20 meq in 1,000 mls @ 125 mls/hr 07/01/22 10:45 07/02/22 02:58 Sodium Chlor 0.9% + Kcl 20 Meq IV 125 mls/hr .Q8H HUEY Administration Piperacillin Sod/Tazobactam 50 mls @ 12.5 mls/hr 07/01/22 12:00 07/02/22 03:30 Sod 3.375 gm/ Sodium Chloride IV Infused Q8H HUEY Infusion Protocol As Directed Vancomycin/PEG/NADA/Lysine/Water 1,250 mg in 250 mls @ 200 mls/hr 07/01/22 13:00 07/02/22 05:57 Vancocin IV 200 mls/hr Q8H HUEY Administration Lanolin 1 applic 07/01/22 23:14 07/01/22 23:28 Lanolin Oint 7 Gm TOPICAL 1 applic PRN PRN Administration DRYNESS Pantoprazole Sodium 40 mg 07/01/22 11:00 07/01/22 23:28 Pantoprazole 40 Mg Sdv IVP 40 mg Q12H HUEY Administration Phenol 5 spray 07/01/22 23:16 07/01/22 23:28 Phenol Oral [place] 177 Ml MUCOUS MEM 5 spray Q2H PRN Administration SORE THROAT PFSH Acute PFSH: Medical History BPH (benign prostatic hyperplasia) Colon cancer Degenerative arthritis Dyslipidemia GERD (gastroesophageal reflux disease) HTN (hypertension), benign Surgical History H/O: vasectomy Port-A-Cath in place (02/18/21) S/P right hemicolectomy extended, with en bloc excision of abdominal wall, stomach, and omentum Status post colonoscopy (06/30/21) Family History Father Cancer Lung Grandfather Cancer Lung Brother Cancer Lung Grandmother Hypertension Denies family history of Diabetes CAD (coronary artery disease) Clotting disorder Dementia Hyperlipidemia Psychiatric illness Chronic kidney disease (CKD) Suicide Anesthesia complication Bleeding disorder Lung disease Stroke Social History Smoking and tobacco status: former smoker (quit in 1997) Alcohol intake: current Alcohol intake frequency: 0-2 Drinks per Day Alcohol type: beer Desire information about alcohol rehabilitation?: No Desire information about substance/drug rehabilitation?: No Adopted: No Caregiver/support person: No Lives independently: Yes Housing: House Marital status: Unknown Number of children: 1 Current occupational status: previously employed Current gender identity: Male Agree to transfusion: Yes Vitals/I&O/Wt Last Vital Signs Temp 98.0 F 07/02/22 03:36 Pulse 61 07/02/22 03:36 Resp 19 H 07/02/22 03:36 BP 144/81 07/02/22 03:36 Pulse Ox 90 07/02/22 03:36 O2 Del Method 07/01/22 16:00 07/01/22 07/02/22 07/02/22 22:59 06:59 14:59 Intake Total 444 / 444 840 / 1284 Output Total 700 / 700 Balance -256 / -256 840 / 584 Physical Exam Narrative: General : Patient is well developed , no acute distress, oriented x3 Head : Normal cephalic, a-traumatic. Ears : Pinnae and external canal are normal. Hearing is normal. Eyes : PERRLA, Sclera and injection are normal. No conjunctival discharge. Nose : Mucous membranes are without erythema. Throat : buccal mucosa is normal, gums are without significant recession or hypertrophy. Lungs : Equal chest rise bilaterally, no use of accessory muscles, trachea is midline. Cor : Rate and rhythm are normal. Abdomen : Soft, ND, NT, no g/r/m Extremities : No edema, no cyanosis or clubbing, dorsalis pedis pulses are present bilaterally, non-tender to palpation of calves. Upper extremities are normal bilaterally. Back : non-tender to palpation, no CVA tenderness. Neuro : CN II - XII intact, Upper and lower extremities have equal and full strength Data 07/02/22 03:25 07/02/22 03:25 Micro: Microbiology 07/01/22 11:28 Blood Culture - Preliminary Blood SPECIMEN COLLECTED 07/01/22 11:20 Blood Culture - Preliminary Blood SPECIMEN COLLECTED A&P Assessment and plan (1) Secondary malignant neoplasm of mesentery: (2) Partial small bowel obstruction: Plan N.p.o./NGT to low intermittent wall suction Normal saline at 150 cc/h Ambulate Conservative management for now. If he does not begin passing significant flatus in the next few days, or acutely declines, we will have to consider diagnostic laparoscopy versus exploratory laparotomy Medical management per hospitalist Coding Level of Care Code Acute Code for Chg Fwd Diagnoses Secondary malignant neoplasm of mesentery C78.6 Partial small bowel obstruction K56.600
--- NOTE | 2022-07-01 17:27 | XRR_ITS ---
PROCEDURE INFORMATION: Exam: XR Chest Exam date and time: 07/01/2022 5:46 PM Age: 66 years old Clinical indication: Device placement; Ng tube; Additional info: Ng tube placement TECHNIQUE: Imaging protocol: Radiologic exam of the chest. Views: 1 view. COMPARISON: CR XR chest 1V portable [id number] 07/01/2022 10:52 AM FINDINGS: Tubes, catheters and devices: Left chest port terminates at the cavoatrial junction. NG tube terminates in the stomach. Lungs: No consolidation. Pleural spaces: No pleural effusion. No pneumothorax. Heart/Mediastinum: No cardiomegaly. Bones/joints: Visualized osseous structures are intact. XR/XR chest 1V portable [id number] IMPRESSION: NG tube in proper positioning within the stomach.
[2022-07-01] MEDS: enoxaparin 60 mg/0.6 mL Syringe 50 MG SUBCUT (18:03)
[2022-07-01 19:38] LABS: Bilirubin Urine Neg (Negative); Blood Urine Neg (Negative); Glucose Urine UA Norm (Normal); Ketones Urine Negative (Negative); Leukocyte Esterase Urine Negative (Negative); Nitrate Urine Negative (Negative); Protein Urine Neg (Negative); Specific Gravity, Urine 1.005 (1.005-1.030); Urine Appearance Clear (CLEAR); Urine Color Yellow (Yellow); Urobilinogen Urine Neg (Negative); pH Urine 6.5 (5-7)
[2022-07-01 19:41] LABS: Add Urine Culture? No; Bacteria Urine TRACE /hpf; Mucus Urine 1+ /hpf; Squamous Epithelial Cell Urine 0-4 /hpf (0-5); WBC Urine 0-4 /hpf (0-5)
[2022-07-01 20:00] VITALS: PULSE 79; O2SAT 93
--- NOTE | 2022-07-01 20:40 | PC.NURSE ---
Second NG tube was coughed and sputtered up into the mouth by the patient.
[2022-07-01 21:09] VITALS: BP 113/68; PULSE 76; RESP 18; TEMP 36.6; O2SAT 93
--- NOTE | 2022-07-01 22:53 | XRR_ITS ---
PROCEDURE INFORMATION: Exam: XR Abdomen Exam date and time: 07/01/2022 11:18 PM Age: 66 years old Clinical indication: Device placement; Gi device; Nasogastric tube; Additional info: Ng tube placement TECHNIQUE: Imaging protocol: Radiologic exam of the abdomen. Views: Frontal supine view of the abdomen. 1 View. COMPARISON: CT abdomen pelvis w con* [id number] 07/01/2022 1:24 PM FINDINGS: Tubes, catheters and devices: There is an NG tube projecting along expected course of the esophagus with its tip in the stomach and sidehole at the GE junction. Gastrointestinal tract: Again seen are multiple loops of dilated small bowel consistent with an ileus or obstruction. Intraperitoneal space: Surgical clips projecting throughout the abdomen. Bones/joints: Unremarkable. XR/XR abdomen 1V* [id number] IMPRESSION: NG tube with its side hole at the GE junction should be advanced further into the stomach.
--- NOTE | 2022-07-01 23:11 | PC.NURSE ---
2300- NG tube placed at this time. Patient tolerated well. Gastric content present. STAT x-ray ordered for placement check. Not completed at this time.
[2022-07-01] MEDS: lanolin oint 7 gm 1 APPLIC TOPICAL (23:28)
[2022-07-01] MEDS: phenol oral Spray 177 mL 5 SPRAY MUCOUS MEM (23:28)
[2022-07-02] VITALS (8 sets, daily range): BP systolic 112–144; BP diastolic 58–81; PULSE 61–86; RESP 14–19; TEMP 36.4–38.3; O2SAT 90–96
[2022-07-02] MEDS: sodium chlor 0.9% + KCl 20 mEq 20 MEQ/1,000 ML BAG 125 MEQ IV ×3 (02:58→20:09)
--- NOTE | 2022-07-02 03:22 | XRR_ITS ---
PROCEDURE INFORMATION: Exam: XR Chest Exam date and time: 07/02/2022 3:32 AM Age: 66 years old Clinical indication: Device placement; Ng tube; Additional info: Ng tube placement TECHNIQUE: Imaging protocol: Radiologic exam of the chest. Views: 1 view. COMPARISON: CR (CHEST, ) 07/01/2022 5:46 PM FINDINGS: Tubes, catheters and devices: There is an NG tube projecting along expected course of the esophagus with its tip and sidehole in the stomach . Stable MediPort with its tip in the SVC. Lungs: Unremarkable. No consolidation. Pleural spaces: Unremarkable. No pleural effusion. No pneumothorax. Heart/Mediastinum: Unremarkable. No cardiomegaly. Bones/joints: Unremarkable. XR/XR chest 1V [id number] IMPRESSION: NG tube with its tip in the stomach.
[2022-07-02 04:39] LABS: Basophils % 0.4 %; Eosinophils % 0.4 %; Hematocrit 31.4 % (42.0-52.0); Hemoglobin 9.8 g/dL (11.7-16.6); Lymphocytes # 0.9 10^3/uL (0.8-4.8); Lymphocytes % 16.9 %; Mean Corpuscular HGB Conc 31.2 g/dL (30.0-36.0); Mean Corpuscular Hemoglobin 27.7 pg (28.0-34.0); Mean Corpuscular Volume 88.7 fl (80-94); Monocytes # 0.6 10^3/uL (0.2-0.9); Monocytes % 12.5 %; Neutrophils # 3.53 10^3/uL (1.8-7.7); Neutrophils % 68.6 %; Nucleated Red Blood Cells % 0 %; Platelet Count 121 10^3/cmm (130-400); Red Blood Count 3.54 10^6/uL (4.1-5.3); Red Cell Distribution Width 15.1 % (12.1-15.1); White Blood Count 5.1 10^3/uL (4.0-10.0)
[2022-07-02 05:05] LABS: Alanine Aminotransferase 15 U/L (0-41); Alkaline Phosphatase 116 U/L (40-130); Aspartate Amino Transferase 19 U/L (0-40); Blood Urea Nitrogen 6 mg/dL (8-23); Carbon Dioxide 23 mmol/L (22-29); Chloride 100 mmol/L (98-107); Globulin 2.6 g/dL (1.3-4.6); Glomerular Filtration Rate 96.1 mL/min (90-130); Glucose 98 mg/dL (65-115); Magnesium 2.2 mg/dL (1.7-2.3); Osmolality Calculated 276 mOsm/kg (285-295); Sodium 134 mmol/L (136-145); Total Bilirubin 0.6 mg/dL (0.15-1.2); Total Protein 5.6 g/dL (6.6-8.7)
--- NOTE | 2022-07-02 05:28 | PC.NURSE ---
This nurse assisted the patient to the restroom for a bowel movement. The patient had diarrhea at this time. With the stool in the toilet, there was bright red blood present as well. The patient reports he has a history of hemorrhoids, but the only bleeding he has experienced with them is scant on the toilet paper. The amount blood present in the toilet bowl was fair amount. The hospitalist was called and notified and is putting in orders to hold the AM dose of lovenox.
--- NOTE | 2022-07-02 05:33 | PM.MISC ---
Miscellaneous Note Note: Fair amount of BRBP this am held therapeutic ac dose for now.
[2022-07-02 05:41] LABS: Slide Review Slide Review Perform
[2022-07-02] MEDS: vancomycin 1,250 MG/250 ML PIGGYBACK 200 MG IV ×3 (05:57→20:09)
[2022-07-02] MEDS: piperacillin-tazobactam 3.375 GM in sodium chloride 0.9% (plus) 50 ML IV ×2 (07:28→16:01)
--- NOTE | 2022-07-02 10:31 | XRR_ITS ---
PROCEDURE INFORMATION: Exam: XR Abdomen Exam date and time: 07/02/2022 10:35 AM Age: 66 years old Clinical indication: Constipation; Additional info: Psbo TECHNIQUE: Imaging protocol: Radiologic exam of the abdomen. Views: 2 Views. Upright and supine views. COMPARISON: CR (ABDOMEN, ) 07/01/2022 11:18 PM FINDINGS: Chest: The lungs show low volume but appear clear. The heart great vessels are unremarkable. Gastrointestinal tract: Multiple dilated gas-filled small bowel loops seen air is present within the colon. The finding seen correspond to moderate ileus. Metallic surgical clips are present in the left lower quadrant. Intraperitoneal space: Normal. No free air. Bones/joints: Unremarkable for age. NG tube extends into the stomach. Left side central line extends to the SVC. XR/XR acute abdomen series [id number] IMPRESSION: 1. Multiple dilated small bowel loops consistent with ileus 2. Left central line in the SVC 3. NG tube is in the stomach 4. Low lung volumes seen. 5. Metallic surgical clips left lower quadrant
--- NOTE | 2022-07-02 10:33 | PM.PN ---
Subjective Subjective: NG tube was put in overnight. He had a large bowel movement with air and bright red blood this morning. Vitals/I&O/Wt Last Vital Signs Temp 98.2 F 07/02/22 08:00 Pulse 86 07/02/22 08:00 Resp 17 07/02/22 08:00 BP 135/66 07/02/22 08:00 Pulse Ox 96 07/02/22 08:00 O2 Del Method 07/02/22 08:00 07/01/22 07/02/22 07/02/22 22:59 06:59 14:59 Intake Total 444 / 444 840 / 1284 Output Total 700 / 700 1000 / 1000 Balance -256 / -256 840 / 584 -1000 / -1000 Physical Exam Narrative: General: No acute distress, awake alert and oriented x3 Abdomen soft, mildly distended, nontender Data 07/02/22 03:25 07/02/22 03:25 Micro: Microbiology 07/01/22 11:28 Blood Culture - Preliminary Blood SPECIMEN COLLECTED 07/01/22 11:20 Blood Culture - Preliminary Blood SPECIMEN COLLECTED A&P Assessment and plan (1) Secondary malignant neoplasm of mesentery: (2) Partial small bowel obstruction: (3) Thrombosis of superior mesenteric artery: (4) GI bleed: Plan N.p.o./NGT to low intermittent wall suction Normal saline at 150 cc/h Ambulate fleet enema Tapwater enemas in the morning until cleared for colonoscopy at 9 AM tomorrow Colonoscopy The risks and benefits of the procedure, including bleeding, infection, intestinal perforation requiring surgery, missed lesion were explained to the patient. The patient is understanding of the risks and wishes to proceed. Medical management per hospitalist Attestations Medical Necessity Statement*: per primary Coding Level of Care Code Acute Code for Chg Fwd Diagnoses Secondary malignant neoplasm of mesentery C78.6 Partial small bowel obstruction K56.600 Thrombosis of superior mesenteric artery K55.069 GI bleed K92.2
--- NOTE | 2022-07-02 11:08 | PC.NURSE ---
Emesis was green and oily.
[2022-07-02] MEDS: pantoprazole 40 mg SDV IVP ×2 (11:49→23:30)
[2022-07-02] MEDS: Fleet Enema 133 mL Enema PR (11:52)
--- NOTE | 2022-07-02 14:07 | PC.NURSE ---
Emesis is green and oily
--- NOTE | 2022-07-02 15:37 | PC.NURSE ---
Ask patient two different times if he wanted to get up and walk. Patient stated not right now. Visitor at bedside came out and told this nurse he was going to go buy new sweat pants then patient would get up and walk.
--- NOTE | 2022-07-02 21:11 | PM.PN ---
Subjective Subjective: Earlier today he was having vomiting. He explains that he started vomiting after he was laid back for x-ray. Currently sitting up more he is feeling better. Vitals/I&O/Wt Last Vital Signs Temp 97.7 F 07/02/22 16:00 Pulse 85 07/02/22 16:00 Resp 16 07/02/22 16:00 BP 126/63 07/02/22 16:00 Pulse Ox 95 07/02/22 16:00 O2 Del Method 07/02/22 16:00 07/02/22 07/02/22 07/02/22 06:59 14:59 22:59 Intake Total 840 / 1284 1300 / 1300 1300 / 2600 Output Total 1775 / 1775 Balance 840 / 584 -475 / -475 1300 / 825 Physical Exam Narrative: Visited by family. Appears nauseated. Sitting up in bed. [place] by his side. Const: COMMON NORMALS: patient oriented x3 and alert GENERAL APPEARANCE: cooperative ORIENTATION/CONSCIOUSNESS: Yes awake HENMT: COMMON NORMALS: oropharynx normal Neck/C-Spine: COMMON NORMALS: no JVD Resp: COMMON NORMALS: normal respiratory effort and clear to auscultation bilaterally AUSCULTATION: clear to auscultation bilaterally Cardio: COMMON NORMALS: no JVD, regular rhythm, S1 normal heart sound present, S2 normal heart sound present and No murmurs present (Cardio) RHYTHM: regular rhythm HEART SOUNDS: S1 normal heart sound present and S2 normal heart sound present GI: COMMON NORMALS: Soft to palpation AUSCULTATION: Yes Hypoactive bowel sounds present PALPATION: Yes Soft to palpation OTHER: Abdomen distended. Extremity: COMMON NORMALS: no joint enlargement and no pedal edema Neuro: COMMON NORMALS: patient oriented x3 and moves all extremities SENSORIUM/ORIENTATION: Yes alert Skin: COMMON NORMALS: no rashes or lesions noted GENERAL SKIN EXAM: no rashes or lesions noted Data 07/02/22 03:25 07/02/22 03:25 Micro: Microbiology 07/01/22 13:21 Enteric Pathogens (PCR) - Final Stool 07/01/22 12:55 C.difficile Toxin B Gene (PCR) - Final Stool 07/01/22 11:28 Blood Culture - Preliminary Blood NEGATIVE TO DATE 07/01/22 11:20 Blood Culture - Preliminary Blood NEGATIVE TO DATE A&P Assessment and plan (1) GI bleed: Discussed with surgery. Tapwater enemas. Plan for colonoscopy tomorrow. Follow-up hemoglobin requested tonight. Morning. Overnight documentation reviewed. Fair amount of BRBPR. Anticoagulation was held. (2) Partial small bowel obstruction: Continue bowel rest. NGT decompression. IV fluid support. (3) Superior mesenteric vein thrombosis: Anticoagulation had to be held due to GI bleed. Discussed with surgery, discussed with him, further assessment of GI bleeding as above. Discussed nonocclusive thrombosis but at risk of progression, at risk of bowel ischemia. Still with active bleeding into position currently not an option. Catheter directed thrombolysis would still also increases risk of bleeding, additionally requiring time for transfer. In case bleeding may be controlled, optimal situation would be ability to resume anticoagulation. Discussing with him and his family they are in agreement. (4) Dehydration: Continue IVF (5) Hypokalemia: Give potassium. Recheck potassium. At risk of hypokalemia with NG suctioning. Vomiting. At risk of associated complications including arrhythmias. Add telemetry monitoring. (6) Fever: Blood culture reviewed, preliminary so far negative.C. difficile reviewed, negative. Enteric bacterial panel also negative. Patient with fever on presentation to oncology clinic Chest x-ray has been done, showing no infiltrate. He is on room air, he is not tachycardic, he does not complain of chest discomfort, and he is not reporting shortness of breath now. Continue vancomycin and Zosyn. He has a port, which could be a source for bacteremia. Note that blood cultures were done previously on June 29 and are negative to date. CBC, CMP tomorrow (7) Abdominal pain: CT as above (8) Diarrhea: Negative C. difficile, unremarkable pathogen panel (9) Colon cancer: Patient receiving chemotherapy, with last treatment June 20 (10) HTN (hypertension), benign: Continue home medication (11) GERD (gastroesophageal reflux disease): Secondary to history of vomiting initiate Protonix 40 mg IV every 12 hours Plan Anemia, thrombocytopenia. This appears to be recovering. This is likely secondary in part to chemotherapy. Repeat laboratory tomorrow. Multiple other medical problems as outlined in past medical history Full code currently Attestations Medical Necessity Statement*: Continue admission for assessment management of lower GI bleeding, partial small bowel obstruction, nonocclusive superior mesenteric vein thrombosis, at risk of further deterioration, bowel ischemia, bleeding Diagnoses GI bleed K92.2 Partial small bowel obstruction K56.600 Superior mesenteric vein thrombosis K55.069 Dehydration E86.0 Hypokalemia E87.6 Fever R50.9 Abdominal pain R10.9 Diarrhea R19.7 Colon cancer C18.9 HTN (hypertension), benign I10 GERD (gastroesophageal reflux disease) K21.9
[2022-07-02] MEDS: lidocaine 1% 5 ML in potassium chloride premix 100 ML 26.25 ML IV (22:08)
[2022-07-02 22:23] LABS: Hemoglobin 9.8 g/dL (11.7-16.6)
[2022-07-03] VITALS (9 sets, daily range): BP systolic 107–155; BP diastolic 58–89; PULSE 65–83; RESP 15–18; TEMP 36.5–37.3; O2SAT 92–100
[2022-07-03] MEDS: piperacillin-tazobactam 3.375 GM in sodium chloride 0.9% (plus) 50 ML IV ×3 (02:17→17:05)
[2022-07-03 04:16] LABS: Basophils % 0.5 %; Eosinophils % 0.5 %; Hematocrit 31.3 % (42.0-52.0); Hemoglobin 9.6 g/dL (11.7-16.6); Lymphocytes # 0.7 10^3/uL (0.8-4.8); Lymphocytes % 17.7 %; Mean Corpuscular HGB Conc 30.7 g/dL (30.0-36.0); Mean Corpuscular Hemoglobin 27.7 pg (28.0-34.0); Mean Corpuscular Volume 90.5 fl (80-94); Mean Platelet Volume 10.1 fL (7.4-10.4); Monocytes # 0.5 10^3/uL (0.2-0.9); Monocytes % 12.9 %; Neutrophils # 2.81 10^3/uL (1.8-7.7); Nucleated Red Blood Cells % 0 %; Platelet Count 126 10^3/cmm (130-400); Red Blood Count 3.46 10^6/uL (4.1-5.3); Red Cell Distribution Width 15.5 % (12.1-15.1); White Blood Count 4.2 10^3/uL (4.0-10.0)
[2022-07-03 04:39] LABS: Alanine Aminotransferase 11 U/L (0-41); Albumin Level 2.6 g/dL (3.5-5.2); Alkaline Phosphatase 107 U/L (40-130); Anion Gap 15.3 (5-19); Aspartate Amino Transferase 19 U/L (0-40); Blood Urea Nitrogen 7 mg/dL (8-23); Calcium 7.9 mg/dL (8.5-10.5); Carbon Dioxide 20 mmol/L (22-29); Chloride 105 mmol/L (98-107); Globulin 2.8 g/dL (1.3-4.6); Glomerular Filtration Rate 112.1 mL/min (90-130); Glucose 92 mg/dL (65-115); Osmolality Calculated 282 mOsm/kg (285-295); Potassium 3.3 mmol/L (3.5-5.1); Sodium 137 mmol/L (136-145); Total Bilirubin 0.4 mg/dL (0.15-1.2); Total Protein 5.4 g/dL (6.6-8.7)
[2022-07-03 05:11] LABS: Slide Review Slide Review Perform
[2022-07-03] MEDS: sodium chlor 0.9% + KCl 20 mEq 20 MEQ/1,000 ML BAG 125 MEQ IV ×2 (05:26→17:06)
[2022-07-03] MEDS: vancomycin 1,250 MG/250 ML PIGGYBACK 200 MG IV ×2 (06:37→21:20)
--- NOTE | 2022-07-03 08:24 | W.PM.OPSUD ---
Surgery/Procedure H&P Update DATE OF PROCEDURE: July 03, 2022 DATE H&P PERFORMED: 07/01/22 H&P UPDATE INFORMATION: I have reviewed H&P completed within last 30 days, I have examined patient prior to procedure and Changes to prior documentation as noted here (Patient developed SMA thrombosis and then bright red blood per rectum once on anticoagulation) PREOP DIAGNOSIS: diagnostic PLANNED PROCEDURE: Operation Date: 07/03/22 12:00 Proposed Procedures p Colonoscopy(Not Applicable) - Kev Chaparro DO
[2022-07-03] MEDS: pantoprazole 40 mg SDV IVP (11:18)
[2022-07-03] MEDS: lidocaine 1% 5 ML in potassium chloride premix 100 ML 26.25 ML IV (11:18)
[2022-07-03] MEDS: sodium chloride 0.9% 1,000 ML 30 ML IV (12:15)
--- NOTE | 2022-07-03 12:28 | ANES.PREANE2 ---
Pre-Anesthetic Assessment Height/Weight: Height 1.83 m Weight 86.636 kg Temp Pulse Resp BP Pulse Ox O2 Del Method 98.5 F 83 18 155/89 100 07/03/22 12:15 07/03/22 12:15 07/03/22 12:15 07/03/22 12:15 07/03/22 12:15 07/03/22 12:15 Preop Diagnosis: diagnostic Operation Date: 07/03/22 12:00 Proposed Procedures p Colonoscopy(Not Applicable) - Kev Chaparro DO Familial anesthetic complications: PONV Was Beta Vicky taken within 24 hours: N/A Was Clonidine taken within 24 hours: N/A Social No alcohol and No tobacco (h/o smoking) Exam alert, oriented x 3, clear to auscultation bilaterally and regular rate & rhythm Airway Submandibular: within normal limits Cervical ROM: within normal limits Mallampati: Class II Dentition: false Pulmonary Chronic Obstructive Pulmonary Disease CV/HEM Anemia and Hypertension GI Gastroesophageal Reflux Disease GI bleed, colon CA Anesthetic Plan ASA status: 3E Anesthesia: MAC Medications/Allergies Home Medications Medication Instructions Recorded Confirmed Last Taken Type amlodipine 5 mg tablet 5 mg PO DAILY #30 tabs 05/04/22 07/02/22 06/26/22 Rx pantoprazole 40 mg tablet,delayed 40 mg PO DAILY #30 tabs 05/04/22 07/02/22 06/26/22 Rx release (Protonix) meloxicam 15 mg tablet 15 mg PO DAILY #90 tabs 06/16/22 07/02/22 06/26/22 Rx Allergies Allergy/AdvReac Type Severity Reaction Status Date / Time No Known Allergies Allergy Verified 06/29/22 12:41 Current Medications Generic Name Dose Route Start Last Admin Trade Name Freq PRN Reason Stop Dose Admin Enoxaparin Sodium 90 mg 07/02/22 06:00 07/02/22 05:58 Enoxaparin 100 Mg/Ml Syringe SUBCUT Not Given Q12H HUEY Potassium Chloride/Sodium Chloride 20 meq in 1,000 mls @ 125 mls/hr 07/01/22 10:45 07/03/22 05:26 Sodium Chlor 0.9% + Kcl 20 Meq IV 125 mls/hr .Q8H HUEY Administration Vancomycin/PEG/NADA/Lysine/Water 1,250 mg in 250 mls @ 200 mls/hr 07/01/22 13:00 07/03/22 08:22 Vancocin IV Infused Q8H HUEY Infusion Piperacillin Sod/Tazobactam 50 mls @ 12.5 mls/hr 07/03/22 01:00 07/03/22 08:29 Sod 3.375 gm/ Sodium Chloride IV 12.5 mls/hr Q8H HUEY Administration Protocol As Directed Lidocaine HCl 5 ml/ Potassium 105 mls @ 26.25 mls/hr 07/03/22 08:47 07/03/22 11:18 Chloride IV 07/03/22 12:46 26.25 mls/hr ONCE ONE Administration Lanolin 1 applic 07/01/22 23:14 07/01/22 23:28 Lanolin Oint 7 Gm TOPICAL 1 applic PRN PRN Administration DRYNESS Pantoprazole Sodium 40 mg 07/01/22 11:00 07/03/22 11:18 Pantoprazole 40 Mg Sdv IVP 40 mg Q12H HUEY Administration Phenol 5 spray 07/01/22 23:16 07/01/22 23:28 Phenol Oral [place] 177 Ml MUCOUS MEM 5 spray Q2H PRN Administration SORE THROAT PFSH Anesthesia Medical History BPH (benign prostatic hyperplasia) Colon cancer Degenerative arthritis Dyslipidemia GERD (gastroesophageal reflux disease) HTN (hypertension), benign Surgical History H/O: vasectomy Port-A-Cath in place (02/18/21) S/P right hemicolectomy extended, with en bloc excision of abdominal wall, stomach, and omentum Status post colonoscopy (06/30/21) Family History Father Cancer Lung Grandfather Cancer Lung Brother Cancer Lung Grandmother Hypertension Denies family history of Diabetes CAD (coronary artery disease) Clotting disorder Dementia Hyperlipidemia Psychiatric illness Chronic kidney disease (CKD) Suicide Anesthesia complication Bleeding disorder Lung disease Stroke Social History Smoking and tobacco status: former smoker (quit in 1997) Alcohol intake: current Alcohol intake frequency: 0-2 Drinks per Day Alcohol type: beer Desire information about alcohol rehabilitation?: No Desire information about substance/drug rehabilitation?: No Adopted: No Caregiver/support person: No Lives independently: Yes Housing: House Marital status: Unknown Number of children: 1 Current occupational status: previously employed Current gender identity: Male Agree to transfusion: Yes Data Anesthesia 07/03/22 02:57 07/03/22 02:57 Short CBC 07/02/22 07/02/22 07/03/22 Range/Units 03:25 22:10 02:57 WBC 5.1 4.2 (4.0-10.0) 10^3/uL Hgb 9.8 L 9.8 L 9.6 L (11.7-16.6) g/dL Hct 31.4 L 31.3 L (42.0-52.0) % MCV 88.7 90.5 (80-94) fl Plt Count 121 L 126 L (130-400) 10^3/cmm Neut % (Auto) 68.6 67.0 % Neut # (Auto) 3.53 2.81 (1.8-7.7) 10^3/uL BMP 07/02/22 07/03/22 03:25 02:57 Sodium 134 L 137 Potassium 3.0 L 3.3 L Chloride 100 105 Carbon Dioxide 23 20 L BUN 6 L 7 L Creatinine 0.8 0.7 Glucose 98 92 Calcium 8.0 L 7.9 L Liver Function 07/02/22 07/03/22 Range/Units 03:25 02:57 Total Bilirubin 0.6 0.4 (0.15-1.2) mg/dL AST 19 19 (0-40) U/L ALT 15 11 (0-41) U/L Alkaline Phosphatase 116 107 (40-130) U/L Albumin 3.0 L 2.6 L (3.5-5.2) g/dL Urine 07/01/22 Range/Units 18:10 Urine Color Yellow (Yellow) Urine Appearance Clear (CLEAR) Urine pH 6.5 (5-7) Ur Specific [place] 1.005 (1.005-1.030) Urine Protein Neg (Negative) Urine Glucose (UA) Norm (Normal) Urine Ketones Negative (Negative) Urine Nitrate Negative (Negative) Urine Bilirubin Neg (Negative) Ur Leukocyte Esterase Negative (Negative) Urine RBC None (0-2) /hpf Urine WBC 0-4 H (0-5) /hpf COVID Results 07/01/22 13:10 Coronavirus 229E (PCR) Not detected SARS-CoV-2 (PCR) Not detected Microbiology 07/01/22 13:21 Enteric Pathogens (PCR) - Final Stool 07/01/22 12:55 C.difficile Toxin B Gene (PCR) - Final Stool 07/01/22 11:28 Blood Culture - Preliminary Blood NEGATIVE TO DATE 07/01/22 11:20 Blood Culture - Preliminary Blood NEGATIVE TO DATE Cardiac Studies: No Data to Display
--- NOTE | 2022-07-03 13:49 | ANE.PACU2 ---
Inpatient post-anesthesia follow up: Airway intact: Yes Vital signs: Temperature 98.5 F Pulse Rate 83 Respiratory Rate 18 Blood Pressure 155/89 Pulse Oximetry 100 Oxygen Delivery Me thod Room Air Oxygen Flow Rate Fraction of Inspir ed Oxygen Hydration adequate: Yes Nausea and vomiting: No Pain level: 2 Mental status: Baseline
--- NOTE | 2022-07-03 14:22 | PC.NURSE ---
Patient returned to room from GI lab.
[2022-07-03 17:01] LABS: Potassium 3.5 mmol/L (3.5-5.1)
--- NOTE | 2022-07-03 21:34 | PM.PN ---
Subjective Subjective: This morning during my visit he is awaiting colonoscopy. Subsequently on the visit done with colonoscopy, no BM so far, no flatus. He had pulled out his NGT. No vomiting. Without abdominal pain. On return visit he is visited by family. Vitals/I&O/Wt Last Vital Signs Temp 99.1 F 07/03/22 20:00 Pulse 77 07/03/22 20:00 Resp 17 07/03/22 20:00 BP 135/75 07/03/22 20:00 Pulse Ox 92 07/03/22 20:00 O2 Del Method 07/03/22 20:00 O2 Flow Rate 2 07/03/22 13:41 07/03/22 07/03/22 07/03/22 06:59 14:59 22:59 Intake Total 1155 / 4125 1650 / 1650 205 / 1855 Output Total 100 / 1875 850 / 850 Balance 1055 / 2250 800 / 800 205 / 1005 Weight last 48 hrs Weight 86.636 kg Physical Exam Const: COMMON NORMALS: patient oriented x3 and alert GENERAL APPEARANCE: cooperative ORIENTATION/CONSCIOUSNESS: Yes awake HENMT: COMMON NORMALS: oropharynx normal OTHER: On second visit NGT is out Neck/C-Spine: COMMON NORMALS: no JVD Resp: COMMON NORMALS: normal respiratory effort and clear to auscultation bilaterally AUSCULTATION: clear to auscultation bilaterally Cardio: COMMON NORMALS: no JVD, regular rhythm, S1 normal heart sound present, S2 normal heart sound present and No murmurs present (Cardio) RHYTHM: regular rhythm HEART SOUNDS: S1 normal heart sound present and S2 normal heart sound present GI: COMMON NORMALS: Soft to palpation AUSCULTATION: Yes Hypoactive bowel sounds present PALPATION: Yes Soft to palpation Extremity: COMMON NORMALS: no joint enlargement and no pedal edema Neuro: COMMON NORMALS: patient oriented x3 and moves all extremities SENSORIUM/ORIENTATION: Yes alert Skin: COMMON NORMALS: no rashes or lesions noted GENERAL SKIN EXAM: no rashes or lesions noted Data 07/03/22 02:57 07/03/22 16:33 A&P Assessment and plan (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 Reviewed hemoglobin, down slightly from 9.3. After tapwater enemas underwent colonoscopy today. Number of findings as per discussion with surgery, reviewed also report, including some inflammation in ileum, few petechiae, no active bleeding, AVM in colon, clip, internal hemorrhoids noted, additional abnormality in the rectum may represent mass versus proctitis. This was biopsied with very easy bleeding. As per discussion of surgery he would be at high likelihood of needing with reinitiation of anticoagulation. Discussing with surgery consideration for transfer to higher level facility for consideration of alternative treatment of incomplete SMV thrombosis. Discussing with him, he is agreeable for transfer. I have spent several hours alone on contacting various facilities and discussing with transfer centers and peer to peer with generalists and specialists, including [facility], [facility], , [facility] and [facility]. IR at [facility] did not think this is something they could perform at their facility. [facility] did not have any beds in [facility]. [facility] after discussion with hospitalist tentatively accepted patient and put him on a waiting list, although beds may not be available for days. Discussing with [facility] IR initially giving consideration to possibility of attempted slowly dissolving clot via SMA through the intestinal circulation, however, on further consideration discussion of his comorbidities found to be too high risk for bleeding for the initial considered approach. Finding that they would not be able to assist him. Discussion with [facility] IR, consideration of treatment would require fairly aggressive intervention with a very difficult approach, requiring transhepatic entry, elevated risk of complication. Certainly in case of complete occlusion of SMV bowel thrombosis may be possible and in his case may be life-threatening, although some patients may sometimes go through SMV thrombosis without severe symptoms. It is also not entirely clear if his symptoms are related to his incomplete SMV thrombosis. On further discussion with additional IR by the team there similar consideration may be given and he is tentatively accepted there for further consideration certainly without guarantee that a procedure would be undertaken, but also without a bed available currently for days maybe longer. And all this discussed with him, he understands that the procedure may not be guaranteed, procedure may be high risk, he is okay further staying here for now while awaiting transfer to further monitor his condition while on the waiting list. Discussed with RN. Intolerant of originally attempted first-line treatment with anticoagulation with GI bleed. Bevacizumab also has risk of thrombosis to which she may not be able to come return when resuming chemotherapy. Please make sure to notify his oncology team at discharge. (2) GI bleed: Colonoscopy findings as above. (3) Partial small bowel obstruction: He had removed his NGT. He is on trial of clear liquid diet. Discussed with him attempting ambulation. (4) Dehydration: Continue IVF (5) Hypokalemia: Received potassium. Potassium reviewed, soft 3.5. Recheck potassium. At risk of hypokalemia poor oral intake. Continue telemetry monitoring. (6) Fever: Possible proctitis versus malignancy on colonoscopy. Continue Zosyn. Check MRSA PCR. Fever recurred again yesterday at noon 101 Fahrenheit. Blood culture reviewed, so far negative. Blood culture reviewed, preliminary so far negative.C. difficile reviewed, negative. Enteric bacterial panel also negative. Patient with fever on presentation to oncology clinic: Further reviewed oncology notes for more detailed history with transfer requests. Chest x-ray has been done, showing no infiltrate. He is on room air, he is not tachycardic, he does not complain of chest discomfort, and he is not reporting shortness of breath now. Empirically on vancomycin and Zosyn. He has a port, which could be a source for bacteremia. Note that blood cultures were done previously on June 29 and are negative to date. CBC, CMP tomorrow (7) Abdominal pain: CT as above (8) Diarrhea: Negative C. difficile, unremarkable pathogen panel (9) Colon cancer: Patient receiving chemotherapy, with last treatment June 20 (10) HTN (hypertension), benign: Continue home medication (11) GERD (gastroesophageal reflux disease): Secondary to history of vomiting initiate Protonix 40 mg IV every 12 hours Plan Anemia, thrombocytopenia. This appears to be recovering. This is likely secondary in part to chemotherapy. Repeat laboratory tomorrow. Multiple other medical problems as outlined in past medical history Full code currently Attestations Medical Necessity Statement*: Continue admission for assessment and management of SBO, further assessment management and transfer arrangements for nonocclusive superior mesenteric vein thrombosis at risk of bowel ischemia with severe or fatal outcome, GI bleeding with anticoagulation, fever of unclear origin, possible proctitis, and a gentleman with underlying metastatic colon cancer, additional comorbidities as above. and High Time for a total of 135 minutes, includes reviewing past or interval history, examining/interviewing patient, placing orders, counseling patient/family/other support, updating patient/family/other support, discussing plan of care with staff, communicating with other healthcare providers, documenting encounter and coordinating care Diagnoses Superior mesenteric vein thrombosis K55.069 GI bleed K92.2 Partial small bowel obstruction K56.600 Dehydration E86.0 Hypokalemia E87.6 Fever R50.9 Abdominal pain R10.9 Diarrhea R19.7 Colon cancer C18.9 HTN (hypertension), benign I10 GERD (gastroesophageal reflux disease) K21.9
[2022-07-04] VITALS (7 sets, daily range): BP systolic 108–144; BP diastolic 48–76; PULSE 65–74; RESP 15–16; TEMP 36.6–37.1; O2SAT 92–97
[2022-07-04] MEDS: pantoprazole 40 mg SDV IVP ×3 (00:08→23:47)
[2022-07-04] MEDS: piperacillin-tazobactam 3.375 GM in sodium chloride 0.9% (plus) 50 ML IV ×3 (00:08→17:48)
[2022-07-04] MEDS: sodium chlor 0.9% + KCl 20 mEq 20 MEQ/1,000 ML BAG 125 MEQ IV ×3 (01:59→20:47)
[2022-07-04 04:23] LABS: Basophils % 0.4 %; Eosinophils % 0.4 %; Hematocrit 29.8 % (42.0-52.0); Lymphocytes # 0.6 10^3/uL (0.8-4.8); Lymphocytes % 12.5 %; Mean Corpuscular HGB Conc 30.2 g/dL (30.0-36.0); Mean Corpuscular Hemoglobin 27.6 pg (28.0-34.0); Mean Corpuscular Volume 91.4 fl (80-94); Mean Platelet Volume 10.9 fL (7.4-10.4); Monocytes # 0.5 10^3/uL (0.2-0.9); Monocytes % 10.9 %; Neutrophils # 3.55 10^3/uL (1.8-7.7); Neutrophils % 74.1 %; Nucleated Red Blood Cells % 0 %; Platelet Count 134 10^3/cmm (130-400); Red Blood Count 3.26 10^6/uL (4.1-5.3); Red Cell Distribution Width 15.5 % (12.1-15.1); White Blood Count 4.8 10^3/uL (4.0-10.0)
[2022-07-04 04:46] LABS: Alanine Aminotransferase 14 U/L (0-41); Albumin Level 2.4 g/dL (3.5-5.2); Alkaline Phosphatase 108 U/L (40-130); Anion Gap 15.3 (5-19); Aspartate Amino Transferase 23 U/L (0-40); Blood Urea Nitrogen 5 mg/dL (8-23); Calcium 7.5 mg/dL (8.5-10.5); Carbon Dioxide 19 mmol/L (22-29); Chloride 106 mmol/L (98-107); Globulin 2.7 g/dL (1.3-4.6); Glomerular Filtration Rate 96.1 mL/min (90-130); Glucose 88 mg/dL (65-115); Osmolality Calculated 281 mOsm/kg (285-295); Potassium 3.3 mmol/L (3.5-5.1); Sodium 137 mmol/L (136-145); Total Bilirubin 0.4 mg/dL (0.15-1.2); Total Protein 5.1 g/dL (6.6-8.7)
[2022-07-04] MEDS: vancomycin 1,250 MG/250 ML PIGGYBACK 200 MG IV ×2 (05:24→14:25)
--- NOTE | 2022-07-04 12:38 | PC.NURSE ---
[facility] and [facility] both updated on patient condition this shift.
--- NOTE | 2022-07-04 14:14 | PC.SOCIAL ---
IMM IMM signed by patient and placed in chart and copy given to patient
--- NOTE | 2022-07-04 16:49 | PM.PN ---
Subjective Subjective: Complains of feeling distended today. Has a few loose bowel movements earlier this morning. Difficulty passing flatus. NG was pulled out yesterday, patient does not wanted to be placed back, declines this. He has not vomited after starting the clear liquid diet, however states that he is feeling full after taking p.o. consumption. Hemoglobin is stable at 9.0. We are still awaiting transfer to [facility]. Medications: Reviewed: Yes Vitals/I&O/Wt Last Vital Signs Temp 97.9 F 07/04/22 15:50 Pulse 70 07/04/22 15:50 Resp 16 07/04/22 15:50 BP 144/76 07/04/22 15:50 Pulse Ox 95 07/04/22 15:50 O2 Del Method 07/04/22 15:50 O2 Flow Rate 2 07/03/22 13:41 07/04/22 07/04/22 07/04/22 06:59 14:59 22:59 Intake Total 1050 / 3395 1420 / 1420 250 / 1670 Output Total 450 / 1900 Balance 600 / 1495 1420 / 1420 250 / 1670 Weight last 48 hrs Weight 86.636 kg Physical Exam Narrative: General: No acute distress, AO x3 HEENT: PERRLA, pupils bilaterally equal and reactive, pallors not present Chest: Normal vesicular breath sounds, no added sounds, equal good air entry bilaterally CVS: S1-S2 regular, no murmurs, no tachycardia, no gallops, no rubs Abdomen: Mildly distended, sluggish bowel sounds Neuro: No focal deficits, no facial deformity, AO x3, power 5/5 in all limbs Data 07/04/22 03:08 07/04/22 03:08 Micro: Microbiology 07/04/22 05:27 MRSA Culture - Final Nose A&P Assessment and plan (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 Reviewed hemoglobin, currently stable at 9.0 Status post colonoscopy on June 1922 which showed inflammation in ileum, few petechiae, no active bleeding, AVM in colon, clip, internal hemorrhoids noted, additional abnormality in the rectum may represent mass versus proctitis. This was biopsied with very easy bleeding. As per discussion of surgery not a good candidate for reinitiation of anticoagulation is highly likely to bleed. We are attempting to transfer patient to a higher center to see if alternate treatment options are available for his SMV thrombosis, particularly those from an IR perspective. Dr. Mtz has placed multiple calls and discussed patient's case with multiple providers. Patient has currently been accepted at [facility], we are awaiting a bed. This may take several days. Currently he is hemodynamically stable. Closely monitor his abdominal exam. He has had a few small bowel movements. Not passing flatus easily. Closely monitor off of NG. Patient does not want NG to be placed again. Bevacizumab also has risk of thrombosis to which she may not be able to come return when resuming chemotherapy. On hold right now, oncology will be updated at discharge. (2) GI bleed: Colonoscopy findings as above. Hemoglobin currently stable at 9. (3) Partial small bowel obstruction: He had removed his NGT. He is on trial of clear liquid diet. Discussed with him attempting ambulation. (4) Dehydration: Continue IVF (5) Hypokalemia: Received potassium. (6) Fever: Possible proctitis versus malignancy on colonoscopy. Currently afebrile since July 02, 2021. Discontinue vancomycin. Continue Zosyn. Blood culture reviewed, preliminary so far negative.C. difficile reviewed, negative. Enteric bacterial panel also negative. Patient with fever on presentation to oncology clinic: Further reviewed oncology notes for more detailed history with transfer requests. Chest x-ray has been done, showing no infiltrate. He is on room air, he is not tachycardic, he does not complain of chest discomfort, and he is not reporting shortness of breath now. Empirically on vancomycin and Zosyn. He has a port, which could be a source for bacteremia. Note that blood cultures were done previously on June 29 and are negative to date. (7) Abdominal pain: CT as above (8) Diarrhea: Negative C. difficile, unremarkable pathogen panel (9) Colon cancer: Patient receiving chemotherapy, with last treatment June 20 (10) HTN (hypertension), benign: Continue home medication (11) GERD (gastroesophageal reflux disease): Secondary to history of vomiting initiate Protonix 40 mg IV every 12 hours Plan Anemia, thrombocytopenia. This appears to be recovering. This is likely secondary in part to chemotherapy. Repeat laboratory tomorrow. Multiple other medical problems as outlined in past medical history Full code currently Attestations Medical Necessity Statement*: Slowly advancing diet today, thus far tolerating a clear liquid diet, monitor hemoglobin closely, awaiting transfer to higher center Coding Level of Care Code Acute Code for Chg Fwd Diagnoses Superior mesenteric vein thrombosis K55.069 GI bleed K92.2 Partial small bowel obstruction K56.600 Dehydration E86.0 Hypokalemia E87.6 Fever R50.9 Abdominal pain R10.9 Diarrhea R19.7 Colon cancer C18.9 HTN (hypertension), benign I10 GERD (gastroesophageal reflux disease) K21.9
--- NOTE | 2022-07-04 17:14 | PM.PN ---
Subjective Subjective: Patient reports that he is still having bowel movements but passing little to no flatus. He just had an episode of emesis but reports he has not been nauseous all day. Vitals/I&O/Wt Last Vital Signs Temp 97.9 F 07/04/22 15:50 Pulse 70 07/04/22 15:50 Resp 16 07/04/22 15:50 BP 144/76 07/04/22 15:50 Pulse Ox 95 07/04/22 15:50 O2 Del Method 07/04/22 15:50 O2 Flow Rate 2 07/03/22 13:41 07/04/22 07/04/22 07/04/22 06:59 14:59 22:59 Intake Total 1050 / 3395 1420 / 1420 250 / 1670 Output Total 450 / 1900 Balance 600 / 1495 1420 / 1420 250 / 1670 Weight last 48 hrs Weight 191 lb Physical Exam Narrative: General: No acute distress, awake alert and oriented x3 Abdomen soft, mildly distended, mild periumbilical tenderness Data 07/04/22 03:08 07/04/22 03:08 Micro: Microbiology 07/04/22 05:27 MRSA Culture - Final Nose A&P Assessment and plan (1) Secondary malignant neoplasm of mesentery: (2) Partial small bowel obstruction: (3) Thrombosis of superior mesenteric artery: (4) GI bleed: Plan Clear liquids. He will need to be n.p.o. and have an NG tube if he vomits again Normal saline at 150 cc/h Ambulate He was found to have inflammation of the small bowel, and AVM of the colon that was clipped and 2 areas of the rectum that were tubular invading tumor or proctitis. These were biopsied and clipped. He is not a candidate for anticoagulation due to his high likelihood of bleeding from multiple areas in his small bowel and colon Attestations Medical Necessity Statement*: Per primary y Coding Level of Care Code Acute Code for Chg Fwd Diagnoses Secondary malignant neoplasm of mesentery C78.6 Partial small bowel obstruction K56.600 Thrombosis of superior mesenteric artery K55.069 GI bleed K92.2
[2022-07-04] MEDS: ondansetron 2 mg/ML SDV 2 mL 4 MG IVP (19:27)
[2022-07-05] VITALS (9 sets, daily range): BP systolic 122–149; BP diastolic 61–84; PULSE 68–84; RESP 12–18; TEMP 36.6–36.9; O2SAT 93–96
[2022-07-05] MEDS: piperacillin-tazobactam 3.375 GM in sodium chloride 0.9% (plus) 50 ML IV ×3 (01:49→18:12)
[2022-07-05] MEDS: ondansetron 2 mg/ML SDV 2 mL 4 MG IVP (01:50)
[2022-07-05] MEDS: sodium chlor 0.9% + KCl 20 mEq 20 MEQ/1,000 ML BAG 125 MEQ IV ×3 (04:50→21:46)
--- NOTE | 2022-07-05 05:07 | PC.NURSE ---
Pt referred to hospitalist for review of pain management w/o active IVP pain medication and con't emesis. Awaiting orders.
[2022-07-05 05:23] LABS: Basophils % 0.3 %; Eosinophils % 0.5 %; Hematocrit 29.9 % (42.0-52.0); Hemoglobin 9.4 g/dL (11.7-16.6); Lymphocytes # 0.6 10^3/uL (0.8-4.8); Lymphocytes % 10.4 %; Mean Corpuscular HGB Conc 31.4 g/dL (30.0-36.0); Mean Corpuscular Hemoglobin 28.1 pg (28.0-34.0); Mean Corpuscular Volume 89.3 fl (80-94); Mean Platelet Volume 10.2 fL (7.4-10.4); Monocytes # 0.6 10^3/uL (0.2-0.9); Monocytes % 9.8 %; Neutrophils # 4.69 10^3/uL (1.8-7.7); Neutrophils % 77.7 %; Nucleated Red Blood Cells % 0 %; Platelet Count 145 10^3/cmm (130-400); Red Blood Count 3.35 10^6/uL (4.1-5.3); Red Cell Distribution Width 15.6 % (12.1-15.1)
[2022-07-05 05:50] LABS: Alanine Aminotransferase 14 U/L (0-41); Albumin Level 2.4 g/dL (3.5-5.2); Alkaline Phosphatase 109 U/L (40-130); Anion Gap 13.4 (5-19); Aspartate Amino Transferase 26 U/L (0-40); Blood Urea Nitrogen 5 mg/dL (8-23); Calcium 7.8 mg/dL (8.5-10.5); Carbon Dioxide 22 mmol/L (22-29); Chloride 103 mmol/L (98-107); Globulin 3.1 g/dL (1.3-4.6); Glucose 96 mg/dL (65-115); Osmolality Calculated 277 mOsm/kg (285-295); Potassium 3.4 mmol/L (3.5-5.1); Sodium 135 mmol/L (136-145); Total Bilirubin 0.5 mg/dL (0.15-1.2); Total Protein 5.5 g/dL (6.6-8.7)
--- NOTE | 2022-07-05 08:26 | XR_ITS ---
WS: [id number] Exam: XR chest 1V portable [id number] Date/Time of Exam: 07/05/2022 8:36 AM Reason For Exam: Verify NG placement Comparison 07/02/2022. An enteric tube is noted ending in the fundus of the stomach. The lungs remain clear and fully expand ed. Cardiomediastinal silhouette is unremarkable for technique. Left subclavian central line in place ending in the lower one third of the SVC. Bony structures are intact. No pleural effusion. XR/XR chest 1V portable [id number] IMPRESSION: 1. Enteric tube ending in the fundus of the stomach. Left-sided central line en ding in the lower one third of the SVC. 2. No acute process noted.
--- NOTE | 2022-07-05 11:29 | PM.PN ---
Subjective Subjective: Patient vomited overnight and this morning. NG tube was placed by myself Vitals/I&O/Wt Last Vital Signs Temp 97.8 F 07/07/22 04:45 Pulse 73 07/07/22 04:45 Resp 19 H 07/07/22 04:45 BP 119/69 07/07/22 04:45 Pulse Ox 96 07/07/22 04:45 O2 Del Method 07/07/22 04:45 O2 Flow Rate 2 07/03/22 13:41 07/06/22 07/06/22 07/07/22 14:59 22:59 06:59 Intake Total 1050 / 1050 1290 / 2340 1170 / 3510 Output Total 200 / 200 1000 / 1200 800 / 2000 Balance 850 / 850 290 / 1140 370 / 1510 Physical Exam Narrative: General: No acute distress, awake alert and oriented x3 Abdomen soft, mildly distended, mild periumbilical tenderness Data 07/06/22 04:28 07/06/22 04:28 Micro: Microbiology 07/01/22 11:28 Blood Culture - Final Blood NO GROWTH AFTER 5 DAYS 07/01/22 11:20 Blood Culture - Final Blood NO GROWTH AFTER 5 DAYS A&P Assessment and plan (1) Secondary malignant neoplasm of mesentery: (2) Partial small bowel obstruction: (3) Thrombosis of superior mesenteric artery: (4) GI bleed: Plan N.p.o./NGT to LIWS Normal saline at 150 cc/h Ambulate He was found to have inflammation of the small bowel, and AVM of the colon that was clipped and 2 areas of the rectum that were tubular invading tumor or proctitis. These were biopsied and clipped. 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
--- NOTE | 2022-07-05 13:30 | PC.NURSE ---
Called [facility] patient is on the list but they are unable to give me a estimated time when they will have one.
--- NOTE | 2022-07-05 13:45 | PC.NURSE ---
Spoke to [facility] and the hospital remains at capacity and a patient update was given.
--- NOTE | 2022-07-05 14:21 | P.PN_ITS ---
Subjective Subjective: Patient had multiple episodes of emesis this morning following which nasogastric tube was reinserted. Currently NGT is to suction. He has not yet passing flatus. Passed a small amount of loose bowel movement this morning. Rectal biopsy from colonoscopy returned with invasive adenocarcinoma. Medications: Reviewed: Yes Vitals/I&O/Wt Last Vital Signs Temp 98.5 F 07/05/22 11:36 Pulse 84 07/05/22 13:37 Resp 16 07/05/22 11:36 BP 138/84 07/05/22 11:36 Pulse Ox 96 07/05/22 11:36 O2 Del Method 07/05/22 11:36 O2 Flow Rate 2 07/03/22 13:41 07/04/22 07/05/22 07/05/22 22:59 06:59 14:59 Intake Total 1300 / 2720 1050 / 3770 985.417 / 985.417 Output Total 400 / 400 Balance 900 / 2320 1050 / 3370 985.417 / 985.417 Physical Exam Narrative: General: No acute distress, AO x3, appears uncomfortable HEENT: PERRLA, pupils bilaterally equal and reactive, pallors not present Chest: Normal vesicular breath sounds, no added sounds, equal good air entry bilaterally CVS: S1-S2 regular, no murmurs, no tachycardia, no gallops, no rubs Abdomen: Soft, mildly distended, NGT in place to suction Neuro: No focal deficits, no facial deformity, AO x3, power 5/5 in all limbs Data 07/05/22 04:57 07/05/22 04:57 Micro: Microbiology 07/04/22 05:27 MRSA Culture - Final Nose A&P Assessment and plan (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 Reviewed hemoglobin, currently stable at 9.4 Status post colonoscopy on 06/02/22 which showed inflammation in ileum, few petechiae, no active bleeding, AVM in colon, clip, internal hemorrhoids noted, additional abnormality in the rectum may represent mass versus proctitis. This was biopsied. Pathology report is consistent with adenocarcinoma. As per discussion of surgery not a good candidate for reinitiation of anticoagulation is highly likely to bleed. Finding of adenocarcinoma and recurrence of cancer discussed with his outpatient oncologist Dr. Topete. Given that patient was fairly functional up until this current admission, there might be a possibility of palliative radiation to improve his current symptoms. We are attempting to transfer patient to a higher center to see if alternate treatment options are available for his SMV thrombosis, particularly those from an IR perspective. Additionally now with biopsy with adenocarcinoma patient may additionally need radiation treatment. Dr. Mtz has placed multiple calls and discussed patient's case with multiple providers. Patient has currently been accepted at [facility], we are awaiting a bed. This may take several days. Currently he is hemodynamically stable. (2) GI bleed: Colonoscopy findings as above. Hemoglobin currently stable at 9.4 (3) Partial small bowel obstruction: Patient had removed nasogastric tube in July 04, 2022. However this morning he developed vomiting. NG tube has been replaced because of persistent SBO. He is not yet passing flatus. States he had a few small streaks of bowel movement earlier this morning. No bleeding noted. Because of SBO likely related to adhesions. (4) Dehydration: Continue IVF, monitor for fluid overload (5) Hypokalemia: Received potassium. (6) Fever: Possible proctitis contributing to current picture. Currently afebrile since July 02, 2021. Continue Zosyn. Blood culture reviewed, preliminary so far negative.C. difficile reviewed, negative. Enteric bacterial panel also negative. Patient with fever on presentation to oncology clinic: Further reviewed oncology notes for more detailed history with transfer requests. Chest x-ray has been done, showing no infiltrate. He is on room air, he is not tachycardic, he does not complain of chest discomfort, and he is not reporting shortness of breath now. blood cultures were done previously on June 29 and are negative to date. (7) Abdominal pain: CT as above (8) Diarrhea: Negative C. difficile, unremarkable pathogen panel (9) Colon cancer: Patient receiving chemotherapy, with last treatment June 20. Rectal mass now with adenocarcinoma. (10) HTN (hypertension), benign: Currently normotensive (11) GERD (gastroesophageal reflux disease): Secondary to history of vomiting initiate Protonix 40 mg IV every 12 hours Plan Anemia, thrombocytopenia. This appears to be recovering. This is likely secondary in part to chemotherapy. Full code currently Attestations Medical Necessity Statement*: SBO, NGT in place to suction, monitoring hemoglobin, awaiting transfer to higher center Coding Level of Care Code Acute Code for Chg Fwd Diagnoses Superior mesenteric vein thrombosis K55.069 GI bleed K92.2 Partial small bowel obstruction K56.600 Dehydration E86.0 Hypokalemia E87.6 Fever R50.9 Abdominal pain R10.9 Diarrhea R19.7 Colon cancer C18.9 HTN (hypertension), benign I10 GERD (gastroesophageal reflux disease) K21.9
[2022-07-05] MEDS: lidocaine 1% 5 ML in potassium chloride premix 100 ML 26.25 ML IV (14:42)
[2022-07-06] MEDS: piperacillin-tazobactam 3.375 GM in sodium chloride 0.9% (plus) 50 ML IV ×3 (00:01→17:04)
[2022-07-06] MEDS: sodium chlor 0.9% + KCl 20 mEq 20 MEQ/1,000 ML BAG 125 MEQ IV ×3 (03:33→21:07)
[2022-07-06 03:43] VITALS: BP 131/81; PULSE 67; RESP 18; TEMP 36.7
[2022-07-06 05:14] LABS: Hematocrit 30.6 % (42.0-52.0); Hemoglobin 9.6 g/dL (11.7-16.6); Mean Corpuscular HGB Conc 31.4 g/dL (30.0-36.0); Mean Corpuscular Hemoglobin 28.3 pg (28.0-34.0); Mean Corpuscular Volume 90.3 fl (80-94); Mean Platelet Volume 10.1 fL (7.4-10.4); Platelet Count 151 10^3/cmm (130-400); Red Blood Count 3.39 10^6/uL (4.1-5.3); Red Cell Distribution Width 15.8 % (12.1-15.1); White Blood Count 5.2 10^3/uL (4.0-10.0)
[2022-07-06 05:41] LABS: Slide Review Slide Review Perform
[2022-07-06 05:43] LABS: Alanine Aminotransferase 14 U/L (0-41); Albumin Level 2.6 g/dL (3.5-5.2); Alkaline Phosphatase 96 U/L (40-130); Anion Gap 15.5 (5-19); Aspartate Amino Transferase 24 U/L (0-40); Blood Urea Nitrogen 5 mg/dL (8-23); Calcium 7.6 mg/dL (8.5-10.5); Carbon Dioxide 22 mmol/L (22-29); Chloride 101 mmol/L (98-107); Globulin 2.8 g/dL (1.3-4.6); Glucose 79 mg/dL (65-115); Magnesium 2.2 mg/dL (1.7-2.3); Osmolality Calculated 276 mOsm/kg (285-295); Potassium 3.5 mmol/L (3.5-5.1); Sodium 135 mmol/L (136-145); Total Bilirubin 0.5 mg/dL (0.15-1.2); Total Protein 5.4 g/dL (6.6-8.7)
[2022-07-06 05:57] LABS: Absolute Segmented Neutrophil 4.1 10/cmm (1.6-7.1); Band Neutrophils Absolute 0.1 10^3/cmm (0.0-1.2); Eosinophils 1 %; Lymphocytes 8 %; Lymphocytes Absolute 0.5 10^3/cmm (1.2-3.4); Monocytes Absolute 0.5 10^3/cmm (0.1-0.6); Segmented Neutrophils 79 %; Total Cells Counted 100 (0-100)
[2022-07-06 06:21] LABS: Absolute Neutrophil 4.2 10^3/cmm (1.4-6.5); Platelet Estimate Normal (Normal)
[2022-07-06 07:30] VITALS: BP 145/83; PULSE 76; RESP 17; TEMP 36.4; O2SAT 95
--- NOTE | 2022-07-06 11:29 | PC.SOCIAL ---
Imm update Imm updated with patient at bedside. Copy of page 2 provided. Patient verbalized understanding. Copy in chart initialed, dated and timed.
[2022-07-06] MEDS: pantoprazole 40 mg SDV IVP ×3 (11:52→23:56)
[2022-07-06 12:00] VITALS: BP 141/79; PULSE 77; RESP 17; TEMP 36.4; O2SAT 94
--- NOTE | 2022-07-06 13:43 | PM.PN ---
Subjective Subjective: Patient comfortable and no longer vomiting. He reports that he still having bowel movements now with a little bit more flatus. Vitals/I&O/Wt Last Vital Signs Temp 97.8 F 07/07/22 04:45 Pulse 73 07/07/22 04:45 Resp 19 H 07/07/22 04:45 BP 119/69 07/07/22 04:45 Pulse Ox 96 07/07/22 04:45 O2 Del Method 07/07/22 04:45 O2 Flow Rate 2 07/03/22 13:41 07/06/22 07/06/22 07/07/22 14:59 22:59 06:59 Intake Total 1050 / 1050 1290 / 2340 1170 / 3510 Output Total 200 / 200 1000 / 1200 800 / 2000 Balance 850 / 850 290 / 1140 370 / 1510 Physical Exam Narrative: General: No acute distress, awake alert and oriented x3 Abdomen soft, mildly distended, mild periumbilical tenderness Data 07/06/22 04:28 07/06/22 04:28 Micro: Microbiology 07/01/22 11:28 Blood Culture - Final Blood NO GROWTH AFTER 5 DAYS 07/01/22 11:20 Blood Culture - Final Blood NO GROWTH AFTER 5 DAYS A&P Assessment and plan (1) Secondary malignant neoplasm of mesentery: (2) Partial small bowel obstruction: (3) Thrombosis of superior mesenteric artery: (4) GI bleed: Plan N.p.o./NGT to LIWS Normal saline at 150 cc/h Ambulate He was found to have inflammation of the small bowel, and AVM of the colon that was clipped and 2 areas of the rectum that were tubular invading tumor or proctitis. These were biopsied and clipped. 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
--- NOTE | 2022-07-06 14:48 | P.PN_ITS ---
Subjective Subjective: Patient states that his abdominal feels more comfortable today. He is able to pass more flatus compared to yesterday. He had few streaks of bowel movements earlier this morning. NG is currently clamped as patient has been encouraged to ambulate. He is requesting to take his telemetry leads off as it interferes with his movement. Hemoglobin stable. Vital signs stable. Medications: Reviewed: Yes Vitals/I&O/Wt Last Vital Signs Temp 97.6 F 07/06/22 12:00 Pulse 77 07/06/22 12:00 Resp 17 07/06/22 12:00 BP 141/79 07/06/22 12:00 Pulse Ox 94 07/06/22 12:00 O2 Del Method 07/06/22 12:00 O2 Flow Rate 2 07/03/22 13:41 07/05/22 07/06/22 07/06/22 22:59 06:59 14:59 Intake Total 1155 / 2140.417 772.917 / 2913.334 1000 / 1000 Output Total 450 / 450 400 / 850 200 / 200 Balance 705 / 1690.417 372.917 / 2063.334 800 / 800 Physical Exam 2 Narrative: General: No acute distress, AO x3, appears more comfortable compared to yesterday's exam. Later on he was noted to be ambulating on the [facility] floor without any acute discomfort. NGT was still in place. HEENT: PERRLA, pupils bilaterally equal and reactive, pallors not present Chest: Normal vesicular breath sounds, no added sounds, equal good air entry bilaterally CVS: S1-S2 regular, no murmurs, no tachycardia, no gallops, no rubs Abdomen: Soft, mildly distended, NGT in place to suction Neuro: No focal deficits, no facial deformity, AO x3, power 5/5 in all limbs Data 07/06/22 04:28 07/06/22 04:28 Micro: Microbiology 07/01/22 11:28 Blood Culture - Final Blood NO GROWTH AFTER 5 DAYS 07/01/22 11:20 Blood Culture - Final Blood NO GROWTH AFTER 5 DAYS A&P Assessment and plan (1) Superior mesenteric vein thrombosis: Initially startPartial superior mesenteric vein thrombosis did on anticoagulation but then complicated by GI bleed. Patient does not a candidate to receive further anticoagulation due to high risk of bleeding. Transfer has been attempted to [facility] where he is currently on a waiting list for possibility of IR procedure such as directed tPA etc. which cannot be performed at our hospital. (2) GI bleed: No further rebleeding after stopping anticoagulation. Reviewed hemoglobin, currently stable at 9.4 Status post colonoscopy on 06/02/22 which showed inflammation in ileum, few petechiae, no active bleeding, AVM in colon, clip, internal hemorrhoids noted, additional abnormality in the rectum may represent mass versus proctitis. This was biopsied. Pathology report is consistent with adenocarcinoma. As per discussion of surgery not a good candidate for reinitiation of anticoagulation is highly likely to bleed. Finding of adenocarcinoma and recurrence of cancer discussed with his outpatient oncologist Dr. Topete. Given that patient was fairly functional up until this current admission, there might be a possibility of palliative radiation to improve his current symptoms. (3) Partial small bowel obstruction: NGT currently in place to suction. Appreciate general surgery recommendations. He is starting to pass flatus today, states that his abdomen feels less tender and distended. Encouraged to ambulate as he is doing at this time. Conservative management for now until resolution. (4) Dehydration: Continuing IV fluids until patient remains NPO. (5) Hypokalemia: Received potassium. Currently stable (6) Fever: Possible proctitis contributing to current picture. Currently afebrile since July 02, 2021. Continue Zosyn. We will plan on a presumptive 7 day course (07/03-) Blood culture ,C. difficile PCR and Enteric bacterial panel negative. (7) Abdominal pain: related to SBO , malignancy (8) Diarrhea: resolved (9) Colon cancer: Patient receiving chemotherapy, with last treatment June 20. Rectal mass now with adenocarcinoma. (10) HTN (hypertension), benign: Currently normotensive (11) GERD (gastroesophageal reflux disease): Secondary to history of vomiting initiate Protonix 40 mg IV every 12 hours Plan Full code currently Attestations Medical Necessity Statement*: Needs continued admission for management of small bowel obstruction, currently with NGT and conservative management, awaiting transfer to [facility] for possibility of IR procedure for his SMV thrombosis. Coding Level of Care Code Acute Code for Chg Fwd Straight Forward/Low MDM includes number and complexity of problems actively addressed during encounter, amount and/or complexity of data reviewed/ordered and described risk of complication, morbidity or mortality of management as documented Diagnoses Superior mesenteric vein thrombosis K55.069 GI bleed K92.2 Partial small bowel obstruction K56.600 Dehydration E86.0 Hypokalemia E87.6 Fever R50.9 Abdominal pain R10.9 Diarrhea R19.7 Colon cancer C18.9 HTN (hypertension), benign I10 GERD (gastroesophageal reflux disease) K21.9
[2022-07-06 16:00] VITALS: BP 133/77; PULSE 70; RESP 18; TEMP 36.7; O2SAT 95
[2022-07-06 20:42] VITALS: BP 136/79; PULSE 72; RESP 19; TEMP 36.7; O2SAT 93
[2022-07-06 23:38] VITALS: BP 129/71; PULSE 71; RESP 18; TEMP 36.5; O2SAT 92
[2022-07-07] MEDS: piperacillin-tazobactam 3.375 GM in sodium chloride 0.9% (plus) 50 ML IV ×3 (01:57→22:50)
[2022-07-07 04:45] VITALS: BP 119/69; PULSE 73; RESP 19; TEMP 36.6; O2SAT 96
[2022-07-07] MEDS: sodium chlor 0.9% + KCl 20 mEq 20 MEQ/1,000 ML BAG 125 MEQ IV ×2 (05:38→22:50)
[2022-07-07 08:00] VITALS: BP 144/79; PULSE 72; RESP 18; TEMP 36.5; O2SAT 97
[2022-07-07] MEDS: pantoprazole 40 mg SDV IVP ×2 (10:47→23:31)
[2022-07-07 16:00] VITALS: BP 163/82; PULSE 71; RESP 18; TEMP 36.6; O2SAT 96
--- NOTE | 2022-07-07 16:29 | PM.PN ---
Subjective Subjective: Patient's abdomen is soft today. Distention appears to be better. He was noted to be ambulating the hallways yesterday and again today. He feels his abdomen is more comfortable. NGT output has been 200 cc this past shift. Down from around 600 mL yesterday. He feels like he is passing flatus more easily now. Had a bowel movement which was near normal per his account at this morning. Medications: Reviewed: Yes Vitals/I&O/Wt Last Vital Signs Temp 98 F 07/07/22 16:00 Pulse 71 07/07/22 16:00 Resp 18 07/07/22 16:00 BP 163/82 07/07/22 16:00 Pulse Ox 96 07/07/22 16:00 O2 Del Method 07/07/22 04:45 O2 Flow Rate 2 07/03/22 13:41 07/07/22 07/07/22 07/07/22 06:59 14:59 22:59 Intake Total 1170 / 3510 Output Total 800 / 2000 Balance 370 / 1510 Physical Exam Narrative: General: No acute distress, AO x3 HEENT: PERRLA, pupils bilaterally equal and reactive, pallors not present Chest: Normal vesicular breath sounds, no added sounds, equal good air entry bilaterally CVS: S1-S2 regular, no murmurs, no tachycardia, no gallops, no rubs Abdomen: Soft, nontender, appears to be less distended today Neuro: No focal deficits, no facial deformity, AO x3, power 5/5 in all limbs Data 07/06/22 04:28 07/06/22 04:28 Micro: Microbiology 07/01/22 11:28 Blood Culture - Final Blood NO GROWTH AFTER 5 DAYS 07/01/22 11:20 Blood Culture - Final Blood NO GROWTH AFTER 5 DAYS A&P Assessment and plan (1) Superior mesenteric vein thrombosis: Partial superior mesenteric vein thrombosis, initially started on anticoagulation with Lovenox but then complicated by GI bleed. Patient is not a candidate to receive further anticoagulation due to high risk of bleeding. Transfer has been attempted to [facility] where he is currently on a waiting list for possibility of IR procedure such as directed tPA etc. which cannot be performed at our hospital. (2) GI bleed: No further rebleeding after stopping anticoagulation. Reviewed hemoglobin, currently stable at 9.6. Status post colonoscopy on 06/02/22 which showed inflammation in ileum, few petechiae, no active bleeding, AVM in colon, clip, internal hemorrhoids noted, additional abnormality in the rectum. This was biopsied. Pathology report is consistent with adenocarcinoma. As per discussion of surgery not a good candidate for reinitiation of anticoagulation is highly likely to bleed. Finding of adenocarcinoma and recurrence of cancer discussed with his outpatient oncologist Dr. Topete. Patient needs further evaluation to a certain if he may be having additional recurrence within the colon or small bowel to formulate further treatment plan. He may be a candidate for surgical resection of the rectal cancer versus radiation after determining the extent of new involvement. This would be best achieved at higher center as he has exhausted current lines of chemotherapy to be offered here. (3) Partial small bowel obstruction: NGT currently in place, management per surgery. Appreciate general surgery recommendations. He is passing flatus today, NGT output is improving, abdomen appears to be less distended, per his account he had a near normal bowel movement this morning. (4) Dehydration: Continuing IV fluids until patient remains NPO. (5) Hypokalemia: Received potassium. Currently stable (6) Fever: Possible proctitis contributing to current picture. Currently afebrile since July 02, 2021. Continue Zosyn. We will plan on a presumptive 7 day course (07/03-07/09) and then d/c abx Blood culture ,C. difficile PCR and Enteric bacterial panel negative. (7) Abdominal pain: related to SBO , malignancy (8) Diarrhea: resolved (9) Colon cancer: Patient receiving chemotherapy, with last treatment June 20. Rectal mass now with adenocarcinoma. (10) HTN (hypertension), benign: Currently normotensive (11) GERD (gastroesophageal reflux disease): Secondary to history of vomiting initiate Protonix 40 mg IV every 12 hours Plan Dvt ppx: SCDs Full code Attestations Medical Necessity Statement*: Management of small bowel obstruction, awaiting transfer to [facility]. Coding Level of Care Code Acute Code for Chg Fwd Moderate MDM includes number and complexity of problems actively addressed during encounter, amount and/or complexity of data reviewed/ordered and described risk of complication, morbidity or mortality of management as documented Diagnoses Superior mesenteric vein thrombosis K55.069 GI bleed K92.2 Partial small bowel obstruction K56.600 Dehydration E86.0 Hypokalemia E87.6 Fever R50.9 Abdominal pain R10.9 Diarrhea R19.7 Colon cancer C18.9 HTN (hypertension), benign I10 GERD (gastroesophageal reflux disease) K21.9
--- NOTE | 2022-07-07 18:08 | PM.PN ---
Subjective Subjective: Patient reports passing significantly more flatus today. Denies any nausea Vitals/I&O/Wt Last Vital Signs Temp 98 F 07/07/22 16:00 Pulse 71 07/07/22 16:00 Resp 18 07/07/22 16:00 BP 163/82 07/07/22 16:00 Pulse Ox 96 07/07/22 16:00 O2 Del Method 07/07/22 04:45 O2 Flow Rate 2 07/03/22 13:41 07/07/22 07/07/22 07/07/22 06:59 14:59 22:59 Intake Total 1170 / 3510 50 / 50 Output Total 800 / 2000 Balance 370 / 1510 50 / 50 Physical Exam Narrative: General: No acute distress, awake alert and oriented x3 Abdomen soft, mildly distended but improved, mild periumbilical tenderness Data 07/06/22 04:28 07/06/22 04:28 A&P Assessment and plan (1) Secondary malignant neoplasm of mesentery: (2) Partial small bowel obstruction: (3) Thrombosis of superior mesenteric artery: (4) GI bleed: Plan NGT Clear liquid diet Ensure clear 3 times daily Ambulate He was found to have inflammation of the small bowel, and AVM of the colon that was clipped and 2 areas of the rectum that were tubular invading tumor or proctitis. These were biopsied and clipped. 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
[2022-07-07 19:56] VITALS: BP 147/87; PULSE 91; RESP 19; TEMP 36.7; O2SAT 95
[2022-07-08] VITALS (7 sets, daily range): BP systolic 114–143; BP diastolic 64–87; PULSE 71–78; RESP 14–19; TEMP 36.5–36.9; O2SAT 92–96
[2022-07-08 05:33] LABS: Basophils % 0.5 %; Eosinophils % 0.5 %; Hematocrit 34.8 % (42.0-52.0); Lymphocytes # 0.9 10^3/uL (0.8-4.8); Lymphocytes % 14.1 %; Mean Corpuscular HGB Conc 31.6 g/dL (30.0-36.0); Mean Corpuscular Hemoglobin 27.8 pg (28.0-34.0); Mean Corpuscular Volume 88.1 fl (80-94); Mean Platelet Volume 9.9 fL (7.4-10.4); Monocytes # 0.6 10^3/uL (0.2-0.9); Monocytes % 10.6 %; Neutrophils # 4.42 10^3/uL (1.8-7.7); Neutrophils % 73.6 %; Nucleated Red Blood Cells % 0 %; Platelet Count 185 10^3/cmm (130-400); Red Blood Count 3.95 10^6/uL (4.1-5.3); Red Cell Distribution Width 15.8 % (12.1-15.1)
[2022-07-08] MEDS: piperacillin-tazobactam 3.375 GM in sodium chloride 0.9% (plus) 50 ML IV ×3 (05:41→21:22)
[2022-07-08 06:01] LABS: Alanine Aminotransferase 18 U/L (0-41); Alkaline Phosphatase 104 U/L (40-130); Anion Gap 16.3 (5-19); Aspartate Amino Transferase 32 U/L (0-40); Blood Urea Nitrogen 3 mg/dL (8-23); Calcium 8.3 mg/dL (8.5-10.5); Carbon Dioxide 27 mmol/L (22-29); Chloride 96 mmol/L (98-107); Globulin 3.2 g/dL (1.3-4.6); Glomerular Filtration Rate 112.1 mL/min (90-130); Glucose 89 mg/dL (65-115); Osmolality Calculated 278 mOsm/kg (285-295); Potassium 3.3 mmol/L (3.5-5.1); Sodium 136 mmol/L (136-145); Total Bilirubin 0.5 mg/dL (0.15-1.2); Total Protein 6.2 g/dL (6.6-8.7)
[2022-07-08] MEDS: sodium chlor 0.9% + KCl 20 mEq 20 MEQ/1,000 ML BAG 125 MEQ IV ×2 (08:32→19:23)
--- NOTE | 2022-07-08 09:40 | PM.PN ---
Subjective Subjective: Patient reports feeling okay this morning. Reports that NG tube was removed and he is tolerating well. He is sitting up drinking some fluids. He says he was up last night passing gas and had a small bowel movement. He denies significant pain at this time. He is still waiting to hear back from [place] for his pending transfer. Denies other needs at this time. Vitals/I&O/Wt Last Vital Signs Temp 98.4 F 07/08/22 07:52 Pulse 77 07/08/22 07:52 Resp 14 07/08/22 07:52 BP 139/81 07/08/22 07:52 Pulse Ox 95 07/08/22 07:52 O2 Del Method 07/08/22 07:52 O2 Flow Rate 2 07/03/22 13:41 07/07/22 07/08/22 07/08/22 22:59 06:59 14:59 Intake Total 1530 / 1530 1050 / 2580 Output Total 300 / 300 Balance 1530 / 1530 750 / 2280 Physical Exam Narrative: General: No acute distress, AO x3 HEENT: PERRLA, EOMI. Chest: Lungs clear to auscultation. CVS: S1-S2 regular, no murmurs, no tachycardia, no gallops, no rubs Abdomen: Soft, nontender, nondistended. Bowel sounds all 4 quadrants. Neuro: No focal motor deficits. 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 Patient is not a candidate to receive further anticoagulation due to high risk of bleeding. Transfer has been attempted to [facility] where he is currently on a waiting list for possibility of IR procedure such as directed tPA etc. which cannot be performed at our hospital. (2) GI bleed: No further rebleeding after stopping anticoagulation. Reviewed hemoglobin, currently stable at 9.6. Status post colonoscopy on 06/02/22 which showed inflammation in ileum, few petechiae, no active bleeding, AVM in colon, clip, internal hemorrhoids noted, additional abnormality in the rectum. This was biopsied. Pathology report is consistent with adenocarcinoma. As per discussion of surgery not a good candidate for reinitiation of anticoagulation is highly likely to bleed. Finding of adenocarcinoma and recurrence of cancer discussed with his outpatient oncologist Dr. Topete. Patient needs further evaluation to a certain if he may be having additional recurrence within the colon or small bowel to formulate further treatment plan. He may be a candidate for surgical resection of the rectal cancer versus radiation after determining the extent of new involvement. This would be best achieved at higher center as he has exhausted current lines of chemotherapy to be offered here. (3) Partial small bowel obstruction: NG tube removed. Appreciate general surgery recommendations. Is passing flatus and had small bowel movement. (4) Hypokalemia: Slightly low today. Continue replacement with IVF's. (5) Fever: Possible proctitis contributing to current picture. Currently afebrile since July 02, 2021. Continue Zosyn. We will plan on a presumptive 7 day course (07/03-07/09) and then d/c abx. Blood culture ,C. difficile PCR and Enteric bacterial panel negative. (6) Abdominal pain: related to SBO , malignancy (7) Diarrhea: resolved (8) Colon cancer: Patient receiving chemotherapy, with last treatment June 20. Rectal mass now with adenocarcinoma. (9) HTN (hypertension), benign: Currently normotensive (10) GERD (gastroesophageal reflux disease): Secondary to history of vomiting initiate Protonix 40 mg IV every 12 hours Plan Code Status: Full IVF: [id number] @ 125 DVT PPx: SCD's GI PPx: Protonix ABx: Zosyn Diet: Clear Liq Disposition: Med/Surg - pending transfer to [place]. Attestations Medical Necessity Statement*: Will need close inpatient monitoring and treatment of small bowel obstruction, awaiting transfer to [facility] for mesenteric thrombus. Coding Level of Care Code Acute Code for Chg Fwd Moderate MDM includes number and complexity of problems actively addressed during encounter, amount and/or complexity of data reviewed/ordered and described risk of complication, morbidity or mortality of management as documented Diagnoses Superior mesenteric vein thrombosis K55.069 GI bleed K92.2 Partial small bowel obstruction K56.600 Hypokalemia E87.6 Fever R50.9 Abdominal pain R10.9 Diarrhea R19.7 Colon cancer C18.9 HTN (hypertension), benign I10 GERD (gastroesophageal reflux disease) K21.9
--- NOTE | 2022-07-08 11:01 | PC.CHAP ---
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 [] Patient/Family/Request visit [] Outpatient visit [] Follow-up visit [] Physician referral [] Code/Alert [x] Routine visit [] Staff referral [] Actively dying [] Patient sleeping [x Family support [] [] Out of room [] Palliative care [] [] Receiving care in room [] Pre-surgical visit [] Trauma [] Long length of stay [] ICU visit [] Other: Relational/Emotional Strength [x] Patient feels connected with others/family/visitors/staff [] Distress [] Loneliness/isolation [] Abandonment Spirituality of Patient [x] Person of Madeline [x] Attends [employer] of their [place] [x] Believes in Prayer [] Reads Bible or Muslim materials [] There are Spiritual issues to be addressed 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 Interventions [x] Prayer [x] Active listening [x] Non-anxious presence [x] Spiritual/emotional support [] Crisis/trauma care [] Spiritual counseling [] Bereavement support [] Provided bereavement packet [] Provided Bible/devotional materials [] Provided toy/stuffed animal, coloring book to patient or family member [] Provided Communion [] Anointing/[place] [] Salvation [x] Completed spiritual assessment [] Other: Impact on Illness or Injury [] Angry [] Fearful [] Anxious [] Often cries [] Exhaustion [] Unable to work [] Unable to attend holiness [] Unable to walk/stand [] Unable to read [] Unable to drive [] Unable to eat/drink [] Unable to sleep [] Unable to be with family [] Patient intubated [] Other: Summary Time spent with patient 10 min
--- NOTE | 2022-07-08 11:59 | PC.SOCIAL ---
IMM Update pg 2 of IMM updated and reviewed w/ patient. Copy provided and copy dated, initialed and placed in chart.
[2022-07-08] MEDS: pantoprazole 40 mg SDV IVP (12:43)
--- NOTE | 2022-07-08 14:15 | PM.PN ---
Subjective Subjective: Patient reports still passing some flatus. Denies any nausea Vitals/I&O/Wt Last Vital Signs Temp 98.3 F 07/08/22 12:00 Pulse 73 07/08/22 12:00 Resp 16 07/08/22 12:00 BP 135/84 07/08/22 12:00 Pulse Ox 95 07/08/22 12:00 O2 Del Method 07/08/22 07:52 O2 Flow Rate 2 07/03/22 13:41 07/07/22 07/08/22 07/08/22 22:59 06:59 14:59 Intake Total 1530 / 1530 1050 / 2580 50 / 50 Output Total 300 / 300 550 / 550 Balance 1530 / 1530 750 / 2280 -500 / -500 Physical Exam Narrative: General: No acute distress, awake alert and oriented x3 Abdomen soft, mildly distended but improved, mild periumbilical tenderness Data 07/08/22 05:03 07/08/22 05:03 A&P Assessment and plan (1) Secondary malignant neoplasm of mesentery: (2) Partial small bowel obstruction: (3) Thrombosis of superior mesenteric artery: (4) GI bleed: Plan NGT Clear liquid diet Ensure clear 3 times daily Ambulate He was found to have inflammation of the small bowel, and AVM of the colon that was clipped and 2 areas of the rectum that were tubular invading tumor or proctitis. These were biopsied and clipped. 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
[2022-07-09] MEDS: pantoprazole 40 mg SDV IVP ×3 (00:27→23:11)
[2022-07-09] MEDS: sodium chlor 0.9% + KCl 20 mEq 20 MEQ/1,000 ML BAG 125 MEQ IV ×3 (03:08→18:25)
[2022-07-09 04:00] VITALS: BP 120/73; PULSE 81; RESP 17; TEMP 36.4; O2SAT 95
[2022-07-09] MEDS: piperacillin-tazobactam 3.375 GM in sodium chloride 0.9% (plus) 50 ML IV ×3 (04:45→20:18)
[2022-07-09 05:34] LABS: Basophils % 0.4 %; Eosinophils % 0.5 %; Hematocrit 32.9 % (42.0-52.0); Hemoglobin 10.3 g/dL (11.7-16.6); Lymphocytes # 0.8 10^3/uL (0.8-4.8); Lymphocytes % 13.8 %; Mean Corpuscular HGB Conc 31.3 g/dL (30.0-36.0); Mean Corpuscular Hemoglobin 27.5 pg (28.0-34.0); Mean Corpuscular Volume 87.7 fl (80-94); Mean Platelet Volume 9.6 fL (7.4-10.4); Monocytes # 0.6 10^3/uL (0.2-0.9); Neutrophils # 4.09 10^3/uL (1.8-7.7); Neutrophils % 73.6 %; Nucleated Red Blood Cells % 0 %; Platelet Count 189 10^3/cmm (130-400); Red Blood Count 3.75 10^6/uL (4.1-5.3); Red Cell Distribution Width 16.1 % (12.1-15.1); White Blood Count 5.6 10^3/uL (4.0-10.0)
[2022-07-09 08:00] VITALS: BP 137/83; PULSE 70; RESP 12; TEMP 36.8; O2SAT 96
[2022-07-09 13:17] VITALS: BP 123/75; PULSE 84; RESP 16; TEMP 36.6; O2SAT 97
--- NOTE | 2022-07-09 13:33 | PM.PN ---
Subjective Subjective: Reports having no complaints today. He was able to tolerate liquid diet very well. He has had a bowel movement and is passing gas. Still waiting on transfer to [facility], they have contacted nursing and maintain good communication. He would like to try full liquid diet if this is okay. Dr. Chaparro had told him earlier this week that would be acceptable if he could tolerate clear liquids. Medications: Reviewed: Yes Vitals/I&O/Wt Last Vital Signs Temp 97.9 F 07/09/22 13:17 Pulse 84 07/09/22 13:17 Resp 16 07/09/22 13:17 BP 123/75 07/09/22 13:17 Pulse Ox 97 07/09/22 13:17 O2 Del Method 07/09/22 13:17 O2 Flow Rate 2 07/03/22 13:41 07/08/22 07/09/22 07/09/22 22:59 06:59 14:59 Intake Total 1050 / 1490 1258.75 / 2748.75 410 / 410 Output Total 250 / 250 Balance 1050 / 940 1258.75 / 2198.75 160 / 160 Physical Exam Narrative: General: No acute distress, AO x3 HEENT: PERRLA, EOMI. Chest: Lungs clear to auscultation. CVS: S1-S2 regular, no murmurs, no tachycardia, no gallops, no rubs Abdomen: Soft, nontender, nondistended. Bowel sounds all 4 quadrants. Neuro: No focal motor deficits. 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 Patient is not a candidate to receive further anticoagulation due to high risk of bleeding. Transfer has been attempted to [facility] where he is currently on a waiting list for possibility of IR procedure such as directed tPA etc. which cannot be performed at our hospital. (2) GI bleed: No further rebleeding after stopping anticoagulation. Reviewed hemoglobin, currently stable at 9.6. Status post colonoscopy on 06/02/22 which showed inflammation in ileum, few petechiae, no active bleeding, AVM in colon, clip, internal hemorrhoids noted, additional abnormality in the rectum. This was biopsied. Pathology report is consistent with adenocarcinoma. As per discussion of surgery not a good candidate for reinitiation of anticoagulation is highly likely to bleed. Finding of adenocarcinoma and recurrence of cancer discussed with his outpatient oncologist Dr. Topete. Patient needs further evaluation to a certain if he may be having additional recurrence within the colon or small bowel to formulate further treatment plan. He may be a candidate for surgical resection of the rectal cancer versus radiation after determining the extent of new involvement. This would be best achieved at higher center as he has exhausted current lines of chemotherapy to be offered here. (3) Partial small bowel obstruction: NG tube removed. Appreciate general surgery recommendations. Is passing flatus and had small bowel movement. (4) Hypokalemia: Slightly low today. Continue replacement with IVF's. (5) Fever: Possible proctitis contributing to current picture. Currently afebrile since July 02, 2021. Continue Zosyn. We will plan on a presumptive 7 day course (07/03-07/09) and then d/c abx. Blood culture ,C. difficile PCR and Enteric bacterial panel negative. (6) Abdominal pain: related to SBO , malignancy (7) Diarrhea: resolved (8) Colon cancer: Patient receiving chemotherapy, with last treatment June 20. Rectal mass now with adenocarcinoma. (9) HTN (hypertension), benign: Currently normotensive (10) GERD (gastroesophageal reflux disease): Secondary to history of vomiting initiate Protonix 40 mg IV every 12 hours Plan Is still awaiting transfer to [facility]. They have contacted nursing staff and will transfer when they are able to accept. We will switch to full liquid diet today. Hemoglobin remained stable at 10.3. Continue Zosyn. Code Status: Full IVF: [id number] @ 125 DVT PPx: SCD's GI PPx: Protonix ABx: Zosyn Diet: Full Liquid Disposition: Med/Surg - pending transfer to [facility]. Attestations Medical Necessity Statement*: Will need close inpatient monitoring and treatment of small bowel obstruction, awaiting transfer to [facility] for mesenteric thrombus. Coding Level of Care Code Acute Code for Chg Fwd Straight Forward/Low MDM includes number and complexity of problems actively addressed during encounter, amount and/or complexity of data reviewed/ordered and described risk of complication, morbidity or mortality of management as documented Diagnoses Superior mesenteric vein thrombosis K55.069 GI bleed K92.2 Partial small bowel obstruction K56.600 Hypokalemia E87.6 Fever R50.9 Abdominal pain R10.9 Diarrhea R19.7 Colon cancer C18.9 HTN (hypertension), benign I10 GERD (gastroesophageal reflux disease) K21.9
--- NOTE | 2022-07-09 14:54 | PM.PN ---
Subjective Subjective: This patient is doing well overnight. He is afebrile. He is hemodynamically stable. The patient's been tolerating clear liquids. The patient's been ambulating without difficulty. Medications: Reviewed: Yes Vitals/I&O/Wt Last Vital Signs Temp 97.9 F 07/09/22 13:17 Pulse 84 07/09/22 13:17 Resp 16 07/09/22 13:17 BP 123/75 07/09/22 13:17 Pulse Ox 97 07/09/22 13:17 O2 Del Method 07/09/22 13:17 O2 Flow Rate 2 07/03/22 13:41 07/08/22 07/09/22 07/09/22 22:59 06:59 14:59 Intake Total 1050 / 1490 1258.75 / 2748.75 1410 / 1410 Output Total 250 / 250 Balance 1050 / 940 1258.75 / 2198.75 1160 / 1160 Physical Exam Narrative: Generally: No acute distress Lungs: Clear to auscultation Heart: Is regular rate and rhythm Abdomen: Soft, nontender without masses. The patient has positive bowel sounds. Neurologic: The patient is awake, alert, and oriented x3. Patient moves all 4 extremities without difficulty. The patient sensations intact to light touch throughout. Data 07/09/22 05:18 07/08/22 05:03 A&P Assessment and plan (1) Partial small bowel obstruction: See below Plan (1) Secondary malignant neoplasm of mesentery: (2) Partial small bowel obstruction: (3) Thrombosis of superior mesenteric artery: (4) GI bleed: Plan Full liquid diet Ensure clear 3 times daily Ambulate He was found to have inflammation of the small bowel, and AVM of the colon that was clipped?and 2 areas of the rectum that were tubular invading tumor or proctitis.? These were biopsied and clipped.? He is not a candidate for anticoagulation due to his high likelihood of bleeding from multiple areas in his small bowel and colon Pathology results came back as invasive carcinoma in the rectum He is awaiting transfer to [place] for catheter directed tPA at [facility] Attestations Medical Necessity Statement*: Per primary Coding Level of Care Code 51054 Diagnoses Partial small bowel obstruction K56.600
[2022-07-09 16:00] VITALS: BP 158/74; PULSE 78; RESP 16; TEMP 36.4; O2SAT 96
[2022-07-09 20:00] VITALS: BP 134/72; PULSE 74; RESP 16; TEMP 36.4; O2SAT 95
[2022-07-09 23:59] VITALS: BP 144/83; PULSE 71; RESP 17; TEMP 36.8; O2SAT 96
[2022-07-10 04:00] VITALS: BP 114/71; PULSE 75; RESP 19; TEMP 36.5; O2SAT 95
[2022-07-10] MEDS: piperacillin-tazobactam 3.375 GM in sodium chloride 0.9% (plus) 50 ML IV ×2 (04:41→13:02)
[2022-07-10] MEDS: sodium chlor 0.9% + KCl 20 mEq 20 MEQ/1,000 ML BAG 125 MEQ IV ×2 (06:33→17:05)
[2022-07-10 07:58] VITALS: BP 128/82; PULSE 73; RESP 16; TEMP 36.7; O2SAT 95
[2022-07-10 12:00] VITALS: BP 143/77; PULSE 78; RESP 17; TEMP 36.5; O2SAT 96
--- NOTE | 2022-07-10 12:15 | PM.PN ---
Subjective Subjective: This patient is tolerating his diet well. The patient had no nausea or vomiting. The patient states that he still having some diarrhea. This is probably expected. The patient is afebrile. He has no abdominal complaints. The patient's family is in the room with him. Medications: Reviewed: Yes Vitals/I&O/Wt Last Vital Signs Temp 98.0 F 07/10/22 07:58 Pulse 73 07/10/22 07:58 Resp 16 07/10/22 07:58 BP 128/82 07/10/22 07:58 Pulse Ox 95 07/10/22 07:58 O2 Del Method 07/10/22 07:58 O2 Flow Rate 2 07/03/22 13:41 07/09/22 07/10/22 07/10/22 22:59 06:59 14:59 Intake Total 1551.000 / 2961.000 1002.083 / 3963.083 290 / 290 Output Total 380 / 630 Balance 1551.000 / 2711.000 622.083 / 3333.083 290 / 290 Physical Exam Narrative: Generally: No acute distress Lungs: Clear to auscultation Heart: Regular rate and rhythm without murmurs. Abdomen: Nondistended, nontender to palpation. The patient has normal active bowel sounds. I do not appreciate any rushes or tinkles. Extremities: There is no clubbing cyanosis or edema. Data 07/09/22 05:18 07/08/22 05:03 A&P Assessment and plan (1) Partial small bowel obstruction: We will continue conservative, nonoperative therapy. We will continue to follow this patient with you. Medical decision making: Low Attestations Medical Necessity Statement*: Per hospitalist Coding Level of Care Code 77672 Diagnoses Partial small bowel obstruction K56.600
[2022-07-10] MEDS: pantoprazole 40 mg SDV IVP ×2 (13:03→23:59)
--- NOTE | 2022-07-10 15:21 | P.PN_ITS ---
Subjective Subjective: Feeling well today. Has tolerated his diet well. Having BM's, passing flatus. Denies pain this morning. Vitals/I&O/Wt Last Vital Signs Temp 97.7 F 07/10/22 12:00 Pulse 78 07/10/22 12:00 Resp 17 07/10/22 12:00 BP 143/77 07/10/22 12:00 Pulse Ox 96 07/10/22 12:00 O2 Del Method 07/10/22 12:00 O2 Flow Rate 2 07/03/22 13:41 07/10/22 07/10/22 07/10/22 06:59 14:59 22:59 Intake Total 1002.083 / 3963.083 1407.083 / 1407.083 Output Total 380 / 630 Balance 622.083 / 3333.083 1407.083 / 1407.083 Physical Exam Narrative: General: No acute distress, AO x3 HEENT: PERRLA, EOMI. Chest: Lungs clear to auscultation. CVS: S1-S2 regular, no murmurs, no tachycardia, no gallops, no rubs Abdomen: Soft, nontender, nondistended. Bowel sounds all 4 quadrants. Neuro: No focal motor deficits. 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 Patient is not a candidate to receive further anticoagulation due to high risk of bleeding. Transfer has been attempted to [facility] where he is currently on a waiting list for possibility of IR procedure such as directed tPA etc. which cannot be performed at our hospital. (2) GI bleed: No further rebleeding after stopping anticoagulation. Reviewed hemoglobin, currently stable at 9.6. Status post colonoscopy on 06/02/22 which showed inflammation in ileum, few petechiae, no active bleeding, AVM in colon, clip, internal hemorrhoids noted, additional abnormality in the rectum. This was biopsied. Pathology report is consistent with adenocarcinoma. As per discussion of surgery not a good candidate for reinitiation of anticoagulation is highly likely to bleed. Finding of adenocarcinoma and recurrence of cancer discussed with his outpatient oncologist Dr. Topete. Patient needs further evaluation to a certain if he may be having additional recurrence within the colon or small bowel to formulate further treatment plan. He may be a candidate for surgical resection of the rectal cancer versus radiation after determining the extent of new involvement. This would be best achieved at higher center as he has exhausted current lines of chemotherapy to be offered here. (3) Partial small bowel obstruction: Resolved. (4) Hypokalemia: Improved. (5) Fever: Resolved. No further fevers. Blood culture ,C. difficile PCR and Enteric bacterial panel negative. D/C Zosyn. (6) Abdominal pain: related to SBO , malignancy (7) Diarrhea: (8) Colon cancer: Patient receiving chemotherapy, with last treatment June 20. Rectal mass now with adenocarcinoma. (9) HTN (hypertension), benign: Currently normotensive (10) GERD (gastroesophageal reflux disease): Protonix q12 hr. Plan Is still awaiting transfer to [facility]. They have contacted nursing staff and will transfer when they are able to accept. Hemoglobin remained stable at 10.3. Appreciate surgery consult and recommendations. No further fevers. Has completed 7 day course of ABx and will discontinue today. Continue full liquid diet. Pain control as needed. Continue IVF's for now. Recheck labs in A.M. Code Status: Full IVF: [id number] @ 125 DVT PPx: SCD's GI PPx: Protonix ABx: Diet: Full Liquid Disposition: Med/Surg - pending transfer to [facility]. Attestations Medical Necessity Statement*: Will need close inpatient monitoring and treatment of small bowel obstruction, awaiting transfer to [facility] for mesenteric thrombus. Coding Level of Care Code Acute Code for Chg Fwd Straight Forward/Low MDM includes number and complexity of problems actively addressed during encounter, amount and/or complexity of data reviewed/ordered and described risk of complication, morbidity or mortality of management as documented Diagnoses Superior mesenteric vein thrombosis K55.069 GI bleed K92.2 Partial small bowel obstruction K56.600 Hypokalemia E87.6 Fever R50.9 Abdominal pain R10.9 Diarrhea R19.7 Colon cancer C18.9 HTN (hypertension), benign I10 GERD (gastroesophageal reflux disease) K21.9
[2022-07-10 16:00] VITALS: BP 139/83; PULSE 84; RESP 16; TEMP 36.6; O2SAT 96
--- NOTE | 2022-07-10 18:31 | PC.NURSE ---
Pt is currently sitting on the bed. Pt has not addressed any needs or concerns at this time. Vital signs have been stable. Call light and table within reach.
[2022-07-10 20:00] VITALS: BP 126/75; PULSE 76; RESP 17; TEMP 36.5; O2SAT 98
--- NOTE | 2022-07-10 22:05 | PC.NURSE ---
[facility] called for update on pt status and current v/s. Pt remains on the list for transfer to higher level of care.
[2022-07-10 23:37] VITALS: BP 135/80; PULSE 68; RESP 14; TEMP 36.6; O2SAT 14
[2022-07-11] MEDS: sodium chlor 0.9% + KCl 20 mEq 20 MEQ/1,000 ML BAG 125 MEQ IV ×2 (02:57→11:31)
[2022-07-11 03:24] VITALS: BP 134/71; PULSE 72; RESP 15; TEMP 36.5; O2SAT 95
[2022-07-11 05:30] LABS: Basophils # 0.1 10^3/uL (0.0-0.1); Basophils % 1.3 %; Eosinophils % 1.1 %; Hematocrit 32.7 % (42.0-52.0); Hemoglobin 10.2 g/dL (11.7-16.6); Lymphocytes # 1.1 10^3/uL (0.8-4.8); Mean Corpuscular HGB Conc 31.2 g/dL (30.0-36.0); Mean Corpuscular Hemoglobin 27.8 pg (28.0-34.0); Mean Corpuscular Volume 89.1 fl (80-94); Mean Platelet Volume 9.8 fL (7.4-10.4); Monocytes # 0.5 10^3/uL (0.2-0.9); Monocytes % 12.1 %; Neutrophils # 2.13 10^3/uL (1.8-7.7); Neutrophils % 56.2 %; Nucleated Red Blood Cells % 0 %; Platelet Count 155 10^3/cmm (130-400); Red Blood Count 3.67 10^6/uL (4.1-5.3); Red Cell Distribution Width 16.8 % (12.1-15.1); White Blood Count 3.8 10^3/uL (4.0-10.0)
[2022-07-11 05:47] LABS: Anion Gap 10.8 (5-19); Calcium 8.3 mg/dL (8.5-10.5); Carbon Dioxide 26 mmol/L (22-29); Chloride 104 mmol/L (98-107); Glucose 92 mg/dL (65-115); Potassium 3.8 mmol/L (3.5-5.1); Sodium 137 mmol/L (136-145)
[2022-07-11 06:03] LABS: Blood Urea Nitrogen 1 mg/dL (8-23); Osmolality Calculated 279 mOsm/kg (285-295)
[2022-07-11 08:00] VITALS: BP 144/81; PULSE 72; RESP 18; TEMP 36.4; O2SAT 94
[2022-07-11 11:20] VITALS: BP 145/85; PULSE 72; RESP 16; TEMP 36.4; O2SAT 95
[2022-07-11] MEDS: pantoprazole 40 mg SDV IVP (11:39)
--- NOTE | 2022-07-11 12:43 | PM.PN ---
Subjective Subjective: Patient seen and examined. Tolerating full liquid diet. Denies any nausea or vomiting. Reports passing flatus and having bowel movements Vitals/I&O/Wt Last Vital Signs Temp 97.6 F 07/11/22 11:20 Pulse 72 07/11/22 11:20 Resp 16 07/11/22 11:20 BP 145/85 07/11/22 11:20 Pulse Ox 95 07/11/22 11:20 O2 Del Method 07/11/22 11:20 O2 Flow Rate 2 07/03/22 13:41 07/10/22 07/11/22 07/11/22 22:59 06:59 14:59 Intake Total 372.5 / 2792.416 3372 / 2779.583 1240 / 1240 Output Total 500 / 500 Balance -127.5 / 3299.958 6475 / 2279.583 1240 / 1240 Physical Exam Narrative: General: No acute distress, awake alert and oriented x3 Abdomen soft, minimally distended but improved, nontender Data 07/11/22 05:06 07/11/22 05:06 A&P Assessment and plan (1) Secondary malignant neoplasm of mesentery: (2) Partial small bowel obstruction: (3) Thrombosis of superior mesenteric artery: (4) GI bleed: Plan Advance to soft diet Ambulate Pathology results came back as invasive carcinoma in the rectum He is awaiting transfer to [place] for catheter directed tPA at [facility] Medical management per hospitalist Attestations Medical Necessity Statement*: Per primary Coding Level of Care Code Acute Code for Chg Fwd Diagnoses Secondary malignant neoplasm of mesentery C78.6 Partial small bowel obstruction K56.600 Thrombosis of superior mesenteric artery K55.069 GI bleed K92.2
--- NOTE | 2022-07-11 13:08 | PC.SOCIAL ---
IMM Update pg 2 of IMM updated and reviewed w/ patient. Copy provided and copy in chart dated, and initialed.
--- NOTE | 2022-07-11 14:26 | P.PN_ITS ---
Subjective Subjective: Seen today. No acute events overnight. Requesting to advance his diet to actual food rather than liquids. Vitals/I&O/Wt Last Vital Signs Temp 97.6 F 07/11/22 11:20 Pulse 72 07/11/22 11:20 Resp 16 07/11/22 11:20 BP 145/85 07/11/22 11:20 Pulse Ox 95 07/11/22 11:20 O2 Del Method 07/11/22 11:20 O2 Flow Rate 2 07/03/22 13:41 07/10/22 07/11/22 07/11/22 22:59 06:59 14:59 Intake Total 372.5 / 5839.759 8521 / 2779.583 1240 / 1240 Output Total 500 / 500 Balance -127.5 / 5528.175 2824 / 2279.583 1240 / 1240 Physical Exam Narrative: General: No acute distress, AO x3 HEENT: EOMI. Chest: Lungs clear to auscultation. Mediport seen on left side of chest no erythema around it. Covered with Tegaderm CVS: S1-S2 regular, no murmurs, no tachycardia, no gallops, no rubs Abdomen: Soft, nontender, nondistended. Bowel sounds all 4 quadrants. Neuro: No focal motor deficits. Data 07/11/22 05:06 07/11/22 05:06 A&P Assessment and plan (1) Superior mesenteric vein thrombosis: (2) GI bleed: (3) Thrombosis of superior mesenteric artery: (4) Partial small bowel obstruction: (5) GERD (gastroesophageal reflux disease): (6) HTN (hypertension), benign: (7) Colon cancer: (8) Hypokalemia: (9) Other iron deficiency anemias: (10) Malignant neoplasm of transverse colon: Plan #Superior mesenteric vein thrombosis #GI bleed?resolved #Partial small bowel obstruction #Hypokalemia #Fever on admission #Diarrhea #Colon cancer on active chemotherapy at this time, rectal mass with adenocarcinoma #Hypertension #GERD ? Initially patient was started on anticoagulation with Lovenox but then complicated by GI bleed. Lovenox was stopped. Hemoglobin is stable at 10.3 at this time. Patient did have a colonoscopy done on 03 July which showed inflammation in colon few petechiae no active bleeding AVM in colon clip internal hemorrhoids noted. This was biopsied. As per discussion with surgery patient is not a good candidate for reinitiation with anticoagulation as he will most likely bleed. Previous hospitalist discussed findings of recurrence of cancer with outpatient oncologist Dr. Topete. He may be a candidate for surgical resection of rectal cancer versus radiation after determining the extent of new involvement. Higher level care center would be recommended at this point. ? Bowel obstruction has resolved. Hypokalemia has improved. Patient has not spiked another fever. Blood culture C. difficile, enteric bacterial panel all negative. Dominick was DC'd. ? Not requiring any medications for hypertension at this time. Currently normotensive. ? Protonix 40 twice daily to be continued ? Will advance diet if okay with general surgery. Will discuss with them today. ? No further antibiotics needed. He has completed 7 days total. ? Patient is awaiting transfer to [facility] for higher level of care at this point. Continue to monitor hemoglobin in the meantime. Full code DVT prophylaxis: SCDs should suffice for now. Attestations Medical Necessity Statement*: pending transfer to [facility] Coding Level of Care Code Acute Code for Chg Fwd Diagnoses Superior mesenteric vein thrombosis K55.069 GI bleed K92.2 Thrombosis of superior mesenteric artery K55.069 Partial small bowel obstruction K56.600 GERD (gastroesophageal reflux disease) K21.9 HTN (hypertension), benign I10 Colon cancer C18.9 Hypokalemia E87.6 Other iron deficiency anemias D50.8 Malignant neoplasm of transverse colon C18.4
[2022-07-11 16:00] VITALS: BP 143/82; PULSE 85; RESP 16; TEMP 36.4; O2SAT 97
--- NOTE | 2022-07-11 18:51 | PC.NURSE ---
Pt is currently sitting in bed watching tv. Pt has ambulated in the halls during shift. Still awaiting a bed from [facility] or [place]. No needs at this time. Call light and table are within reach.
[2022-07-11 20:00] VITALS: BP 146/87; PULSE 85; RESP 16; TEMP 36.9; O2SAT 94
[2022-07-12] VITALS: BP 134/82; PULSE 76; RESP 17; TEMP 36.8; O2SAT 95
[2022-07-12] MEDS: pantoprazole 40 mg SDV IVP ×2 (00:37→10:04)
[2022-07-12 04:00] VITALS: BP 128/79; PULSE 80; RESP 17; TEMP 36.6; O2SAT 97
--- NOTE | 2022-07-12 04:20 | PC.NURSE ---
Call centers from [facility] and [facility] have called to get updates on pt status and v/s. Pt remains on the call list. Both hospitals to call for further updates on dayshift.
[2022-07-12 04:52] LABS: Eosinophils % 0.8 %; Hematocrit 33.6 % (42.0-52.0); Hemoglobin 10.2 g/dL (11.7-16.6); Lymphocytes # 1.1 10^3/uL (0.8-4.8); Lymphocytes % 28.8 %; Mean Corpuscular HGB Conc 30.4 g/dL (30.0-36.0); Mean Corpuscular Hemoglobin 27.3 pg (28.0-34.0); Mean Corpuscular Volume 90.1 fl (80-94); Mean Platelet Volume 10.5 fL (7.4-10.4); Monocytes # 0.6 10^3/uL (0.2-0.9); Neutrophils # 2.16 10^3/uL (1.8-7.7); Neutrophils % 55.1 %; Nucleated Red Blood Cells % 0 %; Platelet Count 171 10^3/cmm (130-400); Red Blood Count 3.73 10^6/uL (4.1-5.3); Red Cell Distribution Width 16.8 % (12.1-15.1); White Blood Count 3.9 10^3/uL (4.0-10.0)
[2022-07-12 05:16] LABS: Anion Gap 12.8 (5-19); Blood Urea Nitrogen 3 mg/dL (8-23); Calcium 8.6 mg/dL (8.5-10.5); Carbon Dioxide 26 mmol/L (22-29); Chloride 103 mmol/L (98-107); Glucose 105 mg/dL (65-115); Osmolality Calculated 283 mOsm/kg (285-295); Potassium 3.8 mmol/L (3.5-5.1); Sodium 138 mmol/L (136-145)
[2022-07-12 08:00] VITALS: BP 137/82; PULSE 85; RESP 16; TEMP 36.4; O2SAT 94
[2022-07-12 12:00] VITALS: BP 147/81; PULSE 72; RESP 16; TEMP 36.7; O2SAT 96
--- NOTE | 2022-07-12 12:48 | P.PN_ITS ---
Subjective Subjective: seen today no bed available at [facility] yet pt does not want to lose spot on waiting list Will talk with dr topete if outpatient treatment would be an option asymptomatic tolerating gi soft diet finished breakfast this AM Vitals/I&O/Wt Last Vital Signs Temp 97.6 F 07/12/22 08:00 Pulse 85 07/12/22 08:00 Resp 16 07/12/22 08:00 BP 137/82 07/12/22 08:00 Pulse Ox 94 07/12/22 08:00 O2 Del Method 07/12/22 08:00 O2 Flow Rate 2 07/03/22 13:41 07/11/22 07/12/22 07/12/22 22:59 06:59 14:59 Intake Total 1126.25 / 2606.25 240 / 240 Output Total 250 / 250 450 / 700 Balance 876.25 / 2356.25 -450 / 1906.25 240 / 240 Physical Exam Narrative: General: No acute distress, AO x3 HEENT: EOMI. Chest: Lungs clear to auscultation. Mediport seen on left side of chest no erythema around it. Covered with Tegaderm CVS: S1-S2 regular, no murmurs, no tachycardia, no gallops, no rubs Abdomen: Soft, nontender, nondistended. Bowel sounds all 4 quadrants. Neuro: No focal motor deficits. Data 07/12/22 04:10 07/12/22 04:10 A&P Assessment and plan (1) Superior mesenteric vein thrombosis: (2) GI bleed: (3) Thrombosis of superior mesenteric artery: (4) Partial small bowel obstruction: (5) GERD (gastroesophageal reflux disease): (6) HTN (hypertension), benign: (7) Colon cancer: (8) Hypokalemia: (9) Other iron deficiency anemias: (10) Malignant neoplasm of transverse colon: Plan #Superior mesenteric vein thrombosis #GI bleed?resolved #Partial small bowel obstruction #Hypokalemia #Fever on admission #Diarrhea #Colon cancer on active chemotherapy at this time, rectal mass with adenocarcinoma #Hypertension #GERD ? Initially patient was started on anticoagulation with Lovenox but then complicated by GI bleed. Lovenox was stopped. Hemoglobin is stable at 10.3 at this time. Patient did have a colonoscopy done on 03 July which showed inflammation in colon few petechiae no active bleeding AVM in colon clip internal hemorrhoids noted. This was biopsied. As per discussion with surgery patient is not a good candidate for reinitiation with anticoagulation as he will most likely bleed. Previous hospitalist discussed findings of recurrence of cancer with outpatient oncologist Dr. Topete. He may be a candidate for surgical resection of rectal cancer versus radiation after determining the extent of new involvement. Higher level care center would be recommended at this point. ? Bowel obstruction has resolved. Hypokalemia has improved. Patient has not spiked another fever. Blood culture C. difficile, enteric bacterial panel all negative. Zosyn was DC'd. ? Not requiring any medications for hypertension at this time. Currently normotensive. ? Protonix 40 twice daily to be continued ? Continue gi soft diet ? No further antibiotics needed. He has completed 7 days total. ? Patient is awaiting transfer to [facility] for higher level of care at th is point. Continue to monitor hemoglobin in the meantime. - will reach out to dr topete Full code DVT prophylaxis: SCDs should suffice for now. Attestations Medical Necessity Statement*: awaiting transfer to [facility] Level of Care Code 48937 Straight Forward/Low MDM includes number and complexity of problems actively addressed during encounter, amount and/or complexity of data reviewed/ordered and described risk of complication, morbidity or mortality of management as documented Diagnoses Superior mesenteric vein thrombosis K55.069 GI bleed K92.2 Thrombosis of superior mesenteric artery K55.069 Partial small bowel obstruction K56.600 GERD (gastroesophageal reflux disease) K21.9 HTN (hypertension), benign I10 Colon cancer C18.9 Hypokalemia E87.6 Other iron deficiency anemias D50.8 Malignant neoplasm of transverse colon C18.4
--- NOTE | 2022-07-12 15:03 | P.DS_ITS ---
Discharge Providers Date of Admission: 07/01/22 10:20 Date of Discharge: July 12, 2022 Attending Provider at Admission: Sharath Mancera MD Attending Provider at Discharge: Sary De Leon MD Primary Care Provider: Luis Klein MD Diagnoses at Discharge Discharge Diagnosis (1) Superior mesenteric vein thrombosis: Status: Acute (2) GI bleed: Status: Resolved (3) Thrombosis of superior mesenteric artery: Status: Acute (4) Partial small bowel obstruction: Status: Resolved (5) GERD (gastroesophageal reflux disease): Status: Acute (6) HTN (hypertension), benign: Status: Acute (7) Colon cancer: Status: Acute (8) Hypokalemia: Status: Resolved (9) Other iron deficiency anemias: Status: Acute (10) Malignant neoplasm of transverse colon: Status: Acute Permanent problem details: Stage IIIC - T4b, N1a, M0 Reason for Visit Reason for Visit: dehydration Brief History: Ry Potter is a 66 year old male with past history of colon cancer, hypertension, GERD, and BPH who presents with 2 weeks of diarrhea.? Patient is sent from Dr. Klein's office for observation where he was found this morning to be hypokalemic with symptoms of dehydration, as well as a fever.? The patient states that the symptoms have been accompanied by dizziness, fatigue, weakness, headache, suprapubic abdominal cramping, nausea, vomiting, cough, and shortness of breath.? He states he recently finished 26 rounds of chemotherapy which he tolerated well.? At baseline, he is outside doing activities such as playing golf, but he has felt too ill over the past 2 weeks.? The patient denies blood in his vomit or diarrhea.? He says he has had diarrhea in the past from his chemo, but never this bad.? He says he feels dehydrated because he cannot keep anything down and his episodes of diarrhea have been too numerous to count.? He also states he recently finished a course of antibiotics for a sore throat/sinus infection that he was prescribed .? This was over 2 weeks ago.? His last PET scan interpreted on 06/04/2022 showed no significant progression of his cancer.? He was seen in the ER on 06/27/2022 for symptoms of dehydration as well and was discharged home.? Patient's potassium today was 2.7, down from 3.7 yesterday.? He was started on potassium chloride at Dr. Klein's office.? Patient denies any chest pain, syncope, peripheral edema, or any other symptoms at this time.? He is a former smoker and says he quit many years ago.? All other questions and co ncerns are addressed at this time. He also recently had testing for C. difficile which was negative several days ago. Hospital Course Hospital Course Patient was initially admitted with a small bowel obstruction, hypokalemia, dehydration, fever. He was found to have a thrombosis nonocclusive and superior mesenteric vein. Initially patient was started on anticoagulation with Lovenox but then complicated by GI bleed.? Lovenox was stopped.? Hemoglobin is stable at 10.3 at this time.? Patient did have a colonoscopy done on 03 July which showed inflammation in colon few petechiae no active bleeding AVM in colon clip internal hemorrhoids noted.? This was biopsied.? As per discussion with surgery patient is not a good candidate for reinitiation with anticoagulation as he will most likely bleed.? Previous hospitalist discussed findings of recurrence of cancer with outpatient oncologist Dr. Klein.? He may be a candidate for surgical resection of rectal cancer versus radiation after determining the extent of new involvement.? Higher level care center would be recommended at this point. Patient remained in the hospital for awaiting transfer to [facility] however there was no bed available. He remained in the hospital 11 days. Bowel obstruction resolved. Blood cultures negative, patient did not sp vijaya any other fevers. C. difficile also negative. Enteric bacterial panel negative. Dominick was DC'd. I discussed with Dr. Klein if there was anything that could be done as an outpatient and Dr. Klein advised that we can have him see radiation oncology to get started on radiation for rectal mass. He would probably not be a candidate for any kind of vascular procedures at this time given that he cannot tolerate any anticoagulation. Once rectal mass is radiated and bleeding is treated at that point the SMV thrombosis can be addressed. I discussed this with the patient and his daughter and decision was made to discharge him home. He is to follow-up with radiation oncology as an outpatient and further management and treatment will be dictated thereafter. He will also follow-up with Dr. Klein. I did tell the patient that if he has any rectal bleeding he should come back to the hospital or has any worsening abdominal pain or any worsening of other symptoms. He agreed. Discussed with his daughter at length at discharge as well. She agreed to the plan and patient was discharged home in stable condition. Physical Exam Narrative: General: No acute distress, AO x3 HEENT: EOMI. Chest: Lungs clear to auscultation. Mediport seen on left side of chest no erythema around it. Covered with Tegaderm CVS: S1-S2 regular, no murmurs, no tachycardia, no gallops, no rubs Abdomen: Soft, nontender, nondistended. Bowel sounds all 4 quadrants. Neuro: No focal motor deficits. Discharge Data Studies Completed and Pending Completed Studies During Hospitalization Category Date Time Status CT abdomen pelvis w con* [id number] Routine Cat Scan 07/01/22 11:21 Completed XR abdomen 1V* [id number] Stat Exams 07/01/22 22:53 Completed XR acute abdomen series [id number] Routine Exams 07/02/22 10:31 Completed XR chest 1V [id number] Routine Exams 07/02/22 03:22 Completed XR chest 1V portable [id number] Routine Exams 07/01/22 10:45 Completed XR chest 1V portable [id number] Stat Exams 07/01/22 17:27 Completed XR chest 1V portable [id number] Stat Exams 07/05/22 08:26 Completed Pathology: Surgical [PTH] Routine Pth 07/03/22 13:47 Completed Radiology Impressions Abdomen/Pelvis CT 07/01/22 11:21 IMPRESSION: 1. High-grade small bowel obstruction. There is a change of caliber in the small bowel in the mid RIGHT abdomen. Suspect adhesions. 2. Asymmetric wall thickening of the rectum measuring up to 1.7 cm. This area was positive on the recent PET/CT.1 3. Minimal soft tissue thickening but no discrete mass at the region of the umbilicus. Previously described PET/CT positive finding. 4. Very small central mesenteric lymph nodes without increase in size. 5. Small amount of ascites in the pelvis. 6. No metastatic disease to the liver or adrenal glands. 7. Mild splenomegaly. Abdomen X-Ray 07/01/22 22:53 IMPRESSION: NG tube with its side hole at the GE junction should be advanced further into the stomach. Chest/Abdomen X-ray 07/02/22 10:31 IMPRESSION: 1. Multiple dilated small bowel loops consistent with ileus 2. Left central line in the SVC 3. NG tube is in the stomach 4. Low lung volumes seen. 5. Metallic surgical clips left lower quadrant Chest X-Ray 07/05/22 08:26 IMPRESSION: 1. Enteric tube ending in the fundus of the stomach. Left-sided central line ending in the lower one third of the SVC. 2. No acute process noted. Laboratory Results WBC 3.9 10^3/uL (4.0-10.0) L 07/12/22 04:10 RBC 3.73 10^6/uL (4.1-5.3) L 07/12/22 04:10 Hgb 10.2 g/dL (11.7-16.6) L 07/12/22 04:10 Hct 33.6 % (42.0-52.0) L 07/12/22 04:10 MCV 90.1 fl (80-94) 07/12/22 04:10 MCH 27.3 pg (28.0-34.0) L 07/12/22 04:10 MCHC 30.4 g/dL (30.0-36.0) 07/12/22 04:10 RDW 16.8 % (12.1-15.1) H 07/12/22 04:10 Plt Count 171 10^3/cmm (130-400) 07/12/22 04:10 MPV 10.5 fL (7.4-10.4) H 07/12/22 04:10 Neut % (Auto) 55.1 % 07/12/22 04:10 Lymph % (Auto) 28.8 % 07/12/22 04:10 [place] % (Auto) 14.0 % 07/12/22 04:10 Eos % (Auto) 0.8 % 07/12/22 04:10 Baso % (Auto) 1.0 % 07/12/22 04:10 Neut # (Auto) 2.16 10^3/uL (1.8-7.7) 07/12/22 04:10 Lymph # (Auto) 1.1 10^3/uL (0.8-4.8) 07/12/22 04:10 [place] # (Auto) 0.6 10^3/uL (0.2-0.9) 07/12/22 04:10 Eos # (Auto) 0.0 10^3/uL (0.0-0.8) 07/12/22 04:10 Baso # (Auto) 0.0 10^3/uL (0.0-0.1) 07/12/22 04:10 Nucleated RBC % (auto) 0 % 07/12/22 04:10 Total Counted 100 (0-100) 07/06/22 04:28 Atypical Lymphs % 1.0 % (0-5) 07/06/22 04:28 Absolute Neutrophils 4.2 10^3/cmm (1.4-6.5) 07/06/22 04:28 Segmented Neutrophils 79 % 07/06/22 04:28 Abs Segm Neuts (Man) 4.1 10/cmm (1.6-7.1) 07/06/22 04:28 Band Neutrophils 2.0 % 07/06/22 04:28 Abs Band Neuts (Man) 0.1 10^3/cmm (0.0-1.2) 07/06/22 04:28 Absolute Lymphocytes 0.5 10^3/cmm (1.2-3.4) L 07/06/22 04:28 Lymphocytes (Manual) 8 % 07/06/22 04:28 Monocytes (Manual) 9.0 % 07/06/22 04:28 Absolute Monocytes 0.5 10^3/cmm (0.1-0.6) 07/06/22 04:28 Eosinophils (Manual) 1 % 07/06/22 04:28 Absolute Eosinophils 0.0 10^3/cmm (0.0-0.7) 07/06/22 04:28 Basophils (Manual) 0.0 % 07/06/22 04:28 Absolute Basophils 0.0 10^3/cmm (0.0-0.2) 07/06/22 04:28 Nucleated RBCs # 0.0 /100WBC 07/12/22 04:10 Platelet Estimate Normal (Normal) 07/06/22 04:28 Sodium 138 mmol/L (136-145) 07/12/22 04:10 Potassium 3.8 mmol/L (3.5-5.1) 07/12/22 04:10 Chloride 103 mmol/L (98-107) 07/12/22 04:10 Carbon Dioxide 26 mmol/L (22-29) 07/12/22 04:10 Anion Gap 12.8 (5-19) 07/12/22 04:10 BUN 3 mg/dL (8-23) L 07/12/22 04:10 Creatinine 0.6 mg/dL (0.7-1.2) L 07/12/22 04:10 GFR Calculation 134.0 mL/min (90-130) H 07/12/22 04:10 Glucose 105 mg/dL (65-115) 07/12/22 04:10 Calculated Osmolality 283 mOsm/kg (285-295) L 07/12/22 04:10 Lactic Acid 1.1 mmol/L (0.5-2.2) 07/01/22 11:20 Calcium 8.6 mg/dL (8.5-10.5) 07/12/22 04:10 Magnesium 2.2 mg/dL (1.7-2.3) 07/06/22 04:28 Total Bilirubin 0.5 mg/dL (0.15-1.2) 07/08/22 05:03 AST 32 U/L (0-40) 07/08/22 05:03 ALT 18 U/L (0-41) 07/08/22 05:03 Alkaline Phosphatase 104 U/L (40-130) 07/08/22 05:03 Total Protein 6.2 g/dL (6.6-8.7) L 07/08/22 05:03 Albumin 3.0 g/dL (3.5-5.2) L 07/08/22 05:03 Globulin 3.2 g/dL (1.3-4.6) 07/08/22 05:03 Urine Color Yellow (Yellow) 07/01/22 18:10 Urine Appearance Clear (CLEAR) 07/01/22 18:10 Urine pH 6.5 (5-7) 07/01/22 18:10 Ur Specific [place] 1.005 (1.005-1.030) 07/01/22 18:10 Urine Protein Neg (Negative) 07/01/22 18:10 Urine Glucose (UA) Norm (Normal) 07/01/22 18:10 Urine Ketones Negative (Negative) 07/01/22 18:10 Urine Blood Neg (Negative) 07/01/22 18:10 Urine Nitrate Negative (Negative) 07/01/22 18:10 Urine Bilirubin Neg (Negative) 07/01/22 18:10 Urine Urobilinogen Neg mg/dL (Negative) 07/01/22 18:10 Ur Leukocyte Esterase Negative (Negative) 07/01/22 18:10 Urine RBC None /hpf (0-2) 07/01/22 18:10 Urine WBC 0-4 /hpf (0-5) H 07/01/22 18:10 Ur Squamous Epith Cells 0-4 /hpf (0-5) H 07/01/22 18:10 Amorphous Sediment Not Reportable 07/01/22 18:10 Urine Bacteria Trace /hpf (NONE) 07/01/22 18:10 Urine Mucus 1+ /hpf 07/01/22 18:10 Vancomycin Trough 15.0 ug/mL (10-15) 07/02/22 12:30 Coronavirus 229E (PCR) Not detected (NOT DETECT) 07/01/22 13:10 Influenza Type A Ag negative (Negative) 07/01/22 13:10 Influenza Type B Ag negative (Negative) 07/01/22 13:10 SARS-CoV-2 (PCR) Not detected (NOT DETECT) 07/01/22 13:10 Vitals Last Vital Signs Temp 98.1 F 07/12/22 12:00 Pulse 72 07/12/22 12:00 Resp 16 07/12/22 12:00 BP 147/81 07/12/22 12:00 Pulse Ox 96 07/12/22 12:00 O2 Del Method 07/12/22 12:00 O2 Flow Rate 2 07/03/22 13:41 Discharge Plan Discharge Patient Disposition: Home Condition: Stable Prescriptions: New acetaminophen 325 mg Tablet 650 mg PO Q6H PRN (Reason: Mild/Mod Pain Or Temp >/= 101) 7 Days Qty: 15 0RF Changed amlodipine 5 mg Tablet 2.5 mg PO DAILY Qty: 30 3RF Protonix 40 mg Tablet,Delayed Release (Dr/Ec) 40 mg PO BIDWMEAL Qty: 30 3RF Discontinued meloxicam 15 mg tablet 15 mg PO DAILY Qty: 90 0RF Discharge Orders: Discharge Order (Routine); Ordered 07/12/22 Ordered By: Sary De Leon Other Ambulatory Orders: Complete Blood Count w/Auto (Routine) Timeframe: 1 Week Location: Determined by Patient Ordered By: Sary De Leon Referrals: Luis Klein MD [Primary Care Provider] - 07/13/22 1:30 pm (APPOINTMENT WITH DR LYLE PER DR KLEIN) Luis Morales DO [Physician] - 07/20/22 10:15 am Discharge Diet: GI Soft Discharge Activity: Resume usual activity Patient Instructions: Gastrointestinal Bleeding (GEN), GI Discharge Instructions, Opioid Safety Activity Restrictions/Additional Instructions: Please follow-up with Dr. Klein's office after discharge for coordination of cancer care. Watch for blood in stool, weakness, blood in vomitus. If you develop abdominal pain, shortness of breath, chest pain, any other symptoms that are new or worsening of existing symptoms please return back to the ER immediately. Discharge Attestations Time Spent in Discharge Care*: greater than 30 min Quality Metrics Clinical Quality Measures [ No reported AMI, CVA or VTE this stay] Coding Level of Care Code 01313 Total time (in minutes) for Discharge: 45 Diagnoses Superior mesenteric vein thrombosis K55.069 GI bleed K92.2 Thrombosis of superior mesenteric artery K55.069 Partial small bowel obstruction K56.600 GERD (gastroesophageal reflux disease) K21.9 HTN (hypertension), benign I10 Colon cancer C18.9 Hypokalemia E87.6 Other iron deficiency anemias D50.8 Malignant neoplasm of transverse colon C18.4
--- NOTE | 2022-07-12 15:30 | PC.SOCIAL ---
IMM Update pg 2 of IMM updated and reviewed w/ patient. Copy provided and copy in chart dated and initialed.
--- NOTE | 2022-07-12 16:22 | PM.PN ---
Subjective Subjective: Patient reports some mild right-sided abdominal pain today. Denies any nausea or vomiting. Tolerating soft diet. Vitals/I&O/Wt Last Vital Signs Temp 98.1 F 07/12/22 12:00 Pulse 72 07/12/22 12:00 Resp 16 07/12/22 12:00 BP 147/81 07/12/22 12:00 Pulse Ox 96 07/12/22 12:00 O2 Del Method 07/12/22 12:00 O2 Flow Rate 2 07/03/22 13:41 07/12/22 07/12/22 07/12/22 06:59 14:59 22:59 Intake Total 480 / 480 Output Total 450 / 700 600 / 600 Balance -450 / 1906.25 -120 / -120 Physical Exam Narrative: General: No acute distress, awake alert and oriented x3 Abdomen soft, minimally distended but improved, mild right lower quadrant tenderness, no guarding rebound or masses Data 07/12/22 04:10 07/12/22 04:10 A&P Assessment and plan (1) Secondary malignant neoplasm of mesentery: (2) Partial small bowel obstruction: (3) Thrombosis of superior mesenteric artery: (4) GI bleed: Plan Advance to soft diet Ambulate Pathology results came back as invasive carcinoma in the rectum Medical management per hospitalist Attestations Medical Necessity Statement*: Per primary Coding Level of Care Code Acute Code for Chg Fwd Diagnoses Secondary malignant neoplasm of mesentery C78.6 Partial small bowel obstruction K56.600 Thrombosis of superior mesenteric artery K55.069 GI bleed K92.2
--- NOTE | 2022-07-12 17:01 | PC.NURSE ---
Upon discharging patient this nurse went to ask questions bout de-accessing the port and pt informed this nurse that, another nurse came in and took it out and flushed it . Nurse examined left chest and the port was no longer there. Nurse asked who took it out and the patient was unable to give a description and said, I don't remember . This nurse was not able to discover who de-accessed the port.
== END 2022-07-12 17:10 | disposition home or self-care (01) | DRG 388 ==
PROVIDERS: Family Medicine; Internal Medicine; Student in an Organized Health Care Education/Training Program; Surgery; Admitting Provider Internal Medicine; PCP Internal Medicine Medical Oncology; Visit Provider Internal Medicine
PROC: 0DJD8ZZ Inspection of Lower Intestinal Tract, Via Natural or Artificial Opening Endoscopic (ICD-10-PCS; CPT 45378; principal; 2022-07-03 12:00)
DX: K56.600 Partial intestinal obstruction, unspecified as to cause (principal); K55.069 Acute infarction of intestine, part and extent unspecified; C20 Malignant neoplasm of rectum; C18.4 Malignant neoplasm of transverse colon; K21.9 Gastro-esophageal reflux disease without esophagitis; I10 Essential (primary) hypertension; E87.6 Hypokalemia; N40.0 Benign prostatic hyperplasia without lower urinary tract symptoms; E86.0 Dehydration; Z87.891 Personal history of nicotine dependence; E78.5 Hyperlipidemia, unspecified; Z90.49 Acquired absence of other specified parts of digestive tract; D64.81 Anemia due to antineoplastic chemotherapy; D69.59 Other secondary thrombocytopenia; T45.1X5A Adverse effect of antineoplastic and immunosuppressive drugs, initial encounter; K55.20 Angiodysplasia of colon without hemorrhage; K64.8 Other hemorrhoids; K52.9 Noninfective gastroenteritis and colitis, unspecified
CPT/HCPCS: 36415; 36591; 45380; 45382; 71045; 74018; 74022; 74177; 80048; 80053; 80202; 80503; 81001; 83605; 83735; 84132; 85007; 85018; 85025; 87040; 87493; 87506; 87635; 87641; 87804; 88305; 96365; 96366; 96372; 99214; 99231; C9113; G0379; J1650; J2405; J2543; J2704; J2997; J3370; J3480; J7030; Q9967

== ENCOUNTER 2022-07-04 08:30 | Oncology outpatient (recurring) (ONCR) | payer MEDICARE, OTHER, SELFPAY ==
[2022-06-20 08:45] LABS: Basophils % 0.5 %; Eosinophils % 0.5 %; Hematocrit 38.4 % (42.0-52.0); Hemoglobin 12.2 g/dL (11.7-16.6); Lymphocytes # 1.6 10^3/uL (0.8-4.8); Lymphocytes % 18.8 %; Mean Corpuscular HGB Conc 31.8 g/dL (30.0-36.0); Mean Corpuscular Hemoglobin 28.6 pg (28.0-34.0); Mean Corpuscular Volume 89.9 fl (80-94); Mean Platelet Volume 9.7 fL (7.4-10.4); Monocytes # 0.7 10^3/uL (0.2-0.9); Monocytes % 8.9 %; Neutrophils # 5.85 10^3/uL (1.8-7.7); Neutrophils % 70.5 %; Nucleated Red Blood Cells % 0 %; Platelet Count 141 10^3/cmm (130-400); Red Blood Count 4.27 10^6/uL (4.1-5.3); Red Cell Distribution Width 15.3 % (12.1-15.1); White Blood Count 8.3 10^3/uL (4.0-10.0)
[2022-06-20 08:49] LABS: Alanine Aminotransferase 17 U/L (0-41); Albumin Level 3.7 g/dL (3.5-5.2); Alkaline Phosphatase 131 U/L (40-130); Anion Gap 12.5 (5-19); Aspartate Amino Transferase 23 U/L (0-40); Blood Urea Nitrogen 7 mg/dL (8-23); Calcium 8.6 mg/dL (8.5-10.5); Carbon Dioxide 28 mmol/L (22-29); Chloride 99 mmol/L (98-107); Glomerular Filtration Rate 83.9 mL/min (90-130); Glucose 103 mg/dL (65-115); Osmolality Calculated 280 mOsm/kg (285-295); Potassium 3.5 mmol/L (3.5-5.1); Sodium 136 mmol/L (136-145); Total Bilirubin 0.5 mg/dL (0.15-1.2); Total Protein 6.7 g/dL (6.6-8.7)
[2022-06-20 09:12] LABS: Carcinoembryonic Antigen 9.3 ng/mL (0.0-4.7)
[2022-06-20] MEDS: dextrose 5% 250 ML 75 ML IV (10:36)
[2022-06-20] MEDS: palonosetron 0.25 mg/5 mL SDV IVP (10:37)
[2022-06-20] MEDS: atropine 1 mg/mL SDV 1 mL 0.4 MG IV (10:39)
[2022-06-20] MEDS: leucovorin 700 MG in dextrose 5% 250 ML 166.67 MG IV (11:46)
[2022-06-20] MEDS: irinotecan 300 MG, irinotecan 10 MG in dextrose 5% 250 ML 177 MG IV (11:47)
[2022-06-20 13:24] VITALS: BP 140/80; PULSE 75; RESP 16; TEMP 36.4
[2022-06-20] MEDS: fluorouraciL 5,200 MG, elastomeric pump 1 PUMP in sodium chloride 0.9% (100 ml) 126 ML IV (13:24)
[2022-06-22 11:18] VITALS: BP 111/72; PULSE 79; RESP 16; TEMP 36.7
[2022-06-22] MEDS: pegfilgrastim-bmez 6 mg/0.6 mL SYR SUBCUT (11:19)
[2022-06-29] MEDS: sodium chlor 0.9% + KCl 40 mEq 40 MEQ/1,000 ML BAG 500 MEQ IV (14:00)
[2022-06-29 14:13] LABS: Hematocrit 29.9 % (42.0-52.0); Hemoglobin 9.8 g/dL (11.7-16.6); Mean Corpuscular HGB Conc 32.8 g/dL (30.0-36.0); Mean Corpuscular Hemoglobin 28.2 pg (28.0-34.0); Mean Corpuscular Volume 86.2 fl (80-94); Mean Platelet Volume 10.5 fL (7.4-10.4); Platelet Count 86 10^3/cmm (130-400); Red Blood Count 3.47 10^6/uL (4.1-5.3); Red Cell Distribution Width 14.6 % (12.1-15.1)
[2022-06-29 14:33] LABS: Alanine Aminotransferase 18 U/L (0-41); Albumin Level 3.1 g/dL (3.5-5.2); Alkaline Phosphatase 116 U/L (40-130); Anion Gap 14.8 (5-19); Aspartate Amino Transferase 20 U/L (0-40); Blood Urea Nitrogen 8 mg/dL (8-23); Calcium 8.1 mg/dL (8.5-10.5); Carbon Dioxide 25 mmol/L (22-29); Chloride 96 mmol/L (98-107); Globulin 2.8 g/dL (1.3-4.6); Glomerular Filtration Rate 83.9 mL/min (90-130); Glucose 108 mg/dL (65-115); Magnesium 1.9 mg/dL (1.7-2.3); Osmolality Calculated 275 mOsm/kg (285-295); Sodium 133 mmol/L (136-145); Total Bilirubin 1.1 mg/dL (0.15-1.2); Total Protein 5.9 g/dL (6.6-8.7)
[2022-06-29 14:39] LABS: Potassium 2.8 mmol/L (3.5-5.1)
--- NOTE | 2022-06-29 14:41 | PC.NURSE ---
Pt brought to infusion suite after seeing Dr. Topete for problem visit. Pt stated he went to E.R. Monday for not feeling good for 2 weeks and having diarrhea. Pt feels very warm to touch. Face flushed. Pt stated his temp with OV was 100.6. Was 99.9 at this time in infusion suite. CBC, CMP, MG, Blood cultures x2, stool for Cdiff, and UA obtained and sent to lab as ordered. 1 L NS with 40 meq adm as ordered.
[2022-06-29 15:18] LABS: Blood Urine Neg (Negative); Glucose Urine UA Norm (Normal); Ketones Urine 1+ (Negative); Leukocyte Esterase Urine Trace (Negative); Nitrate Urine Negative (Negative); Protein Urine Trace (Negative); Specific Gravity, Urine 1.015 (1.005-1.030); Urine Appearance Clear (CLEAR); Urine Color Dark Yellow (Yellow); pH Urine 5 (5-7)
[2022-06-29 15:19] LABS: Amorphous Sediment Urine TRACE /hpf; Bacteria Urine TRACE /hpf; Bilirubin Urine 1+ (Negative); Mucus Urine 2+ /hpf; RBC Urine 0-4 /hpf (0-2); Urobilinogen Urine 1 mg/dL (Negative); WBC Urine 0-4 /hpf (0-5)
[2022-06-29 15:20] LABS: Add Urine Culture? No
[2022-06-29 15:30] LABS: Slide Review Slide Review Perform
[2022-06-29 15:31] LABS: Absolute Segmented Neutrophil 0.8 10/cmm (1.6-7.1); Eosinophils 0 %; Lymphocytes 38 %; Lymphocytes Absolute 0.8 10^3/cmm (1.2-3.4); Monocytes Absolute 0.4 10^3/cmm (0.1-0.6); Segmented Neutrophils 40 %; Total Cells Counted 100 (0-100)
[2022-06-29 15:32] LABS: Pathology Refferal Yes
[2022-06-29 15:38] LABS: Platelet Estimate Normal (Normal)
[2022-06-29 15:39] LABS: Absolute Neutrophil 0.8 10^3/cmm (1.4-6.5)
[2022-06-29 16:42] VITALS: BP 121/71; PULSE 89; TEMP 38.1; O2SAT 96
[2022-06-30] MEDS: alteplase 1 mg/mL SDV 2 mL 2 MG INTRACATH (09:27)
[2022-06-30] MEDS: sodium chlor 0.9% + KCl 40 mEq 40 MEQ/1,000 ML BAG 500 MEQ IV (10:14)
[2022-06-30 12:46] LABS: Basophils % 0.7 %; Eosinophils % 0.3 %; Hematocrit 30.2 % (42.0-52.0); Hemoglobin 9.7 g/dL (11.7-16.6); Lymphocytes # 0.9 10^3/uL (0.8-4.8); Lymphocytes % 30.8 %; Mean Corpuscular HGB Conc 32.1 g/dL (30.0-36.0); Mean Corpuscular Volume 87.3 fl (80-94); Mean Platelet Volume 11.2 fL (7.4-10.4); Monocytes # 0.5 10^3/uL (0.2-0.9); Monocytes % 17.1 %; Neutrophils # 1.51 10^3/uL (1.8-7.7); Neutrophils % 50.4 %; Nucleated Red Blood Cells % 0 %; Platelet Count 100 10^3/cmm (130-400); Red Blood Count 3.46 10^6/uL (4.1-5.3); Red Cell Distribution Width 14.7 % (12.1-15.1)
[2022-06-30 13:04] LABS: Anion Gap 12.7 (5-19); Blood Urea Nitrogen 8 mg/dL (8-23); Carbon Dioxide 25 mmol/L (22-29); Chloride 101 mmol/L (98-107); Glomerular Filtration Rate 112.1 mL/min (90-130); Glucose 106 mg/dL (65-115); Osmolality Calculated 279 mOsm/kg (285-295); Potassium 3.7 mmol/L (3.5-5.1); Sodium 135 mmol/L (136-145)
[2022-06-30 13:30] VITALS: BP 111/68; PULSE 78; TEMP 37; O2SAT 96
[2022-06-30 13:54] LABS: Slide Review Slide Review Perform
[2022-07-01 08:45] VITALS: BP 126/72; PULSE 88; TEMP 37.3; O2SAT 98
[2022-07-01] MEDS: sodium chlor 0.9% + KCl 40 mEq 40 MEQ/1,000 ML BAG 500 MEQ IV (09:06)
[2022-07-01 09:26] LABS: Basophils % 0.7 %; Eosinophils % 0.2 %; Hematocrit 30.5 % (42.0-52.0); Hemoglobin 9.9 g/dL (11.7-16.6); Lymphocytes # 0.5 10^3/uL (0.8-4.8); Lymphocytes % 11.8 %; Mean Corpuscular HGB Conc 32.5 g/dL (30.0-36.0); Mean Corpuscular Hemoglobin 28.1 pg (28.0-34.0); Mean Corpuscular Volume 86.6 fl (80-94); Mean Platelet Volume 10.3 fL (7.4-10.4); Monocytes # 0.6 10^3/uL (0.2-0.9); Neutrophils # 2.96 10^3/uL (1.8-7.7); Neutrophils % 71.6 %; Nucleated Red Blood Cells % 0 %; Platelet Count 121 10^3/cmm (130-400); Red Blood Count 3.52 10^6/uL (4.1-5.3); Red Cell Distribution Width 14.7 % (12.1-15.1); White Blood Count 4.1 10^3/uL (4.0-10.0)
[2022-07-01 09:51] LABS: Alanine Aminotransferase 19 U/L (0-41); Albumin Level 3.1 g/dL (3.5-5.2); Alkaline Phosphatase 126 U/L (40-130); Anion Gap 12.7 (5-19); Aspartate Amino Transferase 24 U/L (0-40); Blood Urea Nitrogen 7 mg/dL (8-23); Calcium 8.2 mg/dL (8.5-10.5); Carbon Dioxide 25 mmol/L (22-29); Chloride 99 mmol/L (98-107); Globulin 2.5 g/dL (1.3-4.6); Glomerular Filtration Rate 112.1 mL/min (90-130); Glucose 128 mg/dL (65-115); Osmolality Calculated 278 mOsm/kg (285-295); Sodium 134 mmol/L (136-145); Total Bilirubin 0.8 mg/dL (0.15-1.2); Total Protein 5.6 g/dL (6.6-8.7)
[2022-07-01 09:54] LABS: Potassium 2.7 mmol/L (3.5-5.1)
[2022-07-01 10:06] LABS: Slide Review Slide Review Perform
== END 2022-07-12 23:59 | disposition home or self-care (01) ==
PROVIDERS: PCP Internal Medicine; Visit Provider Internal Medicine Medical Oncology
DX: C18.4 Malignant neoplasm of transverse colon (principal)
CPT/HCPCS: 80048; 80053; 80503; 81001; 82378; 83735; 85007; 85025; 87040; 87493; 96365; 96366; 96367; 96372; 96375; 96413; 96416; 96417; 99214; J0461; J0640; J1100; J2469; J2997; J7060; J9190; J9206; Q5107; Q5120

== ENCOUNTER 2022-07-13 13:19 | Oncology outpatient (recurring) (ONCR) | payer MEDICARE, OTHER, SELFPAY ==
--- NOTE | 2022-07-13 14:17 | N.ONRAD NP_ITS ---
Radiation Oncology Consultation Patient Name: Ry Potter Date of : 1955 Date of Service: 07/13/2022 Attending Physician: Milo Werner M.D. Ry Potter was seen in consultation this afternoon at the request of Luis Topete M.D. for consideration of palliative radiotherapy in the management of a recently diagnosed rectal cancer. He was admitted to [facility] on July 01, 2022 for abdominal pain. An abdominopelvic CT scan (independently reviewed in [facility]) revealed a high-grade small bowel obstruction, a thrombus in the superior mesenteric vein (less than 50% occlusion) and thickening of the right lateral wall of the rectum. Anticoagulation was initiated (Lovenox) but resulted in gastrointestinal bleeding. A colonoscopy was performed by Kev Chaparro D.O. on July 03, 2022 identified an AVM within the descending colon, rectal internal hemorrhoids, and a rectal mass. Biopsies of the rectal mass diagnosis invasive moderately-differentiated adenocarcinoma. Following resolution of the small bowel obstruction, he was discharged from the hospital on July 12, 2022. The patient was referred for palliative radiotherapy to the rectal mass. I discussed with Mr. Potter the role of palliative radiotherapy in the context of gastrointestinal bleeding and the need for anticoagulation for the superior mesenteric vein thrombosis. I would endorse a short course of pelvic radiotherapy. The potential toxicities of pelvic radiotherapy were reviewed. The patient has verbalized understanding would like to proceed as recommended. He will be evaluated at [facility] this week. The patient's medical treatment plan was discussed with Luis Topete M.D. Signed by: Milo Werner 07/13/2022 2:15:39 PM
== END 2022-08-12 23:59 | disposition home or self-care (01) ==
PROVIDERS: PCP Internal Medicine Medical Oncology; Visit Provider Radiology Radiation Oncology
DX: C20 Malignant neoplasm of rectum (principal); K56.609 Unspecified intestinal obstruction, unspecified as to partial versus complete obstruction; K55.059 Acute (reversible) ischemia of intestine, part and extent unspecified; K64.8 Other hemorrhoids; Z79.01 Long term (current) use of anticoagulants; Z79.899 Other long term (current) drug therapy
CPT/HCPCS: 99205

== ENCOUNTER 2022-07-23 05:47 | Outpatient (CLI) | payer MEDICARE, OTHER, SELFPAY ==
--- NOTE | 2022-07-23 11:00 | PETR_ITS ---
PROCEDURE INFORMATION: Exam: PET/CT Skull Base to Mid-thigh Exam date and time: 07/23/2022 11:14 AM Age: 66 years old Clinical indication: Condition or disease; Follow-up oncological assessment; Prior surgery; Surgery type: Colon, stomach, port; Additional info: Restaging after bowel obstruction LABS AND CLINICAL REPORTS: Glucose: 113 mg/dl Treatment strategy for malignancy (PET staging): Restaging (PS) TECHNIQUE: Imaging protocol: Following at least four-hour fasting and following the injection of F-18-FDG, low dose CT images were obtained. Then, PET images were obtained. Attenuation corrected images were constructed using the CT scan. Fused images of PET and CT were reviewed. The standardized uptake values (SUV) reported below are maximum values within a region of interest, expressed in gm/ml. Exam includes orbital meatal line to mid-thigh. Radiopharmaceutical: 14.33 mCi F-18 FDG (Fluorodeoxyglucose), IV. Time of imaging post radiopharmaceutical administration: 1 hour Injection site: Left antecubital COMPARISON: CT abdomen and pelvis 07/01/2022 PT PET skulltothi SUBSEQ [id number] 06/04/2022 9:40 AM FINDINGS: Tubes, catheters and devices: A left subclavian central venous port catheter terminates in the distal SVC. Brain: Visualized brain has normal physiologic uptake. Pharynx: No abnormal uptake. Larynx: No abnormal uptake. Lungs, pleura and trachea: No abnormal uptake. Non radiotracer avid left apical pleural scarring is noted. A noncalcified solid ovoid medial right lower lobe nodule is noted measuring 0.5 x 0.3 cm on series 3, image 72 and appears minimally increased in size compared with the prior PET-CT. A 3 mm right upper lobe nodule on series 3, image 58 appears to been faintly visible on the prior PET-CT which was limited by motion artifact in this region. Heart: Normal physiologic uptake. Mediastinal space: No abnormal uptake. Liver: No abnormal uptake. Gallbladder and bile ducts: No abnormal uptake. Pancreas: No abnormal uptake. Spleen: No abnormal uptake. Similar mild splenomegaly. Adrenal glands: No abnormal uptake. Kidneys and ureters: Normal physiologic uptake. A simple appearing cyst arises from the left renal superior pole measuring 4.3 cm in diameter. Unremarkable right kidney. Stomach and bowel: Surgical staple line in the stomach is noted with evidence of partial gastrectomy. Right hemicolectomy is noted. Abnormal uptake in the region of the proximal rectum/rectosigmoid junction where there is evidence of a surgical staple line is noted, SUV max 18.5 (remeasured with SUV max 13.0 on the prior exam). Wall thickening in this region appears similar. Intraperitoneal and retroperitoneal spaces: There are numerous surgical clips scattered throughout the abdominal mesentery and in the region of the resected omentum. A spiculated soft tissue density nodule slightly inferior to the aortic bifurcation within the mesenteric fat on series 3, image 128 measures approximately 1 cm, SUV max 7.4 (previously measuring approximately 8 mm with an SUV max 3.2). Reproductive: Moderate prominence of the prostate gland is noted without evidence of focal abnormal uptake in this region. Vasculature: No abnormal uptake. Diffuse atherosclerotic changes are noted including within the coronary arteries. Lymph nodes: No abnormal uptake. No lymphadenopathy in the head, neck, chest, abdomen, pelvis, and extremities. Bones/joints: A non radiotracer avid sclerotic density in the right femoral intertrochanteric region on series 3, image 163 with central lucency is not radiotracer avid and appears similar. There is a similar circumscribed ovoid lesion in the right superior pubic ramus containing ovoid foci of sclerotic density. Similar focus of rounded lucency with slight cortical scalloping in the right iliac bone measuring 7 mm in diameter on series 3, image 131.There is mild diffuse vertebral body spondylosis. Soft tissues: Elevated uptake within a soft tissue density nodule at the level of the umbilicus in the subcutaneous fat contiguous with the rectus abdominus sheath is noted in a region measuring approximately 1.4 x 2.4 cm on series 3, image 121, SUV max 13.6 (previously measuring approximately 1.5 cm in diameter with an SUV max 6.0). METRICS: Mediastinal blood pool: SUV max 2.6 PET/PET skulltothi SUBSEQ [id number] IMPRESSION: 1. Elevated uptake in the region of the rectosigmoid junction adjacent to a surgical clip is increased in a region of mild wall thickening (SUV max 18.5, previously 13.0) highly concerning for increased neoplastic involvement. 2. Slight interval increase in size of a soft tissue density nodule slightly inferior to the abdominal aortic bifurcation with interval increase in uptake (SUV max 7.4, previously 3.2) consistent with increased neoplastic involvement. 3. Slightly increased soft tissue density in the region of the umbilicus adjacent to the rectus abdominus sheath with interval significant increase in activity in this region (SUV max 13.6, previously 6.0) concerning for increased neoplastic involvement. 4. Non radiotracer avid lucent and sclerotic lesions involving the right superior pubic ramus, right iliac bone and right proximal femur appears similar. 5. Simple appearing left renal cyst. 6. Small right-sided non radiotracer avid pulmonary nodules are noted, one of which appears minimally increased in size compared to the prior PET-CT in the right lower lobe. Assessment of small nodules can be limited by PET-CT. 7. Additional nonurgent findings as detailed above
== END 2022-07-23 05:48 | disposition home or self-care (01) ==
LOC: RAD 07-25 05:48
PROVIDERS: PCP Internal Medicine Medical Oncology; Visit Provider Internal Medicine Medical Oncology
DX: C18.4 Malignant neoplasm of transverse colon (principal)
CPT/HCPCS: 78815; A9552

== ENCOUNTER 2022-08-17 06:00 | Oncology outpatient (recurring) (ONCR) | payer MEDICARE, OTHER, SELFPAY ==
[2022-08-17 12:43] VITALS: BP 159/95; PULSE 91; TEMP 37.3; O2SAT 97
== END 2022-09-11 23:59 | disposition home or self-care (01) ==
LOC: ONCMED 08-31 16:15
PROVIDERS: PCP Internal Medicine Medical Oncology; Visit Provider Radiology Radiation Oncology
DX: C18.4 Malignant neoplasm of transverse colon; C78.6 Secondary malignant neoplasm of retroperitoneum and peritoneum; C78.02 Secondary malignant neoplasm of left lung; C78.5 Secondary malignant neoplasm of large intestine and rectum; C79.89 Secondary malignant neoplasm of other specified sites; K56.699 Other intestinal obstruction unspecified as to partial versus complete obstruction; K55.059 Acute (reversible) ischemia of intestine, part and extent unspecified; Z79.01 Long term (current) use of anticoagulants; Z79.899 Other long term (current) drug therapy; Z87.891 Personal history of nicotine dependence
CPT/HCPCS: 36591; 80053; 82378; 85025; 99214

== ENCOUNTER 2022-09-02 14:58 | Outpatient (CLI) | payer MEDICARE, OTHER, SELFPAY ==
--- NOTE | 2022-09-02 16:30 | CT_ITS ---
WS: [id number] CT CHEST, ABDOMEN AND PELVIS WITH CONTRAST HISTORY: Restaging; prior SMV thrombosis, colon cancer. TECHNIQUE: Contiguous 5 mm axial imaging performed through the chest, abdomen and pelvis with IV cont rast, oral contrast has been provided. Coronal and sagittal reformats chest. Coronal and sagittal ref ormats through the abdomen and pelvis. All CT scans at [facility] use at least one of these d ose optimization techniques: automated exposure control; mA and/or kV adjustment per patient size (in cludes targeted exams where dose is matched to clinical indication); or iterative reconstruction. CONTRAST: Omnipaque 350; 100 mL IV. DLP: 821.85 mGy.cm COMPARISON: 07/01/2022, 02/01/2022, PET/CT 07/23/[address]: New, subcentimeter and noncalcified RIGHT pulmonary nodules. RIGHT upper lobe nodule slight ly lobulated measuring 5.4 mm maximum diameter. RIGHT lower lobe pulmonary nodule along the medial lo be measures 6.0 mm. No additional new nodules. There is a small area of scarring which is stable at t he LEFT apex. LEFT subclavian Port-A-Cath remains in good position. Atherosclerosis aorta with no aneurysm. Central pulmonary arteries are well-opacified. Mild enlargement of the heart. No pericardial or pleural effu sions. No mediastinal or hilar lymph nodes. Small hiatal hernia. Abdomen CT: Normal liver with no bile duct dilatation. Normal portal vein. Again noted is a very smal l amount of thrombus in the SMV but decreased in size measuring up to 3.6 mm. No new thrombus. Negati ve gallbladder. Negative pancreas. Spleen is enlarged at 14.5 cm which is decreased by approximately 1.0 cm since the prior study. No splenic lesions. Normal adrenal glands. Normal RIGHT kidney. Simple cyst upper pole LEFT kidney measures 4.3 x 4.2 cm. There is an extrarenal pelvis. Atherosclerotic fred que in the aorta. No aneurysm. Normal SMA and celiac axis. Mild atherosclerotic disease in the renal arteries. Accessory renal artery also noted on the RIGHT. Stomach is well distended. No small bowel obstruction. Previously described small bowel dilatation starr s resolved. RIGHT hemicolectomy. Increasing constipation towards the distal colon. Continued abnormal appearance towards the rectum. Progression of rectal wall soft tissue thickening and variable attenu ation. Wall measures up to 19 mm on the LEFT. Near complete loss of the fat plane between the anterio r rectum and the seminal vesicles. Suspect possible invasion. Mild perirectal soft tissue stranding w ith a few subcentimeter lymph nodes. Enlarging metastatic deposit measuring 2.0 x 1.7 cm just anterior to the aortic bifurcation. There is an additional smaller 0.8 cm lymph node along the RIGHT common iliac artery. The previously describe d PET/CT positive region near the umbilicus has also increased in size. There is now a soft tissue no dule centered at the umbilicus extending through the abdominal wall measuring 2.3 x 1.9 cm. On the pr ior CT only mild thickening was identified. Pelvic CT: Well-distended urinary bladder. There is mild thickening along the base of the urinary rosanna dder this may be due to the prostate gland. No inguinal lymph nodes. No change lytic and sclerotic lesion RIGHT pubic ramus and the sclerotic focus in the proximal RIGHT femur. No metastatic bone lesions are identified. CT/CT chest abdpel w/*[id number] IMPRESSION: 1. New subcentimeter pulmonary nodules suspicious for metastatic disease. RIGH T upper lobe nodule measures 5.4 mm and the RIGHT lower lobe nodule measures 6. 0 mm. These nodules were negative on the recent PET/CT. Still concerning for me tastatic disease. 2. No mediastinal or hilar lymphadenopathy. 3. Significant progression of rectal wall thickening and heterogeneity since t he prior studies. Very suspicious for progression/recurrence of neoplasm. 4. Previously described PET/CT positive findings of the umbilicus have progres sed since the prior CT of 07/01/2022. There is now a metastatic deposit at the u mbilicus measuring 2.3 x 1.9 cm. 5. Additional increase in size of the metastatic deposit just anterior to the aortic bifurcation now measuring 2.0 x 1.7 cm. PET/CT positive. 6. Decrease in the SMV thrombus but not completely resolved. 7. No metastatic disease in the liver or adrenal glands. 8. Mild splenomegaly. 9. Possible invasion into the prostate gland but the rectal tumor. 10. Prior RIGHT hemicolectomy.
[2022-09-02] MEDS: iohexol 350 mg/mL 500 mL Btl (per mL) IV (16:36)
[2022-09-02] MEDS: iohexol 350 mg/mL 500 mL Btl (per mL) PO (16:36)
== END 2022-09-02 14:59 | disposition home or self-care (01) ==
LOC: RAD 15:03
PROVIDERS: PCP Internal Medicine Medical Oncology; Visit Provider Internal Medicine Medical Oncology
DX: C78.6 Secondary malignant neoplasm of retroperitoneum and peritoneum (principal); K55.069 Acute infarction of intestine, part and extent unspecified
CPT/HCPCS: 71260; 74177; Q9967

== ENCOUNTER → 2022-10-05 10:30 | Outpatient (BNVA) | payer MEDICARE, OTHER, SELFPAY | PROVIDERS: PCP Internal Medicine Medical Oncology; Visit Provider Nurse Practitioner | DX: Z51.0 Encounter for antineoplastic radiation therapy (principal); C18.4 Malignant neoplasm of transverse colon; C78.6 Secondary malignant neoplasm of retroperitoneum and peritoneum; C78.02 Secondary malignant neoplasm of left lung; Z87.891 Personal history of nicotine dependence | CPT/HCPCS: 77295; 77300; 77334; 77387; 77412 ==

== ENCOUNTER 2022-10-12 14:38 | Oncology outpatient (recurring) (ONCR) | payer MEDICARE, OTHER, SELFPAY ==
--- NOTE | 2022-09-28 12:57 | ONCRAD EPV_ITS ---
Radiation Oncology Follow-Up Note Patient Name: Ry Potter Date of : 1955 Date of Service: 09/28/2022 Attending Physician: Milo Werner M.D. Ry Potter was referred for palliative radiotherapy in the management of a recently diagnosed rectal cancer. He was admitted to [facility] on July 01, 2022 for abdominal pain. An abdominopelvic CT scan revealed a high-grade small bowel obstruction, a thrombus in the superior mesenteric vein (less than 50% occlusion) and thickening of the right lateral wall of the rectum. Anticoagulation was initiated (Lovenox) but resulted in gastrointestinal bleeding. A colonoscopy was performed by Kev Chaparro D.O. on July 03, 2022 identified an AVM within the descending colon, rectal internal hemorrhoids, and a rectal mass. Biopsies of the rectal mass diagnosis invasive moderately-differentiated adenocarcinoma. Following resolution of the small bowel obstruction, he was discharged from the hospital on July 12, 2022. A PET scan (independently reviewed in [facility]) ordered on July 23, 2022 described hypermetabolic activity within the rectosigmoid junction (SUV 18.5), soft tissue density inferior to the abdominal aortic bifurcation (SUV 7.4), and FDG activity adjacent to the rectus abdominis (SUV 13.6). He has recently described blood-streaked stool. I discussed with Mr. Potter the role of palliative radiotherapy in the context of rectal bleeding. I would endorse a short course of pelvic radiotherapy in the context of bleeding exacerbation. The patient's medical treatment plan was discussed with Luis Topete M.D. Signed by: Milo Werner 09/28/2022 1:14:56 PM
[2022-09-28 13:46] VITALS: BP 143/94; PULSE 88; RESP 16; TEMP 36.2; O2SAT 98
[2022-09-28 13:55] LABS: Basophils % 0.5 %; Eosinophils # 0.1 10^3/uL (0.0-0.8); Eosinophils % 2.3 %; Hematocrit 41.5 % (42.0-52.0); Hemoglobin 13.7 g/dL (11.7-16.6); Lymphocytes # 1.4 10^3/uL (0.8-4.8); Lymphocytes % 24.2 %; Mean Corpuscular Volume 87.7 fl (80-94); Mean Platelet Volume 9.1 fL (7.4-10.4); Monocytes # 0.7 10^3/uL (0.2-0.9); Monocytes % 11.6 %; Neutrophils # 3.44 10^3/uL (1.8-7.7); Neutrophils % 61.2 %; Nucleated Red Blood Cells % 0 %; Platelet Count 172 10^3/cmm (130-400); Red Blood Count 4.73 10^6/uL (4.1-5.3); Red Cell Distribution Width 13.6 % (12.1-15.1); White Blood Count 5.6 10^3/uL (4.0-10.0)
[2022-09-28 14:14] LABS: Alanine Aminotransferase 17 U/L (0-41); Alkaline Phosphatase 80 U/L (40-130); Anion Gap 14.3 (5-19); Aspartate Amino Transferase 26 U/L (0-40); Blood Urea Nitrogen 7 mg/dL (8-23); Calcium 8.8 mg/dL (8.5-10.5); Carbon Dioxide 26 mmol/L (22-29); Chloride 99 mmol/L (98-107); Ferritin 187 ng/mL (30-400); Globulin 3.4 g/dL (1.3-4.6); Glomerular Filtration Rate 111.8 mL/min (90-130); Glucose 90 mg/dL (65-115); Iron 62 ug/dL (59-158); Osmolality Calculated 280 mOsm/kg (285-295); Percent Saturation 24.5 % (20-50); Potassium 3.3 mmol/L (3.5-5.1); Sodium 136 mmol/L (136-145); Total Bilirubin 0.5 mg/dL (0.15-1.2); Total Iron Binding Capacity 253 mcg/dl; Total Protein 7.4 g/dL (6.6-8.7); Unsaturated Iron Binding 191 ug/dL (112-347)
--- NOTE | 2022-10-04 | CT_ITS ---
Radiation Therapy Planning CT images; total exam DLP: 733.92 mGy-cm MTDD
--- NOTE | 2022-10-04 14:19 | ONCRAD EPV_ITS ---
Radiation Oncology Established Patient Visit Patient: Tariq Raza [id number] : 1955 Age: 67 Sex: Male Dictated by: Johnson Nunez Date of Service: 10/04/2022 Referring Physician(s) : Dr. 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 Werner to address palliative radiation on 09/28/2022. He has had recurrent painless gross rectal bleeding and has now decided to pursue palliative treatment to his rectal tumor involvement. Current Medications: AmLODIPine Besylate, amLODIPine Besylate, atropine Sulfate, bevacizumab-awwb, dexamethasone Sodium Phosphate, fluorouracil, irinotecan HCl, leucovorin Calcium, lORazepam, lORazepam, metoclopramide HCl, palonosetron HCl, pantoprazole Sodium, pantoprazole Sodium, prochlorperazine Maleate, reglan. Allergies: No Known Allergies Current Complaints / Review of Systems: . Vital Signs: Physical Exam: Omitted today Performance Status: ECOG PS 1. Lab: None pending. Pathology: Primary, c20 - malignant neoplasm of rectum, Diagnosed 07/03/2022 (active), Primary, d50.8 - other iron deficiency anemias, Diagnosed 12/21/2020 (active) and Primary, c18.4 - malignant neoplasm of transverse colon, Diagnosed 11/26/2020 (active) stage iiic, t4b, n1a, m0. Imaging: See HPI Impression: Metastatic adenocarcinoma of the transverse colon. Now with symptomatic involvement of the rectum. He may have metastatic disease to the rectum or a second rectal primary tumr. In any case, we plan to provide 20 Gy in 5 fractions to reverse his rectal bleeding. Signed by: 10/04/2022 2:18:36 PM <<Signature on File>> Time spent with patient: CPT Code: CPT Code:
--- NOTE | 2022-10-11 15:15 | ONCRAD TMN_ITS ---
Radiation Oncology Treatment Management Note Patient Name: Ry Potter Date of : 1955 Date of Service: 10/11/2022 Attending Physician: Milo Werner M.D. Ry Potter is a 67 year-old white male diagnosed with rectal cancer. He was admitted to [facility] on July 01, 2022 for abdominal pain. An abdominopelvic CT scan revealed a high-grade small bowel obstruction, a thrombus in the superior mesenteric vein (less than 50% occlusion) and thickening of the right lateral wall of the rectum. Anticoagulation was initiated (Lovenox) but resulted in gastrointestinal bleeding. A colonoscopy was performed by Kev Chaparro D.O. on July 03, 2022 identified an AVM within the descending colon, rectal internal hemorrhoids, and a rectal mass. Biopsies of the rectal mass diagnosis invasive moderately-differentiated adenocarcinoma. Following resolution of the small bowel obstruction, he was discharged from the hospital on July 12, 2022. A PET scan ordered on July 23, 2022 described hypermetabolic activity within the rectosigmoid junction (SUV 18.5), soft tissue density inferior to the abdominal aortic bifurcation (SUV 7.4), and FDG activity adjacent to the rectus abdominis (SUV 13.6). He has recently described blood-streaked stool. The patient has received 16 Gy of a prescribed 20 Gy with a 3D conformal radiotherapy plan utilizing a four-field treatment technique. Upon review of systems, he denied gastrointestinal symptoms. On physical examination, the patient weighed 173 lbs. His temperature was 96.9 ???F and the blood pressure was 134/82 mmHg. The pulse was 184 bpm and his respiratory rate was 18. Continue palliative radiotherapy as prescribed. Signed by: Dr. Milo Werner 10/11/2022 3:14:52 PM
--- NOTE | 2022-10-12 14:47 | N.ONRD TS_ITS ---
Radiation OncologyTreatment Summary Patient Name: Ry Potter Date of : 1955 Date of Service: 10/12/2022 Attending Physician: Milo Werner M.D. Ry Potter has completed palliative pelvic radiotherapy for the management of a recently diagnosed rectal cancer. He was admitted to [facility] on July 01, 2022 for abdominal pain. An abdominopelvic CT scan revealed a high-grade small bowel obstruction, a thrombus in the superior mesenteric vein (less than 50% occlusion) and thickening of the right lateral wall of the rectum. Anticoagulation was initiated (Lovenox) but resulted in gastrointestinal bleeding. A colonoscopy was performed by Kev Chaparro D.O. on July 03, 2022 identified an AVM within the descending colon, rectal internal hemorrhoids, and a rectal mass. Biopsies of the rectal mass diagnosis invasive moderately-differentiated adenocarcinoma. Following resolution of the small bowel obstruction, he was discharged from the hospital on July 12, 2022. A PET scan (independently reviewed in [facility]) ordered on July 23, 2022 described hypermetabolic activity within the rectosigmoid junction (SUV 18.5), soft tissue density inferior to the abdominal aortic bifurcation (SUV 7.4), and FDG activity adjacent to the rectus abdominis (SUV 13.6). He has recently described blood-streaked stool. Pelvic radiation therapy was delivered between the dates of October 05, 2022 through October 12, 2022. A prescribed dose of 20 Gy was delivered in 5 fractions encompassing 8 elapsed days. The rectum was treated utilizing a 3-dimensional radiotherapy plan. The plan required four gantry angles (0???, 150???, 180???, and 210???). The collimator was rotated from 42??? to 330??? to minimize multileaf excursion. The field sizes spanned between 12.1 cm x 13.4 cm to 14.1 cm x 11.4 cm. The SSDs measured a minimum of 85.2 cm to a maximum of 92.2 cm. The ports delivered 210 MU, 90 MU, 87 MU, and 90 MU corresponding to the gantry angles described. All treatments were performed with the [employer] linear accelerator and an isocentric technique. The dose was calculated by Anisotropic Analytic Algorithm. A photon energy of 15 MV was prescribed with the plan normalized to deliver 100% of the prescription dose to 95% of the planning target volume. The plan was designed and approved by the covering [facility] physician. Signed by: Dr. Milo Werner 10/12/2022 2:45:21 PM
== END 2022-10-12 23:59 | disposition home or self-care (01) ==
PROVIDERS: PCP Internal Medicine Medical Oncology; Visit Provider Radiology Radiation Oncology
DX: Z51.0 Encounter for antineoplastic radiation therapy (principal); C20 Malignant neoplasm of rectum; C78.5 Secondary malignant neoplasm of large intestine and rectum; D50.9 Iron deficiency anemia, unspecified; K62.5 Hemorrhage of anus and rectum; Z79.899 Other long term (current) drug therapy
CPT/HCPCS: 77290; 77334; 77336; 77387; 77412; 80053; 82728; 83540; 83550; 85025; 99024; 99215

== ENCOUNTER 2022-10-24 16:41 | Emergency (ER) | payer MEDICARE, OTHER, SELFPAY ==
[2022-10-24 17:00] VITALS: BP 144/90; PULSE 92; RESP 16; TEMP 36.6; O2SAT 98
--- NOTE | 2022-10-24 17:52 | XRR_ITS ---
PROCEDURE INFORMATION: Exam: XR Abdomen Exam date and time: 10/24/2022 5:56 PM Age: 67 years old Clinical indication: Condition or disease; Other: Colon cancer; Constipation and other: Blood from rectum; Prior surgery; Surgery date: 6+ months; Surgery type: Part of colon and part of stomach removed due to cancer; Patient HX: C/O constipation and saw bright red blood today. Had radiation treatment a few weeks ago? TECHNIQUE: Imaging protocol: Radiologic exam of the abdomen. Views: Frontal supine view of the abdomen. 1 View. COMPARISON: CT chest abdpel w/*[id number] 09/02/2022 4:26 PM FINDINGS: Gastrointestinal tract: Normal. No bowel dilation. Bones/joints: Right pubic symphysis chronic sclerotic bony lesion. XR/XR KUB portable [id number] IMPRESSION: No acute findings.
[2022-10-24 18:24] LABS: Basophils % 0.2 %; Eosinophils % 0.3 %; Hematocrit 40.8 % (42.0-52.0); Hemoglobin 13.1 g/dL (11.7-16.6); Lymphocytes # 0.7 10^3/uL (0.8-4.8); Lymphocytes % 10.6 %; Mean Corpuscular HGB Conc 32.1 g/dL (30.0-36.0); Mean Corpuscular Hemoglobin 27.6 pg (28.0-34.0); Mean Corpuscular Volume 85.9 fl (80-94); Mean Platelet Volume 8.9 fL (7.4-10.4); Monocytes # 0.3 10^3/uL (0.2-0.9); Monocytes % 4.4 %; Neutrophils # 5.16 10^3/uL (1.8-7.7); Nucleated Red Blood Cells % 0 %; Platelet Count 166 10^3/cmm (130-400); Red Blood Count 4.75 10^6/uL (4.1-5.3); Red Cell Distribution Width 12.8 % (12.1-15.1); White Blood Count 6.1 10^3/uL (4.0-10.0)
[2022-10-24 18:41] LABS: INR 1.02 (0.8-1.2)
[2022-10-24 18:52] LABS: Alanine Aminotransferase 14 U/L (0-41); Albumin Level 4.2 g/dL (3.5-5.2); Alkaline Phosphatase 82 U/L (40-130); Aspartate Amino Transferase 22 U/L (0-40); Blood Urea Nitrogen 5 mg/dL (8-23); Calcium 9.2 mg/dL (8.5-10.5); Carbon Dioxide 26 mmol/L (22-29); Chloride 95 mmol/L (98-107); Globulin 3.4 g/dL (1.3-4.6); Glomerular Filtration Rate 111.8 mL/min (90-130); Glucose 110 mg/dL (65-115); Lipase 15 U/L (13-60); Osmolality Calculated 270 mOsm/kg (285-295); Sodium 131 mmol/L (136-145); Total Bilirubin 0.9 mg/dL (0.15-1.2); Total Protein 7.6 g/dL (6.6-8.7)
--- NOTE | 2022-10-24 19:17 | W.ED.GIBLEED ---
HPI - GI Bleed General: Chief complaint: GI Bleed Stated complaint: cancer pt, constipation, blood from rectum Time Seen by Provider: 10/24/22 18:32 Source: patient Mode of arrival: ambulatory Limitations: no limitations History of Present Illness: 67-year-old male states that today when he had a bowel movement he noticed some bright red blood in the toilet. He does have a history of colon cancer he also has a history of hemorrhoids he denies any lightheadedness denies any pain denies any vomiting. Associated symptoms: Denies abdominal pain, chills, fever(s), headache(s), nausea, rash or vomiting Review of Systems Const: Denies: fever(s), chills, body aches or change in appetite ENMT: Denies: throat pain or dental pain Card: Denies: chest pain Resp: Denies: dyspnea GI: Denies: abdominal pain, nausea, vomiting or diarrhea Musc: Denies: neck pain or back pain Skin/Breast: Denies: rash Neuro: Denies: headache(s) PFSH ED PFSH: Medical History BPH (benign prostatic hyperplasia) Colon cancer Degenerative arthritis Dyslipidemia GERD (gastroesophageal reflux disease) HTN (hypertension), benign Surgical History H/O: vasectomy Port-A-Cath in place (02/18/21) S/P right hemicolectomy extended, with en bloc excision of abdominal wall, stomach, and omentum Status post colonoscopy (06/30/21) Family History Father Cancer Lung Grandfather Cancer Lung Brother Cancer Lung Grandmother Hypertension Denies family history of Diabetes CAD (coronary artery disease) Clotting disorder Dementia Hyperlipidemia Psychiatric illness Chronic kidney disease (CKD) Suicide Anesthesia complication Bleeding disorder Lung disease Stroke Social History Smoking and tobacco status: former smoker (quit in 1997) Alcohol intake: current Alcohol intake frequency: 0-2 Drinks per Day Alcohol type: beer Desire information about alcohol rehabilitation?: No Substance/Drug Use: never Desire information about substance/drug rehabilitation?: No Adopted: No Caregiver/support person: No Lives independently: Yes Housing: House Marital status: Unknown Number of children: 1 Current occupational status: previously employed Current gender identity: Male Agree to transfusion: Yes Physical Exam Const: COMMON NORMALS: no acute distress, patient oriented x3 and healthy appearing HENMT: COMMON NORMALS: normocephalic and atraumatic HEAD & SCALP: normocephalic and atraumatic Eye: COMMON NORMALS: conjunctivae normal CONJUNCTIVA: Yes conjunctivae normal Neck/C-Spine: COMMON NORMALS: full ROM and supple Chest: COMMONS NORMALS: normal inspection of the chest Resp: COMMON NORMALS: normal respiratory effort Cardio: COMMON NORMALS: regular rate, regular rhythm and No murmurs present (Cardio) RATE: regular rate RHYTHM: regular rhythm GI: INSPECTION: Yes normal to inspection Extremity: COMMON NORMALS: normal to inspection and full ROM Neuro: COMMON NORMALS: patient oriented x3, moves all extremities and no focal motor deficits Psych: COMMON NORMALS: mental status grossly normal, Normal thought process present and cooperative THOUGHT PROCESS: Normal thought process present Skin: COMMON NORMALS: no rashes or lesions noted and no wounds GENERAL SKIN EXAM: no rashes or lesions noted Course Vital Signs: Vital signs: Vital Signs Temperature 97.9 F 10/24/22 17:00 Pulse Rate 92 10/24/22 17:00 Respiratory Rate 16 10/24/22 17:00 Blood Pressure 144/90 10/24/22 17:00 Pulse Oximetry 98 10/24/22 17:00 Oxygen Delivery Me thod Room Air 10/24/22 17:00 MDM - GI Bleed Medical Decision Making Patient presents here with some bright red blood in his stool he does have hemorrhoids likely the cause his hemoglobin here is normal on my rectal exam he had no blood at this time he is stable for discharge bleeding follow-up with Shankar will prescribe him Proctofoam Medical Records I reviewed the patient's medical records. Lab Data I reviewed the patient's lab results. 10/24/22 18:08 10/24/22 18:08 Radiology Impressions KUB X-Ray 10/24/22 17:52 IMPRESSION: No acute findings. Laboratory Results WBC 6.1 10^3/uL (4.0-10.0) 10/24/22 18:08 RBC 4.75 10^6/uL (4.1-5.3) 10/24/22 18:08 Hgb 13.1 g/dL (11.7-16.6) 10/24/22 18:08 Hct 40.8 % (42.0-52.0) L 10/24/22 18:08 MCV 85.9 fl (80-94) 10/24/22 18:08 MCH 27.6 pg (28.0-34.0) L 10/24/22 18:08 MCHC 32.1 g/dL (30.0-36.0) 10/24/22 18:08 RDW 12.8 % (12.1-15.1) 10/24/22 18:08 Plt Count 166 10^3/cmm (130-400) 10/24/22 18:08 MPV 8.9 fL (7.4-10.4) 10/24/22 18:08 Neut % (Auto) 84.0 % 10/24/22 18:08 Lymph % (Auto) 10.6 % 10/24/22 18:08 Harding % (Auto) 4.4 % 10/24/22 18:08 Eos % (Auto) 0.3 % 10/24/22 18:08 Baso % (Auto) 0.2 % 10/24/22 18:08 Neut # (Auto) 5.16 10^3/uL (1.8-7.7) 10/24/22 18:08 Lymph # (Auto) 0.7 10^3/uL (0.8-4.8) L 10/24/22 18:08 Harding # (Auto) 0.3 10^3/uL (0.2-0.9) 10/24/22 18:08 Eos # (Auto) 0.0 10^3/uL (0.0-0.8) 10/24/22 18:08 Baso # (Auto) 0.0 10^3/uL (0.0-0.1) 10/24/22 18:08 Nucleated RBC % (auto) 0 % 10/24/22 18:08 Nucleated RBCs # 0.0 /100WBC 10/24/22 18:08 PT 13.70 SECONDS (12.1-14.9) 10/24/22 18:08 INR 1.02 (0.8-1.2) 10/24/22 18:08 Sodium 131 mmol/L (136-145) L 10/24/22 18:08 Potassium 4.0 mmol/L (3.5-5.1) 10/24/22 18:08 Chloride 95 mmol/L (98-107) L 10/24/22 18:08 Carbon Dioxide 26 mmol/L (22-29) 10/24/22 18:08 Anion Gap 14.0 (5-19) 10/24/22 18:08 BUN 5 mg/dL (8-23) L 10/24/22 18:08 Creatinine 0.7 mg/dL (0.7-1.2) 10/24/22 18:08 GFR Calculation 111.8 mL/min (90-130) 10/24/22 18:08 Glucose 110 mg/dL (65-115) 10/24/22 18:08 Calculated Osmolality 270 mOsm/kg (285-295) L 10/24/22 18:08 Calcium 9.2 mg/dL (8.5-10.5) 10/24/22 18:08 Total Bilirubin 0.9 mg/dL (0.15-1.2) 10/24/22 18:08 AST 22 U/L (0-40) 10/24/22 18:08 ALT 14 U/L (0-41) 10/24/22 18:08 Alkaline Phosphatase 82 U/L (40-130) 10/24/22 18:08 Total Protein 7.6 g/dL (6.6-8.7) 10/24/22 18:08 Albumin 4.2 g/dL (3.5-5.2) 10/24/22 18:08 Globulin 3.4 g/dL (1.3-4.6) 10/24/22 18:08 Lipase 15 U/L (13-60) 10/24/22 18:08 Discharge Plan Discharge Patient Disposition: Home Clinical Impression: Hemorrhoids, Lower gastrointestinal hemorrhage Condition: Stable Prescriptions: New Proctofoam HC 1-1 % foam 1 applic WV BID PRN (Reason: hemorrhoids) Qty: 10 0RF No Action trazodone 50 mg tablet 50 mg PO BEDTIME PRN Lonsurf 15-6.14 mg tablet 2 tab PO BID Qty: 40 0RF Rx Instructions: must take within 1 hr after completion of meal Take days 1- & 12-24 of a 28 day cycle Lonsurf 20-8.19 mg tablet 2 tab PO BID Qty: 40 0RF Rx Instructions: must take within 1 hr after completion of meal administer days 1-5 & - of 28-day cycle potassium chloride 10 mEq capsule, extended release 10 meq PO DAILY Qty: 30 1RF prochlorperazine maleate [Compazine] 10 mg tablet 10 mg PO Q6H PRN (Reason: nausea and vomiting) Qty: 30 3RF lorazepam 0.5 mg tablet 0.5 mg PO TID PRN (Reason: nausea and vomiting) Qty: 30 3RF lactulose 10 gram/15 mL (15 mL) solution 20 g PO TID Qty: 473 3RF morphine 15 mg tablet See Rx Instructions PO .COMPLEX PRN (Reason: pain) 7 Days Qty: 60 0RF Rx Instructions: 1.5-2 tablets orally every 4-6 hours PRN; amlodipine 5 mg Tablet 2.5 mg PO DAILY Qty: 30 3RF Protonix 40 mg Tablet,Delayed Release (Dr/Ec) 40 mg PO BIDWMEAL Qty: 30 3RF Discharge Orders: Discharge ED (Routine); Ordered 10/24/22 Ordered By: King Pompa Referrals: Kev Chaparro DO [Physician] - 1-3 days Luis Topete MD [Primary Care Provider] - Discharge Diet: Advance as tolerated Discharge Activity: Resume usual activity Patient Instructions: Hemorrhoids (ED) Coding Level of Care Code ED [employer] for Shirley Monson
[2022-10-24 19:29] VITALS: BP 125/81; PULSE 81; RESP 18; O2SAT 97
[2022-10-24 19:48] VITALS: BP 137/74; PULSE 81; RESP 16; O2SAT 98
--- NOTE | 2022-10-25 08:12 | DCPLANNER ---
Addendum entered by Beatris Crystal 11/18/22 10:43: This appointment was rescheduled Addendum entered by Beatris Crystal 10/26/22 09:16: Patient has a follow up appointment scheduled for October at 1:[address] Chaparro at general surgery. Original Note: manager urgent care had message to schedule a follow up appointment for patient with general surgery. manager urgent care sent patients information to the front office staff at general surgery. Patients information will be printed and reviewed. Clinic will call patient with appointment information.
== END 2022-10-24 19:52 | disposition home or self-care (01) ==
PROVIDERS: Emergency Provider Emergency Medicine; PCP Internal Medicine Medical Oncology
DX: K64.9 Unspecified hemorrhoids (principal); Z87.891 Personal history of nicotine dependence; Z85.038 Personal history of other malignant neoplasm of large intestine; E78.5 Hyperlipidemia, unspecified; I10 Essential (primary) hypertension; C18.4 Malignant neoplasm of transverse colon; C78.6 Secondary malignant neoplasm of retroperitoneum and peritoneum; C78.02 Secondary malignant neoplasm of left lung; R10.84 Generalized abdominal pain; R97.0 Elevated carcinoembryonic antigen [CEA]; K59.00 Constipation, unspecified; K62.5 Hemorrhage of anus and rectum; Z79.891 Long term (current) use of opiate analgesic; Z79.899 Other long term (current) drug therapy
CPT/HCPCS: 36415; 74018; 80053; 83690; 85025; 85610; 99214; 99284

== ENCOUNTER 2022-10-27 12:22 | Emergency (ER) | payer MEDICARE, OTHER, SELFPAY ==
[2022-10-27 12:27] VITALS: BP 147/85; PULSE 78; RESP 15; TEMP 36.4; O2SAT 99; BMI 22.6
[2022-10-27 13:04] LABS: Basophils % 0.6 %; Eosinophils % 0.2 %; Hemoglobin 12.4 g/dL (11.7-16.6); Lymphocytes # 0.4 10^3/uL (0.8-4.8); Lymphocytes % 8.1 %; Mean Corpuscular HGB Conc 32.6 g/dL (30.0-36.0); Mean Corpuscular Hemoglobin 28.4 pg (28.0-34.0); Mean Corpuscular Volume 87.2 fl (80-94); Mean Platelet Volume 9.1 fL (7.4-10.4); Monocytes # 0.2 10^3/uL (0.2-0.9); Monocytes % 4.3 %; Neutrophils # 4.56 10^3/uL (1.8-7.7); Nucleated Red Blood Cells % 0 %; Platelet Count 149 10^3/cmm (130-400); Red Blood Count 4.36 10^6/uL (4.1-5.3); Red Cell Distribution Width 13.1 % (12.1-15.1); White Blood Count 5.3 10^3/uL (4.0-10.0)
[2022-10-27 13:22] LABS: Alanine Aminotransferase 13 U/L (0-41); Albumin Level 3.9 g/dL (3.5-5.2); Alkaline Phosphatase 79 U/L (40-130); Anion Gap 17.1 (5-19); Aspartate Amino Transferase 17 U/L (0-40); Blood Urea Nitrogen 11 mg/dL (8-23); Calcium 9.6 mg/dL (8.5-10.5); Carbon Dioxide 24 mmol/L (22-29); Chloride 98 mmol/L (98-107); Globulin 3.5 g/dL (1.3-4.6); Glomerular Filtration Rate 111.8 mL/min (90-130); Glucose 102 mg/dL (65-115); Lipase 22 U/L (13-60); Osmolality Calculated 280 mOsm/kg (285-295); Potassium 4.1 mmol/L (3.5-5.1); Sodium 135 mmol/L (136-145); Total Protein 7.4 g/dL (6.6-8.7)
--- NOTE | 2022-10-27 14:17 | ED_ITS ---
HPI - Abdominal Pain General: Chief Complaint: Abdominal Pain Stated Complaint: anderson campoverde Time Seen by Provider: 10/27/22 14:17 History of Present Illness: Mr. Potter is a 67-year-old gentleman with complex past medical history including colon cancer on chemotherapy presenting to the emergency department for evaluation of abdominal pain, vomiting, blood in stool. He notes worsening symptoms over the past few days with generalized abdominal pain and small bowel movements with blood. He now has progressed to vomiting after basically any p.o. intake. Denies blood or coffee-ground emesis. No other specific changes in health, exacerbating, or alleviating factors identified. Onset (ago): day(s) Pain Consistency: constant Severity: moderate Exacerbating factors: eating Context: other Associated Symptoms: Reports change in bowel habits, hematochezia, nausea, poor appetite and vomiting; Denies fever(s) and hematemesis Review of Systems General: Reports: 10 or more systems reviewed and unremarkable except in HPI and below Const: Denies: fever(s) GI: Reports: nausea, vomiting, change in bowel habits and hematochezia; Denies: hematemesis PFSH ED PFSH: Medical History BPH (benign prostatic hyperplasia) Colon cancer Degenerative arthritis Dyslipidemia GERD (gastroesophageal reflux disease) HTN (hypertension), benign Surgical History H/O: vasectomy Port-A-Cath in place (02/18/21) S/P right hemicolectomy extended, with en bloc excision of abdominal wall, stomach, and omentum Status post colonoscopy (06/30/21) Family History Father Cancer Lung Grandfather Cancer Lung Brother Cancer Lung Grandmother Hypertension Denies family history of Diabetes CAD (coronary artery disease) Clotting disorder Dementia Hyperlipidemia Psychiatric illness Chronic kidney disease (CKD) Suicide Anesthesia complication Bleeding disorder Lung disease Stroke Social History Smoking and tobacco status: former smoker (quit in 1997) Alcohol intake: current Alcohol intake frequency: 0-2 Drinks per Day Alcohol type: beer Desire information about alcohol rehabilitation?: No Substance/Drug Use: never Desire information about substance/drug rehabilitation?: No Adopted: No Caregiver/support person: No Lives independently: Yes Housing: House Marital status: Unknown Number of children: 1 Current occupational status: previously employed Current gender identity: Male Agree to transfusion: Yes Physical Exam Const: COMMON NORMALS: alert GENERAL APPEARANCE: cooperative and well developed HENMT: COMMON NORMALS: normocephalic and atraumatic HEAD & SCALP: normocephalic and atraumatic Eye: COMMON NORMALS: conjunctivae normal CONJUNCTIVA: Yes conjunctivae normal SCLERA: sclerae normal Neck/C-Spine: COMMON NORMALS: supple GENERAL: Yes trachea midline Resp: COMMON NORMALS: normal respiratory effort EFFORT & INSPECTION: Yes able to speak in complete sentences Cardio: COMMON NORMALS: regular rate and regular rhythm RATE: regular rate RHYTHM: regular rhythm GI: COMMON NORMALS: Soft to palpation PALPATION: Yes Soft to palpation, Yes Tenderness to palpation present (GI), No Guarding due to palpation present (GI) and No Rigid due to palpation OTHER: Prominence of the tissue underlying the umbilicus, firm and inconsistent with hernia. Question underlying scar tissue versus other Extremity: GENERAL: Yes normal exam except as noted and No edema Neuro: COMMON NORMALS: moves all extremities SENSORIUM/ORIENTATION: Yes alert and No Orientation impaired Psych: COMMON NORMALS: mental status grossly normal and Normal thought process present THOUGHT PROCESS: Normal thought process present Course Vital Signs: Vital signs: Vital Signs Temperature 97.6 F 10/27/22 12:27 Pulse Rate 78 10/27/22 17:26 Respiratory Rate 14 10/27/22 17:26 Blood Pressure 129/78 10/27/22 17:26 Pulse Oximetry 99 10/27/22 17:26 Oxygen Delivery Me thod Room Air 10/27/22 16:29 MDM - Abdominal Pain Medical Decision Making 67-year-old gentleman with history of cancer presenting with abdominal symptoms and bleeding per rectum. Exam as above. Chronically ill however nontoxic. No evidence of acute surgical abdomen. Labs notable for normal hemoglobin. Metabolic panel with minimal hyponatremia. CTA abdomen and pelvis clear GI source of bleeding with exception of mild blush of enhancement of known rectal wall thickening region and progression. The patient's prominence of the umbilicus region appears to be related to metastatic deposits. Overall cancer has been worsening. During ED course patient remained vitally satisfactory. Very complex situation. I discussed potential options with the patient and also briefly with oncology. Ultimately it sounds that the patient has been declined by other facilities for further surgical management. I did discuss and offered to attempt to transfer however also discussed the likely extensive nature of required intervention surgical management was offered. The patient and family member are comfortable with discharge home. Oncology we will discuss with radiation oncology for potential further radiation treatment of mass. The results of ED evaluation were discussed with the patient including prescriptions and/or symptomatic cares (if applicable) including appropriate and responsible use, followup plan, and return precautions. The patient verbalized understanding and felt safe for discharge. Medical Records I reviewed the patient's medical records. Lab Data I reviewed the patient's lab results. 10/27/22 12:49 10/27/22 12:49 Labs/Radiology: Radiology Impressions Abdomen/Pelvis CTA 10/27/22 14:45 IMPRESSION: 1. No active contrast extravasation from the small bowel or colon. 2. Known rectal wall thickening does demonstrate mild blush-like enhancement. Progression of rectal wall thickening since the prior study. Suspicious for neoplasm. 3. Metastatic deposits at the umbilicus and the central mesentery have slightly increased in size. 4. SMV known partially occluded thrombosis reidentified. 5. No change 3 mm nodule at the LEFT lung base. 6. New moderate thickening of the stomach wall measuring up to 2.1 cm. This may impart be due to underdistention. Laboratory Results WBC 5.3 10^3/uL (4.0-10.0) 10/27/22 12:49 RBC 4.36 10^6/uL (4.1-5.3) 10/27/22 12:49 Hgb 12.4 g/dL (11.7-16.6) 10/27/22 12:49 Hct 38.0 % (42.0-52.0) L 10/27/22 12:49 MCV 87.2 fl (80-94) 10/27/22 12:49 MCH 28.4 pg (28.0-34.0) 10/27/22 12:49 MCHC 32.6 g/dL (30.0-36.0) 10/27/22 12:49 RDW 13.1 % (12.1-15.1) 10/27/22 12:49 Plt Count 149 10^3/cmm (130-400) 10/27/22 12:49 MPV 9.1 fL (7.4-10.4) 10/27/22 12:49 Neut % (Auto) 86.0 % 10/27/22 12:49 Lymph % (Auto) 8.1 % 10/27/22 12:49 [place] % (Auto) 4.3 % 10/27/22 12:49 Eos % (Auto) 0.2 % 10/27/22 12:49 Baso % (Auto) 0.6 % 10/27/22 12:49 Neut # (Auto) 4.56 10^3/uL (1.8-7.7) 10/27/22 12:49 Lymph # (Auto) 0.4 10^3/uL (0.8-4.8) L 10/27/22 12:49 [place] # (Auto) 0.2 10^3/uL (0.2-0.9) 10/27/22 12:49 Eos # (Auto) 0.0 10^3/uL (0.0-0.8) 10/27/22 12:49 Baso # (Auto) 0.0 10^3/uL (0.0-0.1) 10/27/22 12:49 Nucleated RBC % (auto) 0 % 10/27/22 12:49 Nucleated RBCs # 0.0 /100WBC 10/27/22 12:49 Sodium 135 mmol/L (136-145) L 10/27/22 12:49 Potassium 4.1 mmol/L (3.5-5.1) 10/27/22 12:49 Chloride 98 mmol/L (98-107) 10/27/22 12:49 Carbon Dioxide 24 mmol/L (22-29) 10/27/22 12:49 Anion Gap 17.1 (5-19) 10/27/22 12:49 BUN 11 mg/dL (8-23) 10/27/22 12:49 Creatinine 0.7 mg/dL (0.7-1.2) 10/27/22 12:49 GFR Calculation 111.8 mL/min (90-130) 10/27/22 12:49 Glucose 102 mg/dL (65-115) 10/27/22 12:49 Calculated Osmolality 280 mOsm/kg (285-295) L 10/27/22 12:49 Calcium 9.6 mg/dL (8.5-10.5) 10/27/22 12:49 Total Bilirubin 1.0 mg/dL (0.15-1.2) 10/27/22 12:49 AST 17 U/L (0-40) 10/27/22 12:49 ALT 13 U/L (0-41) 10/27/22 12:49 Alkaline Phosphatase 79 U/L (40-130) 10/27/22 12:49 Total Protein 7.4 g/dL (6.6-8.7) 10/27/22 12:49 Albumin 3.9 g/dL (3.5-5.2) 10/27/22 12:49 Globulin 3.5 g/dL (1.3-4.6) 10/27/22 12:49 Lipase 22 U/L (13-60) 10/27/22 12:49 Discharge Plan Discharge Patient Disposition: Home Clinical Impression: Rectal mass, GI bleed Condition: Stable Prescriptions: No Action trazodone 50 mg tablet 50 mg PO BEDTIME PRN [place] 15-6.14 mg tablet 2 tab PO BID Qty: 40 0RF Rx Instructions: must take within 1 hr after completion of meal Take days 1-5 & 8-12 of a 28 day cycle [place]f 20-8.19 mg tablet 2 tab PO BID Qty: 40 0RF Rx Instructions: must take within 1 hr after completion of meal administer days 1-5 & 8-12 of 28-day cycle prochlorperazine maleate [Compazine] 10 mg tablet 10 mg PO Q6H PRN (Reason: nausea and vomiting) Qty: 30 3RF lorazepam 0.5 mg tablet 0.5 mg PO TID PRN (Reason: nausea and vomiting) Qty: 30 3RF lactulose 10 gram/15 mL (15 mL) solution 20 g PO TID Qty: 473 3RF morphine 30 mg tablet 30 mg PO Q6H PRN (Reason: pain) 30 Days Qty: 120 0RF amlodipine 5 mg Tablet 2.5 mg PO DAILY Qty: 30 3RF Protonix 40 mg Tablet,Delayed Release (Dr/Ec) 40 mg PO BIDWMEAL Qty: 30 3RF Proctofoam HC 1-1 % foam 1 applic [place] BID PRN (Reason: hemorrhoids) Qty: 10 0RF Discharge Orders: Discharge ED (Routine); Ordered 10/27/22 Ordered By: Wilfrido Shea Referrals: Luis Morales, [Primary Care Provider] - Discharge Diet: Clear Liquid Discharge Activity: Increase activity as tolerated Patient Instructions: Rectal Bleeding (ED), Opioid Safety Activity Restrictions/Additional Instructions: Thank you for visiting the emergency department. You were seen and evaluated for abdominal symptoms with continued rectal bleeding. The most likely cause of your symptoms is still related to your cancer. Please follow-up with oncology. Return to the emergency department for worsening symptoms, inability to tolerate oral intake, lightheadedness, dizziness, chest pain, shortness of breath, or anything else that you are concerned about and feel needs emergency department evaluation. Coding Level of Care Code ED Tube Tester for Shirley Monson
[2022-10-27 14:45] VITALS: BP 161/98; RESP 15; O2SAT 98
--- NOTE | 2022-10-27 14:45 | CT_ITS ---
WS: [id number] CT ANGIOGRAPHY abdomen and pelvis HISTORY: GI bleed, colon cancer TECHNIQUE: CT angiogram is performed during IV injection. Reformation images reviewed. All CT scans a [employer] use at least one of these dose optimization techniques: automated exposure contro l; mA and/or kV adjustment per patient size (includes targeted exams where dose is matched to clinica l indication); or iterative reconstruction. CONTRAST: Omnipaque 350; 100 mL IV. DLP: 439.89 mGy.cm COMPARISON: 09/02/2022 3 mm noncalcified nodule LEFT lung base is unchanged. Heart size is normal. Small hiatal hernia. Abdominal aorta: Normal size abdominal aorta. Atherosclerotic plaque with no stenosis. Normal celiac axis and SMA. Patient has a known rectal mass that was described on 09/02/2022. There is progression o f soft tissue thickening and narrowing of the lumen. Wall the rectum measures up to 12 mm. There is b lush-like areas of enhancement but no active rapid extravasation of contrast. There is also mild hype remia in the distal small bowel. No blush-like areas of enhancement. There is mild diffuse wall thickening of the stomach was not present on the prior study. Visualized l iver, gallbladder and spleen are negative on this early arterial phase. No adrenal mass. Normal pancr eas. Still thrombus noted within the SMV. Not as well-visualized today on the arterial phase. Umbilical metastatic deposit reidentified measuring 3.1 x 2.9 cm. Slightly increased in size. There i s an additional central mesenteric deposits measuring 2.3 x 1.8 cm which is slightly increased. CT/CT angio abdomen pelvis [id number] IMPRESSION: 1. No active contrast extravasation from the small bowel or colon. 2. Known rectal wall thickening does demonstrate mild blush-like enhancement. Progression of rectal wall thickening since the prior study. Suspicious for rickey plasm. 3. Metastatic deposits at the umbilicus and the central mesentery have slightl y increased in size. 4. SMV known partially occluded thrombosis reidentified. 5. No change 3 mm nodule at the LEFT lung base. 6. New moderate thickening of the stomach wall measuring up to 2.1 cm. This ma y impart be due to underdistention.
[2022-10-27] MEDS: iohexol 350 mg/mL 500 mL Btl (per mL) IV (15:14)
[2022-10-27 16:29] VITALS: BP 137/79; PULSE 78; RESP 16; O2SAT 97
[2022-10-27 17:26] VITALS: BP 129/78; PULSE 78; RESP 14; O2SAT 99
== END 2022-10-27 17:27 | disposition home or self-care (01) ==
PROVIDERS: Physician Assistant; Emergency Provider Emergency Medicine; PCP Internal Medicine
DX: K92.2 Gastrointestinal hemorrhage, unspecified (principal); E87.1 Hypo-osmolality and hyponatremia; R93.3 Abnormal findings on diagnostic imaging of other parts of digestive tract; C18.4 Malignant neoplasm of transverse colon
CPT/HCPCS: 36415; 74174; 80053; 83690; 85025; 99285; J7030; Q9967

== ENCOUNTER 2022-11-11 08:30 | Oncology outpatient (recurring) (ONCR) | payer MEDICARE, OTHER, SELFPAY ==
[2022-10-17 09:18] VITALS: BP 149/89; PULSE 93; RESP 18; TEMP 36.8; O2SAT 98
[2022-10-17 09:28] LABS: Basophils % 0.5 %; Eosinophils # 0.2 10^3/uL (0.0-0.8); Eosinophils % 2.9 %; Hematocrit 40.9 % (42.0-52.0); Hemoglobin 13.3 g/dL (11.7-16.6); Lymphocytes % 17.6 %; Mean Corpuscular HGB Conc 32.5 g/dL (30.0-36.0); Mean Corpuscular Hemoglobin 27.8 pg (28.0-34.0); Mean Corpuscular Volume 85.4 fl (80-94); Mean Platelet Volume 9.2 fL (7.4-10.4); Monocytes # 0.6 10^3/uL (0.2-0.9); Neutrophils % 68.8 %; Nucleated Red Blood Cells % 0 %; Platelet Count 189 10^3/cmm (130-400); Red Blood Count 4.79 10^6/uL (4.1-5.3); Red Cell Distribution Width 13.1 % (12.1-15.1); White Blood Count 5.8 10^3/uL (4.0-10.0)
[2022-10-17 10:00] LABS: Carcinoembryonic Antigen 80.3 ng/mL (0.0-4.7)
[2022-10-17 10:11] LABS: Alanine Aminotransferase 15 U/L (0-41); Alkaline Phosphatase 88 U/L (40-130); Anion Gap 15.7 (5-19); Aspartate Amino Transferase 23 U/L (0-40); Blood Urea Nitrogen 7 mg/dL (8-23); Calcium 9.5 mg/dL (8.5-10.5); Carbon Dioxide 25 mmol/L (22-29); Chloride 96 mmol/L (98-107); Globulin 3.6 g/dL (1.3-4.6); Glomerular Filtration Rate 133.6 mL/min (90-130); Glucose 113 mg/dL (65-115); Osmolality Calculated 275 mOsm/kg (285-295); Potassium 3.7 mmol/L (3.5-5.1); Sodium 133 mmol/L (136-145); Total Bilirubin 0.6 mg/dL (0.15-1.2); Total Protein 7.6 g/dL (6.6-8.7)
[2022-10-17 12:52] LABS: Add Urine Culture? No; Add Urine Microscopic? YES; Bacteria Urine TRACE /hpf; Bilirubin Urine Neg (Negative); Blood Urine Neg (Negative); Glucose Urine UA Norm (Normal); Ketones Urine Negative (Negative); Leukocyte Esterase Urine Trace (Negative); Nitrate Urine Negative (Negative); Protein Urine Neg (Negative); RBC Urine 0-4 /hpf (0-2); Squamous Epithelial Cell Urine 0-4 /hpf (0-5); Urine Appearance Clear (CLEAR); Urine Color Yellow (Yellow); Urobilinogen Urine Norm (Negative); pH Urine 6 (5-7)
[2022-10-17] MEDS: sodium chloride 0.9% 250 ML IV (12:58)
[2022-10-17] MEDS: bevacizumab-awwb 390 MG in sodium chloride 0.9% (100 ml) 100 ML 100 MG IV (13:08)
[2022-10-17 14:45] VITALS: BP 137/88; PULSE 80; RESP 16; TEMP 36.7; O2SAT 98
[2022-10-27] MEDS: sodium chloride 0.9% 1,000 ML 999 ML IV (08:30)
[2022-10-27 08:33] LABS: Basophils % 0.4 %; Eosinophils % 0.2 %; Hematocrit 38.5 % (42.0-52.0); Hemoglobin 12.6 g/dL (11.7-16.6); Lymphocytes # 0.4 10^3/uL (0.8-4.8); Lymphocytes % 8.3 %; Mean Corpuscular HGB Conc 32.7 g/dL (30.0-36.0); Mean Corpuscular Hemoglobin 27.7 pg (28.0-34.0); Mean Corpuscular Volume 84.6 fl (80-94); Mean Platelet Volume 9.3 fL (7.4-10.4); Monocytes # 0.2 10^3/uL (0.2-0.9); Monocytes % 4.4 %; Neutrophils # 4.31 10^3/uL (1.8-7.7); Neutrophils % 85.7 %; Nucleated Red Blood Cells % 0 %; Platelet Count 151 10^3/cmm (130-400); Red Blood Count 4.55 10^6/uL (4.1-5.3); Red Cell Distribution Width 12.9 % (12.1-15.1)
[2022-10-27 08:53] LABS: Alanine Aminotransferase 12 U/L (0-41); Alkaline Phosphatase 74 U/L (40-130); Anion Gap 17.6 (5-19); Aspartate Amino Transferase 17 U/L (0-40); Blood Urea Nitrogen 11 mg/dL (8-23); Calcium 9.1 mg/dL (8.5-10.5); Carbon Dioxide 24 mmol/L (22-29); Chloride 97 mmol/L (98-107); Globulin 3.4 g/dL (1.3-4.6); Glomerular Filtration Rate 95.8 mL/min (90-130); Glucose 104 mg/dL (65-115); Osmolality Calculated 280 mOsm/kg (285-295); Potassium 3.6 mmol/L (3.5-5.1); Sodium 135 mmol/L (136-145); Total Protein 7.4 g/dL (6.6-8.7)
[2022-10-27 10:14] VITALS: BP 128/77; PULSE 74; TEMP 36.5; O2SAT 98
[2022-10-28] MEDS: sodium chloride 0.9% 1,000 ML 999 ML IV (08:50)
[2022-10-28] MEDS: ondansetron 2 mg/ML SDV 2 mL 8 MG IVP (09:57)
[2022-10-28] MEDS: famotidine 20 mg/2 mL INJ IVP (09:59)
[2022-11-01] MEDS: sodium chloride 0.9% 1,000 ML 999 ML IV (09:12)
[2022-11-01] MEDS: famotidine 20 mg/2 mL INJ IVP (09:13)
[2022-11-04] MEDS: sodium chloride 0.9% 1,000 ML 999 ML IV (08:28)
[2022-11-04 10:07] VITALS: BP 115/70; PULSE 74; TEMP 37.1; O2SAT 98
[2022-11-08 08:38] VITALS: BP 124/72; PULSE 80; RESP 16; TEMP 35.9; O2SAT 97
[2022-11-08 08:41] LABS: Basophils % 0.3 %; Hematocrit 32.9 % (42.0-52.0); Hemoglobin 10.8 g/dL (11.7-16.6); Lymphocytes # 0.7 10^3/uL (0.8-4.8); Lymphocytes % 19.3 %; Mean Corpuscular HGB Conc 32.8 g/dL (30.0-36.0); Mean Corpuscular Hemoglobin 28.5 pg (28.0-34.0); Mean Corpuscular Volume 86.8 fl (80-94); Mean Platelet Volume 8.9 fL (7.4-10.4); Monocytes # 0.6 10^3/uL (0.2-0.9); Monocytes % 17.5 %; Neutrophils # 2.14 10^3/uL (1.8-7.7); Neutrophils % 62.6 %; Nucleated Red Blood Cells % 0 %; Platelet Count 182 10^3/cmm (130-400); Red Blood Count 3.79 10^6/uL (4.1-5.3); Red Cell Distribution Width 14.4 % (12.1-15.1); White Blood Count 3.4 10^3/uL (4.0-10.0)
[2022-11-08] MEDS: sodium chloride 0.9% 1,000 ML 999 ML IV (08:44)
[2022-11-08 09:50] LABS: Alanine Aminotransferase 30 U/L (0-41); Albumin Level 3.7 g/dL (3.5-5.2); Alkaline Phosphatase 91 U/L (40-130); Aspartate Amino Transferase 28 U/L (0-40); Blood Urea Nitrogen 8 mg/dL (8-23); Calcium 8.8 mg/dL (8.5-10.5); Carbon Dioxide 26 mmol/L (22-29); Chloride 100 mmol/L (98-107); Globulin 3.1 g/dL (1.3-4.6); Glomerular Filtration Rate 133.6 mL/min (90-130); Glucose 108 mg/dL (65-115); Osmolality Calculated 281 mOsm/kg (285-295); Sodium 136 mmol/L (136-145); Total Bilirubin 0.7 mg/dL (0.15-1.2); Total Protein 6.8 g/dL (6.6-8.7)
[2022-11-08 09:53] LABS: Creatinine Clr Calc Pharmacy 94.2934
[2022-11-08 10:19] VITALS: BP 142/81; PULSE 88; TEMP 36.6; O2SAT 96
[2022-11-11] MEDS: sodium chloride 0.9% 1,000 ML 999 ML IV (08:46)
[2022-11-11 10:41] VITALS: BP 124/76; PULSE 71; RESP 16; TEMP 36.6; O2SAT 95
== END 2022-11-11 23:59 | disposition home or self-care (01) ==
PROVIDERS: Internal Medicine Medical Oncology; PCP Internal Medicine; Visit Provider Nurse Practitioner
DX: C18.4 Malignant neoplasm of transverse colon (principal)
CPT/HCPCS: 80053; 81001; 82378; 85025; 96365; 96375; 96413; 99214; 99215; J1100; J1642; J2405; J3490; J7030; J7050; Q5107

== ENCOUNTER → 2022-11-30 15:30 | Outpatient (BNVA) | payer MEDICARE, OTHER, SELFPAY | PROVIDERS: PCP Internal Medicine Medical Oncology; Visit Provider Surgery | DX: K64.9 Unspecified hemorrhoids (principal); C18.9 Malignant neoplasm of colon, unspecified | CPT/HCPCS: 99203; 99214 ==

== ENCOUNTER 2022-12-02 06:54 | Outpatient (CLI) | payer MEDICARE, OTHER, SELFPAY ==
--- NOTE | 2022-12-02 07:00 | US_ITS ---
WS: [id number] Complete ABDOMINAL ULTRASOUND HISTORY: elevated bilirubin, generalized abdominal pain COMPARISON: 08/10/2017, CT 10/27/2022 Liver: 13.4 cm in length. Normal size liver. Coarsened echotexture throughout. No mass or bile duct d ilatation. Portal Vein: Normal hepatopetal flow with monophasic waveform. Gallbladder: Mildly contracted gallbladder. The wall is very mildly thickened with no pericholecystic fluid. No stones or sludge identified. CBD: 0.2 cm Pancreas: Normal size and echogenicity. Right kidney: 12.3 cm x 4.5 x 5.0 cm. Cortex:1.1 cm. Normal size and echogenicity. No hydronephrosis or mass. Left kidney: 11.6 cm x 5.2 cm x 5.1 cm. Cortex: 1.0 cm. Normal size kidney. Simple cyst superior pole measures 3.8 x 3.6 x 3.2 cm. There is an additional sma ller cyst of 1 cm from the mid kidney. Spleen: 12.7 cm in length. Normal. Aorta and IVC: Unremarkable abdominal aorta and IVC. US/US abdomen complete* [id number] Impression: 1. Minimally contracted gallbladder with mild wall thickening. No evidence for acute cholecystitis. There is no pericholecystic fluid. Gallbladder wall thick ening may be related to hepatocellular disease. 2. LEFT renal cysts. No renal obstruction. 3. No ascites
== END 2022-12-02 06:55 | disposition home or self-care (01) ==
PROVIDERS: PCP Internal Medicine Medical Oncology; Visit Provider Nurse Practitioner
DX: C18.4 Malignant neoplasm of transverse colon (principal); C78.6 Secondary malignant neoplasm of retroperitoneum and peritoneum; K55.069 Acute infarction of intestine, part and extent unspecified; R10.9 Unspecified abdominal pain
CPT/HCPCS: 76700; 96360; J1642; J7030

== ENCOUNTER 2022-12-02 21:41 | Emergency (ER) | payer MEDICARE, OTHER, SELFPAY ==
[2022-12-02 21:42] VITALS: BP 130/75; PULSE 84; RESP 16; TEMP 37; O2SAT 99; BMI 22.4
--- NOTE | 2022-12-02 21:46 | ECG_ITS ---
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 Measurements Intervals [place] Rate: 73 P: 35 ME: 129 QRS: 59 QRSD: 101 T: 63 QT: 376 QTc: 415 Interpretive Statements SINUS RHYTHM Compared to ECG 11/30/2020 07:39:25 Incomplete right bundle-branch block no longer present Electronically Signed On 12-03-2022 6:49:32 CDT by Tish Hernandez M.D. [email or web address] [id number] f
--- NOTE | 2022-12-02 21:46 | XRR_ITS ---
PROCEDURE INFORMATION: Exam: XR Complete Acute Abdomen Series Including Chest Exam date and time: 12/02/2022 9:53 PM Age: 67 years old Clinical indication: Abdominal pain; Generalized TECHNIQUE: Imaging protocol: Radiologic exam. Complete acute abdomen series, including 2 or more views of the abdomen and a single view chest. COMPARISON: CR (ABDOMEN, ) 10/24/2022 5:56 PM FINDINGS: Tubes, catheters and devices: Left subclavian Port-A-Cath is stable in position with the tip at the lower superior vena cava. Lungs: Lungs are clear bilaterally. Pleural spaces: No pleural effusion. No pneumothorax. Heart/Mediastinum: Stable mild enlargement of the cardiac silhouette. Mediastinal contours are unremarkable. Gastrointestinal tract: No evidence for bowel obstruction or perforation. Intraperitoneal space: Surgical clips in the abdomen are stable. No free intraperitoneal air. Organs: No organomegaly. Bones/joints: Stable sclerotic foci in the right pubic bone and superior pubic ramus. Soft tissues: Unremarkable. XR/XR acute abdomen series [id number] IMPRESSION: 1. No evidence for bowel obstruction or perforation. 2. No acute cardiopulmonary process. 3. Incidental/nonacute findings are listed in the report.
[2022-12-02 22:01] LABS: Eosinophils % 0.4 %; Hemoglobin 9.2 g/dL (11.7-16.6); Lymphocytes # 0.9 10^3/uL (0.8-4.8); Lymphocytes % 31.8 %; Mean Corpuscular HGB Conc 32.9 g/dL (30.0-36.0); Mean Corpuscular Hemoglobin 28.5 pg (28.0-34.0); Mean Corpuscular Volume 86.7 fl (80-94); Mean Platelet Volume 9.4 fL (7.4-10.4); Monocytes # 0.2 10^3/uL (0.2-0.9); Monocytes % 7.5 %; Neutrophils # 1.59 10^3/uL (1.8-7.7); Neutrophils % 59.6 %; Nucleated Red Blood Cells % 0 %; Platelet Count 125 10^3/cmm (130-400); Red Blood Count 3.23 10^6/uL (4.1-5.3); Red Cell Distribution Width 16.2 % (12.1-15.1); White Blood Count 2.7 10^3/uL (4.0-10.0)
--- NOTE | 2022-12-02 22:03 | CTR_ITS ---
PROCEDURE INFORMATION: Exam: CT Abdomen And Pelvis With Contrast Exam date and time: 12/02/2022 10:14 PM Age: 67 years old Clinical indication: Nausea and vomiting; Prior surgery; Surgery date: 6+ months; Surgery type: Hemicolectomy. Vasectomy. Chest port; Patient HX: C/O n/v/d x 2 days. History of colon cancer. ; Additional info: Abd pain TECHNIQUE: Imaging protocol: Computed tomography of the abdomen and pelvis with contrast. Sagittal and coronal reformatted images were created and reviewed. Radiation optimization: All CT scans at this facility use at least one of these dose optimization techniques: automated exposure control; mA and/or kV adjustment per patient size (includes targeted exams where dose is matched to clinical indication); or iterative reconstruction. Contrast material: OMNI 350; Contrast volume: 100 ml; Contrast route: INTRAVENOUS (IV); REPORTING DATA: Count of CT and Cardiac NM exams in prior 12 months: This patient has received 7 known CTs and 0 known cardiac nuclear medicine studies in the 12 months prior to the current study. COMPARISON: 1. CT abdomen pelvis w con* [id number] 08/10/2017 1:[address] angio abdomen pelvis [id number] 10/27/2022 3:00 PM RADIATION DOSE METRICS: Total DLP (mGy-cm): 381.16 FINDINGS: Lungs: Visualized lungs are clear. Pleural spaces: No pleural effusion. Heart: Visualized portions of the heart are unremarkable. Liver: The liver is unremarkable. Gallbladder and bile ducts: The gallbladder is unremarkable. No biliary ductal dilatation. Pancreas: The pancreas is unremarkable. No pancreatic ductal dilatation. Spleen: The spleen is unremarkable. Adrenal glands: The right and left adrenal glands are unremarkable. Kidneys and ureters: Subcentimeter hypodense focus in the right kidney that is too small to characterize, however likely represents a small cyst. 2 simple cysts in the left kidney, the larger measures 3.9 cm. Stomach and bowel: Soft tissue density at the rectosigmoid junction has mildly decreased. Stable changes consistent with a right partial colectomy and ileocolic anastomosis. No dilated loops of small bowel or colon. Appendix: Stable changes consistent with a previous appendectomy. Intraperitoneal space: Surgical clips in the upper abdomen are stable. Vasculature: Unremarkable as visualized. Lymph nodes: Stable enlarged lymph node near the root of the mesentery measuring 1.5 x 2.5 cm (series 4, image 43). Urinary bladder: Stable diffuse, mild wall thickening of the bladder. Reproductive: Unremarkable as visualized. Bones/joints: Bones are diffusely osteopenic. Well-defined lucent lesion with areas of calcification in the right superior pubic ramus, stable compared with 08/10/2017. Findings suggest a benign fiber osseous lesion. Degenerative changes in the spine and hips. Soft tissues: 3.7 x 3.4 x 4.6 cm mass in the periumbilical soft tissues. The posterior mass also extends into the anterior peritoneal cavity. Findings are stable (series 7, image 37 and series 4, image 37). CT/CT abdomen pelvis w con* [id number] IMPRESSION: 1. Stable diffuse, mild wall thickening of the bladder. In the correct clinical setting, this may suggest cystitis. Recommend correlation with laboratory findings. Alternatively, this may be secondary to chronic outlet obstruction. 2. Soft tissue density at the rectosigmoid junction has mildly decreased in size. 3. Stable mass in the periumbilical soft tissues. The posterior mass also extends into the anterior peritoneal cavity. Stable lymph node near the root of the mesentery. Findings are suspicious for metastatic foci. 4. Incidental/nonacute findings are listed in the report. COMMENTS: Consistent with the [employer] [place] [employer]'s Incidental Findings Committee white paper (J Am Eren Radiol 2018): Any incidental renal lesion less than 1 cm or classified as too small to characterize, or any incidental cystic renal lesion characterized as simple-appearing, is likely benign. No follow-up imaging is recommended for these lesions per consensus recommendations based on imaging criteria.
--- NOTE | 2022-12-02 22:04 | ED_ITS ---
HPI - Nausea/Vomiting/Diarrhea General: Chief complaint: Nausea/Vomiting/Diarrhea Stated complaint: N/V Time Seen by Provider: 12/02/22 21:45 Source: patient Mode of arrival: ambulatory History of Present Illness: 67-year-old male with a history of colon cancer presents to the emergency room with abdominal pain nausea vomiting and diarrhea that began yesterday. Initially he had some diarrhea he a little bit of blood streaking in the stools but no large amounts of blood no melena. Today it began to progressively worsen he had more stomach cramping and developed a vomiting. He has a history of colon cancer previously had a colon resection he is currently on oral chemotherapeutic agent. He is still having loose stools. No fever sweats chills he also is complaining of some mild dysuria MD elicited complaint: nausea, vomiting and diarrhea Onset (ago): day(s) (1) Description of vomiting: food contents and watery Description of diarrhea: watery and semi-solid Associated nausea: Yes Associated abdominal pain: Yes Location of pain: Diffuse Severity: mild Quality: cramping Exacerbating factors: eating Relieving factors: none Associated symtoms: Reports bloating, dysuria and nausea; Denies anxiety, change in vision, chest pain, cough, diaphoresis, decreased urine output, dizziness, epistaxis, fatigue, fecal incontinence, fevers/chills, headache(s), anorexia, malaise, myalgias, numbness, palpitations, rash, short of breath, syncope, tenesmus, tinnitus or weakness Review of Systems Const: Denies: fever(s), chills, fatigue, malaise or diaphoresis Eyes: Denies: change in vision ENMT: Denies: tinnitus or epistaxis Card: Denies: chest pain, palpitations or syncope Resp: Denies: dyspnea, productive cough or non-productive cough GI: Reports: abdominal pain, nausea, vomiting and bloating; Denies: fecal incontinence : Reports: dysuria; Denies: urinary frequency or urinary urgency Skin/Breast: Denies: rash or pruritus Neuro: Denies: headache(s) or dizziness Psych: Denies: anxiety PFSH ED PFSH: Medical History BPH (benign prostatic hyperplasia) Colon cancer Degenerative arthritis Dyslipidemia GERD (gastroesophageal reflux disease) HTN (hypertension), benign Surgical History H/O: vasectomy Port-A-Cath in place (02/18/21) S/P right hemicolectomy extended, with en bloc excision of abdominal wall, stomach, and omentum Status post colonoscopy (06/30/21) Family History Father Cancer Lung Grandfather Cancer Lung Brother Cancer Lung Grandmother Hypertension Denies family history of Diabetes CAD (coronary artery disease) Clotting disorder Dementia Hyperlipidemia Psychiatric illness Chronic kidney disease (CKD) Suicide Anesthesia complication Bleeding disorder Lung disease Stroke Social History Smoking and tobacco status: former smoker (quit in 1997) Alcohol intake: current Alcohol intake frequency: 0-2 Drinks per Day Alcohol type: beer Desire information about alcohol rehabilitation?: No Substance/Drug Use: never Desire information about substance/drug rehabilitation?: No Adopted: No Caregiver/support person: No Lives independently: Yes Housing: House Marital status: Unknown Number of children: 1 Current occupational status: previously employed Current gender identity: Male Agree to transfusion: Yes Physical Exam Const: GENERAL APPEARANCE: cooperative and comfortable ORIENTATION/CONSCIOUSNESS: Yes awake, Yes oriented to person, Yes oriented to place and Yes oriented to time HENMT: COMMON NORMALS: normocephalic, atraumatic and hearing grossly normal bilaterally HEAD & SCALP: normocephalic and atraumatic Resp: COMMON NORMALS: normal respiratory effort, No retractions, No use of accessory muscles and clear to auscultation bilaterally AUSCULTATION: clear to auscultation bilaterally Cardio: COMMON NORMALS: regular rate, regular rhythm and No murmurs present (Cardio) RATE: regular rate RHYTHM: regular rhythm GI: COMMON NORMALS: Soft to palpation and No hepatosplenomegaly present AUSCULTATION: Yes normoactive bowel sounds PALPATION: Yes Soft to palpation, No Tenderness to palpation present (GI), No Guarding due to palpation present (GI) and Yes No hepatosplenomegaly present Extremity: COMMON NORMALS: normal to inspection, capillary refill normal, no clubbing, cyanosis or edema, no calf tenderness and no pedal edema Neuro: SENSORIUM/ORIENTATION: Yes oriented to person, Yes oriented to place a nd Yes oriented to time Skin: COMMON NORMALS: no rashes or lesions noted GENERAL SKIN EXAM: no rashes or lesions noted Course Vital Signs: Vital signs: Vital Signs Temperature 98.6 F 12/02/22 21:42 Pulse Rate 79 12/02/22 23:44 Respiratory Rate 18 12/02/22 23:44 Blood Pressure 134/86 12/02/22 23:44 Pulse Oximetry 98 12/02/22 23:44 Oxygen Delivery Me thod Room Air 12/02/22 23:44 MDM - Nausea/Vomiting/Diarrhea Medical Decision Making Patient has moderate anemia and is slight leukopenia. This has been ongoing for him. CT of the abdomen does not show any obstruction UA is negative. He is feeling somewhat better after fluids we will discharge patient home give promethazine to use as needed follow-up with the oncology team early next week return if has further problems Medical Records I reviewed the patient's medical records. Lab Data I reviewed the patient's lab results. 12/02/22 21:44 12/02/22 21:44 Radiology Impressions Chest/Abdomen X-ray 12/02/22 21:46 IMPRESSION: 1. No evidence for bowel obstruction or perforation. 2. No acute cardiopulmonary process. 3. Incidental/nonacute findings are listed in the report. Abdomen/Pelvis CT 12/02/22 22:03 IMPRESSION: 1. Stable diffuse, mild wall thickening of the bladder. In the correct clinical setting, this may suggest cystitis. Recommend correlation with laboratory findings. Alternatively, this may be secondary to chronic outlet obstruction. 2. Soft tissue density at the rectosigmoid junction has mildly decreased in size. 3. Stable mass in the periumbilical soft tissues. The posterior mass also extends into the anterior peritoneal cavity. Stable lymph node near the root of the mesentery. Findings are suspicious for metastatic foci. 4. Incidental/nonacute findings are listed in the report. COMMENTS: Consistent with the [employer]'s Incidental Findings Committee white paper (J Am Eren Radiol 2018): Any incidental renal lesion less than 1 cm or classified as too small to characterize, or any incidental cystic renal lesion characterized as simple-appearing, is likely benign. No follow-up imaging is recommended for these lesions per consensus recommendations based on imaging criteria. ADDENDUM: 12/02/22 6312 Please note the addendum to the original report: Previously demonstrated SMV thrombus has resolved. Laboratory Results WBC 2.7 10^3/uL (4.0-10.0) L 12/02/22 21:44 RBC 3.23 10^6/uL (4.1-5.3) L 12/02/22 21:44 Hgb 9.2 g/dL (11.7-16.6) L 12/02/22 21:44 Hct 28.0 % (42.0-52.0) L 12/02/22 21:44 MCV 86.7 fl (80-94) 12/02/22 21:44 MCH 28.5 pg (28.0-34.0) 12/02/22 21:44 MCHC 32.9 g/dL (30.0-36.0) 12/02/22 21:44 RDW 16.2 % (12.1-15.1) H 12/02/22 21:44 Plt Count 125 10^3/cmm (130-400) L 12/02/22 21:44 MPV 9.4 fL (7.4-10.4) 12/02/22 21:44 Neut % (Auto) 59.6 % 12/02/22 21:44 Lymph % (Auto) 31.8 % 12/02/22 21:44 [place] % (Auto) 7.5 % 12/02/22 21:44 Eos % (Auto) 0.4 % 12/02/22 21:44 Baso % (Auto) 0.0 % 12/02/22:44 Neut # (Auto) 1.59 10^3/uL (1.8-7.7) L 12/02/22 21:44 Lymph # (Auto) 0.9 10^3/uL (0.8-4.8) 12/02/22 21:44 [place] # (Auto) 0.2 10^3/uL (0.2-0.9) 12/02/22 21:44 Eos # (Auto) 0.0 10^3/uL (0.0-0.8) 12/02/22 21:44 Baso # (Auto) 0.0 10^3/uL (0.0-0.1) 12/02/22 21:44 Nucleated RBC % (auto) 0 % 12/02/22 21:44 Nucleated RBCs # 0.0 /100WBC 12/02/22 21:44 Sodium 141 mmol/L (136-145) 12/02/22 21:44 Potassium 3.2 mmol/L (3.5-5.1) L 12/02/22 21:44 Chloride 104 mmol/L (98-107) 12/02/22 21:44 Carbon Dioxide 24 mmol/L (22-29) 12/02/22 21:44 Anion Gap 16.2 (5-19) 12/02/22 21:44 BUN 7 mg/dL (8-23) L 12/02/22 21:44 Creatinine 0.5 mg/dL (0.7-1.2) L 12/02/22 21:44 GFR Calculation 164.9 mL/min (90-130) H 12/02/22 21:44 Glucose 113 mg/dL (65-115) 12/02/22 21:44 Calculated Osmolality 291 mOsm/kg (285-295) 12/02/22 21:44 Lactic Acid 0.9 mmol/L (0.5-2.2) 12/02/22 22:47 Calcium 8.8 mg/dL (8.5-10.5) 12/02/22 21:44 Total Bilirubin 0.7 mg/dL (0.15-1.2) 12/02/22 21:44 AST 24 U/L (0-40) 12/02/22 21:44 ALT 31 U/L (0-41) 12/02/22 21:44 Alkaline Phosphatase 74 U/L (40-130) 12/02/22 21:44 Total Protein 6.6 g/dL (6.6-8.7) 12/02/22 21:44 Albumin 3.7 g/dL (3.5-5.2) 12/02/22 21:44 Globulin 2.9 g/dL (1.3-4.6) 12/02/22 21:44 Urine Color Yellow (Yellow) 12/02/22 22:50 Urine Appearance Clear (CLEAR) 12/02/22 22:50 Urine pH 8 (5-7) H 12/02/22 22:50 Ur Specific [place] 1.005 (1.005-1.030) 12/02/22 22:50 Urine Protein Neg (Negative) 12/02/22 22:50 Urine Glucose (UA) Norm (Normal) 12/02/22 22:50 Urine Ketones Negative (Negative) 12/02/22 22:50 Urine Blood Neg (Negative) 12/02/22 22:50 Urine Nitrate Negative (Negative) 12/02/22 22:50 Urine Bilirubin Neg (Negative) 12/02/22 22:50 Prot Sulfosalicylic Acd Negative (Negative) 12/02/22 22:50 Urine Urobilinogen Norm mg/dL (Negative) 12/02/22 22:50 Ur Leukocyte Esterase Negative (Negative) 12/02/22 22:50 Discharge Plan Discharge Patient Disposition: Home Clinical Impression: Nausea & vomiting Condition: Stable Prescriptions: New promethazine 25 mg tablet 25 mg PO Q6H PRN (Reason: nausea and vomiting) Qty: 20 0RF Discontinued prochlorperazine maleate [Compazine] 10 mg tablet 10 mg PO Q6H PRN (Reason: nausea and vomiting) Qty: 30 3RF No Action trazodone 50 mg tablet 50 mg PO BEDTIME PRN polyethylene glycol 3350 [Miralax] 17 gram/dose powder 4 g PO DAILY PRN Proctofoam HC 1-1 % foam 1 applic IN BID PRN (Reason: hemorrhoids) Qty: 10 12RF hydrocortisone-pramoxine 2.5-1 % cream 1 applic IN BID PRN (Reason: hemorrhoids) Qty: 30 12RF [place]f 15-6.14 mg tablet 2 tab PO BID Qty: 40 0RF Rx Instructions: must take within 1 hr after completion of meal Take days 1-5 & 8-12 of a 28 day cycle [place]f 20-8.19 mg tablet 2 tab PO BID Qty: 40 0RF Rx Instructions: must take within 1 hr after completion of meal administer days 1-5 & 8-12 of 28-day cycle lorazepam 0.5 mg tablet 0.5 mg PO TID PRN (Reason: nausea and vomiting) Qty: 30 3RF morphine 30 mg tablet 60 mg PO Q6H PRN (Reason: pain) 30 Days Qty: 240 0RF amlodipine 5 mg Tablet 2.5 mg PO DAILY Qty: 30 3RF Protonix 40 mg Tablet,Delayed Release (Dr/Ec) 40 mg PO BIDWMEAL Qty: 30 3RF Discharge Orders: Discharge ED (Routine); Ordered 12/02/22 Ordered By: Marcio Matias Referrals: Luis Topete MD [Primary Care Provider] - Discharge Diet: Clear Liquid Discharge Activity: Increase activity as tolerated Patient Instructions: Opioid Safety, Pain Management Coding Level of Care Code ED Director Educational Radio for Shirley Monson
[2022-12-02] MEDS: iohexol 350 mg/mL 500 mL Btl (per mL) IV (22:16)
[2022-12-02 22:20] LABS: Alanine Aminotransferase 31 U/L (0-41); Albumin Level 3.7 g/dL (3.5-5.2); Alkaline Phosphatase 74 U/L (40-130); Anion Gap 16.2 (5-19); Aspartate Amino Transferase 24 U/L (0-40); Blood Urea Nitrogen 7 mg/dL (8-23); Calcium 8.8 mg/dL (8.5-10.5); Carbon Dioxide 24 mmol/L (22-29); Chloride 104 mmol/L (98-107); Globulin 2.9 g/dL (1.3-4.6); Glomerular Filtration Rate 164.9 mL/min (90-130); Glucose 113 mg/dL (65-115); Osmolality Calculated 291 mOsm/kg (285-295); Potassium 3.2 mmol/L (3.5-5.1); Sodium 141 mmol/L (136-145); Total Bilirubin 0.7 mg/dL (0.15-1.2); Total Protein 6.6 g/dL (6.6-8.7)
[2022-12-02 22:25] LABS: Creatinine Clr Calc Pharmacy 94.2934
[2022-12-02 23:03] LABS: Lactic Sepsis W/Reflex 0.9 mmol/L (0.5-2.2)
[2022-12-02] MEDS: sodium chloride 0.9% 1,000 ML 999 ML IV (23:07)
[2022-12-02 23:09] LABS: Add Urine Microscopic? NO; Charge for UA Resulting for Rev
[2022-12-02 23:22] LABS: Specific Gravity, Urine 1.005 (1.005-1.030); Urine Appearance Clear (CLEAR); Urine Color Yellow (Yellow); pH Urine 8 (5-7)
[2022-12-02 23:23] LABS: Bilirubin Urine Neg (Negative); Blood Urine Neg (Negative); Glucose Urine UA Norm (Normal); Ketones Urine Negative (Negative); Leukocyte Esterase Urine Negative (Negative); Nitrate Urine Negative (Negative); Protein Urine Neg (Negative); Sulfosalicylic Acid Urine Negative (Negative); Urobilinogen Urine Norm (Negative)
[2022-12-02 23:44] VITALS: BP 134/86; PULSE 79; RESP 18; O2SAT 98
== END 2022-12-02 23:49 | disposition home or self-care (01) ==
PROVIDERS: Emergency Provider Family Medicine; PCP Internal Medicine Medical Oncology
DX: R11.2 Nausea with vomiting, unspecified (principal); Z87.891 Personal history of nicotine dependence; Z85.038 Personal history of other malignant neoplasm of large intestine; E78.5 Hyperlipidemia, unspecified; I10 Essential (primary) hypertension
CPT/HCPCS: 36415; 74022; 74177; 80053; 81003; 83605; 85025; 93005; 99285; J7030; Q9967

== ENCOUNTER 2022-12-04 09:41 | Observation (INO) | payer MEDICARE, OTHER, SELFPAY ==
[2022-12-04] VITALS (8 sets, daily range): BP systolic 132–148; BP diastolic 66–80; PULSE 57–82; RESP 16–18; TEMP 36.5–37.3; O2SAT 94–100
--- NOTE | 2022-12-04 10:04 | W.ED.NAVMDI ---
HPI - Nausea/Vomiting/Diarrhea General: Chief complaint: Nausea/Vomiting/Diarrhea Stated complaint: Nausea, Weakness Time Seen by Provider: 12/04/22 10:03 History of Present Illness: Mr. Potter is a 67-year-old gentleman with complex past medical history including colon cancer currently on oral chemotherapeutic presenting to the emergency department for nausea and vomiting as well as diarrhea. He notes worsening symptoms for about 1 week. He was seen 12/02 in the emergency department and mildly improved with treatment however has quickly returned to vomiting with any p.o. intake. He has tried ODT antiemetic as well as scopolamine patch without improvement. He feels generally weak. Denies fevers or other focal infectious symptoms. No other specific changes in health, exacerbating, or alleviating factors identified. Onset (ago): day(s) Description of vomiting: food contents and watery Description of diarrhea: watery Associated nausea: Yes Exacerbating factors: eating Relieving factors: none Associated symtoms: Reports nausea Review of Systems General: Reports: 10 or more systems reviewed and unremarkable except in HPI and below GI: Reports: nausea [facility] ED PFSH: Medical History BPH (benign prostatic hyperplasia) Colon cancer Degenerative arthritis Dyslipidemia GERD (gastroesophageal reflux disease) HTN (hypertension), benign Surgical History H/O: vasectomy Port-A-Cath in place (02/18/21) S/P right hemicolectomy extended, with en bloc excision of abdominal wall, stomach, and omentum Status post colonoscopy (06/30/21) Family History Father Cancer Lung Grandfather Cancer Lung Brother Cancer Lung Grandmother Hypertension Denies family history of Diabetes CAD (coronary artery disease) Clotting disorder Dementia Hyperlipidemia Psychiatric illness Chronic kidney disease (CKD) Suicide Anesthesia complication Bleeding disorder Lung disease Stroke Social History Smoking and tobacco status: former smoker (quit in 1997) Alcohol intake: current Alcohol intake frequency: 0-2 Drinks per Day Alcohol type: beer Desire information about alcohol rehabilitation?: No Substance/Drug Use: never Desire information about substance/drug rehabilitation?: No Adopted: No Caregiver/support person: No Lives independently: Yes Housing: House Marital status: Unknown Number of children: 1 Current occupational status: previously employed Current gender identity: Male Agree to transfusion: Yes Physical Exam Const: COMMON NORMALS: alert GENERAL APPEARANCE: cooperative and well developed HENMT: COMMON NORMALS: normocephalic and atraumatic HEAD & SCALP: normocephalic and atraumatic Eye: COMMON NORMALS: conjunctivae normal CONJUNCTIVA: Yes conjunctivae normal SCLERA: sclerae normal Neck/C-Spine: COMMON NORMALS: supple GENERAL: Yes trachea midline Resp: COMMON NORMALS: clear to auscultation bilaterally EFFORT & INSPECTION: Yes able to speak in complete sentences AUSCULTATION: clear to auscultation bilaterally Cardio: COMMON NORMALS: regular rate and regular rhythm RATE: regular rate RHYTHM: regular rhythm GI: COMMON NORMALS: Soft to palpation PALPATION: Yes Soft to palpation and No Tenderness to palpation present (GI) OTHER: Periumbilical soft tissue mass again noted Extremity: GENERAL: Yes normal exam except as noted and No edema Neuro: COMMON NORMALS: moves all extremities SENSORIUM/ORIENTATION: Yes alert and No Orientation impaired Psych: COMMON NORMALS: mental status grossly normal and Normal thought process present THOUGHT PROCESS: Normal thought process present Course Vital Signs: Vital signs: Vital Signs Temperature 99.0 F 12/06/22 12:54 Pulse Rate 72 12/06/22 12:54 Respiratory Rate 16 12/06/22 12:54 Blood Pressure 138/80 12/06/22 12:54 Pulse Oximetry 97 12/06/22 12:54 Oxygen Delivery Me thod Room Air 12/06/22 08:00 MDM - Nausea/Vomiting/Diarrhea Medical Decision Making 67-year-old gentleman presenting with nausea, vomiting, weakness in the context of chemotherapy. Somewhat ill-appearing though nontoxic. Clinically does appear dehydrated. Abdominal tenderness without evidence of acute surgical abdomen. Labs with leukopenia and anemia as well as thrombocytopenia. Metabolic panel with mild hypokalemia and dehydration. T. bili minimally elevated though similar to prior. Negative viral panel and urinalysis. Recent imaging reviewed. I do not feel that patient requires repeat at this time. Despite multiple rounds of medication patient continues to have symptoms and therefore requires hospitalization for cancer related intractable nausea and vomiting. The results of ED evaluation were discussed with the patient including plan for admission due to requirement for level of care not available if discharged to prevent significant worsening/deterioration. Patient agreeable with plan. Discussed with hospitalist service who was agreeable to admit patient. Medical Records I reviewed the patient's medical records. Lab Data I reviewed the patient's lab results. 12/06/22 05:55 12/06/22 05:55 Laboratory Results WBC 2.1 10^3/uL (4.0-10.0) L 12/04/22 10:15 RBC 3.40 10^6/uL (4.1-5.3) L 12/04/22 10:15 Hgb 9.7 g/dL (11.7-16.6) L 12/04/22 10:15 Hct 30.5 % (42.0-52.0) L 12/04/22 10:15 MCV 89.7 fl (80-94) 12/04/22 10:15 MCH 28.5 pg (28.0-34.0) 12/04/22 10:15 MCHC 31.8 g/dL (30.0-36.0) 12/04/22 10:15 RDW 17.0 % (12.1-15.1) H 12/04/22 10:15 Plt Count 120 10^3/cmm (130-400) L 12/04/22 10:15 MPV 9.3 fL (7.4-10.4) 12/04/22 10:15 Neut % (Auto) 50.7 % 12/04/22 10:15 Lymph % (Auto) 30.4 % 12/04/22 10:15 [place] % (Auto) 17.9 % 12/04/22 10:15 Eos % (Auto) 0.5 % 12/04/22 10:15 Baso % (Auto) 0.0 % 12/04/22 10:15 Neut # (Auto) 1.05 10^3/uL (1.8-7.7) L 12/04/22 10:15 Lymph # (Auto) 0.6 10^3/uL (0.8-4.8) L 12/04/22 10:15 [place] # (Auto) 0.4 10^3/uL (0.2-0.9) 12/04/22 10:15 Eos # (Auto) 0.0 10^3/uL (0.0-0.8) 12/04/22 10:15 Baso # (Auto) 0.0 10^3/uL (0.0-0.1) 12/04/22 10:15 Nucleated RBC % (auto) 0 % 12/04/22 10:15 Nucleated RBCs # 0.0 /100WBC 12/04/22 10:15 Sodium 142 mmol/L (136-145) 12/04/22 10:15 Potassium 3.4 mmol/L (3.5-5.1) L 12/04/22 10:15 Chloride 103 mmol/L (98-107) 12/04/22 10:15 Carbon Dioxide 27 mmol/L (22-29) 12/04/22 10:15 Anion Gap 15.4 (5-19) 12/04/22 10:15 BUN 10 mg/dL (8-23) 12/04/22 10:15 Creatinine 0.7 mg/dL (0.7-1.2) 12/04/22 10:15 GFR Calculation 111.8 mL/min (90-130) 12/04/22 10:15 Glucose 111 mg/dL (65-115) 12/04/22 10:15 Calculated Osmolality 294 mOsm/kg (285-295) 12/04/22 10:15 Calcium 9.1 mg/dL (8.5-10.5) 12/04/22 10:15 Total Bilirubin 1.3 mg/dL (0.15-1.2) H 12/04/22 10:15 AST 23 U/L (0-40) 12/04/22 10:15 ALT 31 U/L (0-41) 12/04/22 10:15 Alkaline Phosphatase 71 U/L (40-130) 12/04/22 10:15 Total Protein 6.4 g/dL (6.6-8.7) L 12/04/22 10:15 Albumin 3.9 g/dL (3.5-5.2) 12/04/22 10:15 Globulin 2.5 g/dL (1.3-4.6) 12/04/22 10:15 Lipase 34 U/L (13-60) 12/04/22 10:15 Nasal Influ A H1 2008 PCR Not detected (NOT DETECT) 12/04/22 10:35 Adenovirus (PCR) Not detected (NOT DETECT) 12/04/22 10:35 C. pneumoniae DNA (PCR) Not detected (NOT DETECT) 12/04/22 10:35 Coronavirus 229E (PCR) Not detected (NOT DETECT) 12/04/22 10:35 Human Metapneumovir PCR Not detected (NOT DETECT) 12/04/22 10:35 Influenza A (H1) PCR Not detected (NOT DETECT) 12/04/22 10:35 Influenza A (H3) PCR Not detected (NOT DETECT) 12/04/22 10:35 Influenza Type A (PCR) Not detected (NOT DETECT) 12/04/22 10:35 Influenza Type B (PCR) Not detected (NOT DETECT) 12/04/22 10:35 M. pneumoniae (PCR) Not detected (NOT DETECT) 12/04/22 10:35 Parainfluenza 1 (PCR) Not detected (NOT DETECT) 12/04/22 10:35 Parainfluenza 2 (PCR) Not detected (NOT DETECT) 12/04/22 10:35 Parainfluenza 3 (PCR) Not detected (NOT DETECT) 12/04/22 10:35 Parainfluenza 4 (PCR) Not detected (NOT DETECT) 12/04/22 10:35 RSV Type A (PCR) Not detected (NOT DETECT) 12/04/22 10:35 RSV Type B (PCR) Not detected (NOT DETECT) 12/04/22 10:35 Entero/Rhino (PCR) Not detected (NOT DETECT) 12/04/22 10:35 SARS-CoV-2 (PCR) Not detected (NOT DETECT) 12/04/22 10:35 Discharge Plan Discharge Patient Disposition: Admitted As Inpatient Admit Provider: Hermann Mtz Clinical Impression: Intractable nausea and vomiting, Chemotherapy-induced nausea, Pancytopenia Condition: Stable Discharge Diet: GI Soft Coding Level of Care Code ED Ekg Manager for Shirley Monson
[2022-12-04] MEDS: sodium chloride 0.9% 1,000 ML 999 ML IV ×2 (10:19→12:07)
[2022-12-04] MEDS: metoclopramide 5 mg/mL SDV 2 mL 10 MG IVP (10:19)
[2022-12-04 10:30] LABS: Eosinophils % 0.5 %; Hematocrit 30.5 % (42.0-52.0); Hemoglobin 9.7 g/dL (11.7-16.6); Lymphocytes # 0.6 10^3/uL (0.8-4.8); Lymphocytes % 30.4 %; Mean Corpuscular HGB Conc 31.8 g/dL (30.0-36.0); Mean Corpuscular Hemoglobin 28.5 pg (28.0-34.0); Mean Corpuscular Volume 89.7 fl (80-94); Mean Platelet Volume 9.3 fL (7.4-10.4); Monocytes # 0.4 10^3/uL (0.2-0.9); Monocytes % 17.9 %; Neutrophils # 1.05 10^3/uL (1.8-7.7); Neutrophils % 50.7 %; Nucleated Red Blood Cells % 0 %; Platelet Count 120 10^3/cmm (130-400); White Blood Count 2.1 10^3/uL (4.0-10.0)
[2022-12-04 10:49] LABS: Alanine Aminotransferase 31 U/L (0-41); Albumin Level 3.9 g/dL (3.5-5.2); Alkaline Phosphatase 71 U/L (40-130); Anion Gap 15.4 (5-19); Aspartate Amino Transferase 23 U/L (0-40); Blood Urea Nitrogen 10 mg/dL (8-23); Calcium 9.1 mg/dL (8.5-10.5); Carbon Dioxide 27 mmol/L (22-29); Chloride 103 mmol/L (98-107); Creatinine Clr Calc Pharmacy 93.6224; Globulin 2.5 g/dL (1.3-4.6); Glomerular Filtration Rate 111.8 mL/min (90-130); Glucose 111 mg/dL (65-115); Osmolality Calculated 294 mOsm/kg (285-295); Potassium 3.4 mmol/L (3.5-5.1); Sodium 142 mmol/L (136-145); Total Bilirubin 1.3 mg/dL (0.15-1.2); Total Protein 6.4 g/dL (6.6-8.7)
[2022-12-04 11:17] LABS: Slide Review Slide Review Perform
[2022-12-04] MEDS: ondansetron 2 mg/ML SDV 2 mL 4 MG IVP (12:27)
[2022-12-04] MEDS: LORazepam 2 mg/mL INJ 1 mL 0.5 MG IVP (12:28)
[2022-12-04 13:08] LABS: Adenovirus Not Detected (NOT DETECT); Chlamydia Pneumoniae Not Detected (NOT DETECT); Coronavirus 229E,HKU1,NL63,OC4 Not Detected (NOT DETECT); Human Metapneumovirus Not Detected (NOT DETECT); Human Rhinovirus/Enterovirus Not Detected (NOT DETECT); Influenza A Not Detected (NOT DETECT); Influenza A H1 Not Detected (NOT DETECT); Influenza A H1-2009 Not Detected (NOT DETECT); Influenza A H3 Not Detected (NOT DETECT); Influenza B Not Detected (NOT DETECT); Mycoplasma Pneumoniae Not Detected (NOT DETECT); Parainfluenza Virus Type 1 Not Detected (NOT DETECT); Parainfluenza Virus Type 2 Not Detected (NOT DETECT); Parainfluenza Virus Type 3 Not Detected (NOT DETECT); Parainfluenza Virus Type 4 Not Detected (NOT DETECT); Respiratory Syncytial Virus A Not Detected (NOT DETECT); Respiratory Syncytial Virus B Not Detected (NOT DETECT); SARS-COV-2 Not Detected (NOT DETECT)
[2022-12-04 14:37] LABS: Lipase 34 U/L (13-60)
--- NOTE | 2022-12-04 16:40 | PM.HP ---
Providers/Chief Complaint Admitting Physician: Hermann Mtz Primary Care Provider: Luis Topete MD Chief Complaint: Nausea, Weakness History of Present Illness Pleasant 67-year-old gentleman with metastatic colon cancer, currently on oral chemo, GERD, hemorrhoids, additional comorbidities presented due to intractable nausea, vomiting, and also diarrhea starting last . Symptoms have been severe, he has not been able to tolerate oral intake of any food, even crackers or water. He had a visit to ER 2 days ago at which point was treated with Zofran, scopolamine patch, CT abdomen pelvis was obtained which showed stable diffuse mild wall thickening of the bladder, may suggest cystitis. UA was obtained and unremarkable. Additionally seen soft tissue density at rectosigmoid junction mildly decreased in size. Stable mass in periumbilical soft tissues. Posterior mass also extends into the anterior peritoneal cavity. Stable lymph node near the root of the mesentery. Findings suspicious for metastatic foci. He returns to the hospital due to persistent nausea, vomiting, inability to maintain any oral intake. Diarrhea persists. He denies abdominal pain. No hematochezia. Saw some red stuff in the toilet bowl, but thought was due to tomatoes. No blood in the water. No melena. Denies fever, denies other systemic symptoms. Review of Systems Const: Denies: fever(s) or chills ENMT: Denies: throat pain Card: Denies: chest pain, edema, pre-syncope or dyspnea on exertion Resp: Denies: dyspnea, productive cough, change in phlegm color or hemoptysis GI: Reports: nausea, vomiting and diarrhea; Denies: abdominal pain, constipation, hematochezia or melena : Denies: flank pain, difficulty urinating, urinary frequency or hematuria Musc: Denies: back pain, joint swelling or joint redness Skin/Breast: Denies: rash or new lesions Neuro: Denies: headache(s) Medications/Allergies Home Medications Medication Instructions Recorded Confirmed Last Taken Type amlodipine 5 mg tablet 2.5 mg PO DAILY #30 tabs 07/12/22 12/04/22 06/26/22 Rx pantoprazole 40 mg tablet,delayed 40 mg PO BIDWMEAL #30 tabs 07/12/22 12/04/22 06/26/22 Rx release (Protonix) trifluridine 15 mg-tipiracil 6.14 2 tab PO BID #40 tabs 09/14/22 12/04/22 Unknown Rx mg tablet (Lonsurf) trifluridine 20 mg-tipiracil 8.19 2 tab PO BID #40 tabs 09/14/22 12/04/22 Unknown Rx mg tablet (Lonsurf) hydrocortisone-pramoxine 2.5 %-1 % 1 applic [place] BID PRN hemorrhoids 11/14/22 12/04/22 Unknown Rx rectal cream #30 grams polyethylene glycol 3350 17 4 g PO DAILY PRN Constipation 11/14/22 12/04/22 Unknown History gram/dose oral powder (Miralax) ondansetron 8 mg disintegrating 8 mg PO TID PRN nausea and 12/03/22 12/04/22 Unknown Rx tablet vomiting #30 tabs morphine 30 mg immediate release 30 mg PO Q6H PRN pain 12/04/22 12/04/22 Unknown History tablet Allergies Allergy/AdvReac Type Severity Reaction Status Date / Time No Known Allergies Allergy Verified 12/04/22 09:53 PFSH Acute PFSH: Medical History BPH (benign prostatic hyperplasia) Colon cancer Degenerative arthritis Dyslipidemia GERD (gastroesophageal reflux disease) HTN (hypertension), benign Surgical History H/O: vasectomy Port-A-Cath in place (02/18/21) S/P right hemicolectomy extended, with en bloc excision of abdominal wall, stomach, and omentum Status post colonoscopy (06/30/21) Family History Father Cancer Lung Grandfather Cancer Lung Brother Cancer Lung Grandmother Hypertension Denies family history of Diabetes CAD (coronary artery disease) Clotting disorder Dementia Hyperlipidemia Psychiatric illness Chronic kidney disease (CKD) Suicide Anesthesia complication Bleeding disorder Lung disease Stroke Social History Smoking and tobacco status: former smoker (quit in 1997) Alcohol intake: current Alcohol intake frequency: 0-2 Drinks per Day Alcohol type: beer Desire information about alcohol rehabilitation?: No Substance/Drug Use: never Desire information about substance/drug rehabilitation?: No Adopted: No Caregiver/support person: No Lives independently: Yes Housing: House Marital status: Unknown Number of children: 1 Current occupational status: previously employed Current gender identity: Male Agree to transfusion: Yes Vitals/I&O/Wt Last Vital Signs Temp 98.0 F 12/04/22 09:48 Pulse 81 12/04/22 15:31 Resp 16 12/04/22 15:31 Pulse Ox 98 12/04/22 15:31 O2 Del Method Room Air 12/04/22 09:48 Weight last 48 hrs Weight 73.482 kg Physical Exam Const: COMMON NORMALS: patient oriented x3 and alert GENERAL APPEARANCE: cooperative ORIENTATION/CONSCIOUSNESS: Yes awake HENMT: COMMON NORMALS: oropharynx normal Neck/C-Spine: COMMON NORMALS: no JVD Resp: COMMON NORMALS: normal respiratory effort and clear to auscultation bilaterally AUSCULTATION: clear to auscultation bilaterally Cardio: COMMON NORMALS: no JVD, regular rhythm, S1 normal heart sound present, S2 normal heart sound present and No murmurs present (Cardio) RHYTHM: regular rhythm HEART SOUNDS: S1 normal heart sound present and S2 normal heart sound present GI: COMMON NORMALS: Normal to inspection, nondistended, normoactive bowel sounds present, Soft to palpation and non-tender PALPATION: Yes Soft to palpation Extremity: COMMON NORMALS: no joint enlargement and no pedal edema Neuro: COMMON NORMALS: patient oriented x3 and moves all extremities SENSORIUM/ORIENTATION: Yes alert Skin: COMMON NORMALS: no rashes or lesions noted GENERAL SKIN EXAM: no rashes or lesions noted Data 12/04/22 10:15 12/04/22 10:15 A&P Assessment and plan (1) Nausea & vomiting: Nausea possibly secondary to chemotherapy and gentleman with metastatic malignancy. I do not see steroid use in oncology note. Denies NSAID use. Occasionally drinks some alcohol. Severe intractable nausea, vomiting, unable to tolerate food water or oral medications. Received 2 L IV fluid boluses. For now hold off additional IV fluid. PPI 40 mg IV twice daily. Antiemetics as needed. Consider some additional low rate IV fluid support if not improving by tomorrow. Due to diarrhea check stool studies. At risk of significant deterioration, dehydration, severe complications due to inability to tolerate any oral intake if discharged currently. Recent CT noted. Some suggestion of possible cystitis, at that time UA unremarkable. He states had some dysuria a day or so ago. Will repeat UA. Respiratory viral panel noted negative. At elevated risk of DVT with nausea vomiting lack of oral intake, on underlying malignancy. At the same time recent hematochezia at risk of bleeding. He has not had any additional bleeding currently and at the moment thrombosis risk is more of a concern, will start low-dose heparin cautiously, monitor for bleeding. Plan Hypokalemia: Replace. Check magnesium. Chemotherapy related pancytopenia: Leukopenia, neutropenia: ANC 1000. Monitor. Recheck blood counts. Thrombocytopenia: Platelets 120. Anemia, hemoglobin 9.7. Follow-up blood counts. Mild hyperbilirubinemia: Noted, GB, CBD noted unremarkable on CT. No RUQ pain. Reassess chemistry. Metastatic colon cancer on oral chemotherapy GERD Hemorrhoids ER physician documentation reviewed. Discussed with ER physician. Attestations Medical Necessity Statement*: Please in observation for additional assessment and management of intractable nausea, vomiting, inability to tolerate oral food, medication or water intake. Diagnoses Nausea & vomiting R11.2
[2022-12-04] MEDS: pantoprazole 40 mg SDV IVP (16:54)
[2022-12-04 17:30] LABS: Add Urine Microscopic? NO; Charge for UA Resulting for Rev
[2022-12-04] MEDS: lidocaine 1% 5 ML in potassium chloride premix 100 ML 52.5 ML IV (17:33)
[2022-12-04] MEDS: heparin 5,000 unit/mL INJ 1 mL 5000 UNIT SUBCUT (17:34)
[2022-12-04 17:36] LABS: Bilirubin Urine Neg (Negative); Blood Urine Neg (Negative); Glucose Urine UA Norm (Normal); Ketones Urine 1+ (Negative); Leukocyte Esterase Urine Negative (Negative); Nitrate Urine Negative (Negative); Protein Urine Neg (Negative); Specific Gravity, Urine 1.005 (1.005-1.030); Urine Appearance Clear (CLEAR); Urine Color Straw (Yellow); Urobilinogen Urine Norm (Negative); pH Urine 7 (5-7)
[2022-12-05] VITALS: BP 127/72; PULSE 62; RESP 18; TEMP 36.9; O2SAT 98
[2022-12-05] MEDS: pantoprazole 40 mg SDV IVP ×2 (04:13→15:35)
[2022-12-05] MEDS: heparin 5,000 unit/mL INJ 1 mL 5000 UNIT SUBCUT ×2 (04:13→17:19)
[2022-12-05 04:50] VITALS: BP 136/80; PULSE 65; RESP 18; TEMP 36.8; O2SAT 98
[2022-12-05 06:19] LABS: Eosinophils % 0.5 %; Hematocrit 28.3 % (42.0-52.0); Hemoglobin 9.2 g/dL (11.7-16.6); Lymphocytes # 0.7 10^3/uL (0.8-4.8); Lymphocytes % 38.4 %; Mean Corpuscular HGB Conc 32.5 g/dL (30.0-36.0); Mean Corpuscular Hemoglobin 29.2 pg (28.0-34.0); Mean Corpuscular Volume 89.8 fl (80-94); Mean Platelet Volume 9.4 fL (7.4-10.4); Monocytes # 0.3 10^3/uL (0.2-0.9); Monocytes % 15.8 %; Neutrophils % 44.8 %; Nucleated Red Blood Cells % 0 %; Platelet Count 111 10^3/cmm (130-400); Red Blood Count 3.15 10^6/uL (4.1-5.3); Red Cell Distribution Width 16.9 % (12.1-15.1); White Blood Count 1.9 10^3/uL (4.0-10.0)
[2022-12-05 06:52] LABS: Alanine Aminotransferase 27 U/L (0-41); Albumin Level 3.5 g/dL (3.5-5.2); Alkaline Phosphatase 61 U/L (40-130); Anion Gap 10.5 (5-19); Aspartate Amino Transferase 21 U/L (0-40); Blood Urea Nitrogen 9 mg/dL (8-23); Calcium 8.6 mg/dL (8.5-10.5); Carbon Dioxide 27 mmol/L (22-29); Chloride 102 mmol/L (98-107); Globulin 2.2 g/dL (1.3-4.6); Glomerular Filtration Rate 164.9 mL/min (90-130); Glucose 87 mg/dL (65-115); Osmolality Calculated 280 mOsm/kg (285-295); Potassium 3.5 mmol/L (3.5-5.1); Sodium 136 mmol/L (136-145); Total Bilirubin 1.4 mg/dL (0.15-1.2); Total Protein 5.7 g/dL (6.6-8.7)
[2022-12-05 06:56] LABS: Creatinine Clr Calc Pharmacy 93.6224
[2022-12-05 07:10] LABS: Slide Review Slide Review Perform
[2022-12-05 07:12] LABS: Neutrophils # 0.85 10^3/uL (1.8-7.7)
[2022-12-05 07:30] VITALS: BP 129/67; PULSE 76; RESP 17; TEMP 37.1; O2SAT 98
[2022-12-05] MEDS: ondansetron 2 mg/ML SDV 2 mL 4 MG IVP (10:14)
[2022-12-05 10:52] VITALS: BP 120/71; PULSE 76; RESP 16; TEMP 37.4; O2SAT 97
--- NOTE | 2022-12-05 13:58 | P.PN_ITS ---
Subjective Subjective: Neutropenia, afebrile No active nausea vomiting Started clear liquid diet Plan to discharge by tomorrow patient is agreeable No active abdominal pain Patient lives alone, Stating that he finished chemotherapy tablets roughly 15 days ago Vitals/I&O/Wt Last Vital Signs Temp 99.3 F 12/05/22 10:52 Pulse 76 12/05/22 10:52 Resp 16 12/05/22 10:52 BP 120/71 12/05/22 10:52 Pulse Ox 97 12/05/22 10:52 O2 Del Method Room Air 12/05/22 10:52 12/04/22 12/05/22 12/05/22 22:59 06:59 14:59 Intake Total 2105 / 2105 480 / 480 Balance 2105 / 2105 480 / 480 Weight last 48 hrs Weight 73.482 kg Physical Exam Narrative: Awake and alert GCS 15 Malnourished Cachectic Abdomen soft Clinically dehydrated Awake and alert Currently on room air GCS 15 Nonfocal neuro exam Data 12/05/22 05:21 12/05/22 05:21 A&P Assessment and plan (1) Nausea & vomiting: (2) Abdominal pain: (3) Superior mesenteric vein thrombosis: (4) GERD (gastroesophageal reflux disease): (5) HTN (hypertension), benign: (6) Colon cancer: (7) Malignant neoplasm of transverse colon: Plan Recurrent nausea vomiting: Improved Start clear liquid diet Stool studies are pending Dehydration Continue normal saline Neutropenia: Afebrile, no sign of sepsis Stool studies requested Electrolyte imbalance: Plan Chemotherapy-induced pancytopenia Monitoring neutrophil count at this point Hemoglobin is stable Full code Clear liquid diet Plan to discharge by tomorrow if stable Attestations Medical Necessity Statement*: Continue medical management discharge tomorrow Diagnoses Nausea & vomiting R11.2 Abdominal pain R10.9 Superior mesenteric vein thrombosis K55.069 GERD (gastroesophageal reflux disease) K21.9 HTN (hypertension), benign I10 Colon cancer C18.9 Malignant neoplasm of transverse colon C18.4
[2022-12-05 15:28] VITALS: BP 137/72; PULSE 72; RESP 16; TEMP 37.3; O2SAT 98
[2022-12-05] MEDS: sodium chloride 0.9% 1,000 ML 75 ML IV (15:32)
[2022-12-05] MEDS: acetaminophen 325 mg Tablet 650 MG PO (19:46)
[2022-12-05 19:47] VITALS: BP 117/74; PULSE 84; RESP 16; TEMP 37.8; O2SAT 97
[2022-12-06] VITALS: BP 117/71; PULSE 70; RESP 16; TEMP 36.5; O2SAT 99
[2022-12-06] MEDS: pantoprazole 40 mg SDV IVP (03:37)
[2022-12-06] MEDS: sodium chloride 0.9% 1,000 ML 75 ML IV (03:50)
[2022-12-06 04:00] VITALS: BP 120/54; PULSE 69; RESP 17; TEMP 36.1; O2SAT 97
[2022-12-06] MEDS: heparin 5,000 unit/mL INJ 1 mL 5000 UNIT SUBCUT (04:22)
[2022-12-06 06:42] LABS: Hematocrit 27.5 % (42.0-52.0); Hemoglobin 8.9 g/dL (11.7-16.6); Lymphocytes # 0.7 10^3/uL (0.8-4.8); Lymphocytes % 34.4 %; Mean Corpuscular HGB Conc 32.4 g/dL (30.0-36.0); Mean Corpuscular Hemoglobin 29.1 pg (28.0-34.0); Mean Corpuscular Volume 89.9 fl (80-94); Mean Platelet Volume 9.6 fL (7.4-10.4); Monocytes # 0.4 10^3/uL (0.2-0.9); Monocytes % 18.5 %; Neutrophils % 45.6 %; Nucleated Red Blood Cells % 0 %; Platelet Count 137 10^3/cmm (130-400); Red Blood Count 3.06 10^6/uL (4.1-5.3)
[2022-12-06 07:04] LABS: Alanine Aminotransferase 23 U/L (0-41); Albumin Level 3.3 g/dL (3.5-5.2); Alkaline Phosphatase 54 U/L (40-130); Anion Gap 13.4 (5-19); Aspartate Amino Transferase 19 U/L (0-40); Blood Urea Nitrogen 7 mg/dL (8-23); Calcium 8.1 mg/dL (8.5-10.5); Carbon Dioxide 24 mmol/L (22-29); Chloride 102 mmol/L (98-107); Globulin 2.1 g/dL (1.3-4.6); Glomerular Filtration Rate 164.9 mL/min (90-130); Glucose 89 mg/dL (65-115); Osmolality Calculated 279 mOsm/kg (285-295); Potassium 3.4 mmol/L (3.5-5.1); Sodium 136 mmol/L (136-145); Total Protein 5.4 g/dL (6.6-8.7)
[2022-12-06 07:07] LABS: Creatinine Clr Calc Pharmacy 93.6224
[2022-12-06 07:28] LABS: Neutrophils # 0.89 10^3/uL (1.8-7.7)
[2022-12-06 08:00] VITALS: BP 138/80; PULSE 72; RESP 16; TEMP 37.2; O2SAT 97
--- NOTE | 2022-12-06 11:12 | P.DS_ITS ---
Discharge Providers Date of Admission: 12/04/22 15:32 Date of Discharge: December 06, 2022 Attending Provider at Admission: Hermann Mtz Attending Provider at Discharge: Kimberly Carter MD Primary Care Provider: Luis Topete MD Diagnoses at Discharge Discharge Diagnosis (1) Nausea & vomiting: Status: Acute (2) Abdominal pain: Status: Acute (3) Superior mesenteric vein thrombosis: Status: Acute (4) GERD (gastroesophageal reflux disease): Status: Acute (5) HTN (hypertension), benign: Status: Acute (6) Colon cancer: Status: Acute (7) Malignant neoplasm of transverse colon: Status: Acute Permanent problem details: Stage IIIC - T4b, N1a, M0 Reason for Visit Reason for Visit: Nausea, Weakness Hospital Course Hospital Course 67-year-old male who has history of metastatic colon cancer currently on oral chemotherapy last dose was roughly 2 weeks ago before his admission to the hospital he presented with recurrent nausea vomiting likely related to his chemotherapy, no signs of obstruction, stool studies were negative, patient was able to tolerate clear liquid diet which was advanced to full liquid and then GI soft, stool antigens negative, C. difficile negative, there was concern for possible cystitis for which he required antibiotics in the hospital, viral panel negative, his electrolytes were replenished, at the time of discharge she will get magnesium and potassium supplementation. Patient lives alone, he will follow-up with his oncologist Patient remained afebrile, for his neutropenia I gave her 1 dose of Neupogen during hospitalization Cultures negative to date, Physical Exam Narrative: Awake and alert Tolerating diet Cachectic and malnourished Muscle mass loss Awake and alert GCS 15 Currently on room air S1, S2 Discharge Data Studies Completed and Pending Pending at discharge Category Date Time Status Complete Blood Count w/Auto AM LABS Lab 12/07/22 04:00 Ordered Comprehensive Metabolic Panel AM LABS Lab 12/07/22 04:00 Ordered Laboratory Results WBC 2.0 10^3/uL (4.0-10.0) L 12/06/22 05:55 RBC 3.06 10^6/uL (4.1-5.3) L 12/06/22 05:55 Hgb 8.9 g/dL (11.7-16.6) L 12/06/22 05:55 Hct 27.5 % (42.0-52.0) L 12/06/22 05:55 MCV 89.9 fl (80-94) 12/06/22 05:55 MCH 29.1 pg (28.0-34.0) 12/06/22 05:55 MCHC 32.4 g/dL (30.0-36.0) 12/06/22 05:55 RDW 17.0 % (12.1-15.1) H 12/06/22 05:55 Plt Count 137 10^3/cmm (130-400) 12/06/22 05:55 MPV 9.6 fL (7.4-10.4) 12/06/22 05:55 Neut % (Auto) 45.6 % 12/06/22 05:55 Lymph % (Auto) 34.4 % 12/06/22 05:55 [place] % (Auto) 18.5 % 12/06/22 05:55 Eos % (Auto) 1.0 % 12/06/22 05:55 Baso % (Auto) 0.0 % 12/06/22 05:55 Neut # (Auto) 0.89 10^3/uL (1.8-7.7) L* 12/06/22 05:55 Lymph # (Auto) 0.7 10^3/uL (0.8-4.8) L 12/06/22 05:55 [place] # (Auto) 0.4 10^3/uL (0.2-0.9) 12/06/22 05:55 Eos # (Auto) 0.0 10^3/uL (0.0-0.8) 12/06/22 05:55 Baso # (Auto) 0.0 10^3/uL (0.0-0.1) 12/06/22 05:55 Nucleated RBC % (auto) 0 % 12/06/22 05:55 Nucleated RBCs # 0.0 /100WBC 12/06/22 05:55 Sodium 136 mmol/L (136-145) 12/06/22 05:55 Potassium 3.4 mmol/L (3.5-5.1) L 12/06/22 05:55 Chloride 102 mmol/L (98-107) 12/06/22 05:55 Carbon Dioxide 24 mmol/L (22-29) 12/06/22 05:55 Anion Gap 13.4 (5-19) 12/06/22 05:55 BUN 7 mg/dL (8-23) L 12/06/22 05:55 Creatinine 0.5 mg/dL (0.7-1.2) L 12/06/22 05:55 GFR Calculation 164.9 mL/min (90-130) H 12/06/22 05:55 Glucose 89 mg/dL (65-115) 12/06/22 05:55 Calculated Osmolality 279 mOsm/kg (285-295) L 12/06/22 05:55 Calcium 8.1 mg/dL (8.5-10.5) L 12/06/22 05:55 Magnesium 2.0 mg/dL (1.7-2.3) 12/05/22 05:21 Total Bilirubin 1.0 mg/dL (0.15-1.2) 12/06/22 05:55 AST 19 U/L (0-40) 12/06/22 05:55 ALT 23 U/L (0-41) 12/06/22 05:55 Alkaline Phosphatase 54 U/L (40-130) 12/06/22 05:55 Total Protein 5.4 g/dL (6.6-8.7) L 12/06/22 05:55 Albumin 3.3 g/dL (3.5-5.2) L 12/06/22 05:55 Globulin 2.1 g/dL (1.3-4.6) 12/06/22 05:55 Lipase 34 U/L (13-60) 12/04/22 10:15 Urine Color Straw (Yellow) 12/04/22 17:07 Urine Appearance Clear (CLEAR) 12/04/22 17:07 Urine pH 7 (5-7) 12/04/22 17:07 Ur Specific [place] 1.005 (1.005-1.030) 12/04/22 17:07 Urine Protein Neg (Negative) 12/04/22 17:07 Urine Glucose (UA) Norm (Normal) 12/04/22 17:07 Urine Ketones 1+ (Negative) H 12/04/22 17:07 Urine Blood Neg (Negative) 12/04/22 17:07 Urine Nitrate Negative (Negative) 12/04/22 17:07 Urine Bilirubin Neg (Negative) 12/04/22 17:07 Urine Urobilinogen Norm mg/dL (Negative) 12/04/22 17:07 Ur Leukocyte Esterase Negative (Negative) 12/04/22 17:07 Nasal Influ A H1 2009 PCR Not detected (NOT DETECT) 12/04/22 10:35 Adenovirus (PCR) Not detected (NOT DETECT) 12/04/22 10:35 C. pneumoniae DNA (PCR) Not detected (NOT DETECT) 12/04/22 10:35 Coronavirus 229E (PCR) Not detected (NOT DETECT) 12/04/22 10:35 Human Metapneumovir PCR Not detected (NOT DETECT) 12/04/22 10:35 Influenza A (H1) PCR Not detected (NOT DETECT) 12/04/22 10:35 Influenza A (H3) PCR Not detected (NOT DETECT) 12/04/22 10:35 Influenza Type A (PCR) Not detected (NOT DETECT) 12/04/22 10:35 Influenza Type B (PCR) Not detected (NOT DETECT) 12/04/22 10:35 M. pneumoniae (PCR) Not detected (NOT DETECT) 12/04/22 10:35 Parainfluenza 1 (PCR) Not detected (NOT DETECT) 12/04/22 10:35 Parainfluenza 2 (PCR) Not detected (NOT DETECT) 12/04/22 10:35 Parainfluenza 3 (PCR) Not detected (NOT DETECT) 12/04/22 10:35 Parainfluenza 4 (PCR) Not detected (NOT DETECT) 12/04/22 10:35 RSV Type A (PCR) Not detected (NOT DETECT) 12/04/22 10:35 RSV Type B (PCR) Not detected (NOT DETECT) 12/04/22 10:35 Entero/Rhino (PCR) Not detected (NOT DETECT) 12/04/22 10:35 SARS-CoV-2 (PCR) Not detected (NOT DETECT) 12/04/22 10:35 Vitals Last Vital Signs Temp 96.9 F L 12/06/22 04:00 Pulse 69 12/06/22 04:00 Resp 17 12/06/22 04:00 BP 120/54 12/06/22 04:00 Pulse Ox 97 12/06/22 04:00 O2 Del Method Room Air 12/05/22 15:28 Discharge Plan Discharge Patient Disposition: Home Condition: Stable Prescriptions: New magnesium 200 mg tablet 200 mg PO DAILY Qty: 10 0RF potassium chloride 20 mEq tablet extended release 20 meq PO DAILY Qty: 10 0RF levofloxacin 750 mg tablet 750 mg PO DAILY 7 Days Qty: 7 0RF Continued polyethylene glycol 3350 [Miralax] 17 gram/dose powder 4 g PO DAILY PRN (Reason: Constipation) hydrocortisone-pramoxine 2.5-1 % cream 1 applic NM BID PRN (Reason: hemorrhoids) Qty: 30 12RF Lonsurf 15-6.14 mg tablet 2 tab PO BID Qty: 40 0RF Rx Instructions: must take within 1 hr after completion of meal Take days 1-5 & 8-12 of a 28 day cycle Lonsurf 20-8.19 mg tablet 2 tab PO BID Qty: 40 0RF Rx Instructions: must take within 1 hr after completion of meal administer days 1-5 & 8-12 of 28-day cycle ondansetron 8 mg tablet,disintegrating 8 mg PO TID PRN (Reason: nausea and vomiting) Qty: 30 3RF amlodipine 5 mg Tablet 2.5 mg PO DAILY Qty: 30 3RF pantoprazole [Protonix] 40 mg Tablet,Delayed Release (Dr/Ec) 40 mg PO BIDWMEAL Qty: 30 3RF morphine 30 mg tablet 30 mg PO Q6H PRN (Reason: pain) Discharge Orders: Discharge Order (Routine); Ordered 12/06/22 Ordered By: Kimberly Carter Referrals: Luis Morales DO [Physician] - 12/14/22 10:10 am Discharge Diet: GI Soft Patient Instructions: Opioid Safety Activity Restrictions/Additional Instructions: Please take antibiotics for your bladder infection for about 1 week You can slowly advance her diet you can start clear liquids and go up to full liquid and GI soft and then advance in next 3 to 4 days Please note we have given you a medication that will bring your white count up you were neutropenic in the hospital, you were given Neupogen you did not show any signs of fever or sepsis Discharge Attestations Time Spent in Discharge Care*: greater than 30 min Quality Metrics Clinical Quality Measures [ No reported AMI, CVA or VTE this stay] Coding Level of Care Code Acute Code for Chg Fwd Diagnoses Nausea & vomiting R11.2 Abdominal pain R10.9 Superior mesenteric vein thrombosis K55.069 GERD (gastroesophageal reflux disease) K21.9 HTN (hypertension), benign I10 Colon cancer C18.9 Malignant neoplasm of transverse colon C18.4
[2022-12-06] MEDS: filgrastim-sndz 300 mcg/0.5 mL Syringe SUBCUT (11:38)
[2022-12-06] MEDS: potassium chloride ER 20 mEq Tablet 40 MEQ PO (11:38)
[2022-12-06 12:54] VITALS: BP 138/80; PULSE 72; RESP 16; TEMP 37.2; O2SAT 97
== END 2022-12-06 12:10 | disposition home or self-care (01) ==
LOC: ER 10:05 → MEDSURG 12-05 08:52
PROVIDERS: Admitting Provider Internal Medicine; Emergency Provider Emergency Medicine; PCP Internal Medicine Medical Oncology; Visit Provider Internal Medicine
DX: E86.0 Dehydration (principal); R19.7 Diarrhea, unspecified; E87.6 Hypokalemia; Z87.891 Personal history of nicotine dependence; D61.810 Antineoplastic chemotherapy induced pancytopenia; D70.1 Agranulocytosis secondary to cancer chemotherapy; C18.9 Malignant neoplasm of colon, unspecified; K21.9 Gastro-esophageal reflux disease without esophagitis; I10 Essential (primary) hypertension; E78.5 Hyperlipidemia, unspecified; E80.6 Other disorders of bilirubin metabolism; K64.9 Unspecified hemorrhoids
CPT/HCPCS: 36415; 36591; 36592; 80053; 81003; 83690; 83735; 85025; 87486; 87493; 87506; 87581; 87633; 96365; 96372; 96375; 99285; C9113; G0378; J1644; J2060; J2405; J2765; J3480; J7030; Q5101

== ENCOUNTER 2022-12-09 08:30 | Oncology outpatient (recurring) (ONCR) | payer MEDICARE, OTHER, SELFPAY ==
[2022-11-14 08:26] VITALS: BP 151/89; PULSE 94; RESP 18; TEMP 36.4; O2SAT 96
[2022-11-14 08:39] LABS: Basophils % 0.3 %; Hematocrit 35.6 % (42.0-52.0); Hemoglobin 11.5 g/dL (11.7-16.6); Lymphocytes # 0.9 10^3/uL (0.8-4.8); Lymphocytes % 11.5 %; Mean Corpuscular HGB Conc 32.3 g/dL (30.0-36.0); Mean Corpuscular Hemoglobin 28.2 pg (28.0-34.0); Mean Corpuscular Volume 87.3 fl (80-94); Mean Platelet Volume 8.6 fL (7.4-10.4); Monocytes # 0.6 10^3/uL (0.2-0.9); Monocytes % 7.9 %; Neutrophils # 6.17 10^3/uL (1.8-7.7); Neutrophils % 79.4 %; Nucleated Red Blood Cells % 0 %; Platelet Count 206 10^3/cmm (130-400); Red Blood Count 4.08 10^6/uL (4.1-5.3); Red Cell Distribution Width 15.9 % (12.1-15.1); White Blood Count 7.8 10^3/uL (4.0-10.0)
[2022-11-14 09:03] LABS: Carcinoembryonic Antigen 63.9 ng/mL (0.0-4.7)
[2022-11-14 09:18] LABS: Alanine Aminotransferase 32 U/L (0-41); Albumin Level 3.7 g/dL (3.5-5.2); Alkaline Phosphatase 91 U/L (40-130); Anion Gap 15.1 (5-19); Aspartate Amino Transferase 25 U/L (0-40); Blood Urea Nitrogen 9 mg/dL (8-23); Calcium 9.3 mg/dL (8.5-10.5); Carbon Dioxide 28 mmol/L (22-29); Chloride 97 mmol/L (98-107); Globulin 3.3 g/dL (1.3-4.6); Glomerular Filtration Rate 133.6 mL/min (90-130); Glucose 117 mg/dL (65-115); Osmolality Calculated 282 mOsm/kg (285-295); Potassium 4.1 mmol/L (3.5-5.1); Sodium 136 mmol/L (136-145); Total Bilirubin 0.4 mg/dL (0.15-1.2)
[2022-11-14] MEDS: sodium chloride 0.9% 1,000 ML 999 ML IV (10:30)
[2022-11-14] MEDS: famotidine 20 mg/2 mL INJ IVP (10:44)
[2022-11-14] MEDS: ondansetron 2 mg/ML SDV 2 mL 8 MG IVP (10:49)
[2022-11-14 11:55] VITALS: BP 137/83; PULSE 72; RESP 18; TEMP 36.8; O2SAT 96
[2022-11-14 12:02] VITALS: BP 137/83; PULSE 72; RESP 18; TEMP 35.9; O2SAT 98
[2022-11-18] MEDS: sodium chloride 0.9% 1,000 ML 999 ML IV (08:44)
[2022-11-18 10:00] VITALS: BP 114/68; PULSE 75; TEMP 36.4; O2SAT 98
[2022-11-21 11:09] VITALS: BP 121/76; PULSE 87; RESP 18; TEMP 36.5; O2SAT 97
[2022-11-21 11:21] LABS: Basophils % 0.3 %; Hematocrit 33.8 % (42.0-52.0); Hemoglobin 11.1 g/dL (11.7-16.6); Lymphocytes % 15.7 %; Mean Corpuscular HGB Conc 32.8 g/dL (30.0-36.0); Mean Corpuscular Hemoglobin 28.8 pg (28.0-34.0); Mean Corpuscular Volume 87.6 fl (80-94); Mean Platelet Volume 9.1 fL (7.4-10.4); Monocytes # 0.3 10^3/uL (0.2-0.9); Monocytes % 4.9 %; Neutrophils # 5.01 10^3/uL (1.8-7.7); Neutrophils % 78.5 %; Nucleated Red Blood Cells % 0 %; Platelet Count 136 10^3/cmm (130-400); Red Blood Count 3.86 10^6/uL (4.1-5.3); Red Cell Distribution Width 15.9 % (12.1-15.1); White Blood Count 6.4 10^3/uL (4.0-10.0)
[2022-11-21 11:39] LABS: Alanine Aminotransferase 33 U/L (0-41); Albumin Level 3.8 g/dL (3.5-5.2); Alkaline Phosphatase 85 U/L (40-130); Anion Gap 10.7 (5-19); Aspartate Amino Transferase 23 U/L (0-40); Blood Urea Nitrogen 12 mg/dL (8-23); Calcium 8.8 mg/dL (8.5-10.5); Carbon Dioxide 28 mmol/L (22-29); Chloride 95 mmol/L (98-107); Globulin 2.8 g/dL (1.3-4.6); Glomerular Filtration Rate 133.6 mL/min (90-130); Glucose 152 mg/dL (65-115); Osmolality Calculated 273 mOsm/kg (285-295); Potassium 3.7 mmol/L (3.5-5.1); Sodium 130 mmol/L (136-145); Total Bilirubin 0.9 mg/dL (0.15-1.2); Total Protein 6.6 g/dL (6.6-8.7)
[2022-11-21 11:42] LABS: Creatinine Clr Calc Pharmacy 93.6224
[2022-11-22] MEDS: sodium chloride 0.9% 1,000 ML 999 ML IV (09:47)
[2022-11-22 11:07] VITALS: BP 124/70; PULSE 70; RESP 18; TEMP 35.8; O2SAT 99
[2022-11-25 08:40] VITALS: BP 98/64; PULSE 77; RESP 18; TEMP 35.9; O2SAT 98
[2022-11-25] MEDS: sodium chloride 0.9% 1,000 ML 999 ML IV (08:44)
[2022-11-25 09:45] LABS: Blood Urea Nitrogen 15 mg/dL (8-23); Glomerular Filtration Rate 74.1 mL/min (90-130)
[2022-11-25 09:55] VITALS: BP 121/72; PULSE 85; RESP 18; TEMP 36.3; O2SAT 98
[2022-11-28] MEDS: famotidine 20 mg/2 mL INJ IVP (11:19)
[2022-11-28] MEDS: sodium chloride 0.9% 1,000 ML 100 ML IV (11:19)
[2022-11-28 11:22] LABS: Eosinophils % 0.3 %; Hematocrit 29.2 % (42.0-52.0); Hemoglobin 9.6 g/dL (11.7-16.6); Lymphocytes # 0.7 10^3/uL (0.8-4.8); Lymphocytes % 20.3 %; Mean Corpuscular HGB Conc 32.9 g/dL (30.0-36.0); Mean Corpuscular Hemoglobin 28.6 pg (28.0-34.0); Mean Corpuscular Volume 86.9 fl (80-94); Mean Platelet Volume 9.1 fL (7.4-10.4); Monocytes # 0.2 10^3/uL (0.2-0.9); Monocytes % 4.8 %; Neutrophils # 2.63 10^3/uL (1.8-7.7); Nucleated Red Blood Cells % 0 %; Platelet Count 92 10^3/cmm (130-400); Red Blood Count 3.36 10^6/uL (4.1-5.3); Red Cell Distribution Width 15.3 % (12.1-15.1); White Blood Count 3.6 10^3/uL (4.0-10.0)
[2022-11-28 11:40] LABS: Alanine Aminotransferase 19 U/L (0-41); Albumin Level 3.7 g/dL (3.5-5.2); Alkaline Phosphatase 63 U/L (40-130); Anion Gap 13.8 (5-19); Aspartate Amino Transferase 20 U/L (0-40); Blood Urea Nitrogen 10 mg/dL (8-23); Calcium 9.2 mg/dL (8.5-10.5); Carbon Dioxide 27 mmol/L (22-29); Chloride 99 mmol/L (98-107); Globulin 2.6 g/dL (1.3-4.6); Glomerular Filtration Rate 133.6 mL/min (90-130); Glucose 100 mg/dL (65-115); Magnesium 1.7 mg/dL (1.7-2.3); Osmolality Calculated 281 mOsm/kg (285-295); Potassium 3.8 mmol/L (3.5-5.1); Sodium 136 mmol/L (136-145); Total Bilirubin 1.5 mg/dL (0.15-1.2); Total Protein 6.3 g/dL (6.6-8.7)
[2022-11-28] MEDS: ondansetron 2 mg/ML SDV 2 mL 8 MG IVP (11:40)
[2022-11-28 11:43] LABS: Creatinine Clr Calc Pharmacy 93.6224
[2022-11-28 13:25] VITALS: BP 146/74; PULSE 79; TEMP 36.3; O2SAT 99
[2022-12-01] MEDS: sodium chloride 0.9% 1,000 ML 100 ML IV (09:15)
[2022-12-01] MEDS: famotidine 20 mg/2 mL INJ IVP (09:16)
[2022-12-01 11:30] VITALS: BP 126/70; PULSE 75; TEMP 36.8; O2SAT 97
[2022-12-02] MEDS: sodium chloride 0.9% 1,000 ML 999 ML IV (08:59)
[2022-12-09 08:30] VITALS: BP 121/68; PULSE 87; TEMP 36.5; O2SAT 97
[2022-12-09] MEDS: sodium chloride 0.9% 1,000 ML 700 ML IV (08:50)
== END 2022-12-12 23:59 | disposition home or self-care (01) ==
PROVIDERS: PCP Internal Medicine Medical Oncology; Visit Provider Nurse Practitioner
DX: C18.8 Malignant neoplasm of overlapping sites of colon (principal); C18.4 Malignant neoplasm of transverse colon; C78.6 Secondary malignant neoplasm of retroperitoneum and peritoneum; C77.8 Secondary and unspecified malignant neoplasm of lymph nodes of multiple regions; C78.02 Secondary malignant neoplasm of left lung; D70.1 Agranulocytosis secondary to cancer chemotherapy; T45.1X5A Adverse effect of antineoplastic and immunosuppressive drugs, initial encounter; Z79.899 Other long term (current) drug therapy; Z92.21 Personal history of antineoplastic chemotherapy; Z92.3 Personal history of irradiation
CPT/HCPCS: 96365 ×4; 96361 ×4; 96360 ×3; 96375 ×3; 80053; 82378; 82565; 83735; 84520; 85025; 96366; 96368; 99214; J1100; J1642; J2405; J3490; J7030

== ENCOUNTER 2023-01-11 08:05 | Oncology outpatient (recurring) (ONCR) | payer MEDICARE, OTHER, SELFPAY ==
[2022-12-13 08:39] VITALS: BP 128/80; PULSE 90; RESP 18; TEMP 37.2; O2SAT 98
[2022-12-13 08:54] LABS: Basophils % 0.3 %; Hematocrit 32.8 % (42.0-52.0); Hemoglobin 10.4 g/dL (11.7-16.6); Lymphocytes # 1.1 10^3/uL (0.8-4.8); Lymphocytes % 30.5 %; Mean Corpuscular HGB Conc 31.7 g/dL (30.0-36.0); Mean Corpuscular Hemoglobin 29.1 pg (28.0-34.0); Mean Corpuscular Volume 91.9 fl (80-94); Mean Platelet Volume 8.9 fL (7.4-10.4); Monocytes # 0.6 10^3/uL (0.2-0.9); Monocytes % 17.1 %; Neutrophils # 1.93 10^3/uL (1.8-7.7); Neutrophils % 51.6 %; Nucleated Red Blood Cells % 0 %; Platelet Count 174 10^3/cmm (130-400); Red Blood Count 3.57 10^6/uL (4.1-5.3); Red Cell Distribution Width 18.8 % (12.1-15.1); White Blood Count 3.7 10^3/uL (4.0-10.0)
[2022-12-13] MEDS: sodium chloride 0.9% 1,000 ML 999 ML IV (09:02)
[2022-12-13 09:17] LABS: Alanine Aminotransferase 14 U/L (0-41); Albumin Level 3.7 g/dL (3.5-5.2); Alkaline Phosphatase 72 U/L (40-130); Anion Gap 10.3 (5-19); Aspartate Amino Transferase 19 U/L (0-40); Blood Urea Nitrogen 6 mg/dL (8-23); Calcium 9.3 mg/dL (8.5-10.5); Carbon Dioxide 30 mmol/L (22-29); Chloride 99 mmol/L (98-107); Globulin 3.1 g/dL (1.3-4.6); Glomerular Filtration Rate 133.6 mL/min (90-130); Glucose 142 mg/dL (65-115); Osmolality Calculated 280 mOsm/kg (285-295); Potassium 4.3 mmol/L (3.5-5.1); Sodium 135 mmol/L (136-145); Total Bilirubin 0.5 mg/dL (0.15-1.2); Total Protein 6.8 g/dL (6.6-8.7)
[2022-12-13 09:20] LABS: Creatinine Clr Calc Pharmacy 92.0569
[2022-12-13 09:25] LABS: Ferritin 449 ng/mL (30-400); Iron 54 ug/dL (59-158); Percent Saturation 29.8 % (20-50); Total Iron Binding Capacity 181 mcg/dl; Unsaturated Iron Binding 127 ug/dL (112-347)
[2022-12-13 10:00] LABS: Carcinoembryonic Antigen 82.2 ng/mL (0.0-4.7)
[2022-12-13 10:30] VITALS: BP 109/63; PULSE 75; TEMP 36.8; O2SAT 99
[2022-12-16 08:30] VITALS: BP 148/70; PULSE 84; RESP 16; TEMP 36; O2SAT 94
[2022-12-16] MEDS: sodium chloride 0.9% 1,000 ML 999 ML IV (08:46)
[2022-12-16 08:57] VITALS: BMI 20.9
[2022-12-16 10:05] VITALS: BP 129/72; PULSE 84; RESP 16; TEMP 36.1; O2SAT 97
[2022-12-19] MEDS: ondansetron 2 mg/ML SDV 2 mL 8 MG IVP (09:09)
[2022-12-19] MEDS: sodium chloride 0.9% 1,000 ML 999 ML IV (09:09)
[2022-12-19] MEDS: famotidine 20 mg/2 mL INJ IVP (09:09)
[2022-12-19 10:29] VITALS: BP 123/73; PULSE 70; RESP 18; TEMP 36.7; O2SAT 98
[2022-12-20 11:15] VITALS: BP 113/71; PULSE 70; RESP 17; TEMP 36.2; O2SAT 97; BMI 20.9
[2022-12-20] MEDS: sodium chloride 0.9% 1,000 ML 999 ML IV (12:08)
[2022-12-20 12:43] LABS: Add Urine Microscopic? YES; Bacteria Urine TRACE /hpf; Bilirubin Urine 1+ (Negative); Blood Urine Neg (Negative); Glucose Urine UA Norm (Normal); Ketones Urine Negative (Negative); Leukocyte Esterase Urine Trace (Negative); Mucus Urine 2+ /hpf; Nitrate Urine Negative (Negative); Protein Urine Neg (Negative); Specific Gravity, Urine 1.025 (1.005-1.030); Squamous Epithelial Cell Urine RARE /hpf (0-5); Urine Appearance Hazy (CLEAR); Urine Color Dark Yellow (Yellow); Urobilinogen Urine 1 mg/dL (Negative); WBC Urine RARE /hpf (0-5); pH Urine 5 (5-7)
[2022-12-22 09:20] VITALS: BP 134/71; PULSE 79; RESP 16; TEMP 36.1; O2SAT 98; BMI 21.1
[2022-12-22] MEDS: sodium chloride 0.9% 1,000 ML 999 ML IV (09:27)
[2022-12-22 10:51] VITALS: BP 137/80; PULSE 75; TEMP 36.1; O2SAT 99
[2022-12-23 08:36] VITALS: BP 106/60; PULSE 69; RESP 16; TEMP 36.3; O2SAT 99; BMI 20.9
[2022-12-23] MEDS: sodium chloride 0.9% 1,000 ML 999 ML IV (08:50)
[2022-12-23 10:20] VITALS: BP 124/69; PULSE 63; RESP 16; TEMP 35.9; O2SAT 99
[2022-12-26 08:25] VITALS: BP 105/65; PULSE 74; RESP 18; TEMP 36.2; O2SAT 98
[2022-12-26] MEDS: sodium chloride 0.9% 1,000 ML 999 ML IV (08:30)
[2022-12-26 09:56] VITALS: BP 117/55; PULSE 72; RESP 16; TEMP 36.2; O2SAT 99
[2022-12-28] MEDS: sodium chloride 0.9% 1,000 ML 999 ML IV (08:39)
[2022-12-28 09:45] VITALS: BP 116/62; PULSE 71; RESP 16; TEMP 36.1; O2SAT 99
[2022-12-30 08:25] VITALS: BP 109/60; PULSE 72; RESP 17; TEMP 36.8; O2SAT 97
[2022-12-30] MEDS: sodium chloride 0.9% 1,000 ML 999 ML IV (08:37)
[2022-12-30 09:52] VITALS: BP 136/67; PULSE 70; RESP 16; TEMP 36.6; O2SAT 100
[2023-01-02 08:17] VITALS: BP 122/71; PULSE 72; RESP 18; TEMP 36.4; O2SAT 98
[2023-01-02] MEDS: sodium chloride 0.9% 1,000 ML 999 ML IV (08:22)
[2023-01-02 09:30] VITALS: BP 138/75; PULSE 75; RESP 18; TEMP 35.7; O2SAT 99
[2023-01-04] MEDS: sodium chloride 0.9% 1,000 ML 999 ML IV (08:25)
[2023-01-04 08:32] VITALS: BP 107/65; PULSE 74; RESP 18; TEMP 36.6; O2SAT 97
[2023-01-04 09:52] VITALS: BP 125/76; PULSE 76; RESP 18; TEMP 35.7; O2SAT 96
[2023-01-06 08:15] VITALS: BP 119/62; PULSE 69; RESP 16; TEMP 36.8; O2SAT 98; BMI 21.1
[2023-01-06] MEDS: sodium chloride 0.9% 1,000 ML 999 ML IV (09:12)
[2023-01-06 10:22] VITALS: BP 129/73; PULSE 69; RESP 17; TEMP 36.4; O2SAT 99
[2023-01-09 08:51] VITALS: BP 122/76; PULSE 57; RESP 16; TEMP 36.8; O2SAT 98
[2023-01-09] MEDS: sodium chloride 0.9% 1,000 ML 999 ML IV (09:05)
[2023-01-09 09:09] VITALS: BMI 20.9
[2023-01-09 10:20] VITALS: BP 125/67; PULSE 75; RESP 18; TEMP 36; O2SAT 98
[2023-01-11 08:15] VITALS: BP 112/63; PULSE 72; RESP 16; TEMP 36.8; O2SAT 97; BMI 20.9
[2023-01-11] MEDS: sodium chloride 0.9% 1,000 ML 999 ML IV (08:38)
[2023-01-11 10:12] VITALS: BP 117/67; PULSE 66; RESP 16; TEMP 36.7; O2SAT 99
== END 2023-01-12 23:59 | disposition home or self-care (01) ==
PROVIDERS: Nurse Practitioner; PCP Internal Medicine Medical Oncology; Visit Provider Internal Medicine Medical Oncology
DX: Z45.2 Encounter for adjustment and management of vascular access device (principal)
CPT/HCPCS: 80053; 81001; 82378; 82728; 83540; 83550; 85025; 96360; 96365; 96375; 99214; J1642; J2405; J3490; J7030

== ENCOUNTER 2023-01-22 08:36 | Emergency (ER) | payer MEDICARE, OTHER, SELFPAY ==
--- NOTE | 2023-01-22 08:39 | ECG_ITS ---
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 Measurements Intervals [place] Rate: 72 P: 1 [place]: 138 QRS: -14 QRSD: 93 T: -12 QT: 372 QTc: 409 Interpretive Statements SINUS RHYTHM Compared to ECG 12/02/2022 22:36:05 No significant changes Electronically Signed On 01-22-2023 10:55:04 CDT by James Gonzalez M.D. [email or web address]
[2023-01-22 08:42] VITALS: BP 148/90; PULSE 76; RESP 15; TEMP 36.6; O2SAT 100
[2023-01-22 08:46] VITALS: BP 148/90; PULSE 63; RESP 18; O2SAT 99
--- NOTE | 2023-01-22 08:59 | W.ED.WEAKNES ---
HPI - Weakness General: Chief complaint: Weakness Stated complaint: vomiting, dizzy, weakness Time Seen by Provider: 01/22/23 08:56 Source: patient Mode of arrival: ambulatory Limitations: no limitations History of Present Illness: 67-year-old male has a history of metastatic colon cancer is currently on chemo he received chemo on Monday. He has had a history of getting vomiting and dehydration after his chemo and generalized weakness. He states he had vomiting last vomitus was yesterday and feeling extremely weak he denies any fevers denies any increased pain he has had no diarrhea. Associated symptoms: Reports nausea and vomiting; Denies chest pain, chills, dysuria, fever(s) or headache(s) Review of Systems Const: Reports: fatigue and malaise; Denies: fever(s) or chills ENMT: Denies: throat pain or dental pain Card: Denies: chest pain Resp: Denies: dyspnea GI: Reports: abdominal pain, nausea and vomiting; Denies: diarrhea : Denies: dysuria Musc: Denies: neck pain or back pain Skin/Breast: Denies: rash Neuro: Denies: headache(s) PFSH ED PFSH: Medical History BPH (benign prostatic hyperplasia) Colon cancer Degenerative arthritis Dyslipidemia GERD (gastroesophageal reflux disease) HTN (hypertension), benign Surgical History H/O: vasectomy Port-A-Cath in place (02/18/21) S/P right hemicolectomy extended, with en bloc excision of abdominal wall, stomach, and omentum Status post colonoscopy (06/30/21) Family History Father Cancer Lung Grandfather Cancer Lung Brother Cancer Lung Grandmother Hypertension Denies family history of Diabetes CAD (coronary artery disease) Clotting disorder Dementia Hyperlipidemia Psychiatric illness Chronic kidney disease (CKD) Suicide Anesthesia complication Bleeding disorder Lung disease Stroke Social History Smoking and tobacco status: former smoker (quit in 1997) Alcohol intake: current Alcohol intake frequency: 0-2 Drinks per Day Alcohol type: beer Desire information about alcohol rehabilitation?: No Substance/Drug Use: never Desire information about substance/drug rehabilitation?: No Adopted: No Caregiver/support person: No Lives independently: Yes Housing: House Marital status: Unknown Number of children: 1 Current occupational status: previously employed Current gender identity: Male Agree to transfusion: Yes Physical Exam Const: COMMON NORMALS: patient oriented x3 HENMT: COMMON NORMALS: normocephalic and atraumatic HEAD & SCALP: normocephalic and atraumatic Eye: COMMON NORMALS: Equal, round and reactive pupils present and EOMs intact bilaterally PUPIL: Yes Equal, round and reactive pupils present Neck/C-Spine: COMMON NORMALS: full ROM and supple Chest: COMMONS NORMALS: normal inspection of the chest and normal palpation of entire chest wall Resp: COMMON NORMALS: normal respiratory effort, No retractions, No use of accessory muscles and clear to auscultation bilaterally AUSCULTATION: clear to auscultation bilaterally Cardio: COMMON NORMALS: regular rate, regular rhythm and No murmurs present (Cardio) RATE: regular rate RHYTHM: regular rhythm GI: COMMON NORMALS: Normal to inspection, nondistended, normoactive bowel sounds present, Soft to palpation, non-tender and no masses PALPATION: Yes Soft to palpation Extremity: COMMON NORMALS: normal to inspection and full ROM Neuro: COMMON NORMALS: patient oriented x3, moves all extremities and no focal motor deficits Psych: COMMON NORMALS: mental status grossly normal, Normal thought process present and cooperative THOUGHT PROCESS: Normal thought process present Skin: COMMON NORMALS: no rashes or lesions noted and no wounds GENERAL SKIN EXAM: no rashes or lesions noted Course Vital Signs: Vital signs: Vital Signs Temperature 97.8 F 01/22/23 10:20 Pulse Rate 63 01/22/23 10:20 Respiratory Rate 18 01/22/23 10:20 Blood Pressure 123/82 01/22/23 10:20 Pulse Oximetry 99 01/22/23 10:20 Oxygen Delivery Me thod Room Air 01/22/23 08:46 MDM - Weakness Medical Decision Making Patient presents here with vomiting along with some generalized weakness likely due to his chemotherapy he feels improved after IV fluids he had no vomiting here blood work here is all normal he is continue take his Zofran at home he is to follow-up and return if worsening he understands agrees plan. Medical Records I reviewed the patient's medical records. Lab Data I reviewed the patient's lab results. 01/22/23 09:04 01/22/23 09:04 Laboratory Results WBC 4.42 10^3/uL (3.29-11.43) 01/22/23 09:04 RBC 3.63 10^6/uL (3.85-5.65) L 01/22/23 09:04 Hgb 10.90 g/dL (11.27-16.99) L 01/22/23 09:04 Hct 33.9 % (37-53) L 01/22/23 09:04 MCV 93.4 fl (82-101) 01/22/23 09:04 MCH 30.0 pg (27-33) 01/22/23 09:04 MCHC 32.2 g/dL (30-55) 01/22/23 09:04 RDW 16.5 % (12.1-15.1) H 01/22/23 09:04 Plt Count 134 10^3/cmm (157-399) L 01/22/23 09:04 MPV 8.7 fL (7.4-10.4) 01/22/23 09:04 Neut % (Auto) 79.9 % 01/22/23 09:04 Lymph % (Auto) 13.8 % 01/22/23 09:04 Keith % (Auto) 5.7 % 01/22/23 09:04 Eos % (Auto) 0.2 % 01/22/23 09:04 Baso % (Auto) 0.2 % 01/22/23 09:04 Neut # (Auto) 3.53 10^3/uL (1.8-7.7) 01/22/23 09:04 Lymph # (Auto) 0.6 10^3/uL (0.8-4.8) L 01/22/23 09:04 Keith # (Auto) 0.3 10^3/uL (0.2-0.9) 01/22/23 09:04 Eos # (Auto) 0.0 10^3/uL (0.0-0.8) 01/22/23 09:04 Baso # (Auto) 0.0 10^3/uL (0.0-0.1) 01/22/23 09:04 Nucleated RBC % (auto) 0 % 01/22/23 09:04 Nucleated RBCs # 0.0 /100WBC 01/22/23 09:04 Sodium 138 mmol/L (136-145) 01/22/23 09:04 Potassium 3.5 mmol/L (3.5-5.1) 01/22/23 09:04 Chloride 99 mmol/L (98-107) 01/22/23 09:04 Carbon Dioxide 27 mmol/L (22-29) 01/22/23 09:04 Anion Gap 15.5 (5-19) 01/22/23 09:04 BUN 6 mg/dL (8-23) L 01/22/23 09:04 Creatinine 0.6 mg/dL (0.7-1.2) L 01/22/23 09:04 GFR Calculation 133.6 mL/min (90-130) H 01/22/23 09:04 Glucose 102 mg/dL (65-115) 01/22/23 09:04 Calculated Osmolality 284 mOsm/kg (285-295) L 01/22/23 09:04 Calcium 9.3 mg/dL (8.5-10.5) 01/22/23 09:04 Magnesium 1.7 mg/dL (1.7-2.3) 01/22/23 09:04 Total Bilirubin 0.9 mg/dL (0.15-1.2) 01/22/23 09:04 AST 19 U/L (0-40) 01/22/23 09:04 ALT 9 U/L (0-41) 01/22/23 09:04 Alkaline Phosphatase 63 U/L (40-130) 01/22/23 09:04 Total Protein 6.8 g/dL (6.6-8.7) 01/22/23 09:04 Albumin 4.0 g/dL (3.5-5.2) 01/22/23 09:04 Globulin 2.8 g/dL (1.3-4.6) 01/22/23 09:04 Lipase 20 U/L (13-60) 01/22/23 09:04 Urine Color Yellow (Yellow) 01/22/23 09:31 Urine Appearance Clear (CLEAR) 01/22/23 09:31 Urine pH 9 (5-7) H 01/22/23 09:31 Ur Specific [place] 1.010 (1.005-1.030) 01/22/23 09:31 Urine Protein Neg (Negative) 01/22/23 09:31 Urine Glucose (UA) Norm (Normal) 01/22/23 09:31 Urine Ketones Negative (Negative) 01/22/23 09:31 Urine Blood Neg (Negative) 01/22/23 09:31 Urine Nitrate Negative (Negative) 01/22/23 09:31 Urine Bilirubin Neg (Negative) 01/22/23 09:31 Prot Sulfosalicylic Acd Negative (Negative) 01/22/23 09:31 Urine Urobilinogen Norm mg/dL (Negative) 01/22/23 09:31 Ur Leukocyte Esterase Negative (Negative) 01/22/23 09:31 EKG Data EKG 1: I personally reviewed and interpreted this EKG as follows: EKG interpretation date: 01/22/23 EKG interpretation time: 08:45 Interpretation: ns hr [address] or t wave abnormalities qrs 93 qtc 396 Discharge Plan Discharge Patient Disposition: Home Clinical Impression: Vomiting, Weakness Condition: Stable Prescriptions: No Action pantoprazole [Protonix] 40 mg tablet,delayed release (DR/EC) 40 mg PO BIDWMEAL Qty: 60 6RF dronabinol 5 mg capsule 5 mg PO BID Qty: 60 0RF Rx Instructions: administer before lunch and evening meal/dinner polyethylene glycol 3350 [Miralax] 17 gram/dose powder 4 g PO DAILY PRN (Reason: Constipation) ondansetron 8 mg tablet,disintegrating 8 mg PO TID PRN (Reason: nausea and vomiting) Qty: 30 3RF Lonsurf 15-6.14 mg tablet 2 tab PO BID Qty: 40 0RF Rx Instructions: must take within 1 hr after completion of meal Take days 1-5 & 8-12 of a 28 day cycle morphine 30 mg tablet 60 mg PO QID PRN (Reason: pain) 30 Days Qty: 240 0RF amlodipine 5 mg Tablet 2.5 mg PO DAILY Qty: 30 3RF Discharge Orders: Discharge ED (Routine); Ordered 01/22/23 Ordered By: King Pompa Referrals: Luis Topete MD [Primary Care Provider] - 1-3 days Discharge Diet: Advance as tolerated Discharge Activity: Resume usual activity Patient Instructions: Acute Nausea and Vomiting (ED), Weakness (ED) Coding Level of Care Code ED Trolley Worker for Shirley Monson
[2023-01-22] MEDS: ondansetron 2 mg/ML SDV 2 mL 4 MG IVP (09:05)
[2023-01-22] MEDS: sodium chloride 0.9% 1,000 ML 999 ML IV (09:08)
[2023-01-22 09:10] LABS: Basophils % 0.2 %; Eosinophils % 0.2 %; Hematocrit 33.9 % (37-53); Lymphocytes # 0.6 10^3/uL (0.8-4.8); Lymphocytes % 13.8 %; Mean Corpuscular HGB Conc 32.2 g/dL (30-55); Mean Corpuscular Volume 93.4 fl (82-101); Mean Platelet Volume 8.7 fL (7.4-10.4); Monocytes # 0.3 10^3/uL (0.2-0.9); Monocytes % 5.7 %; Neutrophils # 3.53 10^3/uL (1.8-7.7); Neutrophils % 79.9 %; Nucleated Red Blood Cells % 0 %; Platelet Count 134 10^3/cmm (157-399); Red Blood Count 3.63 10^6/uL (3.85-5.65); Red Cell Distribution Width 16.5 % (12.1-15.1); White Blood Count 4.42 10^3/uL (3.29-11.43)
[2023-01-22 09:32] LABS: Alanine Aminotransferase 9 U/L (0-41); Alkaline Phosphatase 63 U/L (40-130); Anion Gap 15.5 (5-19); Aspartate Amino Transferase 19 U/L (0-40); Blood Urea Nitrogen 6 mg/dL (8-23); Calcium 9.3 mg/dL (8.5-10.5); Carbon Dioxide 27 mmol/L (22-29); Chloride 99 mmol/L (98-107); Globulin 2.8 g/dL (1.3-4.6); Glomerular Filtration Rate 133.6 mL/min (90-130); Glucose 102 mg/dL (65-115); Lipase 20 U/L (13-60); Magnesium 1.7 mg/dL (1.7-2.3); Osmolality Calculated 284 mOsm/kg (285-295); Potassium 3.5 mmol/L (3.5-5.1); Sodium 138 mmol/L (136-145); Total Bilirubin 0.9 mg/dL (0.15-1.2); Total Protein 6.8 g/dL (6.6-8.7)
[2023-01-22 09:42] LABS: Add Urine Microscopic? NO; Charge for UA Resulting for Rev
[2023-01-22 09:55] LABS: Urine Appearance Clear (CLEAR); Urine Color Yellow (Yellow)
[2023-01-22 09:56] LABS: Bilirubin Urine Neg (Negative); Blood Urine Neg (Negative); Glucose Urine UA Norm (Normal); Ketones Urine Negative (Negative); Leukocyte Esterase Urine Negative (Negative); Nitrate Urine Negative (Negative); Protein Urine Neg (Negative); Sulfosalicylic Acid Urine Negative (Negative); Urobilinogen Urine Norm (Negative); pH Urine 9 (5-7)
[2023-01-22 10:20] VITALS: BP 123/82; PULSE 63; RESP 18; TEMP 36.6; O2SAT 99
== END 2023-01-22 10:21 | disposition home or self-care (01) ==
PROVIDERS: Emergency Provider Emergency Medicine; PCP Internal Medicine Medical Oncology
DX: R53.1 Weakness (principal); R11.10 Vomiting, unspecified; Z79.60 Long term (current) use of unspecified immunomodulators and immunosuppressants
CPT/HCPCS: 80053; 81003; 83690; 83735; 85025; 93005; 96374; 99284; J2405; J7030

== ENCOUNTER 2023-02-10 08:00 | Oncology outpatient (recurring) (ONCR) | payer MEDICARE, OTHER, SELFPAY ==
[2023-01-13 08:20] VITALS: BP 133/57; PULSE 74; RESP 17; TEMP 37.1; O2SAT 98
[2023-01-13] MEDS: sodium chloride 0.9% 1,000 ML 999 ML IV (08:57)
[2023-01-13 10:10] VITALS: BP 127/67; PULSE 68; RESP 16; TEMP 36.5; O2SAT 99
[2023-01-17 08:15] VITALS: BP 119/67; PULSE 89; RESP 17; TEMP 37; O2SAT 96; BMI 20.3
[2023-01-17] MEDS: sodium chloride 0.9% 1,000 ML 999 ML IV (08:36)
[2023-01-17 08:40] LABS: Basophils % 0.5 %; Eosinophils % 0.5 %; Hematocrit 32.6 % (37-53); Lymphocytes # 0.8 10^3/uL (0.8-4.8); Lymphocytes % 19.8 %; Mean Corpuscular HGB Conc 31.9 g/dL (30-55); Mean Corpuscular Hemoglobin 30.5 pg (27-33); Mean Corpuscular Volume 95.6 fl (82-101); Mean Platelet Volume 9.5 fL (7.4-10.4); Monocytes # 0.4 10^3/uL (0.2-0.9); Monocytes % 10.3 %; Neutrophils # 2.87 10^3/uL (1.8-7.7); Neutrophils % 68.4 %; Nucleated Red Blood Cells % 0 %; Platelet Count 163 10^3/cmm (157-399); Red Blood Count 3.41 10^6/uL (3.85-5.65); White Blood Count 4.19 10^3/uL (3.29-11.43)
[2023-01-17 09:00] LABS: Carcinoembryonic Antigen 113.8 ng/mL (0.0-4.7)
[2023-01-17 09:12] LABS: Alanine Aminotransferase 8 U/L (0-41); Alkaline Phosphatase 67 U/L (40-130); Anion Gap 11.8 (5-19); Aspartate Amino Transferase 19 U/L (0-40); Blood Urea Nitrogen 5 mg/dL (8-23); Calcium 9.2 mg/dL (8.5-10.5); Carbon Dioxide 29 mmol/L (22-29); Chloride 101 mmol/L (98-107); Globulin 2.7 g/dL (1.3-4.6); Glomerular Filtration Rate 133.6 mL/min (90-130); Glucose 128 mg/dL (65-115); Osmolality Calculated 285 mOsm/kg (285-295); Potassium 3.8 mmol/L (3.5-5.1); Sodium 138 mmol/L (136-145); Total Bilirubin 0.8 mg/dL (0.15-1.2); Total Protein 6.7 g/dL (6.6-8.7)
[2023-01-17 09:45] VITALS: BP 132/66; PULSE 79; RESP 16; TEMP 36.7; O2SAT 98
[2023-01-18] MEDS: sodium chloride 0.9% 1,000 ML 75 ML IV (09:01)
[2023-01-18 10:22] VITALS: BP 113/64; PULSE 63; RESP 18; TEMP 36.2; O2SAT 97
[2023-01-20] MEDS: sodium chloride 0.9% 1,000 ML 999 ML IV (08:10)
[2023-01-20 09:30] VITALS: BP 125/60; PULSE 71; RESP 17; TEMP 36.4; O2SAT 99
[2023-01-23 08:12] VITALS: BP 142/79; PULSE 79; RESP 18; TEMP 36.3; O2SAT 96
[2023-01-23] MEDS: sodium chloride 0.9% 1,000 ML 999 ML IV (08:23)
[2023-01-23 09:34] VITALS: BP 146/70; PULSE 100; RESP 16; TEMP 36.2; O2SAT 99
[2023-01-25 08:20] VITALS: BP 125/81; PULSE 64; RESP 16; TEMP 36.1; O2SAT 97
[2023-01-25] MEDS: sodium chloride 0.9% 1,000 ML 999 ML IV (08:36)
[2023-01-25 10:00] VITALS: BP 145/75; PULSE 69; RESP 18; TEMP 36.1; O2SAT 97
[2023-01-27 08:10] VITALS: BP 125/79; PULSE 76; RESP 16; TEMP 36.4; O2SAT 99
[2023-01-27] MEDS: sodium chloride 0.9% 1,000 ML 999 ML IV (08:20)
[2023-01-27 09:40] VITALS: BP 129/75; PULSE 62; RESP 16; TEMP 36.6; O2SAT 99
[2023-01-30 08:15] VITALS: BP 131/69; PULSE 71; RESP 17; TEMP 36.9; O2SAT 98
[2023-01-30] MEDS: sodium chloride 0.9% 1,000 ML 999 ML IV (08:18)
[2023-01-30] MEDS: ondansetron 2 mg/ML SDV 2 mL 8 MG IVP (08:33)
[2023-01-30 10:11] VITALS: BP 130/75; PULSE 75; RESP 18; TEMP 36.4; O2SAT 97
[2023-02-01 08:00] VITALS: BP 112/56; PULSE 85; RESP 16; TEMP 37.1; O2SAT 96
[2023-02-01] MEDS: sodium chloride 0.9% 1,000 ML 999 ML IV (08:14)
[2023-02-01 09:30] VITALS: BP 117/63; PULSE 72; RESP 16; TEMP 37; O2SAT 99
[2023-02-03 08:15] VITALS: BP 113/63; PULSE 78; RESP 16; TEMP 36.5; O2SAT 98
[2023-02-03] MEDS: sodium chloride 0.9% 1,000 ML 999 ML IV (08:20)
[2023-02-03 09:35] VITALS: BP 126/66; PULSE 65; RESP 16; TEMP 36.7; O2SAT 99
[2023-02-06 08:10] VITALS: BP 127/74; PULSE 80; RESP 16; TEMP 36.4; O2SAT 97
[2023-02-06] MEDS: sodium chloride 0.9% 1,000 ML 999 ML IV (08:13)
[2023-02-06 09:35] VITALS: BP 114/64; PULSE 73; O2SAT 98
[2023-02-08 08:00] VITALS: BP 137/70; PULSE 83; RESP 16; TEMP 37.1; O2SAT 98; BMI 20.5
[2023-02-08] MEDS: sodium chloride 0.9% 1,000 ML 999 ML IV (08:13)
[2023-02-08 09:37] VITALS: BP 128/62; PULSE 76; RESP 16; TEMP 36.6; O2SAT 99
[2023-02-10 08:15] VITALS: BP 112/66; PULSE 77; RESP 16; TEMP 37.1; O2SAT 98; BMI 20.6
[2023-02-10] MEDS: sodium chloride 0.9% 1,000 ML 999 ML IV (08:15)
[2023-02-10 09:28] VITALS: BP 141/77; PULSE 78; RESP 16; TEMP 36.3; O2SAT 99
== END 2023-02-11 23:59 | disposition home or self-care (01) ==
PROVIDERS: PCP Internal Medicine Medical Oncology; Visit Provider Internal Medicine Medical Oncology
DX: C18.4 Malignant neoplasm of transverse colon (principal)
CPT/HCPCS: 80053; 82378; 85025; 96360; 96365; 99214; J1100; J1642; J2405; J7030

== ENCOUNTER 2023-02-11 07:08 | Inpatient (IN) | payer MEDICARE, OTHER, SELFPAY ==
[2023-02-11] VITALS (13 sets, daily range): BP systolic 134–162; BP diastolic 45–86; PULSE 59–89; RESP 14–18; TEMP 36.6–36.9; O2SAT 94–100; BMI 20.3
[2023-02-11] MEDS: ondansetron 2 mg/ML SDV 2 mL 4 MG IVP ×2 (07:51→15:32)
[2023-02-11] MEDS: sodium chloride 0.9% 1,000 ML 999 ML IV (07:52)
[2023-02-11 08:21] LABS: Eosinophils % 1.4 %; Hematocrit 28.9 % (37-53); Lymphocytes # 0.4 10^3/uL (0.8-4.8); Lymphocytes % 29.8 %; Mean Corpuscular HGB Conc 32.5 g/dL (30-55); Mean Corpuscular Hemoglobin 31.1 pg (27-33); Mean Corpuscular Volume 95.7 fl (82-101); Mean Platelet Volume 9.7 fL (7.4-10.4); Monocytes # 0.3 10^3/uL (0.2-0.9); Neutrophils % 46.1 %; Nucleated Red Blood Cells % 0 %; Platelet Count 142 10^3/cmm (157-399); Red Blood Count 3.02 10^6/uL (3.85-5.65); White Blood Count 1.41 10^3/uL (3.29-11.43)
[2023-02-11] MEDS: promethazine 25 mg/mL SDV 1 mL IM (08:24)
--- NOTE | 2023-02-11 08:24 | W.ED.NAVMDI ---
HPI - Nausea/Vomiting/Diarrhea General: Chief complaint: Nausea/Vomiting/Diarrhea Stated complaint: NV Time Seen by Provider: 02/11/23 07:31 Source: patient and family Mode of arrival: ambulatory History of Present Illness: 67-year-old male history of colon cancer is currently on oral immunotherapy. He has started having significant nausea and vomiting this morning no hematochezia melena hematemesis coffee-ground emesis. 2 years ago he had a colon resection. No fever sweats chills or shortness of breath no chest pain. He frequently needs IV fluid hydration and is seen at the Cancer center for IV fluids several times a week via port. He is on morphine as needed for pain as well as dronabinol for an appetite stimulant. No recent medication changes. MD elicited complaint: nausea and vomiting Onset (ago): hour(s) Description of vomiting: food contents and watery Associated nausea: Yes Associated abdominal pain: No Exacerbating factors: none Relieving factors: none Associated symtoms: Reports anorexia, malaise, nausea and weakness; Denies anxiety, bloating, change in vision, chest pain, cough, diaphoresis, decreased urine output, dizziness, dysuria, epistaxis, fatigue, fecal incontinence, fevers/chills, headache(s), myalgias, numbness, palpitations, rash, short of breath, syncope, tenesmus or tinnitus Review of Systems Const: Reports: malaise; Denies: fatigue or diaphoresis Eyes: Denies: change in vision ENMT: Denies: tinnitus or epistaxis Card: Denies: chest pain, palpitations or syncope Resp: Denies: dyspnea, productive cough or non-productive cough GI: Reports: nausea; Denies: bloating or fecal incontinence : Denies: dysuria Skin/Breast: Denies: rash or pruritus Neuro: Denies: headache(s) or dizziness Psych: Denies: anxiety PFSH ED PFSH: Medical History BPH (benign prostatic hyperplasia) 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, stomach and omentum Colon cancer Degenerative arthritis Dyslipidemia GERD (gastroesophageal reflux disease) HTN (hypertension), benign Surgical History H/O: vasectomy Port-A-Cath in place (02/18/21) S/P right hemicolectomy extended, with en bloc excision of abdominal wall, stomach, and omentum Status post colonoscopy (06/30/21) Family History Father Cancer Lung Grandfather Cancer Lung Brother Cancer Lung Grandmother Hypertension Denies family history of Diabetes CAD (coronary artery disease) Clotting disorder Dementia Hyperlipidemia Psychiatric illness Chronic kidney disease (CKD) Suicide Anesthesia complication Bleeding disorder Lung disease Stroke Social History Smoking and tobacco status: former smoker (quit in 1997) Alcohol intake: current Alcohol intake frequency: 0-2 Drinks per Day Alcohol type: beer Desire information about alcohol rehabilitation?: No Substance/Drug Use: never Desire information about substance/drug rehabilitation?: No Adopted: No Caregiver/support person: No Lives independently: Yes Housing: House Marital status: Unknown Number of children: 1 Current occupational status: previously employed Current gender identity: Male Agree to transfusion: Yes Physical Exam Const: GENERAL APPEARANCE: cooperative ORIENTATION/CONSCIOUSNESS: Yes awake, Yes oriented to person, Yes oriented to place and Yes oriented to time HENMT: COMMON NORMALS: normocephalic, atraumatic and hearing grossly normal bilaterally HEAD & SCALP: normocephalic and atraumatic Resp: COMMON NORMALS: normal respiratory effort, No retractions, No use of accessory muscles and clear to auscultation bilaterally AUSCULTATION: clear to auscultation bilaterally Cardio: COMMON NORMALS: regular rate, regular rhythm and No murmurs present (Cardio) RATE: regular rate RHYTHM: regular rhythm GI: COMMON NORMALS: Soft to palpation and No hepatosplenomegaly present AUSCULTATION: Yes normoactive bowel sounds PALPATION: Yes Soft to palpation, No Tenderness to palpation present (GI), No Guarding due to palpation present (GI) and Yes No hepatosplenomegaly present Extremity: COMMON NORMALS: normal to inspection, capillary refill normal, no clubbing, cyanosis or edema, no calf tenderness and no pedal edema Neuro: SENSORIUM/ORIENTATION: Yes oriented to person, Yes oriented to place and Yes oriented to time Skin: COMMON NORMALS: no rashes or lesions noted GENERAL SKIN EXAM: no rashes or lesions noted Course Vital Signs: Vital signs: Vital Signs Temperature 98 F 02/13/23 12:43 Pulse Rate 73 02/13/23 12:43 Respiratory Rate 16 02/13/23 16:22 Blood Pressure 164/95 02/13/23 12:43 Pulse Oximetry 98 02/13/23 12:43 Oxygen Delivery Me thod Room Air 02/13/23 12:43 MDM - Nausea/Vomiting/Diarrhea Medical Decision Making Colon cancer with metastasis. He is on immunotherapy. Family was concerned that he touched his chemo drugs without gloves on. Discussed with him not to the extent that he may absorb anything and be relatively minor and were drugs that he is intended to ingest anyway. I think this is largely due to failure to tolerate his medications. They have already begun discussions with the oncology team about the possibility of palliative or hospice care. Will admit to Dr. Long consideration of palliative or hospice care abs and imaging reviewed with patient and family Medical Records I reviewed the patient's medical records. Lab Data I reviewed the patient's lab results. 02/11/23 07:57 02/11/23 07:57 Radiology Impressions Chest X-Ray 02/11/23 08:52 IMPRESSION: There is improved aeration overall in the interval with no lobar type consolidation or cardiac decompensation appreciated along with chronic similar changes.No interval acute cardiopulmonary changes are appreciated. Abdomen/Pelvis CT 02/11/23 09:30 IMPRESSION: 1. There appears to be interval thickening of the rectosigmoid predominant described site as well as intervally enlarged metastatic type implants central mesentery and abdominal wall indicative of some interval progression. 2. There is some slight wall thickening with stranding although could also be seen with incomplete distention or early inflammation at the descending colon sigmoid junction. 3. The bowel-gas pattern appears nonobstructive overall with some small bowel feces suggestive of slow flow. There is some subtle curvature of the central vessels which appears similar although slightly more pronounced as compared to the previous study of 10/27/2022. Some interval intervention as well as intermittent internal hernia related change could also present in this fashion. 4. There is some gastroesophageal wall thickening which appears somewhat increased in the interval. Some progressive over interval inflammatory related change could present in this fashion. Laboratory Results WBC 1.41 10^3/uL (3.29-11.43) L 02/11/23 07:57 RBC 3.02 10^6/uL (3.85-5.65) L 02/11/23 07:57 Hgb 9.40 g/dL (11.27-16.99) L 02/11/23 07:57 Hct 28.9 % (37-53) L 02/11/23 07:57 MCV 95.7 fl (82-101) 02/11/23 07:57 MCH 31.1 pg (27-33) 02/11/23 07:57 MCHC 32.5 g/dL (30-55) 02/11/23 07:57 RDW 16.0 % (12.1-15.1) H 02/11/23 07:57 Plt Count 142 10^3/cmm (157-399) L 02/11/23 07:57 MPV 9.7 fL (7.4-10.4) 02/11/23 07:57 Neut % (Auto) 46.1 % 02/11/23 07:57 Lymph % (Auto) 29.8 % 02/11/23 07:57 [place] % (Auto) 22.0 % 02/11/23 07:57 Eos % (Auto) 1.4 % 02/11/23 07:57 Baso % (Auto) 0.0 % 02/11/23 07:57 Neut # (Auto) 0.65 10^3/uL (1.8-7.7) L* 02/11/23 07:57 Lymph # (Auto) 0.4 10^3/uL (0.8-4.8) L 02/11/23 07:57 [place] # (Auto) 0.3 10^3/uL (0.2-0.9) 02/11/23 07:57 Eos # (Auto) 0.0 10^3/uL (0.0-0.8) 02/11/23 07:57 Baso # (Auto) 0.0 10^3/uL (0.0-0.1) 02/11/23 07:57 Nucleated RBC % (auto) 0 % 02/11/23 07:57 Nucleated RBCs # 0.0 /100WBC 02/11/23 07:57 Sodium 142 mmol/L (136-145) 02/11/23 07:57 Potassium 3.0 mmol/L (3.5-5.1) L 02/11/23 07:57 Chloride 105 mmol/L (98-107) 02/11/23 07:57 Carbon Dioxide 24 mmol/L (22-29) 02/11/23 07:57 Anion Gap 16.0 (5-19) 02/11/23 07:57 BUN 4 mg/dL (8-23) L 02/11/23 07:57 Creatinine 0.5 mg/dL (0.7-1.2) L 02/11/23 07:57 GFR Calculation 164.9 mL/min (90-130) H 02/11/23 07:57 Glucose 122 mg/dL (65-115) H 02/11/23 07:57 Calculated Osmolality 292 mOsm/kg (285-295) 02/11/23 07:57 Lactic Acid 1.7 mmol/L (0.5-2.2) 02/11/23 08:53 Calcium 9.2 mg/dL (8.5-10.5) 02/11/23 07:57 Total Bilirubin 0.6 mg/dL (0.15-1.2) 02/11/23 07:57 AST 18 U/L (0-40) 02/11/23 07:57 ALT 8 U/L (0-41) 02/11/23 07:57 Alkaline Phosphatase 76 U/L (40-130) 02/11/23 07:57 Total Protein 6.5 g/dL (6.6-8.7) L 02/11/23 07:57 Albumin 3.8 g/dL (3.5-5.2) 02/11/23 07:57 Globulin 2.7 g/dL (1.3-4.6) 02/11/23 07:57 Urine Color Yellow (Yellow) 02/11/23 09:25 Urine Appearance Sl hazy (CLEAR) A 02/11/23 09:25 Urine pH 9 (5-7) H 02/11/23 09:25 Ur Specific [place] 1.015 (1.005-1.030) 02/11/23 09:25 Urine Protein Neg (Negative) 02/11/23 09:25 Urine Glucose (UA) Norm (Normal) 02/11/23 09:25 Urine Ketones 1+ (Negative) H 02/11/23 09:25 Urine Blood Neg (Negative) 02/11/23 09:25 Urine Nitrate Negative (Negative) 02/11/23 09:25 Urine Bilirubin Neg (Negative) 02/11/23 09:25 Prot Sulfosalicylic Acd Negative (Negative) 02/11/23 09:25 Urine Urobilinogen Norm mg/dL (Negative) 02/11/23 09:25 Ur Leukocyte Esterase Negative (Negative) 02/11/23 09:25 Urine RBC None /hpf (0-2) 02/11/23 09:25 Urine WBC Rare /hpf (0-5) 02/11/23 09:25 Ur Squamous Epith Cells Rare /hpf (0-5) 02/11/23 09:25 Amorphous Sediment 1+ /hpf 02/11/23 09:25 Urine Bacteria Trace /hpf (NONE) 02/11/23 09:25 Urine Mucus 1+ /hpf 02/11/23 09:25 All radiology interpretation(s) finalized by discharge Discharge Plan Discharge Patient Disposition: Admitted As Inpatient Admit Provider: Zoran Kaur Clinical Impression: Malignant neoplasm of transverse colon, Secondary malignant neoplasm of mesentery Condition: Stable Coding Level of Care Code ED [place] [employer] Specialist for Shirley Monson
--- NOTE | 2023-02-11 08:32 | ECG_ITS ---
[facility] Test Date: 2023-02-11 Pat Name: Ry Potter Department: Room: Gender: Male Bedspread Inspector: : 1955 Requested By: Marcio Cates Order Number: [id number] Misael MD: Julio Mclean M.D. Measurements Intervals [place] Rate: 61 P: 25 ND: 131 QRS: 71 QRSD: 94 T: 73 QT: 434 QTc: 439 Interpretive Statements SINUS RHYTHM WITH SINUS ARRHYTHMIA Compared to ECG 01/22/2023 08:45:01 No significant changes Electronically Signed On 02-11-2023 9:36:41 CDT by Julio Mclean M.D. [id number]
[2023-02-11 08:36] LABS: Neutrophils # 0.65 10^3/uL (1.8-7.7)
[2023-02-11 08:43] LABS: Alanine Aminotransferase 8 U/L (0-41); Albumin Level 3.8 g/dL (3.5-5.2); Alkaline Phosphatase 76 U/L (40-130); Aspartate Amino Transferase 18 U/L (0-40); Blood Urea Nitrogen 4 mg/dL (8-23); Calcium 9.2 mg/dL (8.5-10.5); Carbon Dioxide 24 mmol/L (22-29); Chloride 105 mmol/L (98-107); Globulin 2.7 g/dL (1.3-4.6); Glomerular Filtration Rate 164.9 mL/min (90-130); Glucose 122 mg/dL (65-115); Osmolality Calculated 292 mOsm/kg (285-295); Sodium 142 mmol/L (136-145); Total Bilirubin 0.6 mg/dL (0.15-1.2); Total Protein 6.5 g/dL (6.6-8.7)
--- NOTE | 2023-02-11 08:52 | XRR_ITS ---
PROCEDURE INFORMATION: Exam: XR Chest Exam date and time: 02/11/2023 9:04 AM Age: 67 years old Clinical indication: Cough and dyspnea; Additional info: Dyspnea/cough.No history of trauma or recent surgery is provided. TECHNIQUE: Imaging protocol: Radiologic exam of the chest. 1image(s) are provided. Views: 1 view. COMPARISON: 1. CT chest abdpel w/*[id number] 09/02/2022 4:26 PM 2. CR XR chest 1V portable [id number] 07/05/2022 8:47 AM FINDINGS: Tubes, catheters and devices: The previously visualized tubes are no longer appreciated. The left port catheter remains. Lungs: There is some subsegmental atelectasis versus with similar reticulonodular changes demonstrated. Some of the nodules previously described on ct are less conspicuous on plain film. No lobar consolidation is appreciated. There is improved lung volume and aeration. There is some mild chronic air trapping appearance. Pleural spaces: No pneumothorax or significant pleural effusion is appreciated. There is some minimal costophrenic angle blunting and incompletely included left. Heart/Mediastinum: The cardiomediastinal silhouette is upper normal in size.This can be seen with central averaging as well as radha enlargement.No cardiac decompensation is appreciated. Diaphragm: The hemidiaphragms are symmetric. Bones/joints: Osseous alignment is maintained.No interval displaced fracture or dislocation is appreciated. Soft tissues: No radiopaque foreign body or subcutaneous emphysema is appreciated. Other findings: No other significant interval changes are appreciated. XR/XR chest 1V portable [id number] IMPRESSION: There is improved aeration overall in the interval with no lobar type consolidation or cardiac decompensation appreciated along with chronic similar changes.No interval acute cardiopulmonary changes are appreciated.
--- NOTE | 2023-02-11 09:30 | CTR_ITS ---
PROCEDURE INFORMATION: Exam: CT Abdomen And Pelvis With Contrast Exam date and time: 02/11/2023 10:01 AM Age: 67 years old Clinical indication: Nausea and vomiting; Patient HX: Colon CA; Additional info: Abd pain.No history of trauma or recent surgery is provided. TECHNIQUE: Imaging protocol: Computed tomography of the abdomen and pelvis with contrast. 210image(s) are provided. Radiation optimization: All CT scans at this facility use at least one of these dose optimization techniques: automated exposure control; mA and/or kV adjustment per patient size (includes targeted exams where dose is matched to clinical indication); or iterative reconstruction. Contrast material: OMNI 350; Contrast volume: 100 ml; Contrast route: INTRAVENOUS (IV); Other technique: Axial images are available with sagittal and coronal reconstruction views. Automated dose exposure control is utilized. The DLP is 372.67. REPORTING DATA: Count of CT and Cardiac NM exams in prior 12 months: This patient has received 7 known CTs and 0 known cardiac nuclear medicine studies in the 12 months prior to the current study. COMPARISON: 1. CT abdomen pelvis w con* [id number] 12/02/2022 10:14 PM 2. CR (CHEST, ) 02/11/2023 9:[address] angio abdomen pelvis [id number] 10/27/2022 3:00 PM RADIATION DOSE METRICS: Total DLP (mGy-cm): 372.67 FINDINGS: Lungs: No interval lung base lobar type consolidation is appreciated. Liver: There appears to be some mild hepatic steatosis. Gallbladder and bile ducts: The gallbladder is fluid-filled with no radiopaque obstructive calculus currently appreciated. Pancreas: No pancreatic ductal dilatation or calculus is currently appreciated. Spleen: The spleen appears mildly enlarged. Adrenal glands: Unremarkable. Kidneys and ureters: There is homogeneous renal parenchymal enhancement with no interval radiopaque obstructive calculus or hydronephrosis appreciated. There is some chronic appearing renal cortical thinning along with some similar nephrogenic cystic related change and marginal extrarenal pelves. For example with simple appearing fluid cystic density of the left upper pole similar measuring approximately 3.4 cm. Stomach and bowel: There is a moderate sliding-type hiatal hernia demonstrated with gastroesophageal fold thickening. There are postsurgical gastric level changes as well as abdominal level clips. There appears to be some gastric body and antrum level mucosal thickening. Some element of incomplete expansion could also exacerbate these findings. There is some slight wall thickening and faint stranding about the descending colon and sigmoid junction. There is some small bowel feces suggestive of slow flow. There is some borderline wall thickening along with diameter of the small bowel at the right abdomen for example 3 cm. There is previously described rectosigmoid junctional wall thickening which appears somewhat increased overall as well as adjacent lymph node of approximately 1 cm. Appendix: The appendix is not appreciated correspondingly. Intraperitoneal space: No layering free air or significant free fluid is currently appreciated. The previously described mesenteric thrombosis related changes are not appreciated currently. There is some presacral soft tissue stranding similar overall. Vasculature: There are atherosclerotic aortic and branch vessel calcifications with no interval aortic saccular aneurysmal dilatation appreciated. There is some similar overall prominence of the portal venous structures suggestive of chronic portal hypertension. The overall vascular course appears similar in the interval. There is some slight curvature of the superior mesenteric vessels curving to the right abdomen similar compared to recent although appearing more pronounced as compared to the study of 10/27/2022. Consider if there is history of interval intervention. Some intermittent or internal hernia related changes could also present in this fashion. Lymph nodes: There are some borderline and reactive appearing mesenteric lymph nodes relatively similar. There is history of a perivascular and mesenteric metastatic implant which also appears larger for example measuring approximately 2.9 x 2.3 cm versus previous greatest transverse diameter of approximately 2.6 cm. Urinary bladder: The bladder is incompletely fluid filled for evaluation which may exagerate the wall thickness. This can also be seen with post inflammation sequela. Reproductive: There appears to be some slight prostate hypertrophy. Bones/joints: Osseous alignment is maintained.No interval displaced fracture or dislocation is appreciated.There is slightly decreased bone mineralization overall. There is some chronic multilevel degeneration of the lumbar spine similar overall. There are some cystic and sclerotic osseous related changes similar including the right superior pubic ramus and femur. Soft tissues: No radiopaque foreign body or subcutaneous emphysema is appreciated. There is history of an anterior abdominal wall periumbilical metastatic implant which appears larger overall in the interval for example measuring approximately 5.8 x 4.5 cm in diameter with craniocaudal length of approximately 3.8 cm. This compares to previous greatest transverse diameter of approximately 3.8 cm. This abuts the adjacent anterior peritoneal margin and adjacent structures. Other findings: There is some motion artifact present. No other significant interval changes are appreciated. CT/CT abdomen pelvis w con* [id number] IMPRESSION: 1. There appears to be interval thickening of the rectosigmoid predominant described site as well as intervally enlarged metastatic type implants central mesentery and abdominal wall indicative of some interval progression. 2. There is some slight wall thickening with stranding although could also be seen with incomplete distention or early inflammation at the descending colon sigmoid junction. 3. The bowel-gas pattern appears nonobstructive overall with some small bowel feces suggestive of slow flow. There is some subtle curvature of the central vessels which appears similar although slightly more pronounced as compared to the previous study of 10/27/2022. Some interval intervention as well as intermittent internal hernia related change could also present in this fashion. 4. There is some gastroesophageal wall thickening which appears somewhat increased in the interval. Some progressive over interval inflammatory related change could present in this fashion.
[2023-02-11] MEDS: metoclopramide 5 mg/mL SDV 2 mL 10 MG IVP (09:41)
[2023-02-11] MEDS: potassium chloride premix 100 ML 25 MEQ IV (09:43)
[2023-02-11 09:51] LABS: Lactic Sepsis W/Reflex 1.7 mmol/L (0.5-2.2)
[2023-02-11 10:00] LABS: Add Urine Microscopic? YES; Bilirubin Urine Neg (Negative); Blood Urine Neg (Negative); Glucose Urine UA Norm (Normal); Ketones Urine 1+ (Negative); Leukocyte Esterase Urine Negative (Negative); Nitrate Urine Negative (Negative); Protein Urine Neg (Negative); Specific Gravity, Urine 1.015 (1.005-1.030); Sulfosalicylic Acid Urine Negative (Negative); Urine Appearance SL Hazy (CLEAR); Urine Color Yellow (Yellow); Urobilinogen Urine Norm (Negative); pH Urine 9 (5-7)
[2023-02-11 10:01] LABS: Bacteria Urine TRACE /hpf; Mucus Urine 1+ /hpf; Squamous Epithelial Cell Urine RARE /hpf (0-5); WBC Urine RARE /hpf (0-5)
[2023-02-11 10:02] LABS: Add Urine Culture? No; Amorphous Sediment Urine 1+ /hpf
[2023-02-11] MEDS: D5-NS 0.45% + KCL 20 mEq 20 MEQ/1,000 ML BAG 100 MEQ IV ×2 (12:10→21:54)
[2023-02-11] MEDS: morphine 4 mg/mL SDV 1 mL IVP ×2 (12:10→15:44)
--- NOTE | 2023-02-11 15:39 | PC.NURSE ---
per Dr. Natasha mc to give Morphine dose 30 minutes early.
--- NOTE | 2023-02-11 16:17 | P.HP_ITS ---
Providers/Chief Complaint Admitting Physician: Zoran Kaur DO Primary Care Provider: Luis Topete MD Chief Complaint: [place]/cancer pt History of Present Illness Ry Potter is a 67 year old male with metastatic colon cancer on immunotherapy presents with intractable nausea and vomiting. Unable to give a history as he is finally comfortable and lethargic from all the medication. History is taken from close friends, as well as from the chart. Patient initial diagnosis was October 2020. He underwent extensive right hemicolectomy with en bloc excision of abdominal wall. There is associated perforation of the cancer into the abdominal wall and stomach with marked thickening and edema of the bowel. There was involvement of 34 lymph nodes. Kirill care with the [facility] and Dr. Topete on 11/26/2020. starting 02/22/2021 he began adjective adjuvant chemotherapy. Restaging in July 2021 showed recurrence of disease and further progression of metastasis; change in treatment July 2021. Aging in May 2022 continued the same regimen. After he developed severe weakness and diarrhea with fevers. He was admitted to the hospital 07/01/2022 with failing to thrive. He was further progression of the rectosigmoid area that received palliative pelvic radiation in September 2022 to the pelvic region. Also began third line treatment of the colon cancer. He was hospitalized 12/14/2022 during his second cycle of the third line treatment due to nausea vomiting diarrhea. Subsequently he was scheduled for 3 times a week IV hydration in Dr. Topete's office. 01/22/2023 he presented to our ER for same complaint of nausea vomiting weakness. He was able able to be discharged home. According to his friends he has had a good couple of weeks. This change occurred within the last 24 hours. Review of Systems General: Reports: ROS unobtainable due to medical condition Medications/Allergies Home Medications Medication Instructions Recorded Confirmed Last Taken Type amlodipine 5 mg tablet 2.5 mg PO DAILY #30 tabs 07/12/22 02/11/23 02/10/23 Rx polyethylene glycol 3350 17 4 g PO DAILY PRN Constipation 11/14/22 02/11/23 02/10/23 History gram/dose oral powder (Miralax) ondansetron 8 mg disintegrating 8 mg PO TID PRN nausea and 12/03/22 02/11/23 Unknown Rx tablet vomiting #30 tabs trifluridine 15 mg-tipiracil 6.14 2 tab PO BID #40 tabs 01/11/23 02/11/23 Unknown Rx mg tablet (Lonsurf) dronabinol 5 mg capsule 5 mg PO BID #60 caps 01/20/23 02/11/23 02/10/23 Rx morphine 30 mg immediate release 60 mg PO QID PRN pain 30 days #240 01/20/23 02/11/23 02/10/23 Rx tablet tabs pantoprazole 40 mg tablet,delayed 40 mg PO BIDWMEAL #60 tabs 01/20/23 02/11/23 02/10/23 Rx release (Protonix) Allergies Allergy/AdvReac Type Severity Reaction Status Date / Time No Known Allergies Allergy Verified 01/18/23 08:37 PFSH Acute PFSH: Medical History (Updated 02/11/23 @ 16:50 by Zoran Kaur DO) BPH (benign prostatic hyperplasia) 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, stomach and omentum Colon cancer Degenerative arthritis Dyslipidemia GERD (gastroesophageal reflux disease) HTN (hypertension), benign Surgical History H/O: vasectomy Port-A-Cath in place (02/18/21) S/P right hemicolectomy extended, with en bloc excision of abdominal wall, stomach, and omentum Status post colonoscopy (06/30/21) Family History Father Cancer Lung Grandfather Cancer Lung Brother Cancer Lung Grandmother Hypertension Denies family history of Diabetes CAD (coronary artery disease) Clotting disorder Dementia Hyperlipidemia Psychiatric illness Chronic kidney disease (CKD) Suicide Anesthesia complication Bleeding disorder Lung disease Stroke Social History Smoking and tobacco status: former smoker (quit in 1997) Alcohol intake: current Alcohol intake frequency: 0-2 Drinks per Day Alcohol type: beer Desire information about alcohol rehabilitation?: No Substance/Drug Use: never Desire information about substance/drug rehabilitation?: No Adopted: No Caregiver/support person: No Lives independently: Yes Housing: House Marital status: Unknown Number of children: 1 Current occupational status: previously employed Current gender identity: Male Agree to transfusion: Yes Vitals/I&O/Wt Last Vital Signs Temp 98.2 F 02/11/23 16:02 Pulse 59 L 02/11/23 16:02 Resp 17 02/11/23 16:02 BP 162/83 02/11/23 16:02 Pulse Ox 100 02/11/23 16:02 O2 Del Method Room Air 02/11/23 16:02 02/11/23 02/11/23 02/11/23 06:59 14:59 22:59 Intake Total 1100 / 1100 Output Total 650 / 650 Balance 1100 / 1100 -650 / 450 Weight last 48 hrs Weight 68.039 kg Physical Exam Narrative: Thin frail older gentleman in moderate to severe distress. He is shaking trying to rest and clearly uncomfortable. EENT head is normocephalic atraumatic oral wasting. PERRLA/EOMI is extremely hard of hearing. Mucosa is actually moist pink. Neck is supple no JVD or lymphadenopathy Heart is regular normal S1-S2 slightly tacky. Lungs diminished breath sounds but clear Abdomen. Concave, obvious subcutaneous mass probably around 4 to 5 inches wide just inferior to umbilicus. Mildly tender to palpation. Otherwise his abdomen soft nontender nondistended Extremities thin cachectic no edema Back: Mild kyphosis no CVA tenderness. No pain to palpation on the lower spine where he reports pain. Skin: Warm and dry but discolored overall ashen color. Data 02/11/23 07:57 02/11/23 07:57 Micro: Microbiology 02/11/23 09:30 Blood Culture - Preliminary Blood SPECIMEN COLLECTED 02/11/23 09:01 Blood Culture - Preliminary Blood SPECIMEN COLLECTED CT Abd/Pel: Radiologist's impression: IMPRESSION: 1. ? There appears to be interval thickening of the rectosigmoid predominant described site as well as intervally enlarged metastatic type implants central mesentery and abdominal wall indicative of some interval progression. 2. ? There is some slight wall thickening with stranding although could also be seen with incomplete distention or early inflammation at the descending colon sigmoid junction. 3. ? The bowel-gas pattern appears nonobstructive overall with some small bowel feces suggestive of slow flow. There is some subtle curvature of the central vessels which appears similar although slightly more pronounced as compared to the previous study of 10/27/2022. Some interval intervention as well as intermittent internal hernia related change could also present in this fashion. 4. ? There is some gastroesophageal wall thickening which appears somewhat increased in the interval. Some progressive over interval inflammatory related change could present in this fashion. 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 There are films showing metastasis to the lung and other sites. Now stage IV colon cancer. While he is on palliative immunotherapy he is receiving IV fluids in the office 3 times a week to sustain himself. Unfortunately, Patient appears to have opioid-induced constipation/obstipation. Current CT shows a significant amount of stool in his bowels, thickening of multiple areas of the GI tract which is in turn likely causing slow transit. * Relistor 1 dose today opioid induced constipation * A trial of steroids to overall decent decrease inflammation that may be associated with these areas of thickening and to treat nausea. * Higher dose Zofran as he takes at home. * I do not think Reglan will help in this condition and will stop. * IV fluids while vomiting. * Consider NG tube. Discussed with both friends of Ry and his daughter later. I explained that the cancer appears to be worse. And I recommend that it may be time to consider nonaggressive measures and aim for comfort. Friends show understanding daughter displayed denial type behavior. Will be aggressive with treating symptoms at this time. Attestations Medical Necessity Statement*: Expect care to cross 2 midnights due to intractable nausea and vomiting opioid- induced constipation. Coding Level of Care Code Acute Code for 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
[2023-02-11] MEDS: methylnaltrexone 12 /0.6 mL INJ 12 MG SUBCUT (17:04)
[2023-02-11] MEDS: heparin 5,000 unit/mL INJ 1 mL 5000 UNIT SUBCUT ×2 (17:04→23:16)
[2023-02-11] MEDS: ondansetron 2 mg/ML SDV 2 mL 8 MG IVP (18:25)
[2023-02-11] MEDS: ketorolac 30 mg/mL INJ IVP (21:49)
--- NOTE | 2023-02-11 22:11 | PC.NURSE ---
Dr. White notified of patient c/o pain to back not relieved by IV Morphine or Toradol. Patient continually complaining of severe pain. Notified patient's progress note states narcotic induced constipation. Patient's home dose of PO Morphine ordered. IV Morphine discontinued.
[2023-02-12] VITALS: BP 161/84; PULSE 63; RESP 14; TEMP 36.8; O2SAT 100
[2023-02-12 04:00] VITALS: BP 159/79; PULSE 56; RESP 15; TEMP 36.9; O2SAT 99
[2023-02-12] MEDS: ondansetron 2 mg/ML SDV 2 mL 8 MG IVP ×3 (04:42→20:54)
[2023-02-12 06:00] VITALS: PULSE 57
[2023-02-12 07:33] VITALS: BP 149/77; PULSE 62; RESP 17; TEMP 36.7; O2SAT 98
[2023-02-12] MEDS: D5-NS 0.45% + KCL 20 mEq 20 MEQ/1,000 ML BAG 100 MEQ IV ×2 (08:21→19:01)
[2023-02-12] MEDS: heparin 5,000 unit/mL INJ 1 mL 5000 UNIT SUBCUT (08:22)
[2023-02-12] MEDS: methylPREDNISolone sod succ 40 MG in water for injection-sterile 1 ML 12 MG IVP ×2 (09:40→20:53)
[2023-02-12] MEDS: ketorolac 30 mg/mL INJ IVP ×3 (09:48→23:09)
[2023-02-12] MEDS: LORazepam 2 mg/mL INJ 1 mL 0.5 MG IVP (12:42)
[2023-02-12] MEDS: folic acid 1 MG, multivitamin inj 10 ML, thiamine 100 MG in sodium chloride 0.9% 1,000 ML 252.8 MG IV (12:43)
[2023-02-12] MEDS: promethazine 25 mg/mL SDV 1 mL IM (12:44)
[2023-02-12 13:22] VITALS: BP 155/77; PULSE 61; RESP 19; TEMP 36.9; O2SAT 99
--- NOTE | 2023-02-12 14:55 | P.PN_ITS ---
Subjective Subjective: Ry Potter is a 67 year old male with metastatic colon cancer on immunotherapy presents with intractable nausea and vomiting.? Unable to give a history as he is finally comfortable and lethargic from all the medication.? History is taken from close friends, as well as from the chart. Patient initial diagnosis was October 2020.? He underwent extensive right hemicolectomy with en bloc excision of abdominal wall.? There is associated perforation of the cancer into the abdominal wall and stomach with marked thickening and edema of the bowel.? There was involvement of 34 lymph nodes. Kirill care with the [facility] and Dr. Topete on 11/26/2020.? starting 02/22/2021 he began adjective adjuvant chemotherapy.? Restaging in July 2021 showed recurrence of disease and further progression of metastasis; change in treatment July 2021.? Aging in May 2022 continued the same regimen.? After he developed severe weakness and diarrhea with fevers.? He was admitted to the hospital 07/01/2022 with failing to thrive.? He was further progression of the rectosigmoid area that received palliative pelvic radiation in September 2022 to the pelvic region.? Also began third line treatment of the colon cancer.? He was hospitalized 12/14/2022 during his second cycle of the third line treatment due to nausea vomiting diarrhea.? Subsequently he was scheduled for 3 times a week IV hydration in Dr. Topete's office. On 01/22/2023 he presented to our ER for same complaint of nausea vomiting we akness.? He was able able to be discharged home.? According to his friends he has had a good couple of weeks.? This change occurred within the last 24 hours. 02/11/23: sudden onset n/v/retching and back pain. Found to have significant amount of stool in his bowels,? thickening of multiple areas of the GI tract which is in turn likely causing slow transit. started on steroids, zofran, phenergan, fluids. 02/12/2023: some improvement. Pt denies but care team and friends at bedside said sleeping a lot and not as restless and no vomitting or retching. Just burps. Pt says he is not better Vitals/I&O/Wt Last Vital Signs Temp 98.4 F 02/12/23 13:22 Pulse 61 02/12/23 13:22 Resp 19 H 02/12/23 13:22 BP 155/77 02/12/23 13:22 Pulse Ox 99 02/12/23 13:22 O2 Del Method Room Air 02/12/23 13:22 02/11/23 02/12/23 02/12/23 22:59 06:59 14:59 Intake Total 974.613 / 2074.613 120 / 2194.613 1960 Output Total 650 / 650 500 / 1150 Balance 324.613 / 1424.613 -380 / 8809.676 6402 / 1961 Weight last 48 hrs Weight 68.039 kg Physical Exam Narrative: Thin frail older gentleman in mild distress. H: RRR no murmur Lungs diminished breath sounds but clear Abdomen. Concave, obvious subcutaneous mass probably around 4 to 5 inches wide just inferior to umbilicus. Mildly tender to palpation. 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 There are films showing metastasis to the lung and other sites. Now stage IV colon cancer. While he is on palliative immunotherapy he is receiving IV fluids in the office 3 times a week to sustain himself. Unfortunately, Patient appears to have opioid-induced constipation/obstipation. Current CT shows a significant amount of stool in his bowels, thickening of multiple areas of the GI tract which is in turn likely causing slow transit and INCREASED SIZE OF IMPLANTS, WALL THICKING AND OVERALL WORSENING * Relistor 1 dose 02/11 for opioid induced constipation * continue steroids to overall decent decrease inflammation that may be associated with these areas of thickening and to treat nausea. * Higher dose Zofran as he takes at home. * will try Reglan today * add ativan for nausea and can help with anxiety. May need to increase dose * Banana bag for vitamins for stress * IV fluids * Pt has declined NGT however I think it is indicated and will discuss once daughter is here. Attestations Medical Necessity Statement*: Expect care to cross 2 midnights due to intractable nausea and vomiting opioid- induced constipation. 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
[2023-02-12] MEDS: metoclopramide 5 mg/mL SDV 2 mL 10 MG IVP (16:30)
[2023-02-12 17:20] VITALS: BP 160/84; PULSE 54; RESP 18; TEMP 37.1; O2SAT 97
[2023-02-12] MEDS: lidocaine 5% Patch 2 PATCH TOPICAL (18:09)
[2023-02-12] MEDS: OLANZapine 5 mg ODT PO ×2 (19:00→23:10)
[2023-02-12] MEDS: LORazepam 2 mg/mL INJ 1 mL 1 MG IVP (20:53)
--- NOTE | 2023-02-12 21:18 | PC.NURSE ---
when going in to introduce myself at shift change pt request that no vital signs be done till 7 am pt wishes to sleep all night. i told pt that i would be in and out thru our the night to check on him but i would not do vitals signs. his nurse is aware as well.
[2023-02-13] MEDS: D5-NS 0.45% + KCL 20 mEq 20 MEQ/1,000 ML BAG 100 MEQ IV (04:24)
--- NOTE | 2023-02-13 04:38 | PC.NURSE ---
was not able to get an output on pt. pt was taking self to bathroom before i could get in there to put a hat in toilet
[2023-02-13] MEDS: LORazepam 2 mg/mL INJ 1 mL 1 MG IVP ×2 (05:02→10:57)
[2023-02-13] MEDS: ketorolac 30 mg/mL INJ IVP (05:02)
[2023-02-13] MEDS: ondansetron 2 mg/ML SDV 2 mL 8 MG IVP ×2 (05:03→10:57)
[2023-02-13] MEDS: OLANZapine 5 mg ODT PO (06:51)
[2023-02-13] MEDS: methylPREDNISolone sod succ 40 MG in water for injection-sterile 1 ML 12 MG IVP (08:06)
[2023-02-13 08:45] VITALS: BP 178/86; PULSE 107; RESP 18; TEMP 37.1; O2SAT 92
--- NOTE | 2023-02-13 10:31 | P.PN_ITS ---
Subjective Subjective: History taken via phone call to nurse Nereyda. Reported that he is seated in a chair. He does want a trial of diet and changed to regular diet. One episode of small amount of vomitting overnight. Vitals/I&O/Wt Last Vital Signs Temp 98.8 F 02/13/23 08:45 Pulse 107 H 02/13/23 08:45 Resp 18 02/13/23 08:45 BP 178/86 02/13/23 08:45 Pulse Ox 92 02/13/23 08:45 O2 Del Method Room Air 02/13/23 08:45 02/12/23 02/13/23 02/13/23 22:59 06:59 14:59 Intake Total 1132.2 / 3093.2 938.333 / 4031.533 101 / 101 Output Total 525 / 525 Balance 607.2 / 2568.2 938.333 / 3506.533 101 / 101 Data 02/11/23 07:57 02/11/23 07:57 Micro: Microbiology 02/11/23 09:30 Blood Culture - Preliminary Blood NEGATIVE TO DATE 02/11/23 09:01 Blood Culture - Preliminary Blood NEGATIVE TO DATE A&P Assessment and plan (1) Intractable nausea and vomiting: (2) Pancytopenia: (3) 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 There are films showing metastasis to the lung and other sites. Now stage IV colon cancer. While he is on palliative immunotherapy he is receiving IV fluids in the office 3 times a week to sustain himself. Unfortunately, Patient appears to have opioid-induced constipation/obstipation. Current CT shows a significant amount of stool in his bowels, thickening of multiple areas of the GI tract which is in turn likely causing slow transit and INCREASED SIZE OF IMPLANTS, WALL THICKING AND OVERALL WORSENING. Has had: * Relistor 1 dose 02/11 for opioid induced constipation * IV steroids to decrease inflammation that may be associated with these areas of thickening that are likely causing obstruction * Zofran 8 mg IVP Q6H * Ativan 1 mg IVP Q6H * Banana bag for vitamin supplementation on 02/11 * IV fluids * Pt has declined NGT on several different occasions * Started Zyprexa ODT 5 mg Q6H last night Plan: Admit to [facility] Hospice for intractable n/v today If able to tolerate liquid/food will likely discharge home with hospice services in next 1-2 days If not able to return home, Hospice SW to assist with discharge plan to other home or NH Discussion about terminal sedation with pt/family agreement yesterday.. At this time, pt described as improved to me and will defer this option. As per hospital and [facility] Hosp[facility] contract, Hospitalist to remain attending and available for emergent assistance I will take all call/concerns/questions and manage inpatient and GIP hospice care. Call me at [phone] 24 hours a day Attestations Medical Necessity Statement*: Pt with terminal diagnosis and intractable n/v requires continued hospitalization for uncontrolled symptoms unable to be managed anywhere else because of need for IV medications, frequent medication changes, and frequent nursing care. 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
[2023-02-13 12:43] VITALS: BP 164/95; PULSE 73; RESP 18; TEMP 36.6; O2SAT 98
[2023-02-13 13:07] VITALS: RESP 16
[2023-02-13] MEDS: morphine 4 mg/mL SDV 1 mL IVP (13:07)
--- NOTE | 2023-02-13 13:58 | P.DS_ITS ---
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 He started care with the [facility] and Dr. Topete on 11/26/2020.? starting 02/22/2021 he began adjective adjuvant chemotherapy.? Restaging in July 2021 showed recurrence of disease and further progression of metastasis; change in treatment July 2021.? Aging in May 2022 continued the same regimen.? After he developed severe weakness and diarrhea with fevers.? He was admitted to the hospital 07/01/2022 with failing to thrive.? He was further progression of the rectosigmoid area that received palliative pelvic radiation in September 2022 to the pelvic region.? Also began third line treatment of the colon cancer.? He was hospitalized 12/14/2022 during his second cycle of the third line treatment due to nausea vomiting diarrhea.? Subsequently he was scheduled for 3 times a week IV hydration in Dr. Topete's office. He has had multiple hospital admissions for this reason. Most recently he has been noted to have metastatic colon cancer initiating in the transverse colon invasive to the stomach omentum lymph nodes lung and other sites. This is stage IV colon cancer. He is on palliative immunotherapy as outpatient. CT scan this admission shows significant amount of stool in his bowels, thickening of multiple areas of the GI tract which in turn is likely causing slow transit and increased size of the implants wall thickening and overall worsening. Patient declined NGT placement. He has been lethargic during the course of his admission. Case was discussed by Dr. Romo from palliative care with patient's family including his daughter and decision was made to transition patient to general inpatient hospice. Patient is being transitioned today from hospitalist team over to inpatient hospice. He is currently on comfort medications only Physical Exam Narrative: General: No acute distress, AO x1, cachectic HEENT: PERRLA, pupils bilaterally equal and reactive, pallors not present Chest: Normal vesicular breath sounds, no added sounds, equal good air entry bilaterally CVS: S1-S2 regular, no murmurs, no tachycardia, no gallops, no rubs Abdomen: Soft, nontender, no organomegaly, bowel sounds present Neuro: No focal deficits,, disoriented, moves all extremities, tries to get out of bed, very lethargic Discharge Data Studies Completed and Pending Completed Studies During Hospitalization Category Date Time Status CT abdomen pelvis w con* [id number] Stat Cat Scan 02/11/23 09:30 Completed XR chest 1V portable [id number] Stat Exams 02/11/23 08:52 Completed Pending at discharge Category Date Time Status Blood Culture Stat Lab 02/11/23 09:30 Results Radiology Impressions Chest X-Ray 02/11/23 08:52 IMPRESSION: There is improved aeration overall in the interval with no lobar type consolidation or cardiac decompensation appreciated along with chronic similar changes.No interval acute cardiopulmonary changes are appreciated. Abdomen/Pelvis CT 02/11/23 09:30 IMPRESSION: 1. There appears to be interval thickening of the rectosigmoid predominant described site as well as intervally enlarged metastatic type implants central mesentery and abdominal wall indicative of some interval progression. 2. There is some slight wall thickening with stranding although could also be seen with incomplete distention or early inflammation at the descending colon sigmoid junction. 3. The bowel-gas pattern appears nonobstructive overall with some small bowel feces suggestive of slow flow. There is some subtle curvature of the central vessels which appears similar although slightly more pronounced as compared to the previous study of 10/27/2022. Some interval intervention as well as intermittent internal hernia related change could also present in this fashion. 4. There is some gastroesophageal wall thickening which appears somewhat increased in the interval. Some progressive over interval inflammatory related change could present in this fashion. Laboratory Results WBC 1.41 10^3/uL (3.29-11.43) L 02/11/23 07:57 RBC 3.02 10^6/uL (3.85-5.65) L 02/11/23 07:57 Hgb 9.40 g/dL (11.27-16.99) L 02/11/23 07:57 Hct 28.9 % (37-53) L 02/11/23 07:57 MCV 95.7 fl (82-101) 02/11/23 07:57 MCH 31.1 pg (27-33) 02/11/23 07:57 MCHC 32.5 g/dL (30-55) 02/11/23 07:57 RDW 16.0 % (12.1-15.1) H 02/11/23 07:57 Plt Count 142 10^3/cmm (157-399) L 02/11/23 07:57 MPV 9.7 fL (7.4-10.4) 02/11/23 07:57 Neut % (Auto) 46.1 % 02/11/23 07:57 Lymph % (Auto) 29.8 % 02/11/23 07:57 [place] % (Auto) 22.0 % 02/11/23 07:57 Eos % (Auto) 1.4 % 02/11/23 07:57 Baso % (Auto) 0.0 % 02/11/23 07:57 Neut # (Auto) 0.65 10^3/uL (1.8-7.7) L* 02/11/23 07:57 Lymph # (Auto) 0.4 10^3/uL (0.8-4.8) L 02/11/23 07:57 [place] # (Auto) 0.3 10^3/uL (0.2-0.9) 02/11/23 07:57 Eos # (Auto) 0.0 10^3/uL (0.0-0.8) 02/11/23 07:57 Baso # (Auto) 0.0 10^3/uL (0.0-0.1) 02/11/23 07:57 Nucleated RBC % (auto) 0 % 02/11/23 07:57 Nucleated RBCs # 0.0 /100WBC 02/11/23 07:57 Sodium 142 mmol/L (136-145) 02/11/23 07:57 Potassium 3.0 mmol/L (3.5-5.1) L 02/11/23 07:57 Chloride 105 mmol/L (98-107) 02/11/23 07:57 Carbon Dioxide 24 mmol/L (22-29) 02/11/23 07:57 Anion Gap 16.0 (5-19) 02/11/23 07:57 BUN 4 mg/dL (8-23) L 02/11/23 07:57 Creatinine 0.5 mg/dL (0.7-1.2) L 02/11/23 07:57 GFR Calculation 164.9 mL/min (90-130) H 02/11/23 07:57 Glucose 122 mg/dL (65-115) H 02/11/23 07:57 Calculated Osmolality 292 mOsm/kg (285-295) 02/11/23 07:57 Lactic Acid 1.7 mmol/L (0.5-2.2) 02/11/23 08:53 Calcium 9.2 mg/dL (8.5-10.5) 02/11/23 07:57 Total Bilirubin 0.6 mg/dL (0.15-1.2) 02/11/23 07:57 AST 18 U/L (0-40) 02/11/23 07:57 ALT 8 U/L (0-41) 02/11/23 07:57 Alkaline Phosphatase 76 U/L (40-130) 02/11/23 07:57 Total Protein 6.5 g/dL (6.6-8.7) L 02/11/23 07:57 Albumin 3.8 g/dL (3.5-5.2) 02/11/23 07:57 Globulin 2.7 g/dL (1.3-4.6) 02/11/23 07:57 Urine Color Yellow (Yellow) 02/11/23 09:25 Urine Appearance Sl hazy (CLEAR) A 02/11/23 09:25 Urine pH 9 (5-7) H 02/11/23 09:25 Ur Specific [place] 1.015 (1.005-1.030) 02/11/23 09:25 Urine Protein Neg (Negative) 02/11/23 09:25 Urine Glucose (UA) Norm (Normal) 02/11/23 09:25 Urine Ketones 1+ (Negative) H 02/11/23 09:25 Urine Blood Neg (Negative) 02/11/23 09:25 Urine Nitrate Negative (Negative) 02/11/23 09:25 Urine Bilirubin Neg (Negative) 02/11/23 09:25 Prot Sulfosalicylic Acd Negative (Negative) 02/11/23 09:25 Urine Urobilinogen Norm mg/dL (Negative) 02/11/23 09:25 Ur Leukocyte Esterase Negative (Negative) 02/11/23 09:25 Urine RBC None /hpf (0-2) 02/11/23 09:25 Urine WBC Rare /hpf (0-5) 02/11/23 09:25 Ur Squamous Epith Cells Rare /hpf (0-5) 02/11/23 09:25 Amorphous Sediment 1+ /hpf 02/11/23 09:25 Urine Bacteria Trace /hpf (NONE) 02/11/23 09:25 Urine Mucus 1+ /hpf 02/11/23 09:25 Vitals Last Vital Signs Temp 98 F 02/13/23 12:43 Pulse 73 02/13/23 12:43 Resp 16 02/13/23 13:07 BP 164/95 02/13/23 12:43 Pulse Ox 98 02/13/23 12:43 O2 Del Method Room Air 02/13/23 12:43 Discharge Plan Discharge Patient Disposition: Hospice - Medical Facility Condition: Stable Prescriptions: Discontinued pantoprazole [Protonix] 40 mg tablet,delayed release (DR/EC) 40 mg PO BIDWMEAL Qty: 60 6RF dronabinol 5 mg capsule 5 mg PO BID Qty: 60 0RF Rx Instructions: administer before lunch and evening meal/dinner polyethylene glycol 3350 [Miralax] 17 gram/dose powder 4 g PO DAILY PRN (Reason: Constipation) ondansetron 8 mg tablet,disintegrating 8 mg PO TID PRN (Reason: nausea and vomiting) Qty: 30 3RF Lonsurf 15-6.14 mg tablet 2 tab PO BID Qty: 40 0RF Rx Instructions: must take within 1 hr after completion of meal Take days 1-5 & 8-12 of a 28 day cycle morphine 30 mg tablet 60 mg PO QID PRN (Reason: pain) 30 Days Qty: 240 0RF amlodipine 5 mg Tablet 2.5 mg PO DAILY Qty: 30 3RF Discharge Orders: Discharge Order (Routine); Ordered 02/13/23 Ordered By: Lloly Reynoso Referrals: Luis Topete MD [Primary Care Provider] - Discharge Attestations Time Spent in Discharge Care*: greater than 30 min Quality Metrics Clinical Quality Measures [ No reported AMI, CVA or VTE this stay] Coding Level of Care Code Acute Code for Chg Fwd Diagnoses Intractable nausea and vomiting R11.2 Pancytopenia D61.818 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
--- NOTE | 2023-02-13 14:05 | P.HP_ITS ---
Providers/Chief Complaint Admitting Physician: Zoran Kaur DO Primary Care Provider: Luis Topete MD Chief Complaint: NV/cancer pt History of Present Illness Patient is a 67-year-old male with stage IV colon cancer, details as per my discharge summary from earlier today. He is being transitioned to general inpatient hospice from the hospitalist service today. Patient is currently on comfort care/ palliative management. He is disoriented, cachectic, confused and lethargic. Review of Systems General: Reports: Other Medications/Allergies Home Medications Medication Instructions Recorded Confirmed Last Taken Type amlodipine 5 mg tablet 2.5 mg PO DAILY #30 tabs 07/12/22 02/11/23 02/10/23 Rx polyethylene glycol 3350 17 4 g PO DAILY PRN Constipation 11/14/22 02/11/23 02/10/23 History gram/dose oral powder (Miralax) ondansetron 8 mg disintegrating 8 mg PO TID PRN nausea and 12/03/22 02/11/23 Unknown Rx tablet vomiting #30 tabs trifluridine 15 mg-tipiracil 6.14 2 tab PO BID #40 tabs 01/11/23 02/11/23 Unknown Rx mg tablet (Lonsurf) dronabinol 5 mg capsule 5 mg PO BID #60 caps 01/20/23 02/11/23 02/10/23 Rx morphine 30 mg immediate release 60 mg PO QID PRN pain 30 days #240 01/20/23 0 02/11/23 02/10/23 Rx tablet tabs pantoprazole 40 mg tablet,delayed 40 mg PO BIDWMEAL #60 tabs 01/20/23 02/11/23 02/10/23 Rx release (Protonix) Allergies Allergy/AdvReac Type Severity Reaction Status Date / Time No Known Allergies Allergy Verified 01/18/23 08:37 PFSH Acute PFSH: Medical History BPH (benign prostatic hyperplasia) 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, stomach and omentum Colon cancer Degenerative arthritis Dyslipidemia GERD (gastroesophageal reflux disease) HTN (hypertension), benign Surgical History H/O: vasectomy Port-A-Cath in place (02/18/21) S/P right hemicolectomy extended, with en bloc excision of abdominal wall, stomach, and omentum Status post colonoscopy (06/30/21) Family History Father Cancer Lung Grandfather Cancer Lung Brother Cancer Lung Grandmother Hypertension Denies family history of Diabetes CAD (coronary artery disease) Clotting disorder Dementia Hyperlipidemia Psychiatric illness Chronic kidney disease (CKD) Suicide Anesthesia complication Bleeding disorder Lung disease Stroke Social History Smoking and tobacco status: former smoker (quit in 1997) Alcohol intake: current Alcohol intake frequency: 0-2 Drinks per Day Alcohol type: beer Desire information about alcohol rehabilitation?: No Substance/Drug Use: never Desire information about substance/drug rehabilitation?: No Adopted: No Caregiver/support person: No Lives independently: Yes Housing: House Marital status: Unknown Number of children: 1 Current occupational status: previously employed Current gender identity: Male Agree to transfusion: Yes Vitals/I&O/Wt Last Vital Signs Temp 98 F 02/13/23 12:43 Pulse 73 02/13/23 12:43 Resp 16 02/13/23 13:07 BP 164/95 02/13/23 12:43 Pulse Ox 98 02/13/23 12:43 O2 Del Method Room Air 02/13/23 12:43 02/12/23 02/13/23 02/13/23 22:59 06:59 14:59 Intake Total 1132.2 / 3093.2 938.333 / 4031.533 101 / 101 Output Total 525 / 525 Balance 607.2 / 2568.2 938.333 / 3506.533 101 / 101 Physical Exam Narrative: General: No acute distress, AO x1, lethargic HEENT: PERRLA, pupils bilaterally equal and reactive, pallors not present Chest: Normal vesicular breath sounds, no added sounds, equal good air entry bilaterally CVS: S1-S2 regular, no murmurs, no tachycardia, no gallops, no rubs Abdomen: Soft, nontender, no organomegaly, bowel sounds present Neuro: No focal motor deficits, oriented x 1, disoriented, letahrgic Data 02/11/23 07:57 02/11/23 07:57 Micro: Microbiology 02/11/23 09:30 Blood Culture - Preliminary Blood NEGATIVE TO DATE 02/11/23 09:01 Blood Culture - Preliminary Blood NEGATIVE TO DATE A&P Assessment and plan (1) Hospice care patient: Transitioned to inpatient hospice Pain and anxiety management per hospice team (2) Intractable nausea and vomiting: (3) 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
[2023-02-13 16:22] VITALS: RESP 16
== END 2023-02-13 16:23 | disposition hospice, inpatient (51) | DRG 392 ==
LOC: ER 11:13 → MEDSURG 11:36
PROVIDERS: Admitting Provider Internal Medicine; Emergency Provider Family Medicine; PCP Internal Medicine Medical Oncology; Visit Provider Internal Medicine
DX: K59.03 Drug induced constipation (principal); C18.4 Malignant neoplasm of transverse colon; C77.2 Secondary and unspecified malignant neoplasm of intra-abdominal lymph nodes; D61.818 Other pancytopenia; T40.2X5A Adverse effect of other opioids, initial encounter; Z90.49 Acquired absence of other specified parts of digestive tract; K21.9 Gastro-esophageal reflux disease without esophagitis; Z87.891 Personal history of nicotine dependence
CPT/HCPCS: 36415; 71045; 74177; 80053; 81001; 83605; 85025; 87040; 93005; 96360; 96365; 96366; 96372; 96375; 99285; 99291; J1642; J1644; J1885; J2060; J2212; J2270; J2405; J2550; J2765; J2920; J2930; J3411; J3480; J3490; J7030; Q9967

== ENCOUNTER 2023-02-13 16:26 | Inpatient (IN) | payer OTHER, SELFPAY ==
[2023-02-13] MEDS: morphine 4 mg/mL SDV 1 mL IVP (19:54)
[2023-02-13] MEDS: ondansetron 2 mg/ML SDV 2 mL 8 MG IVP (19:55)
[2023-02-13] MEDS: LORazepam 2 mg/mL oral liquid (mL) 1 MG PO (20:03)
[2023-02-13] MEDS: OLANZapine 5 mg ODT PO (20:03)
--- NOTE | 2023-02-14 00:34 | PC.NURSE ---
pt has refused vitals again this shift states that he does not want to be bother wants to sleep as much as he can
[2023-02-14] MEDS: OLANZapine 5 mg ODT PO ×4 (00:52→17:59)
[2023-02-14] MEDS: LORazepam 2 mg/mL oral liquid (mL) 1 MG PO ×4 (00:52→17:58)
[2023-02-14] MEDS: ondansetron 2 mg/ML SDV 2 mL 8 MG IVP ×4 (00:57→17:58)
--- NOTE | 2023-02-14 08:39 | PC.PHAR ---
PT UNABLE TO VERIFY MEDICATIONS. [facility] DOES NOT FILL MEDS FOR THIS PT. AND [facility] HAS NOT FILLED SINCE 2020. MEDS ON LIST FROM MAIN CAMPUS FROM DR KLEIN HAVE BEEN ADDED WITH FILL DATES. 02/14/23
[2023-02-14 12:14] VITALS: RESP 18
[2023-02-14] MEDS: morphine 4 mg/mL SDV 1 mL IVP ×2 (12:14→18:53)
--- NOTE | 2023-02-14 13:00 | PM.PN ---
Subjective Subjective: Called to check on pt with bedside RN and electronic warfare linguist Vitals/I&O/Wt Last Vital Signs Temp 98.0 F 02/14/23 16:00 Pulse 88 02/14/23 16:00 Resp 16 02/15/23 15:50 BP 118/68 02/14/23 16:00 Pulse Ox 99 02/14/23 16:00 O2 Del Method Room Air 02/14/23 16:00 A&P Assessment and plan (1) Hospice care patient: Pt requires [facility] hospice due to intractable nausea and vomiting requiring multiple medications and frequent monitoring. (2) Intractable nausea and vomiting: on zofran, scopolamine patch, ativan and zyprexa.This regimen is causing sleepiness and he is resting. No vomiting since yesterday afternoon. 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
[2023-02-14 16:00] VITALS: BP 118/68; PULSE 88; RESP 14; TEMP 36.7; O2SAT 99
[2023-02-14 18:53] VITALS: RESP 24
[2023-02-15] MEDS: OLANZapine 5 mg ODT PO ×3 (00:39→12:07)
[2023-02-15] MEDS: LORazepam 2 mg/mL oral liquid (mL) 1 MG PO ×2 (00:40→06:30)
[2023-02-15] MEDS: ondansetron 2 mg/ML SDV 2 mL 8 MG IVP ×3 (00:40→12:07)
[2023-02-15 08:20] VITALS: RESP 16
[2023-02-15] MEDS: morphine 4 mg/mL SDV 1 mL IVP ×3 (08:20→14:16)
--- NOTE | 2023-02-15 10:00 | PC.CHAP ---
Pastoral Care Encounter/Spiritual Assessment Type of Contact [] Declined dipper machine operator visit [] Patient/Family/Request visit [] Outpatient visit [] Follow-up visit [] Physician referral [] Code/Alert [x] Routine visit [] Staff referral [x] Actively dying [] Patient sleeping [x] Family support [] [] Out of room [] Palliative care [] [] Receiving care in room [] Pre-surgical visit [] Trauma [] Long length of stay [] ICU visit [] Other: Relational/Emotional Strength [] Patient feels connected with others/family/visitors/staff [] Distress [] Loneliness/isolation [] Abandonment Spirituality of Patient [] Person of Madeline [] Attends Druze of their Madeline [] Believes in Prayer [] Reads Bible or Sikhism materials [x] There are Spiritual issues to be addressed Program Coordinator For Residence Life Interventions [x] Prayer [] Active listening [] Non-anxious presence [x] Spiritual/emotional support [] Crisis/trauma care [] Spiritual counseling [] Bereavement support [] Provided bereavement packet [] Provided Bible/devotional materials [] Provided toy/stuffed animal, coloring book to patient or family member [] Provided Communion [] Anointing/Bernie [] Salvation [] Completed spiritual assessment [] Other: Impact on Illness or Injury [] Angry [] Fearful [] Anxious [] Often cries [] Exhaustion [] Unable to work [] Unable to attend temple [] Unable to walk/stand [] Unable to read [] Unable to drive [] Unable to eat/drink [] Unable to sleep [] Unable to be with family [] Patient intubated [] Other: Summary patient was non responsive , there were family and friend in room , prayed with them . Time spent with patient 10 min
--- NOTE | 2023-02-15 12:03 | PM.DCS ---
Discharge Providers Date of Admission: 02/13/23 16:26 Date of Discharge: February 15, 2023 Attending Provider at Admission: Zoran Kaur DO Attending Provider at Discharge: Zoran Kaur DO Consults: none Primary Care Provider: Luis Topete MD Reason for Visit Reason for Visit: general in hospice Brief History: intractable n/v Hospital Course Hospital Course Ham was admittd to [facility] [place] due to uncontrolled n/v due to probable semi or complete colonic/small bowel obstruction due to Stage IV colon CA. He was placed on scheduled ativan IV, Zofran 8 mg IV and Olanzapine 5 mg ODT Q6H. He had one more episode of vomiting on this regimen within 1st 24 hr. Then no further n/ for 24 hr. He experienced a few hours of confusion/aggitation which resolved. This was most likely related to combination of medications and tolerance adjustment. He is able to ambulate to bathroom and he is comfortable and resting per reports. He will be discharged to home with famiy/friend assistance with [facility] hospice services. Discharge Data Vitals Last Vital Signs Temp 98.0 F 02/14/23 16:00 Pulse 88 02/14/23 16:00 Resp 16 02/15/23 08:20 BP 118/68 02/14/23 16:00 Pulse Ox 99 02/14/23 16:00 O2 Del Method Room Air 02/14/23 16:00 Discharge Plan Discharge Patient Disposition: Hospice - Home Condition: Stable Prescriptions: New lidocaine 5 % Adhesive Patch,Medicated 1 patch topical [id number] Qty: 30 0RF olanzapine 5 mg Tablet,Disintegrating 5 mg PO Q6H Qty: 100 0RF Blistex Medicated 0.6-0.5-1.1-0.5 % Ointment 1 applic topical Q2H PRN (Reason: Dry Lips) Qty: 1 0RF Biotene Moisturizing Mouth [place],Non-Aerosol 1 spray mucous membrane Q2H PRN (Reason: Dry Mouth) Qty: 1 0RF ondansetron 8 mg tablet,disintegrating 8 mg PO Q6H Qty: 100 0RF Discontinued morphine concentrate 100 mg/5 mL (20 mg/mL) solution 20 mg sublingual DIRECTED PRN (Reason: Pain/SOB) 7 Days Qty: 60 0RF Rx Instructions: start 0.5 ml q3h prn pain, may increase to 1ml q3h pain bisacodyl 10 mg suppository 10 mg DE DAILY PRN (Reason: constipation) Qty: 5 0RF Rx Instructions: 1 suppository per rectum every day PRN for constipation. atropine 1 % drops 4 drp sublingual Q4H PRN (Reason: secretions) Qty: 5 0RF Rx Instructions: 4 drops SL q 4 hours PRN for terminal congestion/excessive secretions. lorazepam 2 mg/mL concentrate 2 mg sublingual Q4H Qty: 60 0RF Rx Instructions: 0.5 ml q6H, may increase to q4H dronabinol 5 mg capsule See Rx Instructions .ROUTE .COMPLEX Rx Instructions: 5 mg orally twice daily before lunch and evening meal. amlodipine 5 mg tablet 2.5 mg PO DAILY morphine 30 mg tablet 60 mg PO QID PRN (Reason: Pain) pantoprazole 40 mg tablet,delayed release (DR/EC) 40 mg PO DAILY Discharge Orders: Discharge Order (Routine); Ordered 02/15/23 Ordered By: Zoran Kaur Discharge Diet: Advance as tolerated Discharge Activity: Increase activity as tolerated Patient Instructions: Opioid Safety Discharge Attestations Time Spent in Discharge Care*: less than 30 min Quality Metrics Clinical Quality Measures [ No reported AMI, CVA or VTE this stay] Coding Level of Care Code Acute Code for Chg Fwd Diagnoses
[2023-02-15] MEDS: LORazepam 2 mg/mL INJ 1 mL 1 MG PO (12:53)
[2023-02-15 15:50] VITALS: RESP 16
== END 2023-02-15 15:54 | disposition hospice, home (50) | DRG 392 ==
PROVIDERS: Admitting Provider Internal Medicine; PCP Internal Medicine Medical Oncology; Visit Provider Internal Medicine
DX: R11.2 Nausea with vomiting, unspecified (principal); D61.818 Other pancytopenia; C18.4 Malignant neoplasm of transverse colon; C77.2 Secondary and unspecified malignant neoplasm of intra-abdominal lymph nodes; Z51.5 Encounter for palliative care; K59.03 Drug induced constipation; T40.2X5A Adverse effect of other opioids, initial encounter; Z79.899 Other long term (current) drug therapy; N40.0 Benign prostatic hyperplasia without lower urinary tract symptoms; E78.5 Hyperlipidemia, unspecified; K21.9 Gastro-esophageal reflux disease without esophagitis; I10 Essential (primary) hypertension; Z90.49 Acquired absence of other specified parts of digestive tract; Z87.891 Personal history of nicotine dependence
CPT/HCPCS: J2060; J2270; J2405

== ENCOUNTER 2023-02-27 16:15 | Outpatient (CLI) | payer OTHER, SELFPAY ==
[2023-02-27 17:37] LABS: Add Urine Microscopic? YES; Bilirubin Urine 1+ (Negative); Blood Urine Neg (Negative); Glucose Urine UA Norm (Normal); Ketones Urine 1+ (Negative); Leukocyte Esterase Urine Negative (Negative); Nitrate Urine Negative (Negative); Protein Urine Neg (Negative); Urine Appearance Hazy (CLEAR); Urine Color Dark Yellow (Yellow); Urobilinogen Urine 1 mg/dL (Negative); pH Urine 5 (5-7)
[2023-02-27 17:39] LABS: WBC Urine 0-4 /hpf (0-5)
[2023-02-27 17:40] LABS: Add Urine Culture? No; Bacteria Urine TRACE /hpf; Calcium Oxalate Crystals Urine 40-55 /hpf; Mucus Urine 2+ /hpf
== END 2023-02-27 16:16 | disposition home or self-care (01) ==
LOC: LAB 16:16
PROVIDERS: PCP Internal Medicine Medical Oncology; Visit Provider Internal Medicine
DX: Z01.89 Encounter for other specified special examinations (principal)
CPT/HCPCS: 81001